=== PATIENT | male | born 1965 | race Caucasian/White ===

== ENCOUNTER 2016-06-19 10:09 | Inpatient (IN) | payer MEDICAID ==
[~2016-06-19] VITALS: Ht 188 cm; Wt 109.4 kg
[~2016-06-19 10:09] MED LIST: ALBU8.5H5 INH; AMLO5TAB66 PO; BUSP15TA3 PO; CARB200T6 PO; CARV25TA28 PO; CLON0.2T73 PO; CLOP75TA19 PO; CYCL-375 PO; DIPH50CA34 PO; FAMO40TA7 PO; FLUT1DIS INH; HYDR-4078 PO; INSU100I3 SQ; INSU300I SQ; LORA0.5T2 PO; MOME17SP7 EA NOSTRIL; NITR0.6T SL; PROM25TA7 PO; RABE20TA19 PO; RANI150C11 PO; SIMV80TA54 PO; SODI1TAB3 PO; TRAM50TA4 PO; VALS320T7 PO; ZIPR80CA PO
--- OUTSIDE RECORDS SUMMARY | 2016-06-19 10:17 | XMS REPORT ---
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
--- OUTSIDE RECORDS SUMMARY | 2016-06-19 10:17 | XMS REPORT ---
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
--- OUTSIDE RECORDS SUMMARY | 2016-06-19 10:17 | XMS REPORT | Referral Summary ---
Author Author [facility] Organization [facility] Address Unknown Phone Unavailable Care Team Providers Care Finished Goods Planner Name Role Phone Courtney Barry Primary Care Physician [phone] Encounter VC Date(s): 02/11/15 - 02/11/15 [facility] [address] [place] [id number] Discharge Diagnosis: Closed nondisp fracture of proximal phalanx of lesser toe of left foot Discharge Disposition: 01-Home or Self Care Attending Physician: Marni Lepe PA-C Admitting Physician: Marni Lepe PA-C Vital Signs Most recent to 1 oldest [Reference Range]: Peripheral Pulse 72 bpm Rate [60-100 bpm] (02/11/15 8:24 AM) Blood Pressure 140/80 mmHg [90-140/60-90 mmHg] (02/11/15 8:24 AM) Problem List Condition Effective Dates Status Health Status Informant Allergy to Active environmental factors(Confirmed) Anxiety(Confirmed) Active Arthritis(Confirmed) Active Asthma(Confirmed) Active Chronic kidney Active disease (CKD), stage II (mild)(Confirmed) Chronic low back Active pain(Confirmed) CAD (coronary artery Active disease)(Confirmed) Depression(Confirmed Active ) Diabetes(Confirmed) Active High risk Active medications (not anticoagulants) long-term use(Confirmed) Fibromyalgia(Confirm Active ed) Gastroesophageal Active reflux disease(Confirmed) Headache(Confirmed) Active Hyperlipidemia(Confi Active rmed) Hypertension(Confirm Active ed) Hyponatremia(Confirm Active ed) Irritable bowel Active disease(Confirmed) Migraine Active headache(Confirmed) Noncompliance(Confir Active med) Chronic Active insomnia(Confirmed) SIADH (syndrome of Active inappropriate ADH production)(Confirme d) DM (diabetes Active mellitus), type 1, uncontrolled(Confirm ed) Allergies, Adverse Reactions, Alerts Substance Reaction Severity Status DULoxetine uNspecfied Active erythromycin uNspecfied Active fluconazole uNspecfied Active ketorolac uNspecfied Active Latex Urticaria (hives) Medium Active metoclopramide itchy Medium Active nalbuphine uNspecfied Active penicillin Adverse Reaction Mild Active sulfamethoxazole upset stomach/adverse reaction Mild Active sulfanilamide topical Active Medications Abilify 2 mg oral tablet 1 tabs, Oral, Daily, from [place], 0 Refill(s) Start Date: 01/01/14 Status: Ordered AcipHex 20 mg oral delayed release tablet 1 tabs, Oral, Daily, # 90 tabs, 0 Refill(s), Pharmacy: [facility] [id number], 1 tabs Oral Daily Start Date: 08/12/13 Status: Ordered Aciphex 20 mg tablet,delayed release See Instructions, TAKE 1 TABLET BY MOUTH EVERY DAY., # 90 tabs, 1 Refill(s), eRx : [facility] [id number], TAKE 1 TABLET BY MOUTH EVERY DAY. Start Date: 07/27/14 Status: Ordered Aciphex 20 mg tablet,delayed release See Instructions, TAKE 1 TABLET BY MOUTH EVERY DAY., # 90 tabs, eRx: [facility] [id number], TAKE 1 TABLET BY MOUTH EVERY DAY. Start Date: 01/08/15 Status: Ordered amLODIPine 5 mg oral tablet See Instructions, 1 TABS ORAL BID, # 180 tabs, eRx: [facility] [id number], 1 TABS ORAL BID Start Date: 02/08/15 Status: Ordered carBAMazepine 200 mg oral tablet See Instructions, TAKE 1& 1/2 TABLETS BY MOUTH EVERY MORNING, 1 TABLET AT NOON, AND 1 TABLET AT BEDTIME, # 105 tabs, eRx: [facility] [id number], TAKE 1& 1/ 2 TABLETS BY MOUTH EVERY MORNING, 1 TABLET AT NOON, AND 1 TABLET AT BEDTIME Start Date: 02/01/15 Status: Ordered cloNIDine 0.2 mg oral tablet See Instructions, TAKE 1 TABLET BY MOUTH TWICE A DAY., # 180 tabs, 1 Refill(s), eRx: [facility] [id number], TAKE 1 TABLET BY MOUTH TWICE A DAY. Start Date: 10/28/14 Status: Ordered Coreg 25 mg oral tablet See Instructions, 1 TABS ORAL TID, # 270 tabs, 1 Refill(s), Pharmacy: [facility] [id number], 1 TABS ORAL TID Start Date: 01/04/15 Status: Ordered cyclobenzaprine 10 mg oral tablet See Instructions, TAKE 1 TABLET BY MOUTH EVERY 8 HOURS NEEDED., # 90 tabs, 1 Refill(s), eRx: [facility] [id number], TAKE 1 TABLET BY MOUTH EVERY 8 HOURS NEEDED. Start Date: 01/13/15 Status: Ordered Diovan 320 mg oral tablet See Instructions, 1 TABS ORAL DAILY; MUST HAVE APPT PRIOR TO ADDITIONAL REFILLS , # 30 tabs, 2 Refill(s), eRx: [facility] [id number], 1 TABS ORAL DAILY; MUST HAVE APPT PRIOR TO ADDITIONAL REFILLS Start Date: 12/21/14 Status: Ordered diphenhydrAMINE 50 mg oral capsule See Instructions, 3 CAPSULE BY MOUTH AT BEDTIME FOR SLEEP., # 90 caps, eRx: [facility] [id number], 3 CAPSULE BY MOUTH AT BEDTIME FOR SLEEP. Start Date: 04/20/14 Status: Ordered doxepin 50 mg oral capsule 1 caps, Oral, Bedtime (once a day), [facility], # 14 caps, 0 Refill(s) Start Date: 08/22/13 Status: Ordered Drisdol 50,000 intl units (1.25 mg) oral capsule 1 caps, Oral, qWeek, # 13 caps, 0 Refill(s), Pharmacy: [facility] [address], 1 caps Oral qWeek Start Date: 04/23/14 Status: Ordered famotidine 40 mg oral tablet 1 tabs, Oral, Bedtime (once a day), 0 Refill(s) Start Date: 08/20/13 Status: Ordered Geodon 20 mg oral capsule caps, Oral, BID, 0 Refill(s) Start Date: 08/20/13 Status: Ordered Glucometer (DME) DME Item Freellite tests qid for dx 250.00 and 250.02, See Instructions, # 1 Each, 0 Refill(s), Supply Start Date: 08/20/13 Status: Ordered Lantus Solostar Pen 100 units/mL subcutaneous solution See Instructions, 65 UNITS SUBCUTANEOUS BEDTIME (ONCE A DAY),INSTR:30 DAY SUPPLY , # 30 unknown unit, 2 Refill(s), eRx: [facility] [id number], 65 UNITS SUBCUTANEOUS BEDTIME (ONCE A DAY),INSTR:30 DAY SUPPLY Start Date: 11/17/14 Status: Ordered LORazepam 2 mg oral tablet 1 tabs, Oral, TID, 0 Refill(s) Start Date: 08/20/13 Status: Ordered Mag-Ox 400 1 tabs, Oral, BID, 0 Refill(s) Start Date: 08/20/13 Status: Ordered MiraLax oral powder for reconstitution See Instructions, TAKE (17G) BY ORAL ROUTE EVERY DAY MIXED WITH 8 OZ. WATER, JUICE, SODA, COFFEE OR TEA NEEDED FOR CONSTIPATION, # 1 bottles, 2 Refill(s) , eRx: [facility] [id number], TAKE (17G) BY ORAL ROUTE EVERY DAY MIXED WITH 8 OZ. WATER, J... Start Date: 03/19/14 Status: Ordered mupirocin 2% topical cream philip, Topical, TID, 0 Refill(s) Start Date: 08/20/13 Status: Ordered Nasonex 50 mcg/inh nasal spray See Instructions, INHALE 2 PUFFS TWICE A DAY., # 17 unknown unit, 3 Refill(s), eRx: [facility] [id number], INHALE 2 PUFFS TWICE A DAY. Start Date: 10/05/14 Status: Ordered nitroglycerin 0.6 mg sublingual tablet 1 tabs, SubLingual, q5min, as needed for chest pain, # 100 tabs, 0 Refill(s) Start Date: 08/20/13 Status: Ordered [place] 10 mg-325 mg oral tablet 1 tabs, Oral, q6hr, - MUST LAST 30 DAYS -, # 60 tabs, 0 Refill(s) Start Date: 02/08/15 Status: Ordered NovoLOG FlexPen 100 units/mL subcutaneous solution See Instructions, 34 UNITS TID WITH MEALS, # 3 unknown unit, 1 Refill(s), eRx: [facility] [id number], 34 UNITS TID WITH MEALS Start Date: 01/13/15 Status: Ordered Plavix 75 mg oral tablet See Instructions, 1 TABS ORAL DAILY, # 30 tabs, 2 Refill(s), eRx: [facility] [id number], 1 TABS ORAL DAILY Start Date: 12/21/14 Status: Ordered ProAir HFA 90 mcg/inh inhalation aerosol See Instructions, INHALE 2 PUFFS BY INHALATION 4 TIMES A DAY., # 1 inhalers, 1 Refill(s), eRx: [facility] [id number], INHALE 2 PUFFS BY INHALATION 4 TIMES A DAY. Start Date: 01/13/15 Status: Ordered promethazine 25 mg oral tablet See Instructions, TAKE 1 TO 2 TABLETS BY MOUTH EVERY 8 HOURS NEEDED FOR NAUSEA, # 120 tabs, eRx: [facility] [id number], TAKE 1 TO 2 TABLETS BY MOUTH EVERY 8 HOURS NEEDED FOR NAUSEA Start Date: 02/08/15 Status: Ordered ranitidine 150 mg oral capsule See Instructions, TAKE 1 CAPSULE BY MOUTH EVERY DAY., # 90 caps, 1 Refill(s), eRx: [facility] [id number], TAKE 1 CAPSULE BY MOUTH EVERY DAY. Start Date: 10/28/14 Status: Ordered traMADol 50 mg oral tablet 1-2 tabs, Oral, q8hr, as needed for pain, SHAHRAM-MUST LAST 30 DAYS, # 180 tabs, 0 Refill(s) Start Date: 02/08/15 Status: Ordered Zocor 80 mg oral tablet See Instructions, TAKE 1 TABLET BY MOUTH EVERY DAY., # 90 tabs, eRx: [facility] [id number], TAKE 1 TABLET BY MOUTH EVERY DAY. Start Date: 01/04/15 Status: Ordered Results No data available for this section Immunizations Vaccine Date Refusal Reason influenza virus vaccine, inactivated 12/22/14 influenza virus vaccine, inactivated 01/01/14 influenza virus vaccine, live 12/25/12 influenza virus vaccine, live 12/11/11 zoster vaccine live 12/26/12 Procedures Procedure Date Related Diagnosis Body Site Cardiac catheterization #21 2009 Stent placement2 2010 Cholecystectomy3 2005 Cardiac catheterization #14 2002 Fusion - disc5 1980 1Carotid artery disease 2Carotid artery disease 3Cholelithiasis 4Coronary artery disease 5Back pain Social History Social History Type Response Smoking Status Former smoker; Type: Cigarettes Assessment and Plan Extracted from: Title: Ambulatory Patient Education Author: Marni Lepe PA-C Date : 02/11/15 Family Medicine Toe Fracture Your caregiver has diagnosed you as having a fractured toe. A toe fracture is a break in the bone of a toe. "Ina taping" is a way of splinting your broken toe , by taping the broken toe to the toe next to it. This "ian taping" will keep the injured toe from moving beyond normal range of motion. Ian taping also helps the toe heal in a more normal alignment. It may take 6 to 8 weeks for the toe injury to heal. HOME CARE INSTRUCTIONS Leave your toes taped together for as long as directed by your caregiver or until you see a doctor for a follow-up examination. You can change the tape after bathing. Always use a small piece of gauze or cotton between the toes when taping them together. This will help the skin stay dry and prevent infection. Apply ice to the injury for 15-20 minutes each hour while awake for the first 2 days. Put the ice in a plastic bag and place a towel between the bag of ice and your skin. After the first 2 days, apply heat to the injured area. Use heat for the next [address] heating pad on the foot or soak the foot in warm water as directed by your caregiver. Keep your foot elevated as much as possible to lessen swelling. Wear sturdy, supportive shoes. The shoes should not pinch the toes or fit tightly against the toes. Your caregiver may prescribe a rigid shoe if your foot is very swollen. Your may be given crutches if the pain is too great and it hurts too much to walk. Only take uugo-eey-gyqwata or prescription medicines for pain, discomfort, or fever as directed by your caregiver. If your caregiver has given you a follow-up appointment, it is very important to keep that appointment. Not keeping the appointment could result in a chronic or permanent injury, pain, and disability. If there is any problem keeping the appointment, you must call back to this facility for assistance. SEEK MEDICAL CARE IF: You have increased pain or swelling, not relieved with medications. The pain does not get better after 1 week. Your injured toe is cold when the others are warm. SEEK IMMEDIATE MEDICAL CARE IF: The toe becomes cold, numb, or white. The toe becomes hot (inflamed) and red. Document Released: 02/23/2001 Document Revised: 05/20/2012 Document Reviewed: [facility] Patient Information 2015 [employer]. This information is not intended to replace advice given to you by your health care provider. Make sure you discuss any questions you have with your health care provider. No follow up information was provided. Extracted from: Title: Office Visit Note Author: Marni Lepe PA-C Date: 02/11/15 Assessment/Plan Closed nondisp fracture of proximal phalanx of lesser toe of left foot I wanted to make sure there was not any rotation or worsening due to his issues with neuropathy. It does not look much different than previous, which I think is good at this point. D/w him that he will most likely be in the boot for 4-6 weeks total. I would like him to continue wearing the boot, and follow up in 3 weeks to see how he is doing. I did offer to set him up with an orthopedist if he would like a second opinion, but he declined for now. Let us know if there is any change. Ordered: Office Visit Level 3 Est 70978 Pain in toe of left foot See above Ordered: Office Visit Level 3 Est 87331
--- OUTSIDE RECORDS SUMMARY | 2016-06-19 10:17 | XMS REPORT ---
Author Author Josephine Kim Organization eClinicalWorks Address Unknown Phone Unavailable Care Team Providers Care Photogeologist Name Role Phone Josephine Kim CP Unavailable Allergies No Known Allergies Problems Problem Type Condition ICD-9 Code Onset Dates Condition Status Problem Dysthymic disorder 300.4 Active Problem Dependent personality disorder 301.6 Active Problem Major depressive disorder, recurrent episode, severe, specified as with psychotic behavior 296.34 Active Medications Medication Code System Code Instructions Start Date End Date Status Dosage Geodon [facility] [address]-77 80 MG Orally At bedtime 2 capsules with food DiphenhydrAMINE HCl [facility] [address]-62 50 MG Orally Once a day for sleep 3 capsules at hs Abilify [facility] [address]-11 5 MG Orally Once a day 1 tab po at hs Results No Known Results Summary Purpose eClinicalWorks Submission
--- OUTSIDE RECORDS SUMMARY | 2016-06-19 10:17 | XMS REPORT ---
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
--- OUTSIDE RECORDS SUMMARY | 2016-06-19 10:17 | XMS REPORT ---
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
--- OUTSIDE RECORDS SUMMARY | 2016-06-19 10:17 | XMS REPORT ---
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 Assessment Major depressive disorder, recurrent, severe with psychotic symptoms F33.3 Active Assessment Dysthymic disorder F34.1 Active Medications Medication Code System Code Instructions Start Date End Date Status Dosage BusPIRone HCl [facility] [address]-01 15 MG Orally Three times a day 1 tablet Simvastatin [facility] [address]-04 80 MG Orally Once a day 1 tablet in the evening Trazodone HCl [facility] [address]-22 50 MG Orally Once a day as needed for sleep Jan 26, 2015 1-2 tablets at bedtime Ranitidine HCl [facility] [address]-52 150 MG Orally Once a day 1 capsule Geodon [facility] [address]-44 80 MG Orally At bedtime 2 capsules with food Promethazine HCl [facility] [address]-98 25 MG Orally PRN for nausea 1- 2 tabs every 8 hrs Lorazepam [facility] [address]-39 0.5 MG Orally up to three times daily as needed for anxiety 1 tablet Clopidogrel Bisulfate [facility] [address]-91 75 MG Orally Once a day 1 tablet Carvedilol [facility] [address]-08 25 MG Orally three times a day 1 tablet with food Carbamazepine [facility] [address]-82 200 MG Orally as directed 1 1/2 tabs in AM and 1 tablet at noon and bedtime Tramadol HCl [facility] [address]-30 50 MG Orally every 8 hrs 1 -2tabs as needed Hydrocodone-Acetaminophen [facility] [address]-23 10-325 MG Orally every 8 hrs 1 tablet as needed Amlodipine Besylate [facility] [address]-19 5 MG Orally twice a day 1 tablet DiphenhydrAMINE HCl [facility] [address]-50 50 MG Orally Once a day for sleep 3 capsules at hs Cyclobenzaprine HCl [facility] [address]-79 10 MG Orally every 8 hrs PRN 1 tablet Clonidine HCl [facility] [address]-75 0.2 MG Orally twice a day 1 tablet Rabeprazole Sodium [facility] [address]-34 20 MG Orally Once a day 1 tablet Procedures Procedure Coding System Code Date OFFICE VISIT, EST-MOD. COMPLEXITY (25 MIN) CPT-4 66594 Jan 26, 2015 Vital Signs Date/Time: Jan 26, 2015 Height 70.5 in Weight 242.4 lbs Temperature 99.0 F Blood Pressure Diastolic 88 mm Hg Blood Pressure Systolic 136 mm Hg Cardiac Monitoring Heart Rate 82 /min BMI 34.29 Index Respiratory Rate 18 /min Results No Known Results Summary Purpose eClinicalWorks Submission
--- OUTSIDE RECORDS SUMMARY | 2016-06-19 10:17 | XMS REPORT ---
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
--- OUTSIDE RECORDS SUMMARY | 2016-06-19 10:18 | XMS REPORT ---
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 [address]-93 20 MG Orally Once a day 1 tablet DiphenhydrAMINE HCl [facility] [address]-86 50 MG Orally Once a day for sleep 3 capsules at hs Promethazine HCl [facility] [address]-56 25 MG Orally PRN for nausea 1- 2 tabs every 8 hrs Hydrocodone-Acetaminophen [facility] [address]-38 10-325 MG Orally every 8 hrs 1 tablet as needed Simvastatin [facility] [address]-69 80 MG Orally Once a day 1 tablet in the evening Lorazepam [facility] [address]-46 0.5 MG Orally up to three times daily as needed for anxiety (may take 2 tabs at H.S. PRN) 1 tablet Ranitidine HCl [facility] [address]-61 150 MG Orally Once a day 1 capsule Clonidine HCl [facility] [address]-26 0.2 MG Orally twice a day 1 tablet Geodon [facility] [address]-37 80 MG Orally At bedtime 2 capsules with food BusPIRone HCl [facility] [address]-22 15 MG Orally Three times a day 1 tablet Carbamazepine [facility] [address]-48 200 MG Orally as directed 1 1/2 tabs in AM and 1 tablet at noon and bedtime Carvedilol [facility] [address]-18 25 MG Orally three times a day 1 tablet with food Cyclobenzaprine HCl [facility] [address]-85 10 MG Orally every 8 hrs PRN 1 tablet Amlodipine Besylate [facility] [address]-68 5 MG Orally twice a day 1 tablet Clopidogrel Bisulfate [facility] [address]-03 75 MG Orally Once a day 1 tablet Trazodone HCl [facility] [address]-08 50 MG Orally Once a day as needed for sleep Jan 26, 2015 1-2 tablets at bedtime Tramadol HCl [facility] [address]-49 50 MG Orally every 8 hrs 1 -2tabs as needed Procedures Procedure Coding System Code Date OFFICE VISIT, EST-MOD. COMPLEXITY (25 MIN) CPT-4 37016 Mar 16, 2015 Vital Signs Date/Time: Mar 16, 2015 Height 70.5 in Weight 242.5 lbs Temperature 98.7 F Blood Pressure Diastolic 70 mm Hg Blood Pressure Systolic 110 mm Hg Cardiac Monitoring Heart Rate 80 /min BMI 34.30 Index Respiratory Rate 20 /min Results No Known Results Summary Purpose eClinicalWorks Submission
--- OUTSIDE RECORDS SUMMARY | 2016-06-19 10:18 | XMS REPORT | Referral Summary ---
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 Machine Name Role Phone LindakathyCourtney hare Primary Care Physician [phone] Encounter Date(s): 05/24/15 - 05/24/15 [facility] [address] [place] [id number]- Discharge Diagnosis: Diabetes Discharge Diagnosis: Chronic pain Discharge Disposition: 01-Home or Self Care Attending Physician: Marni Lepe PA-C Admitting Physician: Marni Lepe PA-C Vital Signs Most recent to 1 oldest [Reference Range]: Peripheral Pulse 68 bpm Rate [60-100 bpm] (05/24/15 8:17 AM) Respiratory Rate 18 br/min [14-20 br/min] (05/24/15 8:17 AM) Blood Pressure 99/62 mmHg [90-140/60-90 mmHg] (05/24/15 8:17 AM) Problem List Condition Effective Dates Status [...] reaction Mild Active sulfanilamide topical Active Medications AcipHex 20 mg oral delayed release tablet 1 tabs, Oral, Daily, # 90 tabs, 0 Refill(s), Pharmacy: [facility] [id number], 1 tabs Oral Daily Start Date: 08/12/13 Status: Ordered Advair Diskus 100 mcg-50 mcg inhalation powder 1 puffs, Inhalation, BID, # 60 Each, 3 Refill(s), Pharmacy: [facility] [id number] Start Date: 03/17/15 Status: Ordered amLODIPine 5 mg oral tablet See Instructions, 1 TABS ORAL BID, # 180 tabs, 1 Refill(s), eRx: [facility] [id number], 1 TABS ORAL BID Start Date: 05/04/15 Status: Ordered busPIRone 15 mg, Oral, TID, 0 Refill(s) Start Date: 05/19/15 Status: Ordered carBAMazepine 200 mg oral tablet See Instructions, TAKE 1& 1/2 TABLETS BY MOUTH EVERY MORNING, 1 TABLET AT NOON, AND 1 TABLET AT BEDTIME, # 105 tabs, eRx: [facility] [id number], TAKE 1& 1/ 2 TABLETS BY MOUTH EVERY MORNING, 1 TABLET AT NOON, AND 1 TABLET AT BEDTIME Start Date: 05/04/15 Status: Ordered cloNIDine 0.2 mg oral tablet See Instructions, TAKE 1 TABLET BY MOUTH TWICE A DAY., # 180 tabs, eRx: [facility] [id number], TAKE 1 TABLET BY MOUTH TWICE A DAY. Start Date: 04/02/15 Status: Ordered clopidogrel 75 mg oral tablet 75 mg 1 tabs, Oral, Daily, # 90 tabs, 1 Refill(s), Pharmacy: [facility] [id number], 1 tabs Oral Daily,x90 days Start Date: 03/01/15 Stop Date: 05/30/15 Status: Ordered Coreg 25 mg oral tablet See Instructions, 1 TABS ORAL TID, # 270 tabs, 1 Refill(s), Pharmacy: [facility] [id number], 1 TABS ORAL TID Start Date: 01/04/15 Status: Ordered cyclobenzaprine 10 mg oral tablet See Instructions, TAKE 1 TABLET BY MOUTH EVERY 8 HOURS NEEDED, # 90 tabs, eRx : [facility] [id number], TAKE 1 TABLET BY MOUTH EVERY 8 HOURS NEEDED Start Date: 05/04/15 Status: Ordered diphenhydrAMINE 50 mg oral capsule See Instructions, 3 CAPSULE BY MOUTH AT BEDTIME FOR SLEEP., # 90 caps, eRx: [facility] [id number], 3 CAPSULE BY MOUTH AT BEDTIME FOR SLEEP. Start Date: 04/20/14 Status: Ordered Drisdol 50,000 intl units (1.25 mg) oral capsule 1 caps, Oral, qWeek, # 13 caps, 0 Refill(s), Pharmacy: [facility] [id number], 1 caps Oral qWeek Start Date: 04/23/14 Status: Ordered famotidine 40 mg oral tablet 1 tabs, Oral, Bedtime (once a day), 0 Refill(s) Start Date: 08/20/13 Status: Ordered Glucometer (DME) DME Item [facility] tests qid for dx 250.00 and 250.02, See Instructions, # 1 Each, 0 Refill(s), Supply Start Date: 08/20/13 Status: Ordered LORazepam 0.5 mg oral tablet 0.5 mg 1 tabs, Oral, TID, as needed for anxiety, 0 Refill(s) Start Date: 05/19/15 Status: Ordered [facility] Prescription 0 Refill(s) Start Date: 03/02/15 Status: Ordered Nasonex 50 mcg/inh nasal spray See Instructions, INHALE 2 PUFFS TWICE A DAY., # 17 unknown unit, eRx: [facility] [id number], INHALE 2 PUFFS TWICE A DAY. Start Date: 05/13/15 Status: Ordered Nebulizer Nebulizer, See Instructions, Nebulizer needed for breathing treatments q 4-6 hours prn soa/copd., # 1 Each, 0 Refill(s) Start Date: 04/19/15 Status: Ordered nitroglycerin 0.6 mg sublingual tablet 1 tabs, SubLingual, q5min, as needed for chest pain, # 100 tabs, 0 Refill(s) Start Date: 08/20/13 Status: Ordered Haven 10 mg-325 mg oral tablet 1 tabs, Oral, q6hr, - MUST LAST 30 DAYS -, # 60 tabs, 0 Refill(s) Start Date: 05/10/15 Status: Ordered NovoLOG FlexPen 100 units/mL subcutaneous solution See Instructions, 60 UNITS TID WITH MEALS Pt adjusts based on accuchecks, # 3 unknown unit, eRx: [facility] [id number], 34 UNITS TID WITH MEALS Start Date: 05/06/15 Status: Ordered ProAir HFA 90 mcg/inh inhalation aerosol See Instructions, INHALE 2 PUFFS BY INHALATION 4 TIMES A DAY., # 1 inhalers, eRx : [facility] [id number], INHALE 2 PUFFS BY INHALATION 4 TIMES A DAY. Start Date: 05/13/15 Status: Ordered promethazine 25 mg oral tablet See Instructions, TAKE 1 TO 2 TABLETS BY MOUTH EVERY 8 HOURS NEEDED FOR NAUSEA, # 120 tabs, eRx: [facility] [id number], TAKE 1 TO 2 TABLETS BY MOUTH EVERY 8 HOURS NEEDED FOR NAUSEA Start Date: 05/13/15 Status: Ordered ranitidine 150 mg oral capsule See Instructions, TAKE 1 CAPSULE BY MOUTH TWICE DAILY, # 90 caps, eRx: [facility] [id number], TAKE 1 CAPSULE BY MOUTH EVERY DAY. Start Date: 05/04/15 Status: Ordered SKIN BARRIER WIPES,SWABS SKIN BARRIER WIPES,SWABS, See Instructions, Use three times daily and as needed for diabetic care. Dx: E11.65 Length of need : 99-lifetime [facility] Each, 2 Refill(s) Start Date: 03/02/15 Status: Ordered Toujeo SoloStar 300 units/mL subcutaneous solution 73 units, SubCutaneous, Bedtime (once a day), # 4 mL, 6 Refill(s), Pharmacy: [facility] [id number], Switching from Lantus to Toujeo, 73 units SubCutaneous Bedtime (once a day) Start Date: 05/24/15 Status: Ordered Toujeo SoloStar 300 units/mL subcutaneous solution 73 units, SubCutaneous, Bedtime (once a day), Gave 3 sample pens, # 4 mL, 0 Refill(s), samples given to patient (Rx) Start Date: 05/24/15 Status: Ordered traMADol 50 mg oral tablet 1-2 tabs, Oral, q8hr, as needed for pain, SHAHRAM- MUST LAST 30 DAYS, # 180 tabs, 0 Refill(s) Start Date: 05/06/15 Status: Ordered traZODone 50 mg oral tablet 100 mg 2 tabs, Oral, Bedtime (once a day), 0 Refill(s) Start Date: 05/19/15 Status: Ordered valsartan 320 mg oral tablet 320 mg 1 tabs, Oral, Daily, # 90 tabs, 1 Refill(s), [id number], 1 tabs Oral Daily,x90 days Start Date: 03/01/15 Stop Date: 05/30/15 Status: Ordered ziprasidone 80 mg oral capsule 160 mg 2 caps, Oral, Daily, 0 Refill(s) Start Date: 05/19/15 Status: Ordered Zocor 80 mg oral tablet See Instructions, TAKE 1 TABLET BY MOUTH EVERY DAY., # 90 tabs, eRx: [facility] [id number], TAKE 1 TABLET BY MOUTH EVERY DAY. Start Date: 03/24/15 Status: Ordered Results Chemistry Most recent to 1 oldest [Reference Range]: Sodium Lvl [135-144 128 mEq/L mEq/L] *LOW* (05/24/15 9:10 AM) Potassium Lvl 5.2 mEq/L [3.5-5.2 mEq/L] (05/24/15 9:10 AM) Chloride [99-111 96 mEq/L mEq/L] *LOW* (05/24/15 9:10 AM) CO2 [23-31 mEq/L] 25 mEq/L (05/24/15 9:10 AM) AGAP [3-20] 7 (05/24/15 9:10 AM) BUN [8-26 mg/dL] 12 mg/dL (05/24/15 9:10 AM) Glucose Lvl [70-99 389 mg/dL mg/dL] *HI* (05/24/15 9:10 AM) Creatinine Lvl 1.26 mg/dL [0.72-1.25 mg/dL] *HI* (05/24/15 9:10 AM) eGFR [>60 mL/min] >60 mL/min 1 (05/24/15 9:10 AM) Calcium Lvl 8.8 mg/dL [8.9-10.5 mg/dL] *LOW* (05/24/15 9:10 AM) 1Result Comment: Multiply eGFR results by 1.21 for race. Immunizations Vaccine Date Refusal Reason influenza virus vaccine, inactivated 12/22/14 influenza virus vaccine, inactivated 01/01/14 influenza virus vaccine, live 12/25/12 influenza virus vaccine, live 12/11/11 zoster vaccine live 12/26/12 Procedures Procedure Date Related Diagnosis Body Site Cardiac catheterization #21 2009 Stent placement2 2009 Cholecystectomy3 2004 Cardiac catheterization #14 2002 Fusion - disc5 1980 1Carotid artery disease 2Carotid artery disease 3Cholelithiasis 4Coronary artery disease 5Back pain Social History Social History Type Response Smoking Status Former smoker; Type: Cigarettes Assessment and Plan Extracted from: Title: Ambulatory Patient Education Author: Marni Lepe PA-C Date : 05/24/15 Cardiovascular Hyponatremia Hyponatremia is when the amount of salt (sodium) in your blood is too low. When sodium levels are low, your cells will absorb extra water and swell. The swelling happens throughout the body, but it mostly affects the brain. Severe brain swelling (cerebral edema), seizures, or coma can happen. CAUSES Heart, kidney, or liver problems. Thyroid problems. Adrenal gland problems. Severe vomiting and diarrhea. Certain medicines or illegal drugs. Dehydration. Drinking too much water. Low-sodium diet. SYMPTOMS Nausea and vomiting. Confusion. Lethargy. Agitation. Headache. Twitching or shaking (seizures). Unconsciousness. Appetite loss. Muscle weakness and cramping. DIAGNOSIS Hyponatremia is identified by a simple blood test. Your caregiver will perform a history and physical exam to try to find the cause and type of hyponatremia. Other tests may be needed to measure the amount of sodium in your blood and urine. TREATMENT Treatment will depend on the cause. Fluids may be given through the vein (IV). Medicines may be used to correct the sodium imbalance. If medicines are causing the problem, they will need to be adjusted. Water or fluid intake may be restricted to restore proper balance. The speed of correcting the sodium problem is very important. If the problem is corrected too fast, nerve damage (sometimes unchangeable) can happen. HOME CARE INSTRUCTIONS Only take medicines as directed by your caregiver. Many medicines can make hyponatremia worse. Discuss all your medicines with your caregiver. Carefully follow any recommended diet, including any fluid restrictions. You may be asked to repeat lab tests. Follow these directions. Avoid alcohol and recreational drugs. SEEK MEDICAL CARE IF: You develop worsening nausea, fatigue, headache, confusion, or weakness. Your original hyponatremia symptoms return. You have problems following the recommended diet. SEEK IMMEDIATE MEDICAL CARE IF: You have a seizure. You faint. You have ongoing diarrhea or vomiting. MAKE SURE YOU: Understand these instructions. Will watch your condition. Will get help right away if you are not doing well or get worse. This information is not intended to replace advice given to you by your health care provider. Make sure you discuss any questions you have with your health care provider. Document Released: 02/16/2003 Document Revised: 12/15/2014 Document Reviewed: [facility] Patient Information 2015 [facility]. [facility] Chronic Pain Chronic pain can be defined as pain that is off and on and lasts for 36 months or longer. Many things cause chronic pain, which can make it difficult to make a diagnosis. There are many treatment options available for chronic pain. However, finding a treatment that works well for you may require trying various approaches until the right one is found. Many people benefit from a combination of two or more types of treatment to control their pain. SYMPTOMS Chronic pain can occur anywhere in the body and can range from mild to very severe. Some types of chronic pain include: Headache. Low back pain. Cancer pain. Arthritis pain. Neurogenic pain. This is pain resulting from damage to nerves. People with chronic pain may also have other symptoms such as: Depression. Anger. Insomnia. Anxiety. DIAGNOSIS Your health care provider will help diagnose your condition over time. In many cases, the initial focus will be on excluding possible conditions that could be causing the pain. Depending on your symptoms, your health care provider may order tests to diagnose your condition. Some of these tests may include: Blood tests. CT scan. MRI. X-rays. Ultrasounds. Nerve conduction studies. You may need to see a specialist. TREATMENT Finding treatment that works well may take time. You may be referred to a pain specialist. He or she may prescribe medicine or therapies, such as: Mindful meditation or yoga. Shots (injections) of numbing or pain-relieving medicines into the spine or area of pain. Local electrical stimulation. Acupuncture. Massage therapy. Aroma, color, light, or sound therapy. Biofeedback. Working with a physical therapist to keep from getting stiff. Regular, gentle exercise. Cognitive or behavioral therapy. Group support. Sometimes, surgery may be recommended. HOME CARE INSTRUCTIONS Take all medicines as directed by your health care provider. Lessen stress in your life by relaxing and doing things such as listening to calming music. Exercise or be active as directed by your health care provider. Eat a healthy diet and include things such as vegetables, fruits, fish, and lean meats in your diet. Keep all follow-up appointments with your health care provider. Attend a support group with others suffering from chronic pain. SEEK MEDICAL CARE IF: Your pain gets worse. You develop a new pain that was not there before. You cannot tolerate medicines given to you by your health care provider. You have new symptoms since your last visit with your health care provider. SEEK IMMEDIATE MEDICAL CARE IF: You feel weak. You have decreased sensation or numbness. You lose control of bowel or bladder function. Your pain suddenly gets much worse. You develop shaking. You develop chills. You develop confusion. You develop chest pain. You develop shortness of breath. MAKE SURE YOU: Understand these instructions. Will watch your condition. Will get help right away if you are not doing well or get worse. This information is not intended to replace advice given to you by your health care provider. Make sure you discuss any questions you have with your health care provider. Document Released: 11/18/2002 Document Revised: 10/29/2013 Document Reviewed: [facility] Patient Information 2015 [facility]. Ophthalmology Type 2 Diabetes Mellitus Type 2 diabetes mellitus, often simply referred to as type 2 diabetes, is a long -lasting (chronic) disease. In type 2 diabetes, the pancreas does not make enough insulin (a hormone), the cells are less responsive to the insulin that is made (insulin resistance), or both. Normally, insulin moves sugars from food into the tissue cells. The tissue cells use the sugars for energy. The lack of insulin or the lack of normal response to insulin causes excess sugars to build up in the blood instead of going into the tissue cells. As a result, high blood sugar (hyperglycemia) develops. The effect of high sugar (glucose) levels can cause many complications. Type 2 diabetes was also previously called adult-onset diabetes, but it can occur at any age. RISK FACTORS A person is predisposed to developing type 2 diabetes if someone in the family has the disease and also has one or more of the following primary risk factors: Weight gain, or being overweight or obese. An inactive lifestyle. A history of consistently eating high-calorie foods. Maintaining a normal weight and regular physical activity can reduce the chance of developing type 2 diabetes. SYMPTOMS A person with type 2 diabetes may not show symptoms initially. The symptoms of type 2 diabetes appear slowly. The symptoms include: Increased thirst (polydipsia). Increased urination (polyuria). Increased urination during the night (nocturia). Sudden or unexplained weight changes. Frequent, recurring infections. Tiredness (fatigue). Weakness. Vision changes, such as blurred vision. Fruity smell to your breath. Abdominal pain. Nausea or vomiting. Cuts or bruises which are slow to heal. Tingling or numbness in the hands or feet. DIAGNOSIS Type 2 diabetes is frequently not diagnosed until complications of diabetes are present. Type 2 diabetes is diagnosed when symptoms or complications are present and when blood glucose levels are increased. Your blood glucose level may be checked by one or more of the following blood tests: A fasting blood glucose test. You will not be allowed to eat for at least 8 hours before a blood sample is taken. A random blood glucose test. Your blood glucose is checked at any time of the day regardless of when you ate. A hemoglobin A1c blood glucose test. A hemoglobin A1c test provides information about blood glucose control over the previous 3 months. An oral glucose tolerance test (OGTT). Your blood glucose is measured after you have not eaten (fasted) for 2 hours and then after you drink a glucose -containing beverage. TREATMENT You may need to take insulin or diabetes medicine daily to keep blood glucose levels in the desired range. If you use insulin, you may need to adjust the dosage depending on the carbohydrates that you eat with each meal or snack. Lifestyle changes are recommended as part of your treatment. These may include: Following an individualized diet plan developed by a manager of network or dietitian. Exercising daily. Your health care providers will set individualized treatment goals for you based on your age, your medicines, how long you have had diabetes, and any other medical conditions you have. Generally, the goal of treatment is to maintain the following blood glucose levels: Before meals (preprandial): 44582 mg/dL. After meals (postprandial): below 180 mg/dL. A1c: less than 6.57%. HOME CARE INSTRUCTIONS Have your hemoglobin A1c level checked twice a year. Perform daily blood glucose monitoring as directed by your health care provider. Monitor urine ketones when you are ill and as directed by your health care provider. Take your diabetes medicine or insulin as directed by your health care provider to maintain your blood glucose levels in the desired range. Never run out of diabetes medicine or insulin. It is needed every day. If you are using insulin, you may need to adjust the amount of insulin given based on your intake of carbohydrates. Carbohydrates can raise blood glucose levels but need to be included in your diet. Carbohydrates provide vitamins, minerals, and fiber which are an essential part of a healthy diet. Carbohydrates are found in fruits, vegetables, whole grains, dairy products, legumes, and foods containing added sugars. Eat healthy foods. You should make an appointment to see a registered dietitian to help you create an eating plan that is right for you. Lose weight if you are overweight. Carry a medical alert card or wear your medical alert jewelry. Carry a 15-gram carbohydrate snack with you at all times to treat low blood glucose (hypoglycemia). Some examples of 15-gram carbohydrate snacks include: Glucose tablets, 3 or 4. Glucose gel, 15-gram tube. Raisins, 2 tablespoons (24 grams). Jelly beans, 6. Animal crackers, 8. Regular pop, 4 ounces (120 mL). Gummy treats, 9. Recognize hypoglycemia. Hypoglycemia occurs with blood glucose levels of 70 mg/dL and below. The risk for hypoglycemia increases when fasting or skipping meals, during or after intense exercise, and during sleep. Hypoglycemia symptoms can include: Tremors or shakes. Decreased ability to concentrate. Sweating. Increased heart rate. Headache. Dry mouth. Hunger. Irritability. Anxiety. Restless sleep. Altered speech or coordination. Confusion. Treat hypoglycemia promptly. If you are alert and able to safely swallow , follow the 15:15 rule: Take 1520 grams of rapid-acting glucose or carbohydrate. Rapid-acting options include glucose gel, glucose tablets, or 4 ounces (120 mL) of fruit juice, regular soda, or low-fat milk. Check your blood glucose level 15 minutes after taking the glucose. Take 1520 grams more of glucose if the repeat blood glucose level is still 70 mg/dL or below. Eat a meal or snack within 1 hour once blood glucose levels return to normal. Be alert to feeling very thirsty and urinating more frequently than usual , which are early signs of hyperglycemia. An early awareness of hyperglycemia allows for prompt treatment. Treat hyperglycemia as directed by your health care provider. Engage in at least 150 minutes of moderate-intensity physical activity a week, spread over at least 3 days of the week or as directed by your health care provider. In addition, you should engage in resistance exercise at least 2 times a week or as directed by your health care provider. Try to spend no more than 90 minutes at one time inactive. Adjust your medicine and food intake as needed if you start a new exercise or sport. Follow your sick-day plan anytime you are unable to eat or drink as usual. Do not use any tobacco products including cigarettes, chewing tobacco, or electronic cigarettes. If you need help quitting, ask your health care provider. Limit alcohol intake to no more than 1 drink per day for non women and 2 drinks per day for men. You should drink alcohol only when you are also eating food. Talk with your health care provider whether alcohol is safe for you. Tell your health care provider if you drink alcohol several times a week. Keep all follow-up visits as directed by your health care provider. This is important. Schedule an eye exam soon after the diagnosis of type 2 diabetes and then annually. Perform daily skin and foot care. Examine your skin and feet daily for cuts, bruises, redness, nail problems, bleeding, blisters, or sores. A foot exam by a health care provider should be done annually. [place] your teeth and gums at least twice a day and floss at least once a day. Follow up with your dentist regularly. Share your diabetes management plan with your workplace or school. Keep your immunizations up to date. It is recommended that you receive a flu (influenza) vaccine every year. It is also recommended that you receive a pneumonia (pneumococcal) vaccine. If you are 65 years of age or older and have never received a pneumonia vaccine, this vaccine may be given as a series of two separate shots. Ask your health care provider which additional vaccines may be recommended. Learn to manage stress. Obtain ongoing diabetes education and support as needed. Participate in or seek rehabilitation as needed to maintain or improve independence and quality of life. Request a physical or occupational therapy referral if you are having foot or hand numbness, or difficulties with grooming , dressing, eating, or physical activity. SEEK MEDICAL CARE IF: You are unable to eat food or drink fluids for more than 6 hours. You have nausea and vomiting for more than 6 hours. Your blood glucose level is over 240 mg/dL. There is a change in mental status. You develop an additional serious illness. You have diarrhea for more than 6 hours. You have been sick or have had a fever for a couple of days and are not getting better. You have pain during any physical activity. SEEK IMMEDIATE MEDICAL CARE IF: You have difficulty breathing. You have moderate to large ketone levels. MAKE SURE YOU: Understand these instructions. Will watch your condition. Will get help right away if you are not doing well or get worse. This information is not intended to replace advice given to you by your health care provider. Make sure you discuss any questions you have with your health care provider. Document Released: 02/26/2006 Document Revised: 12/15/2014 Document Reviewed: [employer] Patient Information 2015 [place]. No follow up information was provided. Extracted from: Title: Office Visit Note- Hospital Author: Marni Lepe PA-C Date : 05/24/15 f/u Assessment/Plan Chronic pain D/w Dr. Barry. He would not like to increase the pt's Haven at this time. This was conveyed to the pt. If he would like to discuss this further, I recommended that he schedule an appt with Dr. Barry to discuss. Ordered: [facility] 7 Day Disch [id number] Diabetes I thinkif his diabetes is under better control, his sodium levels would improve as well. I d/w pt 2 different options: 1) Could splint Lantus to an injection in the AM and an injection in the PM or 2)Couldswitch to Toujeo. He would like to try the new medication. Will switch himdirectly from Lantus to Toujeo at same number of units, and adjust as necessary. He was given samples,Rx card, and pamphleton Toujeo. Continue to check BG levels, and let us know if fasting is not decreasing or if there is abig drop in fasting to adjust insulin. He was told to stop the Lantus, but continue on Novolog at current doses. Pt voiced understanding. Ordered: [facility] 7 Day Disch [id number] Hyponatremia Will recheck BMP today(was supposed to recheck on 05/18, but didn 't come in). Continue with fluid restriction and salt tabs. Ordered: [facility] 7 Day Disch [id number] Orders: insulin glargine, 73 units, SubCutaneous, Bedtime (once a day), # 4 mL , 6 Refill(s), Pharmacy: [facility] [id number], Switching from Lantus to [place], 73 units SubCutaneous Bedtime (once a day) insulin glargine, 73 units, SubCutaneous, Bedtime (once a day), Gave 3 sample pens, # 4 mL, 0 Refill(s), samples given to patient (Rx)
--- OUTSIDE RECORDS SUMMARY | 2016-06-19 10:18 | XMS REPORT | Continuity of Care Document ---
Author Author Dolores Mccracken LPN Ambulatory Address [address] [place] [address] Phone Unavailable Care Team Providers Care Electronic Technologist Name Role Phone Lindakathyananya Maksim DIOR Unavailable Payers Payer name Insurance type Covered constitution party ID Authorization(s) Unknown Problems Condition Effective Dates (start - stop) Clinical Status Sinusitis, Acute - *Acute Cough - *Acute Tobacco Abuse - *Chronic Diabetes Mellitus, Adult Onset, Uncontrolled - *Chronic Chronic kidney disease, unspecified - *Chronic CAD, Unspecified - *Chronic Depression - *Chronic CHRONIC PAIN NEC - *Controlled MGRN WO [facility] W [facility] MGRN - Diabetes Mellitus, Adult Onset, Uncontrolled - *Chronic Hypertension, Benign - *Chronic Other and unspecified hyperlipidemia - *Chronic Headache - *Chronic CAD, Unspecified - *Chronic GERD - *Chronic Chronic kidney disease, Stage III (moderate) - Moderate Other chronic otitis externa - *Chronic Diabetes Mellitus, Adult Onset, Uncontrolled - *Chronic CAD, Unspecified - *Chronic Hypertension, Benign - *Chronic GERD - *Chronic Cellulitis and abscess of face - *Chronic Other and unspecified hyperlipidemia - *Chronic Chronic kidney disease, Stage III (moderate) - Moderate Headache - *Chronic Headache - *Chronic Diabetes Mellitus, Adult Onset, Uncontrolled - *Chronic CAD, Unspecified - *Chronic Hypertension, Benign - *Chronic Lumbago - *Chronic Chronic kidney disease, Stage III (moderate) - Moderate GERD - *Chronic Other abnormal blood chemistry - *Chronic Influenza Vaccine - Headache - *Acute Respiratory Insufficiency - *Chronic Diabetes Mellitus, Adult Onset, Uncontrolled - *Chronic CAD, Unspecified - *Chronic Hypertension, Benign - *Chronic Other and unspecified hyperlipidemia - *Chronic GERD - *Chronic Asthma - *Chronic NEED FOR PROPHYLACTIC VACCINATION AND INOCULATION, OTHER VIRAL DISEASES - Family History Family Member Diagnosis Age At Onset Status Mother (Unknown) Cancer -breast Yes Brother (Unknown) CAD Yes Brother (Unknown) CVA (Stroke) Yes Brother (Unknown) Diabetes Yes Father (Unknown) CAD Yes Social History Social History Element Description Quantity Unknown Allergies, Adverse Reactions, Alerts Substance Reaction Severity Status ERYTHROMYCIN BASE Unknown LATEX Unknown PENICILLINS Unknown SULFANILAMIDE Unknown DULOXETINE HCL Unknown FLUCONAZOLE Unknown KETOROLAC TROMETHAMINE Unknown METOCLOPRAMIDE HCL Unknown NALBUPHINE HCL Unknown NSAIDS (NON-STEROIDAL ANTI-INFLAMMATORY DRUG) Unknown Medications Medication Instructions Dosage Effective Dates (start - stop) Status Cipro 500 mg tablet take 1 tablet (500MG) by oral route every 12 hours 500 MG - Active tramadol 50 mg tablet Take 1-2 tablet by mouth every 8 hours as needed. - No Longer Active BD Insulin Syringe Ult-Fine II 1/2 mL 31 x 5/16" INJECTING QID- DX- 250.02 - Active lancets B-D ULTRA-FINE 22 LANCETS. USE DIRECTED - Active bisacodyl 5 mg tablet Take 4 tabs at 10:00 am the day prior to procedure. - Active GEODON (unknown strength) take 1 capsule by oral route 2 times every day with food - Active LORAZEPAM (unknown strength) take 1 tablet by oral route 3 times every day as needed - Active NITROGLYCERIN (unknown strength) place 1 tablet by sublingual route at the 1st sign of attack; may repeat every 5 min until relief; if pain persists after 3 tablets in 15 min, prompt medical attention is recommended - Active FreeStyle Lite Strips Test before meals and at bed time. DX:250.02 2012 - Active pen needle, diabetic, remover & disposal unit 29 x 1/2" Inject four times a day DX:250.00 - Active Lancets,Ultra Thin 26 gauge Test four times a day DX:250. - Active famotidine 40 mg tablet take 1 tablet (40MG) by oral route every day at bedtime 40 MG - Active Lantus Solostar 100 unit/mL (3 mL) subcutaneous insulin pen 65 units q hs - Active mupirocin 2 % topical ointment apply by topical route 3 times every day a small amount to the affected area 0 - Active Aciphex 20 mg tablet,delayed release Take 1 tablet by mouth every day. Feb - Active Diovan 320 mg tablet Take 1 tablet by mouth every day. - Active ranitidine 150 mg capsule Take 1 capsule by mouth every day. - Active Plavix 75 mg tablet Take 1 tablet by mouth every day. - Active Coreg 25 mg tablet Take 1 tablet by mouth 3 times a day. - Active clonidine 0.2 mg tablet Take 1 tablet by mouth twice a day. - Active Zocor 80 mg tablet Take 1 tablet by mouth every day. - Active amlodipine 5 mg tablet Take 1 tablet by mouth twice a day. - Active Novolog Flexpen 100 unit/mL subcutaneous 34 units tid with meals 2012 - Active Miralax 17 gram/dose oral powder take (17G) by oral route every day mixed with 8 oz. water, juice, soda, coffee or tea as needed for constipation - Active magnesium oxide 400 mg tablet Take 1 tablet by mouth twice a day. 2013 - Active promethazine 25 mg tablet 1-2 tabs po q 8 hours prn nausea - Active carbamazepine 200 mg tablet 1 1/2 tabs po q am, 1 tab at noon, and 1 at hs. - Active Nasonex 50 mcg/actuation [place] Inhale 2 puffs twice a day. - Active ProAir HFA 90 mcg/actuation aerosol inhaler Inhale 2 puffs by inhalation 4 times a day. - Active cyclobenzaprine 10 mg tablet Take 1 tablet by mouth every 8 hours as needed. - Active tramadol 50 mg tablet Take 1-2 tablet by mouth every 8 hours as needed. - Active [place] 10 mg-325 mg tablet Take 1 tablet by mouth every 6 hours as needed. - Active Immunizations Vaccine Date Status Comments Flu (split) (3 yrs or older) completed Zoster completed flu (split) (3 yrs or older) completed - Completed reason: public agency Results Test Name Date and Time Measure Units Reference Range Abnormal Flag Comments Unknown Vital Signs Date / Time: Height Weight Pulse Rate Blood Pressure Temperature /09:38:00 72.00 in 235.00 lbs 120/70 mm[Hg] 97.4 F Procedures Procedure Date Unknown Encounters Encounter Location Date Patient Visit [facility] Patient Visit Conversion Patient Visit [facility] Patient Visit [facility] Patient Visit [facility] Patient Visit [facility] Patient Visit [facility] Patient Visit [facility] Patient Visit [facility] Patient Visit [facility] Patient Visit [facility] Patient Visit [facility] Patient Visit [facility] Patient Visit [facility] Patient Visit [facility] Patient Visit [facility] Patient Visit [facility] Patient Visit [facility] Advance Directives Directive Effective Date Unknown
--- OUTSIDE RECORDS SUMMARY | 2016-06-19 10:19 | XMS REPORT ---
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
--- OUTSIDE RECORDS SUMMARY | 2016-06-19 10:19 | XMS REPORT | Referral Summary ---
Author Author [facility] Medicine Organization [facility] Address Unknown Phone Unavailable Care Team Providers Care Learning Disabled Teacher Name Role Phone Courtney Barry Primary Care Physician [phone] Encounter VC Date(s): 04/19/15 - 04/19/15 [facility] [address] [place] [id number]- Discharge Disposition: 01-Home or Self Care Attending Physician: Maksim Barry MD Admitting Physician: Maksim Barry MD Vital Signs Most recent to 1 oldest [Reference Range]: Blood Pressure 140/80 mmHg [90-140/60-90 mmHg] (04/19/15 11:25 AM) Problem List Condition Effective Dates Status [...] oral tablet 1 tabs, Oral, Daily, from [facility], 0 Refill(s) Start Date: 01/01/14 Status: Ordered AcipHex 20 mg oral delayed release tablet 1 tabs, Oral, Daily, # 90 tabs, 0 Refill(s), Pharmacy: [facility] [id number], 1 tabs Oral Daily Start Date: 08/12/13 Status: Ordered Aciphex 20 mg tablet,delayed release See Instructions, TAKE 1 TABLET BY MOUTH EVERY DAY., # 90 tabs, eRx: [facility] [id number], TAKE 1 TABLET BY MOUTH EVERY DAY. Start Date: 04/19/15 Status: Ordered Aciphex 20 mg tablet,delayed release See Instructions, TAKE 1 TABLET BY MOUTH EVERY DAY., # 90 tabs, eRx: [facility] [id number], TAKE 1 TABLET BY MOUTH EVERY DAY. Start Date: 03/24/15 Status: Ordered Aciphex 20 mg tablet,delayed release See Instructions, TAKE 1 TABLET BY MOUTH EVERY DAY., # 90 tabs, 1 Refill(s), eRx : [facility] [id number], TAKE 1 TABLET BY MOUTH EVERY DAY. Start Date: 07/27/14 Status: Ordered Aciphex 20 mg tablet,delayed release See Instructions, TAKE 1 TABLET BY MOUTH EVERY DAY., # 90 tabs, eRx: [facility] [id number], TAKE 1 TABLET BY MOUTH EVERY DAY. Start Date: 01/08/15 Status: Ordered Advair Diskus 100 mcg-50 mcg inhalation powder 1 puffs, Inhalation, BID, # 60 Each, 3 Refill(s), Pharmacy: [facility] [id number] Start Date: 03/17/15 Status: Ordered albuterol 2.5 mg/3 mL (0.083%) inhalation solution 2.5 mg 3 mL, Inhalation, q6hr, # 1 boxes, 0 Refill(s), Pharmacy: [facility] [id number], 3 mL Inhalation q6hr Start Date: 04/19/15 Status: Ordered amLODIPine 5 mg oral tablet See Instructions, 1 TABS ORAL BID, # 180 tabs, 1 Refill(s), eRx: [facility] [id number], 1 TABS ORAL BID Start Date: 03/01/15 Status: Ordered carBAMazepine 200 mg oral tablet See Instructions, TAKE 1& 1/2 TABLETS BY MOUTH EVERY MORNING, 1 TABLET AT NOON, AND 1 TABLET AT BEDTIME, # 105 tabs, [id number], TAKE 1& 1/ 2 TABLETS BY MOUTH EVERY MORNING, 1 TABLET AT NOON, AND 1 TABLET AT BEDTIME Start Date: 03/01/15 Status: Ordered cloNIDine 0.2 mg oral tablet See Instructions, TAKE 1 TABLET BY MOUTH TWICE A DAY., # 180 tabs, 1 Refill(s), eRx: [facility] [id number], TAKE 1 TABLET BY MOUTH TWICE A DAY. Start Date: 10/28/14 Status: Ordered cloNIDine 0.2 mg oral tablet See Instructions, TAKE 1 TABLET BY MOUTH TWICE A DAY., # 180 tabs, [facility]: [facility] [id number], TAKE 1 TABLET BY MOUTH TWICE A DAY. Start Date: 04/02/15 Status: Ordered clopidogrel 75 mg oral tablet 75 mg 1 tabs, Oral, Daily, # 90 tabs, 1 Refill(s), [facility]: [id number], 1 tabs Oral Daily,x90 days Start Date: 03/01/15 Stop Date: 05/30/15 Status: Ordered Coreg 25 mg oral tablet See Instructions, 1 TABS ORAL TID, # 270 tabs, 1 Refill(s), [facility]: [id number], 1 TABS ORAL TID Start Date: 01/04/15 Status: Ordered cyclobenzaprine 10 mg oral tablet See Instructions, TAKE 1 TABLET BY MOUTH EVERY 8 HOURS NEEDED, # 90 tabs, [facility] : [id number], TAKE 1 TABLET BY MOUTH EVERY 8 HOURS NEEDED Start Date: 03/31/15 Status: Ordered cyclobenzaprine 10 mg oral tablet See Instructions, TAKE 1 TABLET BY MOUTH EVERY 8 HOURS NEEDED, # 90 tabs, 0 Refill(s), [facility]: [id number], TAKE 1 TABLET BY MOUTH EVERY 8 HOURS NEEDED Start Date: 03/01/15 Status: Ordered diphenhydrAMINE 50 mg oral capsule See Instructions, 3 CAPSULE BY MOUTH AT BEDTIME FOR SLEEP., # 90 caps, eRx: [facility] [id number], 3 CAPSULE BY MOUTH AT BEDTIME FOR SLEEP. Start Date: 04/20/14 Status: Ordered doxepin 50 mg oral capsule 1 caps, Oral, Bedtime (once a day), DERRICK, # 14 caps, 0 Refill(s) Start Date: 08/22/13 Status: Ordered Drisdol 50,000 intl units (1.25 mg) oral capsule 1 caps, Oral, qWeek, # 13 caps, 0 Refill(s), Pharmacy: [facility] [id number], 1 caps Oral qWeek Start Date: 04/23/14 [...] DAY SUPPLY , # 30 unknown unit, eRx: [facility] [id number], 65 UNITS SUBCUTANEOUS BEDTIME (ONCE A DAY),INSTR:30 DAY SUPPLY Start Date: 04/19/15 Status: Ordered LORazepam 2 mg oral tablet [...] # 1 bottles, 2 Refill(s) , eRx: [facility] [id number], TAKE (17G) BY ORAL ROUTE EVERY DAY MIXED WITH 8 OZ. WATER, J... Start Date: 03/19/14 Status: Ordered Misc Prescription 0 Refill(s) Start Date: 03/02/15 Status: Ordered mupirocin 2% topical cream philip, Topical, TID, 0 Refill(s) Start Date: 08/20/13 Status: Ordered Nasonex 50 mcg/inh nasal spray See Instructions, INHALE 2 PUFFS TWICE A DAY., # 17 unknown unit, 2 Refill(s), eRx: [facility] [id number], INHALE 2 PUFFS TWICE A DAY. Start Date: 02/23/15 Status: Ordered Nebulizer Nebulizer, See Instructions, Nebulizer needed for breathing treatments q 4-6 hours prn soa/copd., # 1 Each, 0 Refill(s) Start Date: 04/19/15 Status: Ordered nitroglycerin 0.6 mg sublingual tablet 1 tabs, SubLingual, q5min, as needed for chest pain, # 100 tabs, 0 Refill(s) Start Date: 08/20/13 Status: Ordered Bland 10 mg-325 mg oral tablet 1 tabs, Oral, q6hr, - MUST LAST 30 DAYS -, # 60 tabs, 0 Refill(s) Start Date: 04/09/15 Status: Ordered NovoLOG FlexPen 100 units/mL subcutaneous solution See Instructions, 34 UNITS TID WITH MEALS, # 3 unknown unit, eRx: [facility] [id number], 34 UNITS TID WITH MEALS Start Date: 04/19/15 Status: Ordered ProAir HFA 90 mcg/inh inhalation aerosol See Instructions, INHALE 2 PUFFS BY INHALATION 4 TIMES A DAY., # 1 inhalers, eRx : [facility] [id number], INHALE 2 PUFFS BY INHALATION 4 TIMES A DAY. Start Date: 04/19/15 Status: Ordered promethazine 25 mg oral tablet See Instructions, TAKE 1 TO 2 TABLETS BY MOUTH EVERY 8 HOURS NEEDED FOR NAUSEA, # 120 tabs, eRx: [facility] 59576, TAKE 1 TO 2 TABLETS BY MOUTH EVERY 8 HOURS NEEDED FOR NAUSEA Start Date: 04/19/15 Status: Ordered ranitidine 150 mg oral capsule See Instructions, TAKE 1 CAPSULE BY MOUTH EVERY DAY., # 90 caps, 1 Refill(s), eRx: [facility] [id number], TAKE 1 CAPSULE BY MOUTH EVERY DAY. Start Date: 10/28/14 Status: Ordered ranitidine 150 mg oral capsule See Instructions, TAKE 1 CAPSULE BY MOUTH EVERY DAY., # 90 caps, eRx: [facility] [id number], TAKE 1 CAPSULE BY MOUTH EVERY DAY. Start Date: 04/02/15 Status: Ordered SKIN BARRIER WIPES,SWABS SKIN BARRIER WIPES,SWABS, See Instructions, Use three times daily and as needed for diabetic care. Dx: E11.65 Length of need : 99-lifetime Fax: [facility] , # 150 Each, 2 Refill(s) Start Date: 03/02/15 Status: Ordered traMADol 50 mg oral tablet 1-2 tabs, Oral, q8hr, as needed for pain, [facility]- MUST LAST 30 DAYS, # 180 tabs, 0 Refill(s) Start Date: 04/09/15 Status: Ordered valsartan 320 mg oral tablet 320 mg 1 tabs, Oral, Daily, # 90 tabs, 1 Refill(s), Pharmacy: [facility] [id number], 1 tabs Oral Daily,x90 days Start Date: 03/01/15 Stop Date: 05/30/15 Status: Ordered Zocor 80 mg oral tablet See Instructions, TAKE 1 TABLET BY MOUTH EVERY DAY., # 90 tabs, eRx: [facility] [id number], TAKE 1 TABLET BY MOUTH EVERY DAY. Start Date: 03/24/15 Status: Ordered Results No data available for this section Immunizations Vaccine Date Refusal Reason influenza virus vaccine, inactivated 12/22/14 influenza virus vaccine, inactivated 01/01/14 influenza virus vaccine, live 12/25/12 influenza virus vaccine, live 12/11/11 zoster vaccine live 12/26/12 Procedures Procedure Date Related Diagnosis Body Site Cardiac catheterization #21 2009 Stent placement2 2009 Cholecystectomy3 2005 Cardiac catheterization #14 2002 Fusion - disc5 1980 1Carotid artery disease 2Carotid artery disease 3Cholelithiasis 4Coronary artery disease 5Back pain Social History Social History Type Response Smoking Status Former smoker; Type: Cigarettes Assessment and Plan Extracted from: Title: Ambulatory Patient Education Author: Maksim Barry MD Date: 04/19/15 Family Medicine Asthma Asthma is a recurring condition in which the airways tighten and narrow. Asthma can make it difficult to breathe. It can cause coughing, wheezing, and shortness of breath. Asthma episodes, also called asthma attacks, range from minor to life-threatening. Asthma cannot be cured, but medicines and lifestyle changes can help control it. CAUSES Asthma is believed to be caused by inherited (genetic) and environmental factors , but its exact cause is unknown. Asthma may be triggered by allergens, lung infections, or irritants in the air. Asthma triggers are different for each person. Common triggers include: Animal dander. Dust mites. Cockroaches. Pollen from trees or grass. Mold. Smoke. Air pollutants such as dust, household integration specialist, hair sprays, aerosol sprays, paint fumes, strong chemicals, or strong odors. Cold air, weather changes, and winds (which increase molds and pollens in the air). Strong emotional expressions such as crying or laughing hard. Stress. Certain medicines (such as aspirin) or types of drugs (such as beta- blockers). Sulfites in foods and drinks. Foods and drinks that may contain sulfites include dried fruit, potato chips, and sparkling grape juice. Infections or inflammatory conditions such as the flu, a cold, or an inflammation of the nasal membranes (rhinitis). Gastroesophageal reflux disease (GERD). Exercise or strenuous activity. SYMPTOMS Symptoms may occur immediately after asthma is triggered or many hours later. Symptoms include: Wheezing. Excessive nighttime or network security officer coughing. Frequent or severe coughing with a common cold. Chest tightness. Shortness of breath. DIAGNOSIS The diagnosis of asthma is made by a review of your medical history and a physical exam. Tests may also be performed. These may include: Lung function studies. These tests show how much air you breathe in and out. Allergy tests. Imaging tests such as X-rays. TREATMENT Asthma cannot be cured, but it can usually be controlled. Treatment involves identifying and avoiding your asthma triggers. It also involves medicines. There are 2 classes of medicine used for asthma treatment: Controller medicines. These prevent asthma symptoms from occurring. They are usually taken every day. Reliever or rescue medicines. These quickly relieve asthma symptoms. They are used as needed and provide short-term relief. Your health care provider will help you create an asthma action plan. An asthma action plan is a written plan for managing and treating your asthma attacks. It includes a list of your asthma triggers and how they may be avoided. It also includes information on when medicines should be taken and when their dosage should be changed. An action plan may also involve the use of a device called a peak flow meter. A peak flow meter measures how well the lungs are working. It helps you monitor your condition. HOME CARE INSTRUCTIONS Take medicines only as directed by your health care provider. Speak with your health care provider if you have questions about how or when to take the medicines. Use a peak flow meter as directed by your health care provider. Record and keep track of readings. Understand and use the action plan to help minimize or stop an asthma attack without needing to seek medical care. Control your home environment in the following ways to help prevent asthma attacks: Do not smoke. Avoid being exposed to secondhand smoke. Change your heating and air conditioning filter regularly. Limit your use of fireplaces and wood stoves. Get rid of pests (such as roaches and mice) and their droppings. Throw away plants if you see mold on them. Clean your floors and dust regularly. Use unscented cleaning products. Try to have someone else vacuum for you regularly. Stay out of rooms while they are being vacuumed and for a short while afterward. If you vacuum, use a dust mask from a hardware store, a double-layered or microfilter vacuum bus cleaner bag, or a vacuum bus cleaner with a HEPA filter. Replace carpet with wood, tile, or vinyl silvana. Carpet can trap dander and dust. Use allergy-proof pillows, mattress covers, and box spring covers. Wash bed sheets and blankets every week in hot water and dry them in a dryer. Use blankets that are made of polyester or cotton. Clean bathrooms and delilah with bleach. If possible, have someone repaint the collins in these rooms with mold-resistant paint. Keep out of the rooms that are being cleaned and painted. Wash hands frequently. SEEK MEDICAL CARE IF: You have wheezing, shortness of breath, or a cough even if taking medicine to prevent attacks. The colored mucus you cough up (sputum) is thicker than usual. Your sputum changes from clear or white to yellow, green, hi, or bloody. You have any problems that may be related to the medicines you are taking ( such as a rash, itching, swelling, or trouble breathing). You are using a reliever medicine more than 23 times per week. Your peak flow is still at 5079% of your personal best after following your action plan for 1 hour. You have a fever. SEEK IMMEDIATE MEDICAL CARE IF: You seem to be getting worse and are unresponsive to treatment during an asthma attack. You are short of breath even at rest. You get short of breath when doing very little physical activity. You have difficulty eating, drinking, or talking due to asthma symptoms. You develop chest pain. You develop a fast heartbeat. You have a bluish color to your lips or fingernails. You are light-headed, dizzy, or faint. Your peak flow is less than 50% of your personal best. MAKE SURE YOU: Understand these instructions. Will watch your condition. Will get help right away if you are not doing well or get worse. Document Released: 02/26/2006 Document Revised: 07/13/2014 Document Reviewed: [employer] Patient Information 2015 [employer]. This information is not intended to replace advice given to you by your health care provider. Make sure you discuss any questions you have with your health care provider. No follow up information was provided. Extracted from: Title: Office Visit Note Author: Maksim Barry MD Date: 04/19/15 Assessment/Plan Asthma Nebulizer script and albuterol solution q6 prn given.May use nebulizer or mdi but not simultaneously. CAD (coronary artery disease) This issue was reviewed, appears stable, and current therapy continued except as mentioned. Appropriate lab was reviewed from the most recent appropriate entry and lab was ordered if needed in the cpoe /nursing orders, and follow up recommended generally in 90 days and no later then six months. Chronic kidney disease (CKD), stage II (mild) This issue was reviewed, appears stable, and current therapy continued except as mentioned. Appropriate lab was reviewed from the most recent appropriate entry and lab was ordered if needed in the cpoe/nursing orders, and follow up recommended generally in 90 days and no later then six months. No nsaids. DM (diabetes mellitus), type 1, uncontrolled The patient was notified for the need for regular quarterly f/u of their diabetes. Further any pertinent medication, supplies, etc were refilled. Additionally, they are to have annual eye exams, foot exams, and regular care. Monitor closely and titrate insulin accordingly. Orders: albuterol, See Instructions, INHALE 2 PUFFS BY INHALATION 4 TIMES A DAY., # 1 inhalers, eRx: [facility] , INHALE 2 PUFFS BY INHALATION 4 TIMES A DAY. insulin aspart, See Instructions, 34 UNITS TID WITH MEALS, # 3 unknown unit, eRx: [facility] , 34 UNITS TID WITH MEALS insulin glargine, See Instructions, 65 UNITS SUBCUTANEOUS BEDTIME (ONCE A DAY) ,INSTR:30 DAY SUPPLY, # 30 unknown unit, eRx: [facility] , 65 UNITS SUBCUTANEOUS BEDTIME (ONCE A DAY),INSTR:30 DAY SUPPLY Misc Medication, Nebulizer, See Instructions, Nebulizer needed for breathing treatments q 4-6 hours prn soa/copd., # 1 Each, 0 Refill(s) Misc Medication, See Instructions, TAKE 1 TABLET BY MOUTH EVERY DAY., # 90 tabs, eRx: [facility] , TAKE 1 TABLET BY MOUTH EVERY DAY. promethazine, See Instructions, TAKE 1 TO 2 TABLETS BY MOUTH EVERY 8 HOURS NEEDED FOR NAUSEA, # 120 tabs, eRx: [facility] , TAKE 1 TO 2 TABLETS BY MOUTH EVERY 8 HOURS NEEDED FOR NAUSEA
--- OUTSIDE RECORDS SUMMARY | 2016-06-19 10:19 | XMS REPORT | Referral Summary ---
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 Name Role Phone Courtney Barry Primary Care Physician [phone] Encounter VC Date(s): 09/16/14 - 09/16/14 [facility] [address] [place] [address]- Discharge Disposition: 01-Home or Self Care Attending Physician: Maksim Barry MD Admitting Physician: Maksim Barry MD Vital Signs Most recent to 1 oldest [Reference Range]: Blood Pressure 130/90 mmHg [90-140/60-90 mmHg] (09/16/14 10:05 AM) Problem List Condition Effective Dates Status [...] oral tablet 1 tabs, Oral, Daily, from [place], 0 Refill(s) Start Date: 01/01/14 Status: Ordered AcipHex 20 mg oral delayed release tablet 1 tabs, Oral, Daily, # 90 tabs, 0 Refill(s), Pharmacy: [id number], 1 tabs Oral Daily Start Date: 08/12/13 Status: Ordered Aciphex 20 mg tablet,delayed release See Instructions, TAKE 1 TABLET BY MOUTH EVERY DAY., # 90 tabs, eRx: [id number], TAKE 1 TABLET BY MOUTH EVERY DAY. Start Date: 03/24/15 Status: Ordered Aciphex 20 mg tablet,delayed release See Instructions, TAKE 1 TABLET BY MOUTH EVERY DAY., # 90 tabs, 1 Refill(s), eRx : [id number], TAKE 1 TABLET BY MOUTH EVERY DAY. Start Date: 07/27/14 Status: Ordered Aciphex 20 mg tablet,delayed release See Instructions, TAKE 1 TABLET BY MOUTH EVERY DAY., # 90 tabs, eRx: [id number], TAKE 1 TABLET BY MOUTH EVERY DAY. Start Date: 01/08/15 Status: Ordered Advair Diskus 100 mcg-50 mcg inhalation powder 1 puffs, Inhalation, BID, # 60 Each, 3 Refill(s), Pharmacy: [facility] Start Date: 03/17/15 Status: Ordered Advair Diskus 100 mcg-50 mcg inhalation powder 1 puffs, Inhalation, BID, # 28 Each, 0 Refill(s), samples given to patient (Rx) Start Date: 03/17/15 Status: Ordered amLODIPine 5 mg oral tablet See Instructions, 1 TABS ORAL BID, # 180 tabs, 1 Refill(s), eRx: [id number], 1 TABS ORAL BID Start Date: 03/01/15 Status: Ordered carBAMazepine 200 mg oral tablet See Instructions, TAKE 1& 1/2 TABLETS BY MOUTH EVERY MORNING, 1 TABLET AT NOON, AND 1 TABLET AT BEDTIME, # 105 tabs, eRx: [id number], TAKE 1& 1/ 2 TABLETS BY MOUTH EVERY MORNING, 1 TABLET AT NOON, AND 1 TABLET AT BEDTIME Start Date: 03/01/15 Status: Ordered cloNIDine 0.2 mg oral tablet See Instructions, TAKE 1 TABLET BY MOUTH TWICE A DAY., # 180 tabs, 1 Refill(s), eRx: [id number], TAKE 1 TABLET BY MOUTH TWICE A DAY. Start Date: 10/28/14 Status: Ordered clopidogrel 75 mg oral tablet 75 mg 1 tabs, Oral, Daily, # 90 tabs, 1 Refill(s), Pharmacy: [id number], 1 tabs Oral Daily,x90 days Start Date: 03/01/15 Stop Date: 05/30/15 Status: Ordered clotrimazole 10 mg oral lozenge 10 mg 1 lozenges, Oral, 5x/Day, X 14 days, # 70 lozenges, 0 Refill(s), Pharmacy : [id number], 1 lozenges Oral 5x/Day,x14 days Start Date: 03/26/15 Stop Date: 04/09/15 Status: Ordered Coreg 25 mg oral tablet See Instructions, 1 TABS ORAL TID, # 270 tabs, 1 Refill(s), Pharmacy: [id number], 1 TABS ORAL TID Start Date: 01/04/15 Status: Ordered cyclobenzaprine 10 mg oral tablet See Instructions, TAKE 1 TABLET BY MOUTH EVERY 8 HOURS NEEDED, # 90 tabs, 0 Refill(s), Pharmacy: [id number], TAKE 1 TABLET BY MOUTH EVERY 8 HOURS NEEDED Start Date: 03/01/15 Status: Ordered diphenhydrAMINE 50 mg oral capsule See Instructions, 3 CAPSULE BY MOUTH AT BEDTIME FOR SLEEP., # 90 caps, eRx: [id number], 3 CAPSULE BY MOUTH AT BEDTIME FOR SLEEP. Start Date: 04/20/14 Status: Ordered doxepin 50 mg oral capsule 1 caps, Oral, Bedtime (once a day), KATHRINEJULIETA, # 14 caps, 0 Refill(s) Start Date: 08/22/13 Status: Ordered Drisdol 50,000 intl units (1.25 mg) oral capsule 1 caps, Oral, qWeek, # 13 caps, 0 Refill(s), Pharmacy: [id number], 1 caps Oral qWeek Start Date: 04/23/14 [...] # 30 unknown unit, 2 Refill(s), eRx: [id number], 65 UNITS SUBCUTANEOUS BEDTIME (ONCE A DAY),INSTR:30 [...] # 1 bottles, 2 Refill(s) , eRx: [id number], TAKE (17G) BY ORAL ROUTE EVERY DAY MIXED WITH 8 OZ. WATER, J... Start Date: 03/19/14 Status: Ordered Misc Prescription 0 Refill(s) Start Date: 03/02/15 Status: Ordered mupirocin 2% topical cream philip, Topical, TID, 0 Refill(s) Start Date: 08/20/13 Status: Ordered Nasonex 50 mcg/inh nasal spray See Instructions, INHALE 2 PUFFS TWICE A DAY., # 17 unknown unit, 2 Refill(s), eRx: [id number], INHALE 2 PUFFS TWICE A DAY. Start Date: 02/23/15 Status: Ordered nitroglycerin 0.6 mg sublingual tablet 1 tabs, SubLingual, q5min, as needed for chest pain, # 100 tabs, 0 Refill(s) Start Date: 08/20/13 Status: Ordered [place] 10 mg-325 mg oral tablet 1 tabs, Oral, q6hr, - MUST LAST 30 DAYS -, # 60 tabs, 0 Refill(s) Start Date: 03/08/15 Status: Ordered NovoLOG FlexPen 100 units/mL subcutaneous solution See Instructions, 34 UNITS TID WITH MEALS, # 3 unknown unit, eRx: [facility] [id number], 34 UNITS TID WITH MEALS Start Date: 03/24/15 Status: Ordered ProAir HFA 90 mcg/inh inhalation aerosol See Instructions, INHALE 2 PUFFS BY INHALATION 4 TIMES A DAY., # 1 inhalers, eRx : [id number], INHALE 2 PUFFS BY INHALATION 4 TIMES A DAY. Start Date: 03/24/15 Status: Ordered promethazine 25 mg oral tablet See Instructions, TAKE 1 TO 2 TABLETS BY MOUTH EVERY 8 HOURS NEEDED FOR NAUSEA, # 120 tabs, eRx: [id number], TAKE 1 TO 2 TABLETS BY MOUTH EVERY 8 HOURS NEEDED FOR NAUSEA Start Date: 03/25/15 Status: Ordered ranitidine 150 mg oral capsule See Instructions, TAKE 1 CAPSULE BY MOUTH EVERY DAY., # 90 caps, 1 Refill(s), eRx: [id number], TAKE 1 CAPSULE BY MOUTH EVERY DAY. Start Date: 10/28/14 Status: Ordered SKIN BARRIER WIPES,SWABS SKIN BARRIER WIPES,SWABS, See Instructions, Use three times daily and as needed for diabetic care. Dx: E11.65 Length of need : 99-lifetime [phone], # 150 Each, 2 Refill(s) Start Date: 03/02/15 Status: Ordered traMADol 50 mg oral tablet 1-2 tabs, Oral, q8hr, as needed for pain, [facility]- MUST LAST 30 DAYS, # 180 tabs, 0 Refill(s) Start Date: 03/08/15 Status: Ordered valsartan 320 mg oral tablet 320 mg 1 tabs, Oral, Daily, # 90 tabs, 1 Refill(s), Pharmacy: [facility] [id number], 1 tabs Oral Daily,x90 days Start Date: 03/01/15 Stop Date: 05/30/15 Status: Ordered Zocor 80 mg oral tablet See Instructions, TAKE 1 TABLET BY MOUTH EVERY DAY., # 90 tabs, eRx: [id number], TAKE 1 TABLET BY MOUTH EVERY DAY. Start Date: 03/24/15 Status: Ordered Results Chemistry Most recent to 1 oldest [Reference Range]: Sodium Lvl [135-144 121 mEq/L mEq/L] *LOW* (09/16/14 10:33 AM) Potassium Lvl 5.4 mEq/L [3.5-5.2 mEq/L] *HI* (09/16/14 10:33 AM) Chloride [99-111 89 mEq/L mEq/L] *LOW* (09/16/14 10:33 AM) CO2 [23-31 mEq/L] 26 mEq/L (09/16/14 10:33 AM) AGAP [3-20] 6 (09/16/14 10:33 AM) BUN [8-26 mg/dL] 9 mg/dL (09/16/14 10:33 AM) Glucose Lvl [70-99 361 mg/dL mg/dL] *HI* (09/16/14 10:33 AM) Creatinine Lvl 1.09 mg/dL [0.72-1.25 mg/dL] (09/16/14 10:33 AM) eGFR [>60 mL/min] >60 mL/min 1 (09/16/14 10:33 AM) Calcium Lvl 9.1 mg/dL [8.9-10.5 mg/dL] (09/16/14 10:33 AM) Osmolality [275-300 273 mOsm/kg mOsm/kg] *LOW* (09/16/14 10:33 AM) 1Result Comment: Multiply eGFR results by 1.21 for race. Immunizations Vaccine Date Refusal Reason influenza virus vaccine, inactivated 12/22/14 influenza virus vaccine, inactivated 01/01/14 influenza virus vaccine, live 12/25/12 influenza virus vaccine, live 12/11/11 zoster vaccine live 12/26/12 Procedures Procedure Date Related Diagnosis Body Site Cardiac catheterization #21 2009 Stent placement2 2009 Cholecystectomy3 2004 Cardiac catheterization #14 2002 Fusion - disc5 1981 1Carotid artery disease 2Carotid artery disease 3Cholelithiasis 4Coronary artery disease 5Back pain Social History Social History Type Response Smoking Status Former smoker; Type: Cigarettes Assessment and Plan Extracted from: Title: Ambulatory Patient Education Author: Maksim Barry MD Date: 09/16/14 Family Medicine Arterial Hypertension Arterial hypertension (high blood pressure ) is a condition of elevated pressure in your blood vessels. Hypertension over a long period of time is a risk factor for strokes, heart attacks, and heart failure. It is also the leading cause of kidney (renal ) failure. CAUSES In Adults -- Over 90% of all hypertension has no known cause. This is called essential or primary hypertension. In the other 10% of people with hypertension, the increase in blood pressure is caused by another disorder. This is called secondary hypertension . Important causes of secondary hypertension are: Heavy alcohol use. Obstructive sleep apnea. Hyperaldosterosim (Conn's syndrome). Steroid use. Chronic kidney failure. Hyperparathyroidism. Medications. Renal artery stenosis. Pheochromocytoma. Mendota's disease. Coarctation of the aorta. Scleroderma renal crisis. Licorice (in excessive amounts). Drugs (cocaine, methamphetamine). Your caregiver can explain any items above that apply to you. In Children -- Secondary hypertension is more common and should always be considered. -- Few women of childbearing age have high blood pressure. However, up to 10% of them develop hypertension of . Generally, this will not harm the woman. It may be a sign of 3 complications of : preeclampsia, HELLP syndrome, and eclampsia. Follow up and control with medication is necessary. SYMPTOMS This condition normally does not produce any noticeable symptoms. It is usually found during a routine exam. Malignant hypertension is a late problem of high blood pressure. It may have the following symptoms: Headaches. Blurred vision. End-organ damage (this means your kidneys, heart, lungs, and other organs are being damaged). Stressful situations can increase the blood pressure. If a person with normal blood pressure has their blood pressure go up while being seen by their caregiver, this is often termed "white coat hypertension." Its importance is not known. It may be related with eventually developing hypertension or complications of hypertension. Hypertension is often confused with mental tension, stress, and anxiety. DIAGNOSIS The diagnosis is made by 3 separate blood pressure measurements. They are taken at least 1 week apart from each other. If there is organ damage from hypertension, the diagnosis may be made without repeat measurements. Hypertension is usually identified by having blood pressure readings: Above 140/90 mmHg measured in both arms, at 3 separate times, over a couple weeks. Over 130/80 mmHg should be considered a risk factor and may require treatment in patients with diabetes. Blood pressure readings over 120/80 mmHg are called "pre-hypertension" even in non-diabetic patients. To get a true blood pressure measurement, use the following guidelines. Be aware of the factors that can alter blood pressure readings. Take measurements at least 1 hour after caffeine. Take measurements 30 minutes after smoking and without any stress. This is another reason to quit smoking it raises your blood pressure. Use a proper cuff size. Ask your caregiver if you are not sure about your cuff size. Most home blood pressure cuffs are automatic. They will measure systolic and diastolic pressures. The systolic pressure is the pressure reading at the start of sounds. Diastolic pressure is the pressure at which the sounds disappear. If you are elderly, measure pressures in multiple postures. Try sitting, lying or standing. Sit at rest for a minimum of 5 minutes before taking measurements. You should not be on any medications like decongestants. These are found in many cold medications. Record your blood pressure readings and review them with your caregiver. If you have hypertension: Your caregiver may do tests to be sure you do not have secondary hypertension (see "causes" above). Your caregiver may also look for signs of metabolic syndrome. This is also called Syndrome X or Insulin Resistance Syndrome. You may have this syndrome if you have type 2 diabetes, abdominal obesity, and abnormal blood lipids in addition to hypertension. Your caregiver will take your medical and family history and perform a physical exam. Diagnostic tests may include blood tests (for glucose, cholesterol, potassium, and kidney function), a urinalysis, or an EKG. Other tests may also be necessary depending on your condition. PREVENTION There are important lifestyle issues that you can adopt to reduce your chance of developing hypertension: Maintain a normal weight. Limit the amount of salt (sodium ) in your diet. Exercise often. Limit alcohol intake. Get enough potassium in your diet. Discuss specific advice with your caregiver. Follow a DASH diet (dietary approaches to stop hypertension). This diet is rich in fruits, vegetables, and low-fat dairy products, and avoids certain fats. PROGNOSIS Essential hypertension cannot be cured. Lifestyle changes and medical treatment can lower blood pressure and reduce complications. The prognosis of secondary hypertension depends on the underlying cause. Many people whose hypertension is controlled with medicine or lifestyle changes can live a normal, healthy life. RISKS AND COMPLICATIONS While high blood pressure alone is not an illness, it often requires treatment due to its short- and long-term effects on many organs. Hypertension increases your risk for: CVAs or strokes (cerebrovascular accident ). Heart failure due to chronically high blood pressure (hypertensive cardiomyopathy ). Heart attack (myocardial infarction ). Damage to the retina (hypertensive retinopathy ). Kidney failure (hypertensive nephropathy ). Your caregiver can explain list items above that apply to you. Treatment of hypertension can significantly reduce the risk of complications. TREATMENT For overweight patients, weight loss and regular exercise are recommended. Physical fitness lowers blood pressure. Mild hypertension is usually treated with diet and exercise. A diet rich in fruits and vegetables, fat-free dairy products, and foods low in fat and salt (sodium ) can help lower blood pressure. Decreasing salt intake decreases blood pressure in a 1/3 of people. Stop smoking if you are a smoker. The steps above are highly effective in reducing blood pressure. While these actions are easy to suggest, they are difficult to achieve. Most patients with moderate or severe hypertension end up requiring medications to bring their blood pressure down to a normal level. There are several classes of medications for treatment. Blood pressure pills (antihypertensives ) will lower blood pressure by their different actions. Lowering the blood pressure by 10 mmHg may decrease the risk of complications by as much as 25%. The goal of treatment is effective blood pressure control. This will reduce your risk for complications. Your caregiver will help you determine the best treatment for you according to your lifestyle. What is excellent treatment for one person, may not be for you. HOME CARE INSTRUCTIONS Do not smoke. Follow the lifestyle changes outlined in the "Prevention" section. If you are on medications, follow the directions carefully. Blood pressure medications must be taken as prescribed. Skipping doses reduces their benefit. It also puts you at risk for problems. Follow up with your caregiver, as directed. If you are asked to monitor your blood pressure at home, follow the guidelines in the "Diagnosis" section above. SEEK MEDICAL CARE IF: You think you are having medication side effects. You have recurrent headaches or lightheadedness. You have swelling in your ankles. You have trouble with your vision. SEEK IMMEDIATE MEDICAL CARE IF: You have sudden onset of chest pain or pressure, difficulty breathing, or other symptoms of a heart attack. You have a severe headache. You have symptoms of a stroke (such as sudden weakness, difficulty speaking , difficulty walking). MAKE SURE YOU: Understand these instructions. Will watch your condition. Will get help right away if you are not doing well or get worse. Document Released: 02/26/2006 Document Revised: 05/20/2012 Document Reviewed: [facility] [place] Patient Information 2014 [employer]. No follow up information was provided. Extracted from: Title: Office Visit Note Author: Maksim Barry MD Date: 09/16/14 Assessment/Plan CAD (coronary artery disease) This issue is stable and appropriate refills, lab, and f/u have been discussed. Needs to see Cardiology. Chronic kidney disease (CKD), stage II (mild) This issue is stable and appropriate refills, lab, and f/u have been discussed. Chronic low back pain This issue is stable and appropriate refills, lab, and f /u have been discussed. DM (diabetes mellitus), type 1, uncontrolled The patient was notified for the need for regular quarterly f/u of their diabetes. Further any pertinent medication, supplies, etc were refilled. Additionally, they are to have annual eye exams, foot exams, and regular care. Needs to check regularly and adjust insulin. Hyperlipidemia This issue is stable and appropriate refills, lab, and f/u have been discussed. Hypertension This issue is stable and appropriate refills, lab, and f/u have been discussed. The patient reports their blood pressure has been stable at home and is not having any significant or related problems. There has been no chest pain, chest pressure, soa/charles. Hyponatremia Limited records reviewed. [facility] for recheck. Consider fluid restriction as previously discussed. Consider medication changes such as limiting tegretol, declined by patient. To Nephrology if sodium not improved and patient willing. Ordered: Basic Metabolic Panel Osmolality Osmolality Urine Noncompliance See above.
--- OUTSIDE RECORDS SUMMARY | 2016-06-19 10:19 | XMS REPORT | Referral Summary ---
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 Phone Courtney Barry Primary Care Physician [phone] Encounter VC Date(s): 10/21/14 - 10/21/14 [facility] Newton [address] [place] [address]- Discharge Disposition: 01-Home or Self Care Attending Physician: Maksim Barry MD Admitting Physician: Maksim Barry MD Vital Signs Most recent to 1 oldest [Reference Range]: Blood Pressure 170/90 mmHg [90-140/60-90 mmHg] *HI* (10/21/14 8:53 AM) Problem List Condition Effective Dates Status [...] oral tablet 1 tabs, Oral, Daily, from [place], 0 Refill(s) Start Date: 01/01/14 Status: Ordered AcipHex 20 mg oral delayed release tablet 1 tabs, Oral, Daily, # 90 tabs, 0 Refill(s), Pharmacy: [facility] [id number], 1 tabs Oral Daily Start Date: 08/12/13 Status: Ordered Aciphex 20 mg tablet,delayed release See Instructions, TAKE 1 TABLET BY MOUTH EVERY DAY., # 90 tabs, eRx: [facility] [id number], TAKE 1 TABLET BY MOUTH EVERY DAY. Start Date: 04/19/15 Status: Ordered Advair Diskus 100 mcg-50 mcg inhalation powder 1 puffs, Inhalation, BID, # 60 Each, 3 Refill(s), Pharmacy: [facility] [id number] Start Date: 03/17/15 Status: Ordered albuterol 2.5 mg/3 mL (0.083%) inhalation solution 2.5 mg 3 mL, Inhalation, q6hr, # 1 boxes, 0 Refill(s), Pharmacy: [facility] 17853, 3 mL Inhalation q6hr Start Date: 04/19/15 Status: Ordered amLODIPine 5 mg oral tablet See Instructions, 1 TABS ORAL BID, # 180 tabs, 1 Refill(s), eRx: [facility] [id number], 1 TABS ORAL BID Start Date: 03/01/15 Status: Ordered carBAMazepine 200 mg oral tablet See Instructions, TAKE 1& 1/2 TABLETS BY MOUTH EVERY MORNING, 1 TABLET AT NOON, AND 1 TABLET AT BEDTIME, # 105 tabs, eRx: [facility] [id number], TAKE 1& 1/ 2 TABLETS BY MOUTH EVERY MORNING, 1 TABLET AT NOON, AND 1 TABLET AT BEDTIME Start Date: 03/01/15 Status: Ordered cloNIDine 0.2 mg oral tablet See Instructions, TAKE 1 TABLET BY MOUTH TWICE A DAY., # 180 tabs, eRx: [facility] 56117, TAKE 1 TABLET BY MOUTH TWICE A DAY. Start Date: 04/02/15 Status: Ordered clopidogrel 75 mg oral tablet 75 mg 1 tabs, Oral, Daily, # 90 tabs, 1 Refill(s), Pharmacy: [facility] 32568, 1 tabs Oral Daily,x90 days Start Date: 03/01/15 Stop Date: 05/30/15 Status: Ordered Coreg 25 mg oral tablet See Instructions, 1 TABS ORAL TID, # 270 tabs, 1 Refill(s), Pharmacy: [facility] 21219, 1 TABS ORAL TID Start Date: 01/04/15 Status: Ordered cyclobenzaprine 10 mg oral tablet See Instructions, TAKE 1 TABLET BY MOUTH EVERY 8 HOURS NEEDED, # 90 tabs, eRx : [facility] 23995, TAKE 1 TABLET BY MOUTH EVERY 8 HOURS NEEDED Start Date: 03/31/15 Status: Ordered diphenhydrAMINE 50 mg oral capsule See Instructions, 3 CAPSULE BY MOUTH AT BEDTIME FOR SLEEP., # 90 caps, eRx: [facility] 42347, 3 CAPSULE BY MOUTH AT BEDTIME FOR SLEEP. Start Date: 04/20/14 Status: Ordered doxepin 50 mg oral capsule 1 caps, Oral, Bedtime (once a day), [facility], # 14 caps, 0 Refill(s) Start Date: 08/22/13 Status: Ordered doxycycline 100 mg, Oral, BID, X 10 days, 0 Refill(s) Start Date: 04/27/15 Stop Date: 05/03/15 Status: Ordered Drisdol 50,000 intl units (1.25 mg) oral capsule 1 caps, Oral, qWeek, # 13 caps, 0 Refill(s), Pharmacy: [facility] 64346, 1 caps Oral qWeek Start Date: 04/23/14 [...] SUPPLY , # 30 unknown unit, eRx: [facility] [id number], 65 UNITS SUBCUTANEOUS BEDTIME (ONCE A DAY),INSTR:30 [...] # 1 bottles, 2 Refill(s) , eRx: [facility] 25538, TAKE (17G) BY ORAL ROUTE EVERY DAY MIXED WITH 8 OZ. WATER, J... Start Date: 03/19/14 Status: Ordered Misc Prescription 0 Refill(s) Start Date: 03/02/15 Status: Ordered mupirocin 2% topical cream philip, Topical, TID, 0 Refill(s) Start Date: 08/20/13 Status: Ordered Nasonex 50 mcg/inh nasal spray See Instructions, INHALE 2 PUFFS TWICE A DAY., # 17 unknown unit, 2 Refill(s), eRx: [facility] 00121, INHALE 2 PUFFS TWICE A DAY. Start Date: 02/23/15 Status: Ordered Nebulizer Nebulizer, See Instructions, Nebulizer needed for breathing treatments q 4-6 hours prn soa/copd., # 1 Each, 0 Refill(s) Start Date: 04/19/15 Status: Ordered nitroglycerin 0.6 mg sublingual tablet 1 tabs, SubLingual, q5min, as needed for chest pain, # 100 tabs, 0 Refill(s) Start Date: 08/20/13 Status: Ordered [place] 10 mg-325 mg oral tablet 1 tabs, Oral, q6hr, - MUST LAST 30 DAYS -, # 60 tabs, 0 Refill(s) Start Date: 04/09/15 Status: Ordered NovoLOG FlexPen 100 units/mL subcutaneous solution See Instructions, 34 UNITS TID WITH MEALS, # 3 unknown unit, eRx: [facility] 85106, 34 UNITS TID WITH MEALS Start Date: 04/19/15 Status: Ordered ProAir HFA 90 mcg/inh inhalation aerosol See Instructions, INHALE 2 PUFFS BY INHALATION 4 TIMES A DAY., # 1 inhalers, eRx : [facility] 94210, INHALE 2 PUFFS BY INHALATION 4 TIMES A DAY. Start Date: 04/19/15 Status: Ordered promethazine 25 mg oral tablet See Instructions, TAKE 1 TO 2 TABLETS BY MOUTH EVERY 8 HOURS NEEDED FOR NAUSEA, # 120 tabs, eRx: [facility] 13796, TAKE 1 TO 2 TABLETS BY MOUTH EVERY 8 HOURS NEEDED FOR NAUSEA Start Date: 04/19/15 Status: Ordered ranitidine 150 mg oral capsule See Instructions, TAKE 1 CAPSULE BY MOUTH EVERY DAY., # 90 caps, eRx: [facility] 18487, TAKE 1 CAPSULE BY MOUTH EVERY DAY. Start Date: 04/02/15 Status: Ordered SKIN BARRIER WIPES,SWABS SKIN BARRIER WIPES,SWABS, See Instructions, Use three times daily and as needed for diabetic care. Dx: E11.65 Length of need : 99-lifetime [facility] Each, 2 Refill(s) Start Date: 03/02/15 Status: Ordered traMADol 50 mg oral tablet 1-2 tabs, Oral, q8hr, as needed for pain, [facility]- MUST LAST 30 DAYS, # 180 tabs, 0 Refill(s) Start Date: 04/09/15 Status: Ordered valsartan 320 mg oral tablet 320 mg 1 tabs, Oral, Daily, # 90 tabs, 1 Refill(s), Pharmacy: [facility] 98488, 1 tabs Oral Daily,x90 days Start Date: 03/01/15 Stop Date: 05/30/15 Status: Ordered Zocor 80 mg oral tablet See Instructions, TAKE 1 TABLET BY MOUTH EVERY DAY., # 90 tabs, eRx: [facility] 00820, TAKE 1 TABLET BY MOUTH EVERY DAY. [...] Patient Education Author: Maksim Barry MD Date: 02/23 Family Medicine Diabetes and Foot Care Diabetes may cause you to have problems because of poor blood supply ( circulation) to your feet and legs. This may cause the skin on your feet to become thinner, break easier, and heal more slowly. Your skin may become dry, and the skin may peel and crack. You may also have nerve damage in your legs and feet causing decreased feeling in them. You may not notice minor injuries to your feet that could lead to infections or more serious problems. Taking care of your feet is one of the most important things you can do for yourself. HOME CARE INSTRUCTIONS Wear shoes at all times, even in the house. Do not go barefoot. Bare feet are easily injured. Check your feet daily for blisters, cuts, and redness. If you cannot see the bottom of your feet, use a mirror or ask someone for help. Wash your feet with warm water (do not use hot water) and mild soap. Then pat your feet and the areas between your toes until they are completely dry. Do not soak your feet as this can dry your skin. Apply a moisturizing lotion or petroleum jelly (that does not contain alcohol and is unscented) to the skin on your feet and to dry, brittle toenails. Do not apply lotion between your toes. Trim your toenails straight across. Do not dig under them or around the cuticle. File the edges of your nails with an emery board or nail file. Do not cut corns or calluses or try to remove them with medicine. Wear clean socks or stockings every day. Make sure they are not too tight. Do not wear knee-high stockings since they may decrease blood flow to your legs. Wear shoes that fit properly and have enough cushioning. To break in new shoes, wear them for just a few hours a day. This prevents you from injuring your feet. Always look in your shoes before you put them on to be sure there are no objects inside. Do not cross your legs. This may decrease the blood flow to your feet. If you find a minor scrape, cut, or break in the skin on your feet, keep it and the skin around it clean and dry. These areas may be cleansed with mild soap and water. Do not cleanse the area with peroxide, alcohol, or iodine. When you remove an adhesive bandage, be sure not to damage the skin around it. If you have a wound, look at it several times a day to make sure it is healing. Do not use heating pads or hot water bottles. They may burn your skin. If you have lost feeling in your feet or legs, you may not know it is happening until it is too late. Make sure your health care provider performs a complete foot exam at least annually or more often if you have foot problems. Report any cuts, sores, or bruises to your health care provider immediately. SEEK MEDICAL CARE IF: You have an injury that is not healing. You have cuts or breaks in the skin. You have an ingrown nail. You notice redness on your legs or feet. You feel burning or tingling in your legs or feet. You have pain or cramps in your legs and feet. Your legs or feet are numb. Your feet always feel cold. SEEK IMMEDIATE MEDICAL CARE IF: There is increasing redness, swelling, or pain in or around a wound. There is a red line that goes up your leg. Pus is coming from a wound. You develop a fever or as directed by your health care provider. You notice a bad smell coming from an ulcer or wound. Document Released: 02/23/2001 Document Revised: 10/29/2013 Document Reviewed: Exit[employer] Patient Information 2015 [employer]. This information is not intended to replace advice given to you by your health care provider. Make sure you discuss any questions you have with your health care provider. No follow up information was provided. Extracted from: Title: Office Visit Note Author: Maksim Barry MD Date: 10/21/14 Assessment/Plan DM (diabetes mellitus), type 1, uncontrolled The patient was notified for the need for regular quarterly f/u of their diabetes. Further any pertinent medication, supplies, etc were refilled. Additionally, they are to have annual eye exams, foot exams, and regular care. Hypertension This issue is stable and appropriate refills, lab, and f/u have been discussed. Declines med changes today. Just took am meds. Hyponatremia Lab pending. Consult with Nephrology pending already on2014 per report. Noncompliance See above. Needs to follow fluid restriction and keep consult. SIADH (syndrome of inappropriate ADH production) Lab pending today.
--- OUTSIDE RECORDS SUMMARY | 2016-06-19 10:19 | XMS REPORT | Referral Summary ---
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 Role Phone Courtney Barry Primary Care Physician [phone] Encounter VC Date(s): 04/21/14 - 04/21/14 [facility], Alli, Rheumatology [address] [place] [address] [address] [place] [id number]- Discharge Diagnosis: Shoulder tendinitis Discharge Diagnosis: Fibromyalgia Discharge Diagnosis: Anemia Discharge Diagnosis: Elevated alkaline phosphatase level Discharge Disposition: Home or Self Care Attending Physician: Kaitlin Lugo MD Admitting Physician: Kaitlin Lugo MD Referring Physician: Maksim Barry MD Vital Signs Most recent to 1 oldest [Reference Range]: Temperature Oral 36.8 degC [35.8-37.3 degC] (04/21/14 8:27 AM) Peripheral Pulse 75 bpm Rate [60-100 bpm] (04/21/14 8:27 AM) Respiratory Rate 16 br/min [14-20 br/min] (04/21/14 8:27 AM) Blood Pressure 134/81 mmHg [90-140/60-90 mmHg] (04/21/14 8:27 AM) Problem List Condition Effective Dates Status [...] Active Hyperlipidemia(Confi Active rmed) Hypertension(Confirm Active ed) Irritable bowel Active disease(Confirmed) Migraine Active headache(Confirmed) Chronic Active insomnia(Confirmed) DM (diabetes Active mellitus), type 1, uncontrolled(Confirm [...] oral tablet 1 tabs, Oral, Daily, from [place], 0 Refill(s) Special Instructions: from [place] Start Date: 01/01/14 Status: Ordered AcipHex 20 mg oral delayed release tablet 1 tabs, Oral, Daily, # 90 tabs, 0 Refill(s), Pharmacy: [facility] [id number], 1 tabs Oral Daily Start Date: 08/12/13 Status: Ordered Aciphex 20 mg tablet,delayed release See Instructions, TAKE 1 TABLET BY MOUTH EVERY DAY., # 90 tabs, eRx: [facility] [id number], TAKE 1 TABLET BY MOUTH EVERY DAY. Special Instructions: TAKE 1 TABLET BY MOUTH EVERY DAY. Start Date: 11/04/13 Status: Ordered amLODIPine 5 mg oral tablet See Instructions, 1 TABS ORAL BID, # 180 tabs, 2 Refill(s), eRx: [facility] [id number], 1 TABS ORAL BID Special Instructions: 1 TABS ORAL BID Start Date: 02/23/14 Status: Ordered carBAMazepine 200 mg oral tablet See Instructions, 1 1/2 TABS PO Q AM, 1 TAB AT NOON, AND 1 AT HS., # 105 tabs, eRx: [facility] [id number], 1 1/2 TABS PO Q AM, 1 TAB AT NOON, AND 1 AT HS. Special Instructions: 1 1/2 TABS PO Q AM, 1 TAB AT NOON, AND 1 AT HS. Start Date: 04/20/14 Status: Ordered cloNIDine 0.2 mg oral tablet See Instructions, TAKE 1 TABLET BY MOUTH TWICE A DAY., # 180 tabs, eRx: [facility] [id number], TAKE 1 TABLET BY MOUTH TWICE A DAY. Special Instructions: TAKE 1 TABLET BY MOUTH TWICE A DAY. Start Date: 01/26/14 Status: Ordered Coreg 25 mg oral tablet See Instructions, 1 TABS ORAL TID, # 270 tabs, eRx: [facility] [id number], 1 TABS ORAL TID Special Instructions: 1 TABS ORAL TID Start Date: 01/26/14 Status: Ordered cyclobenzaprine 10 mg oral tablet See Instructions, TAKE 1 TABLET BY MOUTH EVERY 8 HOURS NEEDED., # 90 tabs, eRx: [facility] [id number], TAKE 1 TABLET BY MOUTH EVERY 8 HOURS NEEDED. Special Instructions: TAKE 1 TABLET BY MOUTH EVERY 8 HOURS NEEDED. Start Date: 04/09/14 Status: Ordered Diovan 320 mg oral tablet See Instructions, 1 TABS ORAL DAILY, # 90 tabs, eRx: [facility] [id number] , 1 TABS ORAL DAILY Special Instructions: 1 TABS ORAL DAILY Start Date: 04/01/14 Status: Ordered diphenhydrAMINE 50 mg oral capsule See Instructions, 3 CAPSULE BY MOUTH AT BEDTIME FOR SLEEP., # 90 caps, eRx: [facility] [id number], 3 CAPSULE BY MOUTH AT BEDTIME FOR SLEEP. Special Instructions: 3 CAPSULE BY MOUTH AT BEDTIME FOR SLEEP. Start Date: 04/20/14 Status: Ordered doxepin 50 mg oral capsule 1 caps, Oral, Bedtime (once a day), [facility], # 14 caps, 0 Refill(s) Special Instructions: [facility] Start Date: 08/22/13 Status: Ordered famotidine 40 mg oral tablet 1 tabs, Oral, Bedtime (once a day), 0 Refill(s) Start Date: 08/20/13 Status: Ordered Geodon 20 mg oral capsule caps, Oral, BID, 0 Refill(s) Start Date: 08/20/13 Status: Ordered Glucometer (DME) DME Item [employer]ellite tests qid for dx 250.00 and 250.02, See Instructions, # 1 Each, 0 Refill(s), Supply Special Instructions: [facility] tests qid for dx 250.00 and 250.02 Start Date: 08/20/13 Status: Ordered Lantus Solostar Pen 100 units/mL subcutaneous solution See Instructions, 65 UNITS SUBCUTANEOUS BEDTIME (ONCE A DAY),INSTR:30 DAY SUPPLY , # 30 unknown unit, 2 Refill(s), eRx: [facility] [id number], 65 UNITS SUBCUTANEOUS BEDTIME (ONCE A DAY),INSTR:30 DAY SUPPLY Special Instructions: 65 UNITS SUBCUTANEOUS BEDTIME (ONCE A DAY),INSTR:30 DAY SUPPLY Start Date: 04/20/14 Status: Ordered LORazepam 2 mg oral tablet [...] # 1 bottles, 2 Refill(s) , eRx: [facility] [id number], TAKE (17G) BY ORAL ROUTE EVERY DAY MIXED WITH 8 OZ. WATER, J... Special Instructions: TAKE (17G) BY ORAL ROUTE EVERY DAY MIXED WITH 8 OZ. WATER , JUICE, SODA, COFFEE OR TEA NEEDED FOR CONSTIPATION Start Date: 03/19/14 Status: Ordered mupirocin 2% topical cream philip, Topical, TID, 0 Refill(s) Start Date: 08/20/13 Status: Ordered Nasonex 50 mcg/inh nasal spray See Instructions, INHALE 2 PUFFS TWICE A DAY., # 17 unknown unit, 2 Refill(s), eRx: [facility] [id number], INHALE 2 PUFFS TWICE A DAY. Special Instructions: INHALE 2 PUFFS TWICE A DAY. Start Date: 04/20/14 Status: Ordered nitroglycerin 0.6 mg sublingual tablet 1 tabs, SubLingual, q5min, as needed for chest pain, # 100 tabs, 0 Refill(s) Start Date: 08/20/13 Status: Ordered [place] 10 mg-325 mg oral tablet 1 tabs, Oral, q6hr, - MUST LAST 30 DAYS -, # 60 tabs, 0 Refill(s) Special Instructions: - MUST LAST 30 DAYS - Start Date: 04/13/14 Status: Ordered NovoLOG FlexPen 100 units/mL subcutaneous solution See Instructions, 34 UNITS TID WITH MEALS, # 3 unknown unit, eRx: [facility] [id number], 34 UNITS TID WITH MEALS Special Instructions: 34 UNITS TID WITH MEALS Start Date: 03/23/14 Status: Ordered Plavix 75 mg oral tablet See Instructions, 1 TABS ORAL DAILY, # 30 tabs, 2 Refill(s), eRx: [facility] [id number], 1 TABS ORAL DAILY Special Instructions: 1 TABS ORAL DAILY Start Date: 04/20/14 Status: Ordered ProAir HFA 90 mcg/inh inhalation aerosol See Instructions, INHALE 2 PUFFS BY INHALATION 4 TIMES A DAY., # 1 inhalers, 2 Refill(s), eRx: [facility] [id number], INHALE 2 PUFFS BY INHALATION 4 TIMES A DAY. Special Instructions: INHALE 2 PUFFS BY INHALATION 4 TIMES A DAY. Start Date: 04/20/14 Status: Ordered promethazine 25 mg oral tablet See Instructions, 1-2 TABS PO Q 8 HOURS PRN NAUSEA, # 120 tabs, eRx: [facility] 93124, 1-2 TABS PO Q 8 HOURS PRN NAUSEA Special Instructions: 1-2 TABS PO Q 8 HOURS PRN NAUSEA Start Date: 04/09/14 Status: Ordered ranitidine 150 mg oral capsule See Instructions, TAKE 1 CAPSULE BY MOUTH EVERY DAY., # 90 caps, eRx: [facility] [id number], TAKE 1 CAPSULE BY MOUTH EVERY DAY. Special Instructions: TAKE 1 CAPSULE BY MOUTH EVERY DAY. Start Date: 02/23/14 Status: Ordered traMADol 50 mg oral tablet 1-2 tabs, Oral, q8hr, as needed for pain, [facility]UST LAST 30 DAYS, # 180 tabs, 0 Refill(s) Special Instructions: [facility]MUST LAST 30 DAYS Start Date: 04/14/14 Status: Ordered Zocor 80 mg oral tablet See Instructions, TAKE 1 TABLET BY MOUTH EVERY DAY., # 90 tabs, eRx: [facility] [id number], TAKE 1 TABLET BY MOUTH EVERY DAY. Special Instructions: TAKE 1 TABLET BY MOUTH EVERY DAY. Start Date: 02/23/14 Status: Ordered Results Chemistry Most recent to 1 oldest [Reference Range]: GGT [12-64 unit/L] 342 unit/L *HI* (04/21/14 9:12 AM) Immunizations Vaccine Date Refusal Reason influenza virus vaccine, inactivated 01/01/14 influenza virus vaccine, live 12/25/12 influenza virus vaccine, live 12/11/11 zoster vaccine live 12/26/12 Procedures Procedure Date Related Diagnosis Body Site Arthrocentesis, aspiration and/or injection, 04/21/14 major joint or bursa (eg, shoulder, hip, knee, subacromial bursa); without ultrasound guidance Cardiac catheterization #21 2009 Stent placement2 2009 Cholecystectomy3 2004 Cardiac catheterization #14 2002 Fusion - disc5 1980 1Carotid artery disease 2Carotid artery disease 3Cholelithiasis 4Coronary artery disease 5Back pain Social History Social History Type Response Smoking Status Former smoker; Type: Cigarettes Assessment and Plan No data available for this section
--- OUTSIDE RECORDS SUMMARY | 2016-06-19 10:19 | XMS REPORT ---
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
--- OUTSIDE RECORDS SUMMARY | 2016-06-19 10:19 | XMS REPORT ---
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
--- OUTSIDE RECORDS SUMMARY | 2016-06-19 10:19 | XMS REPORT | Continuity of Care Document ---
Author Author [facility] Organization [facility] Address Unknown Phone Unavailable Care Team Providers Care Ui Developer Name Role Phone MICA SANTOS MD Primary Care Physician [phone] Insurance Providers Guarantor Ty Loomis Address [address] [place] [address] Email DENIED/NO TO PT [place] Payer [facility] Policy Number [id number] Subscriber's Name Ty Loomis Nona Relationship 18 Self Effective Date 15 Expiration Date 15 Chief Complaint and Reason for Visit Chief Complaint Dizzy Reason for Visit Patient left without being seen Problems Active Problems Medical Problem Onset Date Status Altered level of consciousness Unknown Acute Asthma Unknown Chronic Asthma attack Unknown Acute Bipolar disorder Unknown Chronic Bronchitis Unknown Acute CAD (coronary artery disease) Unknown Chronic Confusion Unknown Acute Constipation Unknown Chronic DM2 (diabetes mellitus, type 2) Unknown Chronic Dehydration Unknown Acute Encephalopathy Unknown Resolved Fibromyalgia Unknown Chronic GERD (gastroesophageal reflux disease) Unknown Chronic History of pancreatitis Unknown Chronic Hyperlipidemia Unknown Chronic Hypersomnolence Unknown Acute Hypertension Unknown Chronic Hypoglycemia Unknown Acute Hyponatremia Unknown Acute Hyponatremia Unknown Acute Left against medical advice Unknown Acute Morbid obesity Unknown Chronic Obesity (BMI 30.0-34.9) Unknown Chronic Patient left without being seen Unknown Acute Schizophrenia Unknown Chronic Transient confusion Unknown Acute Past Problems Medical Problem Onset Date Fatigue Unknown Hyperglycemia due to type 2 diabetes mellitus Unknown Malaise Unknown Medications Current Home Medications Medication Dose Units Route Directions Days Qty Instructions Start Date Albuterol Sulfate (Proair Hfa) 8.5 Gm Aerosol 2 Puff Inhalation Four Times Daily 12/31/09 Amlodipine Besylate (Norvasc) 5 Mg Tablet 5 Mg Oral Twice A Day 12/31/09 Buspirone Hcl 15 Mg Tablet 15 Mg Oral Three Times A Day 05/15/15 Carbamazepine 200 Mg Tablet 300 Mg Oral Every Morning 12/12/11 Carbamazepine 200 Mg Tablet 200 Mg Oral Bedtime 12/12/11 Carbamazepine 200 Mg Tablet 200 Mg Oral Give With Lunch 04/23/15 Carvedilol (Coreg) 25 Mg Tablet 25 Mg Oral Three Times A Day 31/12 Clonidine Hcl 0.2 Mg Tablet 0.2 Mg Oral Twice A Day 12/31/09 Clopidogrel Bisulfate (Plavix) 75 Mg Tablet 75 Mg Oral Daily 31/12 Cyclobenzaprine Hcl 10 Mg Tablet 10 Mg Oral Three Times A Day as needed for Prn Orders 08/30/14 Diphenhydramine Hcl (Benadryl) 50 Mg Capsule 150 Mg Oral Bedtime 09/06/12 Famotidine 40 Mg Tablet 40 Mg Oral Bedtime 09/30/14 Fluticasone/Salmeterol (Advair 100-50 Diskus) 1 Disk W/Dev Inhaler 1 Puff Inhalation Twice A Day 05/15/15 Hydrocodone/Acetaminophen ([place] 10-325 Tablet) 1 Each Tablet 1 Tab Oral Every 6 Hours as needed for Pain 08/30/14 Insulin Aspart (Novolog Flexpen) 1 Unit Pen 60 Unit Sub-Q Three Times Daily With Meals 09/30/14 Insulin Glargine,Hum.rec.anlog ([place] Solostar) 300 Unit/1 Ml Insuln.pen 73 Unit Sub-Q Bedtime 06/23/15 Lorazepam 0.5 Mg Tablet 0.5 Mg Oral Three Times A Day as needed for Anxiety 05/15/15 Mometasone Furoate (Nasonex) 17 Gm Colver 2 Colver Each Nostril Twice A Day 12/31/09 Nitroglycerin (Nitrostat) 0.6 Mg Tab.subl 0.6 Mg Sublingual Every 5 Minutes as needed for Chest Tightness 09/30/14 Promethazine Hcl 25 Mg Tablet 25-50 Mg Oral Every 8 Hours as needed for Nausea 09/30/14 Rabeprazole Sodium (Aciphex) 20 Mg Tablet.dr 20 Mg Oral Daily 10/20 Ranitidine Hcl 150 Mg Capsule 150 Mg Oral Twice A Day 12/31/09 Simvastatin (Zocor) 80 Mg Tablet 80 Mg Oral Bedtime 12/31/09 Sodium Chloride 1 G Tablet 1 G Oral Twice A Day 06/23/15 Tramadol Hcl 50 Mg Tablet 50-100 Mg Oral Three Times A Day as needed for Prn Orders 08/30/14 Valsartan (Diovan) 320 Mg Tablet 320 Mg Oral Daily 12/31/09 Ziprasidone Hcl (Geodon) 80 Mg Capsule 160 Mg Oral Bedtime Past Home Medications Medication Directions Ordered Status Atomoxetine Hcl (Strattera) 10 Mg Capsule, 1 Cap Oral Daily 12/31/09 Discontinued Carbamazepine (Tegretol) 200 Mg Tablet, 1.5 Tab Oral Daily Am 12/31/09 Discontinued Carbamazepine 200 Mg Tablet, Oral Daily 08/30/14 Discontinued Cyclobenzaprine Hcl (Flexeril) 10 Mg Tablet, 10 Mg Oral Three Times A Day 31/12 Discontinued Cyclobenzaprine Hcl (Flexeril) 10 Mg Tablet, 1 Tab Oral Three Times A Day 08/19 Discontinued Diphenhydramine Hcl (Benadryl) 50 Mg Capsule, 2 Cap Oral Bedtime 12/31/09 Discontinued Duloxetine Hcl (Cymbalta) 60 Mg Capsule.dr, 2 Tab Oral Daily 08/15/09 Discontinued Ezetimibe (Zetia) 10 Mg Tablet, 1 Tab Oral Daily 12/10/09 Discontinued Hum Insulin Nph/Reg Insulin Hm (Humulin 70/30 Vial) 10 Ml Vial, 22 Unit Sub-Q Morning 12/10/09 Discontinued Hydrocodone Bit/Acetaminophen ([place] 10/325 Tablet) 1 Tab Tablet, 1 Tab Oral As Needed 09/06/12 Discontinued Hydrocodone Bit/Acetaminophen (Lortab 10) 1 Udtab Tablet, 1 Udtab Oral Every 4 -6 Hours 12/12/11 Discontinued Hydrocodone Bit/Acetaminophen ([place] 10-325 Tablet) 1 Tab Tablet, As Needed 12/31/09 Discontinued Ibuprofen (Motrin) 800 Mg Tablet, 1 Tab Oral Three Times A Day 12/10/09 Discontinued Insulin Aspart (Novolog Flexpen) 1 Unit Pen, 48 Sub-Q 15 Min Before Meals Discontinued Insulin Glargine (Lantus) 100 U/Ml Vial, 65 Unit Sub-Q Bedtime 12/31/09 Discontinued Insulin Lispro (Humalog) 100 U/Ml Vial, 36 Unit Sub-Q With Meals 12/31/09 Discontinued Insulin Regular, Human (Humulin R) 100 U/Ml Vial, 32 Units Sub-Q Supper 12/10 Discontinued Lansoprazole (Prevacid) 30 Mg Capsule.dr, 1 Tab Oral Daily 12/31/09 Discontinued Lisinopril 20 Mg Tablet, 1 Tab Oral Twice A Day 12/10/09 Discontinued Lorazepam (Ativan) 1 Mg Tablet, 1 Tab Oral Bedtime 12/31/09 Discontinued Lorazepam (Ativan) 1 Mg Tablet, 1 Tab Oral Bedtime 12/10/09 Discontinued Metformin Hcl 500 Mg Tablet, 2 Tab Oral Twice A Day 12/10/09 Discontinued Nph, Human Insulin Isophane (Humulin N) 100 U/Ml Vial, 35 Units Sub-Q Bedtime 12/10/09 Discontinued [place]-3 Acid Ethyl Esters (Lovaza) 1 G Capsule, 1 G Oral Three Times A Day Discontinued Polyethylene Glycol 3350 (Miralax) 255 Gm Powder, 255 Gm Oral Daily 12/31/09 Discontinued Potassium Chloride (K-Dur) 20 Meq Tab.prt.sr, 1 Tab Oral Twice A Day Discontinued Promethazine Hcl 25 Mg Tablet, 1 Tab Oral Twice A Day 12/31/09 Discontinued Promethazine Hcl 25 Mg Tablet, Three Times A Day as needed for Prn Orders Discontinued Quetiapine Fumarate (Seroquel Xr) 200 Mg Tab.sr.24h, 1 Tab Oral Daily Discontinued Tramadol Hcl 50 Mg Tablet, 1 - 2 Tab Oral As Needed 12/31/09 Discontinued Ziprasidone Hcl (Geodon) 80 Mg Capsule, 2 Tab Oral Bedtime 12/31/09 Discontinued Social History Social History Problem Response Recorded Date/Time Onset Date Status Chewing Tobacco Status No 09/05/2012 8:52pm Not Applicable Not Applicable Hx Substance Use No 08/27/2015 6:13am Not Applicable Not Applicable Hx Alcohol Use No 08/27/2015 6:13am Not Applicable Not Applicable Has the pt used tobacco in the last 12 months No 05/15/2015 2:06pm Not Applicable Not Applicable Tobacco Usage none 05/15/2015 4:45pm Not Applicable Not Applicable Hospital Discharge Instructions No hospital discharge instructions. Plan of Care Discharge Date 08/30/15 1:03pm Disposition 07 LEFT W/O BEING SEEN Condition at Discharge Left Without Being Seen Prescriptions See Medication Section Referrals MICA SANTOS MD Address: [address] [place] [address] [place] [phone] ELE GUO MD Address: [address] [place] [address] [place] [phone] Functional Status No functional status results. Allergies, Adverse Reactions, Alerts Allergen Type Severity Reaction Status Last Updated nalbuphine HCl Allergy Unknown Active 08/27/15 metoclopramide HCl Allergy Unknown 'GOES CRAZY' Active 08/27/15 ketorolac tromethamine Allergy Unknown Active 08/27/15 duloxetine HCl Allergy Unknown Active 08/27/15 NSAIDS (Non-Steroidal Anti-Inflamma Allergy Unknown Active 08/27/15 Penicillin Allergy Unknown HIVES Active 08/27/15 Sulfa (Sulfonamide Antibiotics) Allergy Unknown HIVES Active 08/27/15 Prochlorperazine Adverse Reaction Mild "FRUITY" Active 08/27/15 Erythromycin base Allergy Unknown HIVES Active 08/27/15 Fluconazole Allergy Unknown Active 08/27/15 Butorphanol Allergy Intermediate HIVES Active 08/27/15 Latex Allergy Unknown Active 08/27/15 Immunizations Query Response on File Recorded Date/Time Hx Influenza Vaccination Y Dec 2014 05/15/15 2:06pm Hx Pneumococcal Vaccination Y Uncertain of date 05/15/15 2:06pm Hx Tetanus, Diptheria, Pertussis No 09/30/14 12:28pm Hx Influenza Vaccination Y Dec 2014 05/15/15 2:06pm Hx Tetanus Diptheria No 09/30/14 12:28pm Hx Tetanus, Diptheria, Pertussis No 09/30/14 12:28pm Hx Tetanus Toxoid Vaccination No 09/02/14 2:02pm Influenza Vaccine Hx DEC 2014 08/27/15 6:13am Tetanus Diptheria Vaccine History UTD PER PATIENT 08/27/15 6:13am Vital Signs Acute Vital Signs Vital Response Date/Time Temperature (Fahrenheit) 97.9 deg F (96.8 - 99.1) 08/27/2015 9:00am Temperature (Calculated Celsius) 36.75958 degrees C (36.0 - 37.3) 08/27/2015 9:00am Pulse Rate (adult) 67 bpm (60 - 100) 08/27/2015 9:00am Respiratory Rate 16 breaths/min (10 - 20) 08/27/2015 9:00am O2 Sat by Pulse Oximetry 97 % (90 - 100) 08/27/2015 9:00am Blood Pressure 126/65 mm Hg 08/27/2015 9:00am Height (Feet) 6 feet 08/27/2015 5:47am Height (Inches) 2.00 inches 08/27/2015 5:47am Weight (Kilograms) 106.300 kg 08/27/2015 5:47am Body Mass Index (BMI) 30.0 08/27/2015 5:47am Results Laboratory Results Test Name Result Units Flags Reference Collection Date/Time Result Date/ Time Comments White Blood Count 7.5 T/MM3 4.5-11.0 08/27/2015 6:3108/27/2015 6: 45am Red Blood Count 4.37 M/MM3 L 4.50-5.90 08/27/2015 6:3108/27/2015 6: 45am Hemoglobin 12.7 GM/DL L 13.5-17.5 08/27/2015 6:3108/27/2015 6:45am Hematocrit 36.4 % L 41-53 08/27/2015 6:3108/27/2015 6:45am Mean Corpuscular Volume 83.3 UM3 80-100 08/27/2015 6:3108/27/2015 6: 45am Mean Corpuscular Hemoglobin 29.1 UUG 26-34 08/27/2015 6:312015 6:45am Mean Corpuscular Hemoglobin Concent 34.9 GM/DL 31-37 08/27/2015 6:08/27/2015 6:45am RDW Standard Deviation 36.0 FL L 36.9-50.2 08/27/2015 6:3108/27/2015 6:45am Platelet Count 224 T/MM3 130-400 08/27/2015 6:3108/27/2015 6:45am Mean Platelet Volume 9.6 UM3 9.4-12.4 08/27/2015 6:3108/27/2015 6: 45am Neutrophils (%) (Auto) 49.6 % 33-66 08/27/2015 6:3108/27/2015 6: 45am Lymphocytes (%) (Auto) 38.1 % 23-45 08/27/2015 6:08/27/2015 6: 45am Monocytes (%) (Auto) 4.7 % 0-9.0 08/27/2015 6:08/27/2015 6:45am Eosinophils (%) (Auto) 6.4 % H 0-4 08/27/2015 6:08/27/2015 6:45am Basophils (%) (Auto) 0.8 % 0-2 08/27/2015 6:08/27/2015 6:45am Immature Granulocyte % (Auto) 0.4 % 0.0-0.5 08/27/2015 6:2015 6:45am Absolute Neutrophils (auto) 3.7 T/MM3 1.8-7.7 08/27/2015 6:2015 6:45am Absolute Lymphocytes (auto) 2.8 T/MM3 1-4.8 08/27/2015 6:2015 6:45am Absolute Monocytes (auto) 0.4 T/MM3 0-0.8 08/27/2015 6:08/27/2015 6:45am Absolute Eosinophils (auto) 0.5 T/MM3 0-0.5 08/27/2015 6:2015 6:45am Absolute Basophils (auto) 0.1 T/MM3 0-0.2 08/27/2015 6:08/27/2015 6:45am Absolute Immature Granulocyte (auto 0.03 T/MM3 0.00-0.03 08/27/2015 6: 08/27/2015 6:45am Icterus Index < 2 0-7 08/27/2015 6:08/27/2015 6:57am Chemistry Specimen Hemolysis < 15 0-25 08/27/2015 6:08/27/2015 6 :57am 0-25: Specimen Exhibited No Hemolysis. Turbidity < 20 0-20 08/27/2015 6:08/27/2015 6:57am Sodium Level 135 MEQ/L 134-144 08/27/2015 6:08/27/2015 6:57am Potassium Level 4.2 MEQ/L 3.6-5 08/27/2015 6:08/27/2015 6:57am Chloride Level 100 MEQ/L 98-107 08/27/2015 6:3108/27/2015 6:57am Carbon Dioxide Level 24 MEQ/L 22-30 08/27/2015 6:3108/27/2015 6: 57am Anion Gap 11 MEQ/L 5-15 08/27/2015 6:3108/27/2015 6:57am Blood Urea Nitrogen 13.0 MG/DL 9-20 08/27/2015 6:3108/27/2015 6: 57am Creatinine 0.9 MG/DL 0.8-1.5 08/27/2015 6:3108/27/2015 6:57am BUN/Creatinine Ratio 14 RATIO 09-0408/27/2015 6:3108/27/2015 6:57am Glomerular Filtration Rate Calc 89 08/27/2015 6:3108/27/2015 6: 57am Glucose Level 346 MG/DL H 75-110 08/27/2015 6:3108/27/2015 6:57am Calculated Osmolality 274 MOSM/KG 261-280 08/27/2015 6:3108/27/2015 6:57am Calcium Level 8.9 MG/DL 8.4-10.2 08/27/2015 6:3108/27/2015 6:57am Total Bilirubin 0.20 MG/DL 0.20-1.30 08/27/2015 6:3108/27/2015 6: 57am Alkaline Phosphatase 213 U/L H 38-126 08/27/2015 6:3108/27/2015 6: 57am Total Protein 6.7 G/DL 6.3-8.2 08/27/2015 6:3108/27/2015 6:57am Albumin 3.9 G/DL 3.5-5.0 08/27/2015 6:3108/27/2015 6:57am Globulin 2.8 G/DL 2.4-3.6 08/27/2015 6:3108/27/2015 6:57am Albumin/Globulin Ratio 1.4 RATIO 1.1-2.2 08/27/2015 6:3108/27/2015 6 :57am Aspartate Amino Transf (AST/SGOT) 17 U/L 17-59 08/27/2015 6:2015 6:57am Alanine Aminotransferase (ALT/SGPT) 27 U/L 21-72 08/27/2015 6: 6:57am Troponin I < 0.012 ng/ml 0-0.12 08/27/2015 6:08/27/2015 7:08am Troponin values with a difference of 55% increase from orginal troponin value represent a true biological DELTA value. (%increase Calc=Orginal Troponin value, divided by subsequent Troponin value, multiplied by 100) Plasma Lactate 1.4 MMOL/L 0.6-2.2 08/27/2015 6:08/27/2015 6:55am Acetaminophen Level < 10 UG/ML L 10-30 08/27/2015 6:08/27/2015 7: 54am TOXIC <4 HR POST INGESTION: >150 MG/L; TOXIC <12 HR POST INGESTION: >50 MG/L Salicylates Level < 1.0 MG/DL L 2-20 08/27/2015 6:08/27/2015 7: 54am Alcohol, Quantitative <10 MG/DL <10 08/27/2015 6:08/27/2015 7: 54am Thyroid Stimulating Hormone (TSH) 3.94 MIU/L D 0.47-4.68 08/27/2015 6: 08/27/2015 7:42am Urine Collection Type [place]-MIDSTREAM 08/27/2015 6:2015 8:09am Urine Color YELLOW YELLOW 08/27/2015 6:08/27/2015 8:09am Urine Turbidity CLEAR CLEAR 08/27/2015 6:08/27/2015 8:09am Urine Specific [place] <=1.005 L 1.015-1.025 08/27/2015 6:2015 8:09am Urine pH 6.5 5.0-8.0 08/27/2015 6:08/27/2015 8:09am Urine Leukocyte Esterase NEGATIVE NEGATIVE 08/27/2015 6:2015 8:09am Urine Nitrite NEGATIVE NEGATIVE 08/27/2015 6:08/27/2015 8:14am --- [id number]/27/15812 --- UNIT previously reported as: POSITIVE A Urine Protein NEGATIVE NEGATIVE 08/27/2015 6:16am 08/27/2015 8:09am Urine Glucose (UA) 3+ A NEGATIVE 08/27/2015 6:16am 08/27/2015 8:09am Urine Ketones NEGATIVE NEGATIVE 08/27/2015 6:16am 08/27/2015 8:09am Urine Urobilinogen 0.2 EU/DL NORMAL 08/27/2015 6:16am 08/27/2015 8: 09am Urine Bilirubin NEGATIVE NEGATIVE 08/27/2015 6:16am 08/27/2015 8: 09am Urine Blood NEGATIVE NEGATIVE 08/27/2015 6:16am 08/27/2015 8:09am Urinalysis Comment MICROSCOPIC NOT IND. 08/27/2015 6:16am 2015 8:15am Carbamazepine (Tegretol) Level 6.0 ug/mL 4.0-12.0 08/27/2015 6:21am 1:41pm Carbamazepine performed at [facility], [address] [place] [address] Piercer Az Valdez DO Glucometer 396 mg/dL H 75-110 08/27/2015 5:54am 08/27/2015 5:57am Microbiology Results Procedure Source Organism/Result Collection Date/Time Result Date/Time Result Status Blood Culture Peripheral/Iv Start NO GROWTH AFTER 72 HOURS 08/27/2015 6: 31am 08/30/2015 6:42am Preliminary Procedures Procedure Status Date Provider(s) ROUTINE VENIPUNCTURE Completed 06/23/15 METABOLIC PANEL TOTAL CA Completed 06/23/15 URINALYSIS AUTO W/O SCOPE Completed 06/23/15 ASSAY OF TROPONIN QUANT Completed 06/23/15 COMPLETE CBC W/AUTO DIFF WBC Completed 06/23/15 ELECTROCARDIOGRAM TRACING Completed 06/23/15 EMERGENCY DEPT VISIT Completed 06/23/15 Encounters Encounter Location Arrival/Admit Date Discharge/Depart Date Attending Provider Departed Emergency Room [facility] 08/30/15 12:45pm 08/30/15 1: 03pm BUCK ANDRADE MD Departed Emergency Room [facility] 08/27/15 5:46am 08/27/15 9: 00am CHERI LEIVA MD Departed Emergency Room [facility] 06/23/15 6:27pm 06/23/15 7: 59pm MELINDA RENEE MD Departed Emergency Room [facility] 06/19/15 8:37am 06/19/15 8: 49am DUGLAS VANN MD Recent Diagnosis
--- OUTSIDE RECORDS SUMMARY | 2016-06-19 10:19 | XMS REPORT ---
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 PRN) 1 tablet Results No Known Results Summary Purpose [employer] Submission
--- OUTSIDE RECORDS SUMMARY | 2016-06-19 10:20 | XMS REPORT ---
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
--- OUTSIDE RECORDS SUMMARY | 2016-06-19 10:20 | XMS REPORT | Referral Summary ---
Author Author [facility] Medicine Organization [facility] Address Unknown Phone Unavailable Care Team Providers Care Social Services Designee Name Role Phone Courtney Barry Primary Care Physician [phone] Encounter VC Date(s): 11/09/15 - 11/09/15 [facility] [address] [place] [address]- Discharge Disposition: 01-Home or Self Care Attending Physician: Maksim Barry MD Admitting Physician: Maksim Barry MD Vital Signs Most recent to 1 oldest [Reference Range]: Blood Pressure 110/70 mmHg [90-140/60-90 mmHg] (11/09/15 8:08 AM) Problem List Condition Effective Dates Status [...] reaction Mild Active sulfanilamide topical Active Medications Advair Diskus 100 mcg-50 mcg inhalation powder See Instructions, INHALE 1 PUFF TWICE DAILY, # 60 g, eRx: [facility] , INHALE 1 PUFF TWICE DAILY Start Date: 11/08/15 Status: Ordered amLODIPine 5 mg oral tablet See Instructions, 1 TABS ORAL BID, # 180 tabs, 1 Refill(s), eRx: [facility] , 1 TABS ORAL BID Start Date: 05/04/15 Status: Ordered busPIRone 15 mg, Oral, TID, 0 Refill(s) Start Date: 05/19/15 Status: Ordered carBAMazepine 200 mg oral tablet See Instructions, TAKE 1& 1/2 TABLETS BY MOUTH EVERY MORNING, TAKE 1 TABLET AT NOON AND TAKE 1 TABLET EVERY NIGHT AT BEDTIME, # 105 tabs, eRx: [facility] , TAKE 1& 1/2 TABLETS BY MOUTH EVERY MORNING, TAKE 1 TABLET AT NOON AND TAKE 1 TAB... Start Date: 11/08/15 Status: Ordered carvedilol 25 mg oral tablet See Instructions, TAKE 1 TABLET BY MOUTH THREE TIMES DAILY, # 270 tabs, eRx: [facility] , TAKE 1 TABLET BY MOUTH THREE TIMES DAILY Start Date: 06/23/15 Status: Ordered carvedilol 25 mg oral tablet See Instructions, TAKE 1 TABLET BY MOUTH THREE TIMES DAILY, # 270 tabs, eRx: [facility] , TAKE 1 TABLET BY MOUTH THREE TIMES DAILY Start Date: 09/14/15 Status: Ordered cloNIDine 0.2 mg oral tablet See Instructions, TAKE 1 TABLET BY MOUTH TWICE DAILY, # 180 tabs, eRx: [facility] , TAKE 1 TABLET BY MOUTH TWICE DAILY Start Date: 11/08/15 Status: Ordered clopidogrel 75 mg oral tablet See Instructions, TAKE 1 TABLET BY MOUTH EVERY DAY, # 90 tabs, eRx: [facility] , TAKE 1 TABLET BY MOUTH EVERY DAY Start Date: 11/08/15 Status: Ordered cyclobenzaprine 10 mg oral tablet See Instructions, TAKE 1 TABLET BY MOUTH EVERY 8 HOURS NEEDED, # 90 tabs, eRx : [facility] , TAKE 1 TABLET BY MOUTH EVERY 8 HOURS NEEDED Start Date: 10/26/15 Status: Ordered diphenhydrAMINE 50 mg oral capsule See Instructions, 3 CAPSULE BY MOUTH AT BEDTIME FOR SLEEP., # 90 caps, eRx: [facility] [id number], 3 CAPSULE BY MOUTH AT BEDTIME FOR SLEEP. Start Date: 04/20/14 Status: Ordered Drisdol 50,000 intl units (1.25 mg) oral capsule 1 caps, Oral, qWeek, # 13 caps, 0 Refill(s), Pharmacy: [facility] [id number], 1 caps Oral qWeek Start Date: 04/23/14 [...] SUPPLY , # 30 unknown unit, eRx: [facility] [id number], 65 UNITS SUBCUTANEOUS BEDTIME (ONCE A DAY),INSTR:30 DAY SUPPLY Start Date: 06/01/15 Status: Ordered LORazepam 0.5 mg oral tablet 0.5 mg 1 tabs, Oral, TID, as needed for anxiety, 0 Refill(s) Start Date: 05/19/15 Status: Ordered Misc Prescription 0 Refill(s) Start Date: 03/02/15 Status: Ordered mometasone 50 mcg/inh nasal spray See Instructions, SHAKE WELL AND USE 2 SPRAYS IN EACH NOSTRIL TWICE DAILY, # 17 mL, eRx: [facility] [id number], SHAKE WELL AND USE 2 SPRAYS IN EACH NOSTRIL TWICE DAILY Start Date: 10/26/15 Status: Ordered Nebulizer Nebulizer, See Instructions, Nebulizer needed for breathing treatments q 4-6 hours prn soa/copd., # 1 Each, 0 Refill(s) Start Date: 04/19/15 Status: Ordered nitroglycerin 0.6 mg sublingual tablet 1 tabs, SubLingual, q5min, as needed for chest pain, # 100 tabs, 0 Refill(s) Start Date: 08/20/13 Status: Ordered [place]bury 10 mg-325 mg oral tablet 1 tabs, Oral, q6hr, - MUST LAST 30 DAYS - Pt must keep appointment for more refills., # 60 tabs, 0 Refill(s) Start Date: 11/05/15 Status: Ordered NovoLOG FlexPen 100 units/mL subcutaneous solution See Instructions, INJECT 34 UNITS SUBCUTANEOUS THREE TIMES DAILY WITH MEALS, # 45 mL, 1 Refill(s), eRx: [facility] [id number], INJECT 34 UNITS SUBCUTANEOUS THREE TIMES DAILY WITH MEALS Start Date: 08/03/15 Status: Ordered ProAir HFA 90 mcg/inh inhalation aerosol See Instructions, INHALE 2 PUFFS FOUR TIMES DAILY, # 8.5 g, 1 Refill(s), eRx: [facility] [id number], INHALE 2 PUFFS FOUR TIMES DAILY Start Date: 08/03/15 Status: Ordered promethazine 25 mg oral tablet See Instructions, TAKE 1 TO 2 TABLETS BY MOUTH EVERY 8 HOURS NEEDED FOR NAUSEA, # 120 tabs, eRx: [facility] [id number], TAKE 1 TO 2 TABLETS BY MOUTH EVERY 8 HOURS NEEDED FOR NAUSEA Start Date: 10/20/15 Status: Ordered RABEprazole 20 mg oral delayed release tablet See Instructions, TAKE ONE TABLET BY MOUTH EVERY DAY, # 90 tabs, eRx: [facility] [id number], TAKE ONE TABLET BY MOUTH EVERY DAY Start Date: 09/23/15 Status: Ordered ranitidine 150 mg oral tablet See Instructions, TAKE 1 TABLET BY MOUTH EVERY DAY, # 90 tabs, eRx: [facility] [id number], TAKE 1 TABLET BY MOUTH EVERY DAY Start Date: 08/19/15 Status: Ordered simvastatin 80 mg oral tablet See Instructions, TAKE 1 TABLET BY MOUTH EVERY DAY, # 90 tabs, eRx: [facility] [id number], TAKE 1 TABLET BY MOUTH EVERY DAY Start Date: 08/30/15 Status: Ordered SKIN BARRIER WIPES,SWABS SKIN BARRIER WIPES,SWABS, See Instructions, Use three times daily and as needed for diabetic care. Dx: E11.65 Length of need : 99-lifetime Fax: [facility] [phone], # 150 Each, 2 Refill(s) Start Date: 03/02/15 Status: Ordered Toujeo SoloStar 300 units/mL subcutaneous solution 73 units, SubCutaneous, Bedtime (once a day), # 4 mL, 6 Refill(s), Pharmacy: [facility] [id number], Switching from Lantus to Toujeo, 73 units [...] # 180 tabs, 0 Refill(s) Start Date: 11/05/15 Status: Ordered traZODone 50 mg oral tablet 3 t, Oral, Bedtime (once a day), 0 Refill(s) Start Date: 05/19/15 Status: Ordered valsartan 320 mg oral tablet See Instructions, TAKE 1 TABLET BY MOUTH DAILY, # 90 tabs, 0 Refill(s), Pharmacy : [facility] [id number], TAKE 1 TABLET BY MOUTH DAILY Start Date: 10/13/15 Status: Ordered ziprasidone 80 mg oral capsule 160 mg 2 caps, Oral, Daily, 0 Refill(s) Start Date: 05/19/15 Status: Ordered Results Hematology Most recent to 1 oldest [Reference Range]: WBC [4.8-10.8 7.2 10*3/uL 10*3/uL] (11/09/15 8:40 AM) RBC [4.60-6.20] 4.78 (11/09/15 8:40 AM) Hgb [14.0-18.0 14.1 gm/dL gm/dL] (11/09/15 8:40 AM) Hct [42.0-52.0 %] 39.3 % *LOW* (11/09/15 8:40 AM) MCV [82.0-99.0 fL] 82.2 fL (11/09/15 8:40 AM) MCH [27.0-32.0 pg] 29.5 pg (11/09/15 8:40 AM) MCHC [32.0-36.0 35.9 gm/dL gm/dL] (11/09/15 8:40 AM) RDW [11.5-14.5 %] 12.0 % (11/09/15 8:40 AM) Platelet [150-400 287 10*3/uL 10*3/uL] (11/09/15 8:40 AM) MPV [8.8-14.8 fL] 9.3 fL (11/09/15 8:40 AM) Immature 0.1 % Granulocytes (11/09/15 8:40 AM) [0.0-1.0 %] Neutrophils [51-75 51 % %] (11/09/15 8:40 AM) Lymphocytes [20-46 38 % %] (11/09/15 8:40 AM) Monocytes [4-11 %] 6 % (11/09/15 8:40 AM) Eosinophils [0-4 %] 5 % *HI* (11/09/15 8:40 AM) Basophils [0-2 %] 1 % (11/09/15 8:40 AM) Neutro Absolute 3.68 10*3 [1.90-7.00 10*3] (11/09/15 8:40 AM) Lymph Absolute 2.72 10*3 [0.80-3.30 10*3] (11/09/15 8:40 AM) [place] Absolute 0.43 10*3 [0.30-1.00 10*3] (11/09/15 8:40 AM) Eos Absolute 0.36 10*3 [0.00-0.50 10*3] (11/09/15 8:40 AM) Baso Absolute 0.05 10*3 [0.00-0.20 10*3] (11/09/15 8:40 AM) Chemistry Most recent to 1 oldest [Reference Range]: Sodium Lvl [135-144 125 mEq/L mEq/L] *LOW* (11/09/15 8:40 AM) Potassium Lvl 4.9 mEq/L [3.5-5.2 mEq/L] (11/09/15 8:40 AM) Chloride [99-111 91 mEq/L mEq/L] *LOW* (11/09/15 8:40 AM) CO2 [23-31 mEq/L] 28 mEq/L (11/09/15 8:40 AM) AGAP [3-20] 6 (11/09/15 8:40 AM) BUN [8-26 mg/dL] 8 mg/dL (11/09/15 8:40 AM) Glucose Lvl [70-99 246 mg/dL mg/dL] *HI* (11/09/15 8:40 AM) Creatinine Lvl 1.15 mg/dL [0.72-1.25 mg/dL] (11/09/15 8:40 AM) eGFR [>60 mL/min] >60 mL/min 1 (11/09/15 8:40 AM) Calcium Lvl 8.9 mg/dL [8.9-10.5 mg/dL] (11/09/15 8:40 AM) Albumin Lvl [3.5-5.0 4.1 gm/dL gm/dL] (11/09/15 8:40 AM) Total Protein 6.7 gm/dL 2 [6.1-7.7 gm/dL] (11/09/15 8:40 AM) Globulin [1.8-4.0 2.6 gm/dL gm/dL] (11/09/15 8:40 AM) ALT [0-55 U/L] 48 U/L (11/09/15 8:40 AM) AST [5-34 U/L] 29 U/L (11/09/15 8:40 AM) Alk Phos [40-150 205 U/L U/L] *HI* (11/09/15 8:40 AM) Bili Total [0.2-1.2 0.5 mg/dL mg/dL] (11/09/15 8:40 AM) Chol [0-199 mg/dL] 178 mg/dL (11/09/15 8:40 AM) Trig [0-149 mg/dL] 193 mg/dL *HI* (11/09/15 8:40 AM) HDL [40-84 mg/dL] 43 mg/dL (11/09/15 8:40 AM) LDL [0-130 mg/dL] 96 mg/dL (11/09/15 8:40 AM) VLDL Cholesterol 39 mg/dL [0-28 mg/dL] *HI* (11/09/15 8:40 AM) Cardiac Risk 4.1 [0.0-5.7] (11/09/15 8:40 AM) TSH with Reflex Free 1.73 T4 [0.35-4.94] (11/09/15 8:40 AM) Hgb A1c [4.1-5.6 %] 9.8 % *HI* (11/09/15 8:40 AM) eAvg Glucose 234.6 mg/dL (11/09/15 8:40 AM) 1Result Comment: Multiply eGFR results by 1.21 for race. 2Result Comment: Please note new reference range for adult Protein. Urinalysis Most recent to 1 oldest [Reference Range]: UA Color Yellow (11/09/15 8:58 AM) UA Appear Clear (11/09/15 8:58 AM) UA pH [5.0-8.0] 6.0 (11/09/15 8:58 AM) UA Leuk Est Negative [Negative] (11/09/15 8:58 AM) UA Nitrite Negative [Negative] (11/09/15 8:58 AM) UA Protein Negative [Negative] (11/09/15 8:58 AM) UA Glucose Trace [Negative] *ABN* (11/09/15 8:58 AM) UA Ketones Negative [Negative] (11/09/15 8:58 AM) UA Urobilinogen 1.0 mg/dL [<1.0 mg/dL] (11/09/15 8:58 AM) UA Bili [Negative] Negative (11/09/15 8:58 AM) UA Blood [Negative] Negative (11/09/15 8:58 AM) UA Spec Grav 1.010 [1.003-1.030] (11/09/15 8:58 AM) Type Voided (11/09/15 8:58 AM) Immunizations Vaccine Date Refusal Reason influenza virus vaccine, inactivated 11/09/15 influenza virus vaccine, inactivated 12/22/14 influenza virus [...] Patient Education Author: Maksim Barry MD Date: Family Medicine Arthritis, Nonspecific Arthritis is inflammation of a joint. This usually means pain, redness, warmth or swelling are present. One or more joints may be involved. There are a number of types of arthritis. Your caregiver may not be able to tell what type of arthritis you have right away. CAUSES The most common cause of arthritis is the wear and tear on the joint ( osteoarthritis). This causes damage to the cartilage, which can break down over time. The knees, hips, back and neck are most often affected by this type of arthritis. Other types of arthritis and common causes of joint pain include: Sprains and other injuries near the joint. Sometimes minor sprains and injuries cause pain and swelling that develop hours later. Rheumatoid arthritis. This affects hands, feet and knees. It usually affects both sides of your body at the same time. It is often associated with chronic ailments, fever, weight loss and general weakness. Crystal arthritis. Gout and pseudo gout can cause occasional acute severe pain, redness and swelling in the foot, ankle, or knee. Infectious arthritis. Bacteria can get into a joint through a break in overlying skin. This can cause infection of the joint. Bacteria and viruses can also spread through the blood and affect your joints. Drug, infectious and allergy reactions. Sometimes joints can become mildly painful and slightly swollen with these types of illnesses. SYMPTOMS Pain is the main symptom. Your joint or joints can also be red, swollen and warm or hot to the touch. You may have a fever with certain types of arthritis, or even feel overall ill. The joint with arthritis will hurt with movement. Stiffness is present with some types of arthritis. DIAGNOSIS Your caregiver will suspect arthritis based on your description of your symptoms and on your exam. Testing may be needed to find the type of arthritis: Blood and sometimes urine tests. X-ray tests and sometimes CT or MRI scans. Removal of fluid from the joint (arthrocentesis) is done to check for bacteria, crystals or other causes. Your caregiver (or a specialist) will numb the area over the joint with a local anesthetic, and use a needle to remove joint fluid for examination. This procedure is only minimally uncomfortable. Even with these tests, your caregiver may not be able to tell what kind of arthritis you have. Consultation with a specialist (dowel machine operator) may be helpful. TREATMENT Your caregiver will discuss with you treatment specific to your type of arthritis. If the specific type cannot be determined, then the following general recommendations may apply. Treatment of severe joint pain includes: Rest. Elevation. Anti-inflammatory medication (for example, ibuprofen) may be prescribed. Avoiding activities that cause increased pain. Only take npag-lnl-fyglntu or prescription medicines for pain and discomfort as recommended by your caregiver. Cold packs over an inflamed joint may be used for 10 to 15 minutes every hour. Hot packs sometimes feel better, but do not use overnight. Do not use hot packs if you are diabetic without your caregiver's permission. A cortisone shot into arthritic joints may help reduce pain and swelling. Any acute arthritis that gets worse over the next 1 to 2 days needs to be looked at to be sure there is no joint infection. Long-term arthritis treatment involves modifying activities and lifestyle to reduce joint stress jarring. This can include weight loss. Also, exercise is needed to nourish the joint cartilage and remove waste. This helps keep the muscles around the joint strong. HOME CARE INSTRUCTIONS Do not take aspirin to relieve pain if gout is suspected. This elevates uric acid levels. Only take kjpy-xuy-kxjwdye or prescription medicines for pain, discomfort or fever as directed by your caregiver. Rest the joint as much as possible. If your joint is swollen, keep it elevated. Use crutches if the painful joint is in your leg. Drinking plenty of fluids may help for certain types of arthritis. Follow your caregiver's dietary instructions. Try low-impact exercise such as: Swimming. Water aerobics. Biking. Walking. Morning stiffness is often relieved by a warm shower. Put your joints through regular homyj-ip-hpnuxg. SEEK MEDICAL CARE IF: You do not feel better in 24 hours or are getting worse. You have side effects to medications, or are not getting better with treatment. SEEK IMMEDIATE MEDICAL CARE IF: You have a fever. You develop severe joint pain, swelling or redness. Many joints are involved and become painful and swollen. There is severe back pain and/or leg weakness. You have loss of bowel or bladder control. This information is not intended to replace advice given to you by your health care provider. Make sure you discuss any questions you have with your health care provider. Document Released: 04/05/2005 Document Revised: 03/19/2015 Document Reviewed: [facility] Patient Information 2016 [employer] [facility]. No follow up information was provided. Extracted from: Title: Office Visit Note Author: Maksim Barry MD Date: 11/09/15 Assessment/Plan Arthritis This issue was reviewed, appears stable, and current therapy continued except as mentioned. Appropriate lab was reviewed from the most recent appropriate entry and lab was ordered if needed in the cpoe/nursing orders, and follow up recommended generally in 90 days and no later then six months. Has a narcotic contract. CAD (coronary artery disease) This issue was reviewed, appears stable, and current therapy continued except as mentioned. Appropriate lab was reviewed from the most recent appropriate entry and lab was ordered if needed in the cpoe /nursing orders, and follow up recommended generally in 90 days and no later then six months. Needs to see Cardiology when willing. Chronic insomnia This issue was reviewed, appears stable, and [...] days and no later then six months. Avoid nsaids. Has seen nephrology in the past. Chronic low back pain This issue was reviewed, appears stable, and current therapy continued except as mentioned. Appropriate lab was reviewed from the most recent appropriate entry and lab was ordered if needed in the cpoe/nursing orders, and follow up recommended generally in 90 days and no later then six months. Depression This issue was reviewed, appears stable, and current therapy continued except as mentioned. Appropriate lab was reviewed from the most recent appropriate entry and lab was ordered if needed in the cpoe/nursing orders, and follow up recommended generally in 90 days and no later then six months. Mood stable.Sees PV. Diabetes The patient was notified for the need for regular quarterly f/u of their diabetes. Further any pertinent medication, supplies, etc were refilled. Additionally, they are to have annual eye exams, foot exams, and regular care. Needs lab. The patient was given the vaccines requested per protocol and according to those needed for school/family/college/etc. Flu vaccine per request. Fibromyalgia This issue was reviewed, appears stable, and current therapy continued except as mentioned. Appropriate lab was reviewed from the most recent appropriate entry and lab was ordered if needed in the cpoe/nursing orders, and follow up recommended generally in 90 days and no later then six months. Gastroesophageal reflux disease This issue was reviewed, appears stable, and current therapy continued except as mentioned. Appropriate lab was reviewed from the most recent appropriate entry and lab was ordered if needed in the cpoe /nursing orders, and follow up recommended generally in 90 days and no later then six months. Headache This issue was reviewed, appears stable, and current therapy continued except as mentioned. Appropriate lab was reviewed from the most recent appropriate entry and lab was ordered if needed in the cpoe/nursing orders, and follow up recommended generally in 90 days and no later then six months. Hyponatremia This issue was reviewed, appears stable, and current therapy continued except as mentioned. Appropriate lab was reviewed from the most recent appropriate entry and lab was ordered if needed in the cpoe/nursing orders, and follow up recommended generally in 90 days and no later then six months. Lab pending. Has seen nephrology and is felt to be due to his meds and psychiatric issues. Orders: carBAMazepine, See Instructions, TAKE 1& 1/2 TABLETS BY MOUTH EVERY MORNING, TAKE 1 TABLET AT NOON AND TAKE 1 TABLET EVERY NIGHT AT BEDTIME, # 105 tabs, eRx: [facility] , TAKE 1& 1/2 TABLETS BY MOUTH EVERY MORNING, TAKE 1 TABLET AT NOON AND TAKE 1 TAB... cloNIDine, See Instructions, TAKE 1 TABLET BY MOUTH TWICE DAILY, # 180 tabs, eRx: [facility] [id number], TAKE 1 TABLET BY MOUTH TWICE DAILY clopidogrel, See Instructions, TAKE 1 TABLET BY MOUTH EVERY DAY, # 90 tabs, eRx: [facility] , TAKE 1 TABLET BY MOUTH EVERY DAY fluticasone-salmeterol, See Instructions, INHALE 1 PUFF TWICE DAILY, # 60 g, eRx: [facility] [id number], INHALE 1 PUFF TWICE DAILY Addendum He was willing to make an appt with Cardiology. by Maksim Barry MD on November 09, 2015 08:20:38 CDT
--- OUTSIDE RECORDS SUMMARY | 2016-06-19 10:20 | XMS REPORT | Referral Summary ---
Author Organization Unknown Address Unknown Phone Unavailable Care Team Providers Care Garage Hand Name Role Phone Courtney Barry Primary Care Physician [phone] Encounter VC Date(s): 04/03/14 - 04/03/14 [facility], [address] [place] [address]- Discharge Diagnosis: Chronic kidney disease (CKD), stage II (mild) Discharge Diagnosis: Abnormal blood glucose Discharge Diagnosis: CAD (coronary artery disease) Discharge Diagnosis: Asthma Discharge Diagnosis: Acute shoulder pain Discharge Diagnosis: Diabetes Discharge Diagnosis: Gastroesophageal reflux disease Discharge Disposition: Home or Self Care Attending Physician: Maksim Barry MD Admitting Physician: Maksim Barry MD Vital Signs Most recent to 1 oldest [Reference Range]: Blood Pressure 140/90 mmHg [90-140/60-90 mmHg] (04/03/14 8:27 AM) Problem List Condition Effective Dates [...] oral tablet 1 tabs, Oral, Daily, from [facility], 0 Refill(s) Special Instructions: from [facility] Start Date: 01/01/14 Status: Ordered AcipHex 20 mg oral delayed release tablet 1 tabs, Oral, Daily, # 90 tabs, 0 Refill(s), Pharmacy: [facility] [id number], 1 tabs Oral Daily Start Date: 08/12/13 Status: Ordered Aciphex 20 mg tablet,delayed release See Instructions, TAKE 1 TABLET BY MOUTH EVERY DAY., # 90 tabs, eRx: [facility] [id number], TAKE 1 TABLET BY MOUTH EVERY DAY. Special Instructions: TAKE 1 TABLET BY MOUTH EVERY DAY. Start Date: 11/04/13 Status: Ordered amLODIPine 5 mg oral tablet See Instructions, 1 TABS ORAL BID, # 180 tabs, 2 Refill(s), eRx: [facility] [id number], 1 TABS ORAL BID Special Instructions: 1 TABS ORAL BID Start Date: 02/23/14 Status: Ordered carBAMazepine 200 mg oral tablet See Instructions, 1 1/2 TABS PO Q AM, 1 TAB AT NOON, AND 1 AT HS., # 105 tabs, eRx: [facility] [id number], 1 1/2 TABS PO Q AM, 1 TAB AT NOON, AND 1 AT HS. Special Instructions: 1 1/2 TABS PO Q AM, 1 TAB AT NOON, AND 1 AT HS. Start Date: 03/20/14 Status: Ordered cloNIDine 0.2 mg oral tablet See Instructions, TAKE 1 TABLET BY MOUTH TWICE A DAY., # 180 tabs, eRx: [facility] [id number], TAKE 1 TABLET BY MOUTH TWICE A DAY. Special Instructions: TAKE 1 TABLET BY MOUTH TWICE A DAY. Start Date: 01/26/14 Status: Ordered Coreg 25 mg oral tablet See Instructions, 1 TABS ORAL TID, # 270 tabs, eRx: [facility] [id number], 1 TABS ORAL TID Special Instructions: 1 TABS ORAL TID Start Date: 01/26/14 Status: Ordered cyclobenzaprine 10 mg oral tablet See Instructions, TAKE 1 TABLET BY MOUTH EVERY 8 HOURS NEEDED., # 90 tabs, 0 Refill(s), Pharmacy: [id number], TAKE 1 TABLET BY MOUTH EVERY 8 HOURS NEEDED. Special Instructions: TAKE 1 TABLET BY MOUTH EVERY 8 HOURS NEEDED. Start Date: 03/13/14 Stop Date: 04/20/14 Status: Ordered Diovan 320 mg oral tablet See Instructions, 1 TABS ORAL DAILY, # 90 tabs, eRx: [facility] [id number] , 1 TABS ORAL DAILY Special Instructions: 1 TABS ORAL DAILY Start Date: 04/01/14 Status: Ordered diphenhydrAMINE 50 mg oral capsule See Instructions, 3 CAPSULE BY MOUTH AT BEDTIME FOR SLEEP., # 90 caps, eRx: [facility] [id number], 3 CAPSULE BY MOUTH AT BEDTIME FOR SLEEP. Special Instructions: 3 CAPSULE BY MOUTH AT BEDTIME FOR SLEEP. Start Date: 03/20/14 Status: Ordered doxepin 50 mg oral capsule 1 caps, Oral, Bedtime (once a day), [facility], # 14 caps, 0 Refill(s) [facility] Start Date: 08/22/13 Status: Ordered famotidine 40 [...] SUPPLY , # 30 unknown unit, eRx: [facility] [id number], 65 UNITS SUBCUTANEOUS BEDTIME (ONCE A DAY),INSTR:30 DAY SUPPLY Special Instructions: 65 UNITS SUBCUTANEOUS BEDTIME (ONCE A DAY),INSTR:30 DAY SUPPLY Start Date: 02/23/14 Status: Ordered LORazepam 2 mg oral tablet [...] # 1 bottles, 2 Refill(s) , eRx: [facility] [id number], TAKE (17G) BY ORAL ROUTE EVERY DAY [...] A DAY., # 17 unknown unit, eRx: [facility] [id number], INHALE 2 PUFFS TWICE A DAY. Special Instructions: INHALE 2 PUFFS TWICE A DAY. Start Date: 03/20/14 Status: Ordered nitroglycerin 0.6 mg sublingual tablet 1 tabs, SubLingual, q5min, as needed for chest pain, # 100 tabs, 0 Refill(s) Start Date: 08/20/13 Status: Ordered [place] 10 mg-325 mg oral tablet 1 tabs, Oral, q6hr, - MUST LAST 30 DAYS -, # 60 tabs, 0 Refill(s) Special Instructions: - MUST LAST 30 DAYS - Start Date: 03/16/14 Status: Ordered NovoLOG FlexPen 100 units/mL subcutaneous solution See Instructions, 34 UNITS TID WITH MEALS, # 3 unknown unit, eRx: [facility] [id number], 34 UNITS TID WITH MEALS Special Instructions: 34 UNITS TID WITH MEALS Start Date: 03/23/14 Status: Ordered Plavix 75 mg oral tablet See Instructions, 1 TABS ORAL DAILY, # 30 tabs, eRx: [facility] 86011 , 1 TABS ORAL DAILY Special Instructions: 1 TABS ORAL DAILY Start Date: 03/20/14 Status: Ordered ProAir HFA 90 mcg/inh inhalation aerosol See Instructions, INHALE 2 PUFFS BY INHALATION 4 TIMES A DAY., # 1 inhalers, eRx : [facility] 78592, INHALE 2 PUFFS BY INHALATION 4 TIMES A DAY. Special Instructions: INHALE 2 PUFFS BY INHALATION 4 TIMES A DAY. Start Date: 03/20/14 Status: Ordered promethazine 25 mg oral tablet See Instructions, 1-2 TABS PO Q 8 HOURS PRN NAUSEA, # 120 tabs, 0 Refill(s), Pharmacy: [facility] [id number], 1-2 TABS PO Q 8 HOURS PRN NAUSEA Special Instructions: 1-2 TABS PO Q 8 HOURS PRN NAUSEA Start Date: 03/13/14 Stop Date: 04/20/14 Status: Ordered ranitidine 150 mg oral capsule See Instructions, TAKE 1 CAPSULE BY MOUTH EVERY DAY., # 90 caps, eRx: [facility] [id number], TAKE 1 CAPSULE BY MOUTH EVERY DAY. Special Instructions: TAKE 1 CAPSULE BY MOUTH EVERY DAY. Start Date: 02/23/14 Status: Ordered traMADol 50 mg oral tablet 1-2 tabs, Oral, q8hr, as needed for pain, SHAHRAM-MUST LAST 30 DAYS, # 180 tabs, 0 Refill(s) Special Instructions: [facility] LA[facility] 30 DAYS Start Date: 03/13/14 Status: Ordered Zocor 80 mg oral tablet See Instructions, TAKE 1 TABLET BY MOUTH EVERY DAY., # 90 tabs, eRx: [facility] [id number], TAKE 1 TABLET BY MOUTH EVERY DAY. Special Instructions: TAKE 1 TABLET BY MOUTH EVERY DAY. Start Date: 02/23/14 Status: Ordered Results Chemistry Most recent to 1 oldest [Reference Range]: Sodium Lvl [135-144 125 mEq/L mEq/L] *LOW* (04/03/14 8:43 AM) Potassium Lvl 5.1 mEq/L [3.5-5.2 mEq/L] (04/03/14 8:43 AM) Chloride [99-111 93 mEq/L mEq/L] *LOW* (04/03/14 8:43 AM) CO2 [23-31 mEq/L] 23 mEq/L (04/03/14 8:43 AM) AGAP [3-20] 9 (04/03/14 8:43 AM) BUN [8-26 mg/dL] 10 mg/dL (04/03/14 8:43 AM) Glucose Lvl [70-99 258 mg/dL mg/dL] *HI* (04/03/14 8:43 AM) Creatinine Lvl 1.05 mg/dL [0.72-1.25 mg/dL] (04/03/14 8:43 AM) eGFR [>60 mL/min] >60 mL/min 1 (04/03/14 8:43 AM) Calcium Lvl 9.3 mg/dL [8.9-10.5 mg/dL] (04/03/14 8:43 AM) Albumin Lvl [3.5-5.0 4.3 gm/dL gm/dL] (04/03/14 8:43 AM) Total Protein 7.5 gm/dL [6.4-8.3 gm/dL] (04/03/14 8:43 AM) Globulin [1.8-4.0 3.2 gm/dL gm/dL] (04/03/14 8:43 AM) ALT [0-55 unit/L] 25 unit/L (04/03/14 8:43 AM) AST [5-34 unit/L] 18 unit/L (04/03/14 8:43 AM) Alk Phos [40-150 182 unit/L unit/L] *HI* (04/03/14 8:43 AM) Bili Total [0.2-1.2 0.4 mg/dL mg/dL] (04/03/14 8:43 AM) Hgb A1c [4.1-5.6 %] 9.0 % *HI* (04/03/14 8:43 AM) eAvg Glucose 211.6 mg/dL (04/03/14 8:43 AM) 1Result Comment: Multiply eGFR results by [...] Author: Maksim Barry MD Date: Family Medicine Arthralgia Your caregiver has diagnosed you as suffering from an arthralgia. Arthralgia means there is pain in a joint. This can come from many reasons including: Bruising the joint which causes soreness (inflammation ) in the joint. Wear and tear on the joints which occur as we grow older (osteoarthritis ) . Overusing the joint. Various forms of arthritis. Infections of the joint. Regardless of the cause of pain in your joint, most of these different pains respond to anti-inflammatory drugs and rest. The exception to this is when a joint is infected, and these cases are treated with antibiotics, if it is a bacterial infection. HOME CARE INSTRUCTIONS Rest the injured area for as long as directed by your caregiver. Then slowly start using the joint as directed by your caregiver and as the pain allows. Crutches as directed may be useful if the ankles, knees or hips are involved. If the knee was splinted or casted, continue use and care as directed. If an stretchy or elastic wrapping bandage has been applied today, it should be removed and re-applied every 3 to 4 hours. It should not be applied tightly, but firmly enough to keep swelling down. Watch toes and feet for swelling, bluish discoloration, coldness, numbness or excessive pain. If any of these problems (symptoms ) occur, remove the hoang bandage and re-apply more loosely. If these symptoms persist, contact your caregiver or return to this location. For the first 24 hours, keep the injured extremity elevated on pillows while lying down. Apply ice for 15-20 minutes to the sore joint every couple hours while awake for the first half day. Then 3-4 times per day for the first 48 hours. Put the ice in a plastic bag and place a towel between the bag of ice and your skin. Wear any splinting, casting, elastic bandage applications, or slings as instructed. Only take [id number] or prescription medicines for pain, discomfort, or fever as directed by your caregiver. Do not use aspirin immediately after the injury unless instructed by your physician. Aspirin can cause increased bleeding and bruising of the tissues. If you were given crutches, continue to use them as instructed and do not resume weight bearing on the sore joint until instructed. Persistent pain and inability to use the sore joint as directed for more than 2 to 3 days are warning signs indicating that you should see a caregiver for a follow-up visit as soon as possible. Initially, a hairline fracture (break in bone) may not be evident on X-rays. Persistent pain and swelling indicate that further evaluation, non-weight bearing or use of the joint (use of crutches or slings as instructed), or further X-rays are indicated. X-rays may sometimes not show a small fracture until a week or 10 days later. Make a follow-up appointment with your own caregiver or one to whom we have referred you. A radiologist (specialist in reading X-rays) may read your X-rays. Make sure you know how you are to obtain your X-ray results. Do not assume everything is normal if you do not hear from us. SEEK MEDICAL CARE IF: Bruising, swelling, or pain increases. SEEK IMMEDIATE MEDICAL CARE IF: Your fingers or toes are numb or blue. The pain is not responding to medications and continues to stay the same or get worse. The pain in your joint becomes severe. You develop a fever over 102 F (38.9 C). It becomes impossible to move or use the joint. MAKE SURE YOU: Understand these instructions. Will watch your condition. Will get help right away if you are not doing well or get worse. Document Released: 02/26/2006 Document Revised: 05/20/2012 Document Reviewed: [facility] Patient Information 2014 [employer] [facility]. No follow up information was provided. Extracted from: Title: Office Visit Note Author: Maksim Barry MD Date: 04/03/14 Assessment/Plan Abnormal blood glucose This issue is stable and appropriate refills, lab, and f/u have been discussed. Ordered: Comprehensive Metabolic Panel Hemoglobin A1c Acute shoulder pain Xray is pending and referral to [facility] Rheumatology for consideration of a joint injection. Ordered: XR Shoulder Complete Left Asthma This issue is stable and appropriate refills, lab, and f/u have been discussed. CAD (coronary artery disease) This issue is stable and appropriate refills, lab, and f/u have been discussed. Consult offered with [facility] Cardiology but he prefers to make his own appt with Dr. Dumont. Chronic kidney disease (CKD), stage II (mild) This issue is stable and appropriate refills, lab, and f/u have been discussed. No nsaids. Diabetes This issue is stable and appropriate refills, lab, and f/u have been discussed. The patient was notified for the need for regular quarterly f/u of their diabetes. Further any pertinent medication, supplies, etc were refilled. Additionally, they are to have annual eye exams, foot exams, and regular care. Lab pending. Gastroesophageal reflux disease This issue is stable and appropriate refills, lab, and f/u have been discussed.
--- OUTSIDE RECORDS SUMMARY | 2016-06-19 10:20 | XMS REPORT ---
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
--- OUTSIDE RECORDS SUMMARY | 2016-06-19 10:20 | XMS REPORT | Referral Summary ---
Author Author [facility] Medicine Organization [facility] Address Unknown Phone Unavailable Care Team Providers Care Sales Relationship Manager Name Role Phone Courtney Barry Primary Care Physician [phone] Encounter VC Date(s): 10/05/14 - 10/05/14 [facility] [address] [place] [id number]- Discharge Disposition: 01-Home or Self Care Attending Physician: Maksim Barry MD Admitting Physician: Maksim Barry MD Vital Signs Most recent to 1 oldest [Reference Range]: Blood Pressure 145/100 mmHg [90-140/60-90 mmHg] *HI* (10/05/14 8:33 AM) Problem List Condition Effective Dates Status [...] oral tablet 1 tabs, Oral, Daily, from [facility], 0 Refill(s) Start Date: 01/01/14 Status: Ordered AcipHex 20 mg oral delayed release tablet 1 tabs, Oral, Daily, # 90 tabs, 0 Refill(s), Pharmacy: [facility] [id number], 1 tabs Oral Daily Start Date: 08/12/13 Status: Ordered Aciphex 20 mg tablet,delayed release See Instructions, TAKE 1 TABLET BY MOUTH EVERY DAY., # 90 tabs, eRx: [facility] [id number], TAKE 1 TABLET BY MOUTH EVERY DAY. Start Date: 03/24/15 Status: Ordered Aciphex 20 mg tablet,delayed release See Instructions, TAKE 1 TABLET BY MOUTH EVERY DAY., # 90 tabs, 1 Refill(s), eRx : [facility] [id number], TAKE 1 TABLET BY MOUTH EVERY DAY. Start Date: 07/27/14 Status: Ordered Aciphex 20 mg tablet,delayed release See Instructions, TAKE 1 TABLET BY MOUTH EVERY DAY., # 90 tabs, eRx: [facility] [id number], TAKE 1 TABLET BY MOUTH EVERY DAY. Start Date: 01/08/15 Status: Ordered Advair Diskus 100 mcg-50 mcg inhalation powder 1 puffs, Inhalation, BID, # 60 Each, 3 Refill(s), Pharmacy: [facility] Start Date: 03/17/15 Status: Ordered Advair Diskus 100 mcg-50 mcg inhalation powder 1 puffs, Inhalation, BID, # 28 Each, 0 Refill(s), samples given to patient (Rx) Start Date: 03/17/15 Status: Ordered amLODIPine 5 mg oral tablet See Instructions, 1 TABS ORAL BID, # 180 tabs, 1 Refill(s), eRx: [facility] [id number], 1 TABS ORAL BID Start Date: 03/01/15 Status: Ordered carBAMazepine 200 mg oral tablet See Instructions, TAKE 1& 1/2 TABLETS BY MOUTH EVERY MORNING, 1 TABLET AT NOON, AND 1 TABLET AT BEDTIME, # 105 tabs, eRx: [facility] [id number], TAKE 1& 1/ 2 TABLETS BY MOUTH EVERY MORNING, 1 TABLET AT NOON, AND 1 TABLET AT BEDTIME Start Date: 03/01/15 Status: Ordered cloNIDine 0.2 mg oral tablet See Instructions, TAKE 1 TABLET BY MOUTH TWICE A DAY., # 180 tabs, 1 Refill(s), eRx: [facility] [id number], TAKE 1 TABLET BY MOUTH TWICE A DAY. Start Date: 10/28/14 Status: Ordered cloNIDine 0.2 mg oral tablet See Instructions, TAKE 1 TABLET BY MOUTH TWICE A DAY., # 180 tabs, eRx: [facility] [id number], TAKE 1 TABLET BY MOUTH TWICE A DAY. Start Date: 04/02/15 Status: Ordered clopidogrel 75 mg oral tablet 75 mg 1 tabs, Oral, Daily, # 90 tabs, 1 Refill(s), Pharmacy: [facility] [id number], 1 tabs Oral Daily,x90 days Start Date: 03/01/15 Stop Date: 05/30/15 Status: Ordered Coreg 25 mg oral tablet See Instructions, 1 TABS ORAL TID, # 270 tabs, 1 Refill(s), Pharmacy: [facility] [id number], 1 TABS ORAL TID Start Date: 01/04/15 Status: Ordered cyclobenzaprine 10 mg oral tablet See Instructions, TAKE 1 TABLET BY MOUTH EVERY 8 HOURS NEEDED, # 90 tabs, eRx : [facility] [id number], TAKE 1 TABLET BY MOUTH EVERY 8 HOURS NEEDED Start Date: 03/31/15 Status: Ordered cyclobenzaprine 10 mg oral tablet See Instructions, TAKE 1 TABLET BY MOUTH EVERY 8 HOURS NEEDED, # 90 tabs, 0 Refill(s), Pharmacy: [facility] [id number], TAKE 1 TABLET BY MOUTH EVERY 8 HOURS NEEDED Start Date: 03/01/15 Status: Ordered diphenhydrAMINE 50 mg oral capsule See Instructions, 3 CAPSULE BY MOUTH AT BEDTIME FOR SLEEP., # 90 caps, eRx: [facility] [id number], 3 CAPSULE BY MOUTH AT BEDTIME FOR SLEEP. Start Date: 04/20/14 Status: Ordered doxepin 50 mg oral capsule 1 caps, Oral, Bedtime (once a day), [facility]HRAM, # 14 caps, 0 Refill(s) Start Date: 08/22/13 Status: Ordered Drisdol 50,000 intl units (1.25 mg) oral capsule 1 caps, Oral, qWeek, # 13 caps, 0 Refill(s), Pharmacy: [facility] [id number], 1 caps Oral qWeek Start Date: 04/23/14 [...] # 30 unknown unit, 2 Refill(s), eRx: [facility] [id number], 65 UNITS SUBCUTANEOUS BEDTIME (ONCE A DAY),INSTR:30 [...] # 1 bottles, 2 Refill(s) , eRx: [facility] [id number], TAKE (17G) BY ORAL ROUTE EVERY DAY MIXED WITH 8 OZ. WATER, J... Start Date: 03/19/14 Status: Ordered Misc Prescription 0 Refill(s) Start Date: 03/02/15 Status: Ordered mupirocin 2% topical cream philip, Topical, TID, 0 Refill(s) Start Date: 08/20/13 Status: Ordered Nasonex 50 mcg/inh nasal spray See Instructions, INHALE 2 PUFFS TWICE A DAY., # 17 unknown unit, 2 Refill(s), eRx: [facility] [id number], INHALE 2 PUFFS TWICE A DAY. Start Date: 02/23/15 Status: Ordered nitroglycerin 0.6 mg sublingual tablet 1 tabs, SubLingual, q5min, as needed for chest pain, # 100 tabs, 0 Refill(s) Start Date: 08/20/13 Status: Ordered [place] 10 mg-325 mg oral tablet 1 tabs, Oral, q6hr, - MUST LAST 30 DAYS -, # 60 tabs, 0 Refill(s) Start Date: 04/09/15 Status: Ordered NovoLOG FlexPen 100 units/mL subcutaneous solution See Instructions, 34 UNITS TID WITH MEALS, # 3 unknown unit, eRx: [facility] [id number], 34 UNITS TID WITH MEALS Start Date: 03/24/15 Status: Ordered ProAir HFA 90 mcg/inh inhalation aerosol See Instructions, INHALE 2 PUFFS BY INHALATION 4 TIMES A DAY., # 1 inhalers, eRx : [facility] [id number], INHALE 2 PUFFS BY INHALATION 4 TIMES A DAY. Start Date: 03/24/15 Status: Ordered promethazine 25 mg oral tablet See Instructions, TAKE 1 TO 2 TABLETS BY MOUTH EVERY 8 HOURS NEEDED FOR NAUSEA, # 120 tabs, eRx: [facility] [id number], TAKE 1 TO 2 TABLETS BY MOUTH EVERY 8 HOURS NEEDED FOR NAUSEA Start Date: 03/25/15 Status: Ordered ranitidine 150 mg oral capsule See Instructions, TAKE 1 CAPSULE BY MOUTH EVERY DAY., # 90 caps, 1 Refill(s), eRx: [facility] [id number], TAKE 1 CAPSULE BY MOUTH EVERY DAY. Start Date: 10/28/14 Status: Ordered ranitidine 150 mg oral capsule See Instructions, TAKE 1 CAPSULE BY MOUTH EVERY DAY., # 90 caps, eRx: [facility] 94169, TAKE 1 CAPSULE BY MOUTH EVERY DAY. Start Date: 04/02/15 Status: Ordered SKIN BARRIER WIPES,SWABS SKIN BARRIER WIPES,SWABS, See Instructions, Use three times daily and as needed for diabetic care. Dx: E11.65 Length of need : 99-lifetime [facility] , # [facility] Each, 2 Refill(s) Start Date: 03/02/15 Status: Ordered traMADol 50 mg oral tablet 1-2 tabs, Oral, q8hr, as needed for pain, SHAHRAM- MUST LAST 30 DAYS, # 180 tabs, 0 Refill(s) Start Date: 04/09/15 Status: Ordered valsartan 320 mg oral tablet 320 mg 1 tabs, Oral, Daily, # 90 tabs, 1 Refill(s), Pharmacy: [id number], 1 tabs Oral Daily,x90 days Start Date: 03/01/15 Stop Date: 05/30/15 Status: Ordered Zocor 80 mg oral tablet See Instructions, TAKE 1 TABLET BY MOUTH EVERY DAY., # 90 tabs, [facility], TAKE 1 TABLET BY MOUTH EVERY DAY. [...] Author: Maksim Barry MD Date: Family Medicine [facility] You have a bunion deformity of the feet. This is more common in women. It tends to be an inherited problem. Symptoms can include pain, swelling, and deformity around the great toe. Numbness and tingling may also be present. Your symptoms are often worsened by wearing shoes that cause pressure on the bunion. Changing the type of shoes you wear helps reduce symptoms. A wide shoe decreases pressure on the bunion. An arch support may be used if you have flat feet. Avoid shoes with heels higher than two inches. This puts more pressure on the bunion. X-rays may be helpful in evaluating the severity of the problem. Other foot problems often seen with bunions include corns, calluses, and hammer toes. If the deformity or pain is severe, surgical treatment may be necessary. Keep off your painful foot as much as possible until the pain is relieved. Call your caregiver if your symptoms are worse. SEEK IMMEDIATE MEDICAL CARE IF: You have increased redness, pain, swelling, or other symptoms of infection. Document Released: 02/26/2006 Document Revised: 05/20/2012 Document Reviewed: [facility] Patient Information 2015 [employer] [facility]. This information is not intended to replace advice given to you by your health care provider. Make sure you discuss any questions you have with your health care provider. No follow up information was provided. Extracted from: Title: Office Visit Note Author: Maksim Barry MD Date: 10/05/14 Assessment/Plan Bunion of right foot To Dr. Bright for evaluation. Refusedappt in [place]. CAD (coronary artery disease) This issue is stable and appropriate refills , lab, and f/u have been discussed. Chronic kidney disease (CKD), stage II (mild) This issue is stable and appropriate refills, lab, and f/u have been discussed. Seeing Nephrology. DM (diabetes mellitus), type 1, uncontrolled The patient was notified for the need for regular quarterly f/u of their diabetes. Further any pertinent medication, supplies, etc were refilled. Additionally, they are to have annual eye exams, foot exams, and regular care. High risk for complications and educated again in self involvement. Titrate insulin. High risk medications (not anticoagulants) long-term use This issue is stable and appropriate refills, lab, and f/u have been discussed. Hypertension This issue is stable and appropriate refills, lab, and f/u have been discussed. The patient reports their blood pressure has been stable at home and is not having any significant or related problems. There has been no chest pain, chest pressure, soa/charles. Hyponatremia Needs to strongly consider fluid restriction. Appt pending with nephrology with Dr. Ac Dia. Noncompliance See above. High risk for complications of disability and . Pressure sore of left ischium More padding.Less tv.
--- OUTSIDE RECORDS SUMMARY | 2016-06-19 10:20 | XMS REPORT ---
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
--- OUTSIDE RECORDS SUMMARY | 2016-06-19 10:20 | XMS REPORT | Referral Summary ---
Author Author [facility] Eduardo Newton [facility] Medicine Organization [facility] Eduardo Newton [facility] Address Unknown Phone Unavailable Care Team Providers Care Lunchroom Aide Name Role Phone Courtney Barry Primary Care Physician [phone] Encounter VC Date(s): 03/31/15 - 03/31/15 [facility] Eduardo Newton [address] [place] [address]- Discharge Disposition: 01-Home or Self Care Attending Physician: Maksim Barry MD Admitting Physician: Maksim Barry MD Vital Signs Most recent to 1 oldest [Reference Range]: Blood Pressure 120/70 mmHg [90-140/60-90 mmHg] (03/31/15 9:35 AM) Problem List Condition Effective Dates Status [...] oral tablet 1 tabs, Oral, Daily, from [place], 0 Refill(s) Start Date: 01/01/14 Status: Ordered AcipHex 20 mg oral delayed release tablet 1 tabs, Oral, Daily, # 90 tabs, 0 Refill(s), Pharmacy: [facility] [id number], 1 tabs Oral Daily Start Date: 08/12/13 Status: Ordered Aciphex 20 mg tablet,delayed release See Instructions, TAKE 1 TABLET BY MOUTH EVERY DAY., # 90 tabs, eRx: [facility] [id number], TAKE 1 TABLET BY MOUTH EVERY DAY. Start Date: 03/24/15 Status: Ordered Aciphex 20 mg tablet,delayed release See Instructions, TAKE 1 TABLET BY MOUTH EVERY DAY., # 90 tabs, 1 Refill(s), eRx : [facility] [id number], TAKE 1 TABLET BY MOUTH EVERY DAY. Start Date: 07/27/14 Status: Ordered Aciphex 20 mg tablet,delayed release See Instructions, TAKE 1 TABLET BY MOUTH EVERY DAY., # 90 tabs, eRx: [facility] [id number], TAKE 1 TABLET BY MOUTH EVERY DAY. Start Date: 01/08/15 Status: Ordered Advair Diskus 100 mcg-50 mcg inhalation powder 1 puffs, Inhalation, BID, # 60 Each, 3 Refill(s), Pharmacy: [facility] Start Date: 03/17/15 Status: Ordered Advair Diskus 100 mcg-50 mcg inhalation powder 1 puffs, Inhalation, BID, # 28 Each, 0 Refill(s), samples given to patient (Rx) Start Date: 03/17/15 Status: Ordered amLODIPine 5 mg oral tablet See Instructions, 1 TABS ORAL BID, # 180 tabs, 1 Refill(s), eRx: [facility] [id number], 1 TABS ORAL BID Start Date: 03/01/15 Status: Ordered carBAMazepine 200 mg oral tablet See Instructions, TAKE 1& 1/2 TABLETS BY MOUTH EVERY MORNING, 1 TABLET AT NOON, AND 1 TABLET AT BEDTIME, # 105 tabs, eRx: [facility] [id number], TAKE 1& 1/ 2 TABLETS BY MOUTH EVERY MORNING, 1 TABLET AT NOON, AND 1 TABLET AT BEDTIME Start Date: 03/01/15 Status: Ordered cloNIDine 0.2 mg oral tablet See Instructions, TAKE 1 TABLET BY MOUTH TWICE A DAY., # 180 tabs, 1 Refill(s), eRx: [facility] [id number], TAKE 1 TABLET BY MOUTH TWICE A DAY. Start Date: 10/28/14 Status: Ordered clopidogrel 75 mg oral tablet 75 mg 1 tabs, Oral, Daily, # 90 tabs, 1 Refill(s), Pharmacy: [facility] [id number], 1 tabs Oral Daily,x90 days Start Date: 03/01/15 Stop Date: 05/30/15 Status: Ordered clotrimazole 10 mg oral lozenge 10 mg 1 lozenges, Oral, 5x/Day, X 14 days, # 70 lozenges, 0 Refill(s), Pharmacy : [facility] [id number], 1 lozenges Oral 5x/Day,x14 days Start Date: 03/26/15 Stop Date: 04/09/15 Status: Ordered Coreg 25 mg oral tablet See Instructions, 1 TABS ORAL TID, # 270 tabs, 1 Refill(s), Pharmacy: [facility] [id number], 1 TABS ORAL TID Start Date: 01/04/15 Status: Ordered cyclobenzaprine 10 mg oral tablet See Instructions, TAKE 1 TABLET BY MOUTH EVERY 8 HOURS NEEDED, # 90 tabs, eRx : [facility] [id number], TAKE 1 TABLET BY MOUTH EVERY 8 HOURS NEEDED Start Date: 03/31/15 Status: Ordered cyclobenzaprine 10 mg oral tablet See Instructions, TAKE 1 TABLET BY MOUTH EVERY 8 HOURS NEEDED, # 90 tabs, 0 Refill(s), Pharmacy: [facility] [id number], TAKE 1 TABLET BY MOUTH EVERY 8 HOURS NEEDED Start Date: 03/01/15 Status: Ordered diphenhydrAMINE 50 mg oral capsule See Instructions, 3 CAPSULE BY MOUTH AT BEDTIME FOR SLEEP., # 90 caps, eRx: [facility] [id number], 3 CAPSULE BY MOUTH AT BEDTIME FOR SLEEP. Start Date: 04/20/14 Status: Ordered doxepin 50 mg oral capsule 1 caps, Oral, Bedtime (once a day), SHAHRAM, # 14 caps, 0 Refill(s) Start Date: 08/22/13 Status: Ordered Drisdol 50,000 intl units (1.25 mg) oral capsule 1 caps, Oral, qWeek, # 13 caps, 0 Refill(s), Pharmacy: [facility] [id number], 1 caps Oral qWeek Start Date: 04/23/14 [...] # 30 unknown unit, 2 Refill(s), [facility]Rx: [facility] [id number], 65 UNITS SUBCUTANEOUS BEDTIME (ONCE A DAY),INSTR:30 [...] # 1 bottles, 2 Refill(s) , eRx: [facility] [id number], TAKE (17G) BY ORAL ROUTE EVERY DAY MIXED WITH 8 OZ. WATER, J... Start Date: 03/19/14 Status: Ordered Misc Prescription 0 Refill(s) Start Date: 03/02/15 Status: Ordered mupirocin 2% topical cream philip, Topical, TID, 0 Refill(s) Start Date: 08/20/13 Status: Ordered Nasonex 50 mcg/inh nasal spray See Instructions, INHALE 2 PUFFS TWICE A DAY., # 17 unknown unit, 2 Refill(s), eRx: [facility] [id number], INHALE 2 PUFFS TWICE A DAY. Start Date: 02/23/15 Status: Ordered nitroglycerin 0.6 mg sublingual tablet 1 tabs, SubLingual, q5min, as needed for chest pain, # 100 tabs, 0 Refill(s) Start Date: 08/20/13 Status: Ordered [place] 10 mg-325 mg oral tablet 1 tabs, Oral, q6hr, - MUST LAST 30 DAYS -, # 60 tabs, 0 Refill(s) Start Date: 03/08/15 Status: Ordered NovoLOG FlexPen 100 units/mL subcutaneous solution See Instructions, 34 UNITS TID WITH MEALS, # 3 unknown unit, eRx: [facility] [id number], 34 UNITS TID WITH MEALS Start Date: 03/24/15 Status: Ordered ProAir HFA 90 mcg/inh inhalation aerosol See Instructions, INHALE 2 PUFFS BY INHALATION 4 TIMES A DAY., # 1 inhalers, eRx : [facility] [id number], INHALE 2 PUFFS BY INHALATION 4 TIMES A DAY. Start Date: 03/24/15 Status: Ordered promethazine 25 mg oral tablet See Instructions, TAKE 1 TO 2 TABLETS BY MOUTH EVERY 8 HOURS NEEDED FOR NAUSEA, # 120 tabs, eRx: [facility] [id number], TAKE 1 TO 2 TABLETS BY MOUTH EVERY 8 HOURS NEEDED FOR NAUSEA Start Date: 03/25/15 Status: Ordered ranitidine 150 mg oral capsule See Instructions, TAKE 1 CAPSULE BY MOUTH EVERY DAY., # 90 caps, 1 Refill(s), eRx: [facility] [id number], TAKE 1 CAPSULE BY MOUTH EVERY DAY. Start Date: 10/28/14 Status: Ordered SKIN BARRIER WIPES,SWABS SKIN BARRIER WIPES,SWABS, See Instructions, Use three times daily and as needed for diabetic care. Dx: E11.65 Length of need : 99-lifetime Fax: [facility]OH[facility] , # 150 Each, 2 Refill(s) Start Date: 03/02/15 Status: Ordered traMADol 50 mg oral tablet 1-2 tabs, Oral, q8hr, as needed for pain, [facility]- MUST LAST 30 DAYS, # 180 tabs, 0 Refill(s) Start Date: 03/08/15 Status: Ordered valsartan 320 mg oral tablet 320 mg 1 tabs, Oral, Daily, # 90 tabs, 1 Refill(s), [facility], 1 tabs Oral Daily,x90 days Start Date: 03/01/15 Stop Date: 05/30/15 Status: Ordered Zocor 80 mg oral tablet See Instructions, TAKE 1 TABLET BY MOUTH EVERY DAY., # 90 tabs, eRx: [facility] [id number], TAKE 1 TABLET BY MOUTH EVERY DAY. Start Date: 03/24/15 Status: Ordered Results Chemistry Most recent to 1 oldest [Reference Range]: Sodium Lvl [135-144 129 mEq/L mEq/L] *LOW* (03/31/15 9:50 AM) Potassium Lvl 4.5 mEq/L [3.5-5.2 mEq/L] (03/31/15 9:50 AM) Chloride [99-111 95 mEq/L mEq/L] *LOW* (03/31/15 9:50 AM) CO2 [23-31 mEq/L] 25 mEq/L (03/31/15 9:50 AM) AGAP [3-20] 9 (03/31/15 9:50 AM) BUN [8-26 mg/dL] 10 mg/dL (03/31/15 9:50 AM) Glucose Lvl [70-99 245 mg/dL mg/dL] *HI* (03/31/15 9:50 AM) Creatinine Lvl 1.19 mg/dL [0.72-1.25 mg/dL] (03/31/15 9:50 AM) eGFR [>60 mL/min] >60 mL/min 1 (03/31/15 9:50 AM) Calcium Lvl 9.2 mg/dL [8.9-10.5 mg/dL] (03/31/15 9:50 AM) 1Result Comment: Multiply eGFR results by [...] Author: Maksim Barry MD Date: Family Medicine Bipolar Disorder Bipolar disorder is a mental illness. The term bipolar disorder actually is used to describe a group of disorders that all share varying degrees of emotional highs and lows that can interfere with daily functioning, such as work , school, or relationships. Bipolar disorder also can lead to drug abuse, hospitalization, and suicide. The emotional highs of bipolar disorder are periods of elation or irritability and high energy. These highs can range from a mild form (hypomania) to a severe form (nandini). People experiencing episodes of hypomania may appear energetic, excitable, and highly productive. People experiencing nandini may behave impulsively or erratically. They often make poor decisions. They may have difficulty sleeping. The most severe episodes of nandini can involve having very distorted beliefs or perceptions about the world and seeing or hearing things that are not real (psychotic delusions and hallucinations). The emotional lows of bipolar disorder (depression) also can range from mild to severe. Severe episodes of bipolar depression can involve psychotic delusions and hallucinations. Sometimes people with bipolar disorder experience a state of mixed mood. Symptoms of hypomania or nandini and depression are both present during this mixed -mood episode. SIGNS AND SYMPTOMS There are signs and symptoms of the episodes of hypomania and nandini as well as the episodes of depression. The signs and symptoms of hypomania and nandini are similar but vary in severity. They include: Inflated self-esteem or feeling of increased self-confidence. Decreased need for sleep. Unusual talkativeness (rapid or pressured speech) or the feeling of a need to keep talking. Sensation of racing thoughts or constant talking, with quick shifts between topics that may or may not be related (flight of ideas). Decreased ability to focus or concentrate. Increased purposeful activity, such as work, studies, or social activity, or nonproductive activity, such as pacing, squirming and fidgeting, or finger and toe tapping. Impulsive behavior and use of poor judgment, resulting in high-risk activities, such as having unprotected sex or spending excessive amounts of money. Signs and symptoms of depression include the following: Feelings of sadness, hopelessness, or helplessness. Frequent or uncontrollable episodes of crying. Lack of feeling anything or caring about anything. Difficulty sleeping or sleeping too much. Inability to enjoy the things you used to enjoy. Desire to be alone all the time. Feelings of guilt or worthlessness. Lack of energy or motivation. Difficulty concentrating, remembering, or making decisions. Change in appetite or weight beyond normal fluctuations. Thoughts of or the desire to harm yourself. DIAGNOSIS Bipolar disorder is diagnosed through an assessment by your caregiver. Your caregiver will ask questions about your emotional episodes. There are two main types of bipolar disorder. People with type I bipolar disorder have manic episodes with or without depressive episodes. People with type II bipolar disorder have hypomanic episodes and major depressive episodes, which are more serious than mild depression. The type of bipolar disorder you have can make an important difference in how your illness is monitored and treated. Your caregiver may ask questions about your medical history and use of alcohol or drugs, including prescription medication. Certain medical conditions and substances also can cause emotional highs and lows that resemble bipolar disorder (secondary bipolar disorder). TREATMENT Bipolar disorder is a long-term illness. It is best controlled with continuous treatment rather than treatment only when symptoms occur. The following treatments can be prescribed for bipolar disorders: MedicationMedication can be prescribed by a doctor that is an expert in treating mental disorders (psychiatrists). Medications called mood stabilizers are usually prescribed to help control the illness. Other medications are sometimes added if symptoms of nandini, depression, or psychotic delusions and hallucinations occur despite the use of a mood stabilizer. Talk therapySome forms of talk therapy are helpful in providing support , education, and guidance. A combination of medication and talk therapy is best for managing the disorder over time. A procedure in which electricity is applied to your brain through your scalp (electroconvulsive therapy) is used in cases of severe nandini when medication and talk therapy do not work or work too slowly. Document Released: 06/04/2001 Document Revised: 06/23/2013 Document Reviewed: [facility] Patient Information 2015 [employer]. This information is not intended to replace advice given to you by your health care provider. Make sure you discuss any questions you have with your health care provider. No follow up information was provided. Extracted from: Title: Office Visit Note Author: Maksim Barry MD Date: 03/31/15 Assessment/Plan CAD (coronary artery disease) This issue was [...] days and no later then six months. Seeing PV. Diabetes The patient was notified for the need for regular quarterly f/u of their diabetes. Further any pertinent medication, supplies, etc were refilled. Additionally, they are to have annual eye exams, foot exams, and regular care. Needs to check qid and prn. Gastroesophageal reflux disease This issue was reviewed, appears stable, and current therapy continued except as mentioned. Appropriate lab was reviewed from the most recent appropriate entry and lab was ordered if needed in the cpoe /nursing orders, and follow up recommended generally in 90 days and no later then six months. Hypertension This issue was reviewed, appears stable, and current therapy continued except as mentioned. Appropriate lab was reviewed from the most recent appropriate entry and lab was ordered if needed in the cpoe/nursing orders, and follow up recommended generally in 90 days and no later then six months. The patient reports their blood pressure has been stable at home and is not having any significant or related problems. There has been no chest pain, chest pressure, soa/charles. Hyponatremia, Hyponatremia The patient's issue is nearly or completely resolved. There is no further issues or testing desired by them at this time. Lab reviewed and lab pending H/P reviewed from [facility]. Hasconsult pending with Dr. Trinity Burris in nephrology for a recheck on 04/30/15. Ordered: Basic Metabolic Panel SIADH (syndrome of inappropriate ADH production) See above. Needs to monitor fluid intake and restrict ideally to <2L.
--- OUTSIDE RECORDS SUMMARY | 2016-06-19 10:20 | XMS REPORT ---
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
--- OUTSIDE RECORDS SUMMARY | 2016-06-19 10:20 | XMS REPORT ---
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
--- OUTSIDE RECORDS SUMMARY | 2016-06-19 10:20 | XMS REPORT | Referral Summary ---
Author Organization Unknown Address Unknown Phone Unavailable Care Team Providers Care Feather Separator Name Role Phone Courtney Barry Primary Care Physician [phone] Encounter VC Date(s): 07/02/14 - 07/02/14 [facility], [address] [place] [id number] Discharge Diagnosis: Arthritis Discharge Diagnosis: Chronic insomnia Discharge Diagnosis: Elevated cholesterol Discharge Diagnosis: Depression Discharge Diagnosis: Anxiety Discharge Diagnosis: Chronic low back pain Discharge Diagnosis: CAD (coronary artery disease) Discharge Diagnosis: Diabetes Discharge Diagnosis: Headache Discharge Diagnosis: Gastroesophageal reflux disease Discharge Diagnosis: High risk medications (not anticoagulants) long-term use Discharge Diagnosis: Chronic kidney disease (CKD), stage II (mild) Discharge Disposition: Home or Self Care Attending Physician: Maksim Barry MD Admitting Physician: Maksim Barry MD Vital Signs Most recent to 1 oldest [Reference Range]: Blood Pressure 140/90 mmHg [90-140/60-90 mmHg] (07/02/14 8:09 AM) Problem List Condition Effective Dates Status [...] oral tablet 1 tabs, Oral, Daily, from [place], 0 Refill(s) Special Instructions: from [place] Start Date: 01/01/14 Status: Ordered AcipHex 20 mg oral delayed release tablet 1 tabs, Oral, Daily, # 90 tabs, 0 Refill(s), Pharmacy: [facility] [id number], 1 tabs Oral Daily Start Date: 08/12/13 Status: Ordered Aciphex 20 mg tablet,delayed release See Instructions, TAKE 1 TABLET BY MOUTH EVERY DAY., # 90 tabs, eRx: [facility] [id number], TAKE 1 TABLET BY MOUTH EVERY DAY. Special Instructions: TAKE 1 TABLET BY MOUTH EVERY DAY. Start Date: 11/04/13 Status: Ordered Aciphex 20 mg tablet,delayed release See Instructions, TAKE 1 TABLET BY MOUTH EVERY DAY., # 90 tabs, eRx: [facility] [id number], TAKE 1 TABLET BY MOUTH EVERY DAY. Special Instructions: TAKE 1 TABLET BY MOUTH EVERY DAY. Start Date: 05/08/14 Status: Ordered amLODIPine 5 mg oral tablet See Instructions, 1 TABS ORAL BID, # 180 tabs, 2 Refill(s), eRx: [facility] [id number], 1 TABS ORAL BID Special Instructions: 1 TABS ORAL BID Start Date: 02/23/14 Status: Ordered carBAMazepine 200 mg oral tablet See Instructions, 1 1/2 TABS PO Q AM, 1 TAB AT NOON, AND 1 AT HS., # 105 tabs, eRx: [facility] [id number], 1 1/2 TABS PO Q AM, 1 TAB AT NOON, AND 1 AT HS. Special Instructions: 1 1/2 TABS PO Q AM, 1 TAB AT NOON, AND 1 AT HS. Start Date: 06/23/14 Status: Ordered cloNIDine 0.2 mg oral tablet See Instructions, TAKE 1 TABLET BY MOUTH TWICE A DAY., # 180 tabs, 1 Refill(s), eRx: [facility] [id number], TAKE 1 TABLET BY MOUTH TWICE A DAY. Special Instructions: TAKE 1 TABLET BY MOUTH TWICE A DAY. Start Date: 05/29/14 Status: Ordered Coreg 25 mg oral tablet See Instructions, 1 TABS ORAL TID, # 270 tabs, 1 Refill(s), eRx: [facility] [id number], 1 TABS ORAL TID Special Instructions: 1 TABS ORAL TID Start Date: 05/29/14 Status: Ordered cyclobenzaprine 10 mg oral tablet See Instructions, TAKE 1 TABLET BY MOUTH EVERY 8 HOURS NEEDED., # 90 tabs, eRx: [facility] [id number], TAKE 1 TABLET BY MOUTH EVERY 8 HOURS NEEDED. Special Instructions: TAKE 1 TABLET BY MOUTH EVERY 8 HOURS NEEDED. Start Date: 06/23/14 Status: Ordered Diovan 320 mg oral tablet See Instructions, 1 TABS ORAL DAILY MUST HAVE APPT PRIOR TO ADDITIONAL REFILLS , # 30 tabs, 0 Refill(s), Pharmacy: [facility] [id number], 1 TABS ORAL DAILY; MUST HAVE APPT PRIOR TO ADDITIONAL REFILLS Special Instructions: 1 TABS ORAL DAILY MUST HAVE APPT PRIOR TO ADDITIONAL REFILLS Start Date: 06/23/14 Status: Ordered diphenhydrAMINE 50 mg oral capsule See Instructions, 3 CAPSULE BY MOUTH AT BEDTIME FOR SLEEP., # 90 caps, eRx: [facility] [id number], 3 CAPSULE BY MOUTH AT BEDTIME FOR SLEEP. Special Instructions: 3 CAPSULE BY MOUTH AT BEDTIME FOR SLEEP. Start Date: 04/20/14 Status: Ordered doxepin 50 mg oral capsule 1 caps, Oral, Bedtime (once a day), SHAHRAM, # 14 caps, 0 Refill(s) Special Instructions: [place] Start Date: 08/22/13 Status: Ordered Drisdol 50,000 intl units (1.25 mg) oral capsule 1 caps, Oral, qWeek, # 13 caps, 0 Refill(s), Pharmacy: [facility] [id number], 1 caps Oral qWeek Start Date: 04/23/14 [...] # 30 unknown unit, 2 Refill(s), eRx: [facility] [id number], 65 UNITS SUBCUTANEOUS BEDTIME (ONCE A DAY),INSTR:30 [...] # 1 bottles, 2 Refill(s) , eRx: [facility] [id number], TAKE (17G) BY ORAL ROUTE EVERY DAY [...] # 17 unknown unit, 2 Refill(s), eRx: [facility] [id number], INHALE 2 PUFFS TWICE A DAY. Special Instructions: INHALE 2 PUFFS TWICE A DAY. Start Date: 04/20/14 Status: Ordered nitroglycerin 0.6 mg sublingual tablet 1 tabs, SubLingual, q5min, as needed for chest pain, # 100 tabs, 0 Refill(s) Start Date: 08/20/13 Status: Ordered [place] 10 mg-325 mg oral tablet 1 tabs, Oral, q6hr, - MUST LAST 30 DAYS -, # 60 tabs, 0 Refill(s) Special Instructions: - MUST LAST 30 DAYS - Start Date: 06/15/14 Status: Ordered NovoLOG FlexPen 100 units/mL subcutaneous solution See Instructions, 34 UNITS TID WITH MEALS, # 3 unknown unit, 2 Refill(s), eRx: [facility] [id number], 34 UNITS TID WITH MEALS Special Instructions: 34 UNITS TID WITH MEALS Start Date: 05/29/14 Status: Ordered Plavix 75 mg oral tablet See Instructions, 1 TABS ORAL DAILY, # 30 tabs, 2 Refill(s), eRx: [facility] , 1 TABS ORAL DAILY Special Instructions: 1 TABS ORAL DAILY Start Date: 04/20/14 Status: Ordered ProAir HFA 90 mcg/inh inhalation aerosol See Instructions, INHALE 2 PUFFS BY INHALATION 4 TIMES A DAY., # 1 inhalers, eRx : [facility] , INHALE 2 PUFFS BY INHALATION 4 TIMES A DAY. Special Instructions: INHALE 2 PUFFS BY INHALATION 4 TIMES A DAY. Start Date: 06/23/14 Status: Ordered promethazine 25 mg oral tablet See Instructions, 1-2 TABS PO Q 8 HOURS PRN NAUSEA, # 120 tabs, 1 Refill(s), eRx : [facility] , 1-2 TABS PO Q 8 HOURS PRN NAUSEA Special Instructions: 1-2 TABS PO Q 8 HOURS PRN NAUSEA Start Date: 05/29/14 Status: Ordered ranitidine 150 mg oral capsule See Instructions, TAKE 1 CAPSULE BY MOUTH EVERY DAY., # 90 caps, 1 Refill(s), eRx: [facility] , TAKE 1 CAPSULE BY MOUTH EVERY DAY. Special Instructions: TAKE 1 CAPSULE BY MOUTH EVERY DAY. Start Date: 05/29/14 Status: Ordered traMADol 50 mg oral tablet 1-2 tabs, Oral, q8hr, as needed for pain, SHAHRAM-MUST LAST 30 DAYS, # 180 tabs, 0 Refill(s) Special Instructions: [facility] in [facility]-MUST LAST 30 DAYS Start Date: 06/15/14 Status: Ordered Zocor 80 mg oral tablet See Instructions, TAKE 1 TABLET BY MOUTH EVERY DAY., # 90 tabs, eRx: [facility] [id number], TAKE 1 TABLET BY MOUTH EVERY DAY. Special Instructions: TAKE 1 TABLET BY MOUTH EVERY DAY. Start Date: 05/07/14 Status: Ordered Results Hematology Most recent to 1 oldest [Reference Range]: WBC [4.8-10.8 K/uL] 10.5 K/uL (07/02/14 8:37 AM) RBC [4.60-6.20 M/uL] 4.60 M/uL (07/02/14 8:37 AM) Hgb [14.0-18.0 13.2 gm/dL gm/dL] *LOW* (07/02/14 8:37 AM) Hct [42.0-52.0 %] 37.2 % *LOW* (07/02/14 8:37 AM) MCV [82.0-99.0 fL] 80.9 fL *LOW* (07/02/14 8:37 AM) MCH [27.0-32.0 pg] 28.7 pg (07/02/14 8:37 AM) MCHC [32.0-36.0 35.5 gm/dL gm/dL] (07/02/14 8:37 AM) RDW [11.5-14.5 %] 12.0 % (07/02/14 8:37 AM) Platelet [150-400 284 K/uL K/uL] (07/02/14 8:37 AM) MPV [8.8-14.8 fL] 9.1 fL (07/02/14 8:37 AM) Neutrophils [51-75 46 % %] *LOW* (07/02/14 8:37 AM) Lymphocytes [20-46 45 % %] (07/02/14 8:37 AM) Monocytes [4-11 %] 6 % (07/02/14 8:37 AM) Eosinophils [0-4 %] 2 % (07/02/14 8:37 AM) Basophils [0-2 %] 1 % (07/02/14 8:37 AM) Neutro Absolute 4.83 THOUS [1.90-7.00 THOUS] (07/02/14 8:37 AM) Lymph Absolute 4.73 THOUS [0.80-3.30 THOUS] *HI* (07/02/14 8:37 AM) Barnes Absolute 0.63 THOUS [0.30-1.00 THOUS] (07/02/14 8:37 AM) Eos Absolute 0.21 THOUS [0.00-0.50 THOUS] (07/02/14 8:37 AM) Baso Absolute 0.11 THOUS [0.00-0.20 THOUS] (07/02/14 8:37 AM) Differential Manual *ABN* (07/02/14 8:37 AM) Chemistry Most recent to 1 oldest [Reference Range]: Sodium Lvl [135-144 125 mEq/L mEq/L] *LOW* (07/02/14 8:37 AM) Potassium Lvl 4.4 mEq/L [3.5-5.2 mEq/L] (07/02/14 8:37 AM) Chloride [99-111 93 mEq/L mEq/L] *LOW* (07/02/14 8:37 AM) CO2 [23-31 mEq/L] 24 mEq/L (07/02/14 8:37 AM) AGAP [3-20] 8 (07/02/14 8:37 AM) BUN [8-26 mg/dL] 8 mg/dL (07/02/14 8:37 AM) Glucose Lvl [70-99 191 mg/dL mg/dL] *HI* (07/02/14 8:37 AM) Creatinine Lvl 1.08 mg/dL [0.72-1.25 mg/dL] (07/02/14 8:37 AM) eGFR [>60 mL/min] >60 mL/min 1 (07/02/14 8:37 AM) Calcium Lvl 9.2 mg/dL [8.9-10.5 mg/dL] (07/02/14 8:37 AM) Albumin Lvl [3.5-5.0 4.3 gm/dL gm/dL] (07/02/14 8:37 AM) Total Protein 7.2 gm/dL [6.4-8.3 gm/dL] (07/02/14 8:37 AM) Globulin [1.8-4.0 2.9 gm/dL gm/dL] (07/02/14 8:37 AM) ALT [0-55 unit/L] 43 unit/L (07/02/14 8:37 AM) AST [5-34 unit/L] 64 unit/L *HI* (07/02/14 8:37 AM) Alk Phos [40-150 212 unit/L unit/L] *HI* (07/02/14 8:37 AM) Bili Total [0.2-1.2 0.5 mg/dL mg/dL] (07/02/14 8:37 AM) Chol [0-199 mg/dL] 202 mg/dL *HI* (07/02/14 8:37 AM) Trig [0-149 mg/dL] 313 mg/dL *HI* (07/02/14 8:37 AM) HDL [40-84 mg/dL] 38 mg/dL *LOW* (07/02/14 8:37 AM) LDL [0-130 mg/dL] 101 mg/dL (07/02/14 8:37 AM) VLDL Cholesterol 63 mg/dL [0-28 mg/dL] *HI* (07/02/14 8:37 AM) Cardiac Risk 5.3 [0.0-5.7] (07/02/14 8:37 AM) TSH with Reflex Free 2.08 T4 [0.35-4.94] (07/02/14 8:37 AM) Hgb A1c [4.1-5.6 %] 10.9 % *HI* (07/02/14 8:37 AM) eAvg Glucose 266.1 mg/dL (07/02/14 8:37 AM) 1Result Comment: Multiply eGFR results by [...] Author: Maksim Barry MD Date: Family Medicine Back Exercises Back exercises help treat and prevent back injuries. The goal of back exercises is to increase the strength of your abdominal and back muscles and the flexibility of your back. These exercises should be started when you no longer have back pain. Back exercises include: Pelvic Tilt. Lie on your back with your knees bent. Tilt your pelvis until the lower part of your back is against the floor. Hold this position 5 to 10 sec and repeat 5 to 10 times. Knee to Chest. Pull first 1 knee up against your chest and hold for 20 to 30 seconds, repeat this with the other knee, and then both knees. This may be done with the other leg straight or bent, whichever feels better. Sit-Ups or Curl-Ups. Bend your knees 90 degrees. Start with tilting your pelvis, and do a partial, slow sit-up, lifting your trunk only 30 to 45 degrees off the floor. Take at least 2 to 3 seconds for each sit-up. Do not do sit-ups with your knees out straight. If partial sit-ups are difficult, simply do the above but with only tightening your abdominal muscles and holding it as directed. Hip-Lift. Lie on your back with your knees flexed 90 degrees. Push down with your feet and shoulders as you raise your hips a couple inches off the floor; hold for 10 seconds, repeat 5 to 10 times. Back arches. Lie on your stomach, propping yourself up on bent elbows. Slowly press on your hands, causing an arch in your low back. Repeat 3 to 5 times. Any initial stiffness and discomfort should lessen with repetition over time. Shoulder-Lifts. Lie face down with arms beside your body. Keep hips and torso pressed to floor as you slowly lift your head and shoulders off the floor. Do not overdo your exercises, especially in the beginning. Exercises may cause you some mild back discomfort which lasts for a few minutes; however, if the pain is more severe, or lasts for more than 15 minutes, do not continue exercises until you see your caregiver. Improvement with exercise therapy for back problems is slow. See your caregivers for assistance with developing a proper back exercise program. Document Released: 04/05/2005 Document Revised: 05/20/2012 Document Reviewed: [employer] Patient Information 2014 [employer]. No follow up information was provided. Extracted from: Title: Office Visit Note Author: Maksim Barry MD Date: 07/02/14 Assessment/Plan Anxiety This issue is stable and appropriate refills, lab, and f/u have been discussed. Seeing PV. Arthritis This issue is stable and appropriate refills, lab, and f/u have been discussed. CAD (coronary artery disease) This issue is stable and appropriate refills, lab, and f/u have been discussed. Denies symptoms and normally seen by [facility] Cardiology. Chronic insomnia This issue is stable and appropriate refills, lab, and f/u have been discussed. Chronic kidney disease (CKD), stage II (mild) This issue is stable and appropriate refills, lab, and f/u have been discussed. Normal lab at this time but is to avoid nsaids. Chronic low back pain This issue is stable and appropriate refills, lab, and f /u have been discussed. Depression This issue is stable and appropriate refills, lab, and f/u have been discussed. Seeing PV. Diabetes This issue is stable and appropriate refills, lab, and f/u have been discussed. The patient was notified for the need for regular quarterly f/u of their diabetes. Further any pertinent medication, supplies, etc were refilled. Additionally, they are to have annual eye exams, foot exams, and regular care. Gastroesophageal reflux disease This issue is stable and appropriate refills, lab, and f/u have been discussed. Headache Demerol 100mg IM w/phen 50mg IM for headache and nausea at his request. He has tolerated this many times in the past. High risk medications (not anticoagulants) long-term use This issue is stable and appropriate refills, lab, and f/u have been discussed. Complex medication regimen that is difficult to prune in any way without his dissatisfaction.
--- OUTSIDE RECORDS SUMMARY | 2016-06-19 10:20 | XMS REPORT ---
Author Author Josephine Kim [facility] eClinicalWorks Address Unknown Phone Unavailable Care Team Providers Care Reproducer Name Role Phone Josephine Kim CP Unavailable [...] Instructions Start Date End Date Status Dosage Promethazine HCl [facility] [address]-71 25 MG Orally PRN for nausea 1- 2 tabs every 8 hrs Cyclobenzaprine HCl [facility] [address]-38 10 MG Orally every 8 hrs PRN 1 tablet Amlodipine Besylate [facility] [address]-58 5 MG Orally twice a day 1 tablet Ranitidine HCl [facility] [address]-32 150 MG Orally Once a day 1 capsule BusPIRone HCl [facility] [address]-20 15 MG Orally Three times a day 1 tablet Carbamazepine [facility] [address]-03 200 MG Orally as directed 1 1/2 tabs in AM and 1 tablet at noon and bedtime Hydrocodone-Acetaminophen [facility] [address]-93 10-325 MG Orally every 8 hrs 1 tablet as needed Carvedilol [facility] [address]-05 25 MG Orally three times a day 1 tablet with food Rabeprazole Sodium [facility] [address]-08 20 MG Orally Once a day 1 tablet Clonidine HCl [facility] [address]-04 0.2 MG Orally twice a day 1 tablet Tramadol HCl [facility] [address]-97 50 MG Orally every 8 hrs 1 -2tabs as needed Mirtazapine [facility] [address]-06 15 MG Orally Once a day Dec 15, 2014 1 tablet before bedtime in the evening Simvastatin [facility] [address]-15 80 MG Orally Once a day 1 tablet in the evening Clopidogrel Bisulfate [facility] [address]-27 75 MG Orally Once a day 1 tablet DiphenhydrAMINE HCl [facility] [address]-42 50 MG Orally Once a day for sleep 3 capsules at hs Geodon [facility] [address]-46 80 MG Orally At bedtime 2 capsules with food Lorazepam [facility] [address]-52 0.5 MG Orally up to three times daily as needed for anxiety 1 tablet Procedures Procedure Coding System Code Date OFFICE VISIT, EST-MOD. COMPLEXITY (25 MIN) CPT-4 74915 Dec 15, 2014 Vital Signs Date/Time: Dec 15, 2014 Height 70.5 in Weight 241 lbs Temperature 98.7 F Blood Pressure Diastolic 98 mm Hg Blood Pressure Systolic 136 mm Hg Cardiac Monitoring Heart Rate 88 /min BMI 34.09 Index Respiratory Rate 18 /min Results No Known Results Summary Purpose eClinicalWorks Submission
--- OUTSIDE RECORDS SUMMARY | 2016-06-19 10:20 | XMS REPORT | Continuity of Care Document ---
Author Author [facility] Organization [facility] Address Unknown Phone Unavailable Allergies Active Description Code Type Severity Reaction Onset Reported/Identified Relationship to Patient Clinical Status Yes DULoxetine NKMA N/A uNspecfied 07/09/2013 Yes erythromycin NKMA N/A uNspecfied 07/09/2013 Yes fluconazole NKMA N/A uNspecfied 07/09/2013 Yes ketorolac NKMA N/A uNspecfied 07/09/2013 Yes Latex NKMA Medium Urticaria (hives) 07/09/2013 Yes metoclopramide NKMA Medium itchy 07/09/2013 Yes nalbuphine NKMA N/A uNspecfied 07/09/2013 Yes penicillin NKMA Mild Adverse Reaction 07/09/2013 Yes sulfamethoxazole NKMA Mild upset stomach/adverse reaction 07/09/2013 Yes sulfanilamide topical NKMA N/A N/A 07/09/2013 Medications Problems Procedures Results Test Result Range Comprehensive Metabolic Panel (CMP) - 05/23/16 12:13 Albumin 4.3 g/dL 3.5-5.0 Alkaline Phosphatase 160 U/L 40-150 ALT (SGPT) 25 U/L 0-55 Anion Gap 11 NA 3-20 AST (SGOT) 20 U/L 5-34 Bilirubin Total 0.4 mg/dL 0.2-1.2 BUN 9 mg/dL 8-26 Calcium 9.6 mg/dL 8.4-10.2 Chloride 92 mEq/L 99-111 CO2 28 mEq/L 23-31 Creatinine 1.14 mg/dL 0.72-1.25 Globulin 3.3 g/dL 1.8-4.0 Glucose 332 mg/dL 70-99 Potassium 4.7 mEq/L 3.5-5.2 Protein 7.6 g/dL 6.1-7.7 Sodium 131 mEq/L 135-144 Lipid Panel - 05/23/16 12:13 Cardiac Risk 4.4 0.0-5.7 Cholesterol 223 mg/dL 0-199 HDL Cholesterol 51 mg/dL 40-84 LDL Cholesterol 124 mg/dL 0-130 Triglycerides 240 mg/dL 0-149 VLDL Cholesterol 48 mg/dL 0-28 eGFR - 05/23/16 12:13 eGFR >60 mL/min >60 CBC With Platelet and Differential - 05/23/16 12:13 Absolute Basophils 0.07 10*3/uL 0.00- 0.20 Absolute Eosinophils 0.50 10*3/uL 0.00- 0.50 Absolute Lymphocytes 2.90 10*3/uL 0.80- 3.30 Absolute Monocytes 0.71 10*3/uL 0.30- 1.00 Absolute Neutrophils 5.55 10*3/uL 1.90- 7.00 Basophils 1 % 0-2 Eosinophils 5 % 0-4 HCT 43.7 % 42.0-52.0 HGB 14.9 g/dL 14.0-18.0 Immature Granulocytes 0.6 % 0.0-1.0 Lymphocytes 30 % 20-46 MCH 29.1 pg 27.0-32.0 MCHC 34.1 g/dL 32.0-36.0 MCV 85.4 fL 82.0-99.0 Monocytes 7 % 4-11 MPV 9.3 fL 8.8-14.8 Neutrophils 57 % 51-75 Platelet Count 262 K/uL 150-400 RBC 5.12 10*6/uL 4.60-6.20 RDW 12.1 % 11.5-14.5 WBC 9.8 K/uL 4.8-10.8 TSH with Reflex Free T4 - 05/23/16 12:13 TSH with Reflex Free T4 1.78 uIU/mL 0.35- 4.94 PSA - 05/23/16 12:13 PSA 0.4 ng/mL 0.0-3.5 Hemoglobin A1C - 05/23/16 12:13 Hemoglobin A1C 10.9 % 4.1-5.6 Estimated Average Glucose - 05/23/16 12:13 Estimated Average Glucose 266.1 mg/dL Urinalysis with reflex microscopic - 05/23/16 12:30 Appearance Clear NA Bilirubin Negative NA Negative Blood Negative NA Negative Color Yellow NA Glucose, Urine Pos 3+ Negative Ketones Negative Negative Leukocyte Esterase Negative NA Negative Nitrites Negative NA Negative pH 7.0 NA 5.0-8.0 Protein Negative Negative Specific [place] 1.010 NA 1.003-1.030 UA Collection type Voided NA Urobilinogen 0.2 mg/dL <1.0 Encounters ACCT No. Visit Date/Time Discharge Status Pt. Type Provider Facility Loc./Unit Complaint [id number] 04/14/2013 09:38:00 04/14/2013 23 :59:59 CLS Outpatient
--- OUTSIDE RECORDS SUMMARY | 2016-06-19 10:21 | XMS REPORT | Referral Summary ---
Author Author [facility] Organization [facility] Address Unknown Phone Unavailable Care Team Providers Care Resume Specialist Name Role Phone Courtney Barry Primary Care Physician [phone] Encounter VC Date(s): 01/27/15 - 01/27/15 [facility] [address] [place] [id number] Discharge Diagnosis: Pain in toe of left foot Discharge Disposition: 01-Home or Self Care Attending Physician: Marni Lepe PA-C Admitting Physician: Marni Lepe PA-C Vital Signs Most recent to 1 oldest [Reference Range]: Peripheral Pulse 68 bpm Rate [60-100 bpm] (01/27/15 1:28 PM) Blood Pressure 132/82 mmHg [90-140/60-90 mmHg] (01/27/15 1:28 PM) Problem List Condition Effective Dates Status Health [...] oral tablet 1 tabs, Oral, Daily, from [place], 0 Refill(s) Start Date: 01/01/14 Status: Ordered AcipHex 20 mg oral delayed release tablet 1 tabs, Oral, Daily, # 90 tabs, 0 Refill(s), Pharmacy: [id number], 1 tabs Oral Daily Start Date: 08/12/13 Status: Ordered Aciphex 20 mg tablet,delayed release See Instructions, TAKE 1 TABLET BY MOUTH EVERY DAY., # 90 tabs, 1 Refill(s), eRx : [facility] [id number], TAKE 1 TABLET BY MOUTH EVERY DAY. Start Date: 07/27/14 Status: Ordered Aciphex 20 mg tablet,delayed release See Instructions, TAKE 1 TABLET BY MOUTH EVERY DAY., # 90 tabs, eRx: [facility] [id number], TAKE 1 TABLET BY MOUTH EVERY DAY. Start Date: 01/08/15 Status: Ordered amLODIPine 5 mg oral tablet See Instructions, 1 TABS ORAL BID, # 180 tabs, 1 Refill(s), eRx: [facility] 34546, 1 TABS ORAL BID Start Date: 10/28/14 Status: Ordered carBAMazepine 200 mg oral tablet See Instructions, TAKE 1& 1/2 TABLETS BY MOUTH EVERY MORNING, TAKE 1 TABLET BY MOUTH AT NOON& TAKE 1 TABLET BY MOUTH AT BEDTIME, # 105 tabs, 1 Refill(s), eRx: [facility] [id number], TAKE 1& 1/2 TABLETS BY MOUTH EVERY MORNING, TAKE 1 TABLET BY TYREE... Start Date: 01/04/15 Status: Ordered cloNIDine 0.2 mg oral tablet See Instructions, TAKE 1 TABLET BY MOUTH TWICE A DAY., # 180 tabs, 1 Refill(s), eRx: [facility] 20914, TAKE 1 TABLET BY MOUTH TWICE A DAY. Start Date: 10/28/14 Status: Ordered Coreg 25 mg oral tablet See Instructions, 1 TABS ORAL TID, # 270 tabs, 1 Refill(s), Pharmacy: [facility] [id number], 1 TABS ORAL TID Start Date: 01/04/15 Status: Ordered cyclobenzaprine 10 mg oral tablet See Instructions, TAKE 1 TABLET BY MOUTH EVERY 8 HOURS NEEDED., # 90 tabs, 1 Refill(s), eRx: [facility] 11631, TAKE 1 TABLET BY MOUTH EVERY 8 HOURS NEEDED. Start Date: 01/13/15 Status: Ordered Diovan 320 mg oral tablet See Instructions, 1 TABS ORAL DAILY; MUST HAVE APPT PRIOR TO ADDITIONAL REFILLS , # 30 tabs, 2 Refill(s), eRx: [facility] 15823, 1 TABS ORAL DAILY; MUST HAVE APPT PRIOR TO ADDITIONAL REFILLS Start Date: 12/21/14 Status: Ordered diphenhydrAMINE 50 mg oral capsule See Instructions, 3 CAPSULE BY MOUTH AT BEDTIME FOR SLEEP., # 90 caps, eRx: [facility] 76117, 3 CAPSULE BY MOUTH AT BEDTIME FOR SLEEP. Start Date: 04/20/14 Status: Ordered doxepin 50 mg oral capsule 1 caps, Oral, Bedtime (once a day), [facility], # 14 caps, 0 Refill(s) Start Date: 08/22/13 Status: Ordered Drisdol 50,000 intl units (1.25 mg) oral capsule 1 caps, Oral, qWeek, # 13 caps, 0 Refill(s), Pharmacy: [facility] [id number], 1 caps Oral qWeek Start Date: 04/23/14 [...] # 30 unknown unit, 2 Refill(s), eRx: [facility] [id number], 65 UNITS SUBCUTANEOUS BEDTIME (ONCE A DAY),INSTR:30 [...] # 1 bottles, 2 Refill(s) , eRx: [facility] 37794, TAKE (17G) BY ORAL ROUTE EVERY DAY MIXED WITH 8 OZ. WATER, J... Start Date: 03/19/14 Status: Ordered mupirocin 2% topical cream philip, Topical, TID, 0 Refill(s) Start Date: 08/20/13 Status: Ordered Nasonex 50 mcg/inh nasal spray See Instructions, INHALE 2 PUFFS TWICE A DAY., # 17 unknown unit, 3 Refill(s), eRx: [facility] 02533, INHALE 2 PUFFS TWICE A DAY. Start Date: 10/05/14 Status: Ordered nitroglycerin 0.6 mg sublingual tablet 1 tabs, SubLingual, q5min, as needed for chest pain, # 100 tabs, 0 Refill(s) Start Date: 08/20/13 Status: Ordered Raymond 10 mg-325 mg oral tablet 1 tabs, Oral, q6hr, - MUST LAST 30 DAYS -, # 60 tabs, 0 Refill(s) Start Date: 01/06/15 Status: Ordered NovoLOG FlexPen 100 units/mL subcutaneous solution See Instructions, 34 UNITS TID WITH MEALS, # 3 unknown unit, 1 Refill(s), eRx: [facility] 21575, 34 UNITS TID WITH MEALS Start Date: 01/13/15 Status: Ordered Plavix 75 mg oral tablet See Instructions, 1 TABS ORAL DAILY, # 30 tabs, 2 Refill(s), eRx: [facility] 48451, 1 TABS ORAL DAILY Start Date: 12/21/14 Status: Ordered ProAir HFA 90 mcg/inh inhalation aerosol See Instructions, INHALE 2 PUFFS BY INHALATION 4 TIMES A DAY., # 1 inhalers, 1 Refill(s), eRx: [facility] 77451, INHALE 2 PUFFS BY INHALATION 4 TIMES A DAY. Start Date: 01/13/15 Status: Ordered promethazine 25 mg oral tablet See Instructions, TAKE 1 TO 2 TABLETS BY MOUTH EVERY 8 HOURS NEEDED FOR NAUSEA, # 120 tabs, eRx: [facility] 36029, TAKE 1 TO 2 TABLETS BY MOUTH EVERY 8 HOURS NEEDED FOR NAUSEA Start Date: 01/18/15 Status: Ordered ranitidine 150 mg oral capsule See Instructions, TAKE 1 CAPSULE BY MOUTH EVERY DAY., # 90 caps, 1 Refill(s), eRx: [facility] 91723, TAKE 1 CAPSULE BY MOUTH EVERY DAY. Start Date: 10/28/14 Status: Ordered traMADol 50 mg oral tablet 1-2 tabs, Oral, q8hr, as needed for pain, KATHRINEMIKKI-MUST LAST 30 DAYS, # 180 tabs, 0 Refill(s) Start Date: 01/08/15 Status: Ordered Zocor 80 mg oral tablet See Instructions, TAKE 1 TABLET BY MOUTH EVERY DAY., # 90 tabs, eRx: [facility] 88749, TAKE 1 TABLET BY MOUTH EVERY DAY. [...] Education Author: Marni Lepe PA-C Date : 01/27/15 Family Medicine Ian Taping of Toes We have taped your toes together to keep them from moving. This is called " ian taping" since we used a part of your own body to keep the injured part still. We placed soft padding between your toes to keep them from rubbing against each other. Ian taping will help with healing and to reduce pain. Keep your toes ian taped together for as long as directed by your caregiver. HOME CARE INSTRUCTIONS Raise your injured area above the level of your heart while sitting or lying down. Prop it up with pillows. An ice pack used every twenty minutes, while awake, for the first one to two days may be helpful. Put ice in a plastic bag and put a towel between the bag and your skin. Watch for signs that the taping is too tight. These signs may be: Numbness of your taped toes. Coolness of your taped toes. Color change in the area beyond the tape. Increased pain. If you have any of these signs, loosen or rewrap the tape. If you need to loosen or rewrap the ian tape, make sure you use the padding again. SEEK IMMEDIATE MEDICAL CARE IF: You have worse pain, swelling, inflammation (soreness), drainage or bleeding after you rewrap the tape. Any new problems occur. MAKE SURE YOU: Understand these instructions. Will watch your condition. Will get help right away if you are not doing well or get worse. Document Released: 11/30/2004 Document Revised: 05/20/2012 Document Reviewed: [facility] Patient Information 2015 [facility]. This information is not intended to replace advice given to you by your health care provider. Make sure you discuss any questions you have with your health care provider. No follow up information was provided. Extracted from: Title: Office Visit Note Author: Marni Lepe PA-C Date: 01/27/15 Assessment/Plan Pain in toe of left foot, Pain in toe of left foot This looks like more than a contusion. Will check an x-ray for fractures. Depending on where fx is, may need referral to ortho. Will let pt know of result when available. He has pain medication at home. He is unable to take NSAIDs. Advised to keep elevated, can ian tape toes together, and ice. Try to keep pressure off of foot. Ordered: Office Visit Level 3 Est 71693 XR Foot Complete Left
--- OUTSIDE RECORDS SUMMARY | 2016-06-19 10:21 | XMS REPORT ---
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 PRN) 1 tablet Results No Known Results Summary Purpose [employer] Submission
--- OUTSIDE RECORDS SUMMARY | 2016-06-19 10:21 | XMS REPORT ---
Author Author Josephine Kim Organization [employer] Address Unknown Phone Unavailable Care Team Providers Care Atlassian Administrator Name Role Phone Josephine Kim Unavailable Allergies No Known Allergies Problems Problem Type Condition ICD-9 Code Onset Dates Condition Status Problem Dysthymic disorder 300.4 Active Problem Dependent personality disorder 301.6 Active Problem Major depressive disorder, recurrent episode, severe, specified as with psychotic behavior 296.34 Active Medications Medication Code System Code Instructions Start Date End Date Status Dosage Lorazepam [facility] [address]-51 1 MG Orally Once a day - must last 30 days 1 tablet Results No Known Results Summary Purpose [employer] Submission
--- OUTSIDE RECORDS SUMMARY | 2016-06-19 10:21 | XMS REPORT ---
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 [address]-21 80 MG Orally At bedtime 2 capsules with food Results No Known Results Summary Purpose [employer] Submission
--- OUTSIDE RECORDS SUMMARY | 2016-06-19 10:21 | XMS REPORT | Continuity of Care Document ---
Author Author [facility] Organization [facility] Address Unknown Phone Unavailable Care Team Providers Care Social Services Analyst Name Role Phone MICA SANTOS MD Primary Care Physician [phone] Insurance Providers Guarantor Ty Loomis Address [address] [place] [address] Email DENIED/NO TO PT [facility] Payer [facility] [employer] [facility] Policy Number [id number] Subscriber's Name Khang Loomiskenneth Castellano Relationship 18 Self Effective Date 15 Expiration Date 15 Advance Directives Directive Response Recorded Date/Time Advanced Directives Type None 08/27/15 5:47am Chief Complaint and Reason for Visit Chief Complaint Diabetic Problem Reason for Visit Malaise Fatigue [id number] Problems Active Problems Medical Problem Onset Date [...] Puff Inhalation Twice A Day 05/15/15 Hydrocodone/Acetaminophen ([place] 10-325 Tablet) 1 Each Tablet 1 Tab [...] Anxiety 05/15/15 Mometasone Furoate (Nasonex) 17 Gm [place] 2 [place] Each Nostril Twice A Day 12/31/09 Nitroglycerin [...] 12/31/09 Discontinued Duloxetine Hcl (Cymbalta) 60 Mg Capsule., 2 Tab Oral Daily 08/15/09 Discontinued Ezetimibe (Zetia) 10 Mg Tablet, 1 Tab Oral Daily 12/10/09 Discontinued Hum Insulin Nph/Reg Insulin Hm (Humulin 70/30 Vial) 10 Ml Vial, 22 Unit Sub-Q Morning 12/10/09 Discontinued Hydrocodone Bit/Acetaminophen ([place] 10/325 Tablet) 1 Tab Tablet, 1 Tab Oral As Needed 09/06/12 Discontinued Hydrocodone Bit/Acetaminophen (Lortab 10) 1 Udtab Tablet, 1 Udtab Oral Every 4 -6 Hours 12/12/11 Discontinued Hydrocodone Bit/Acetaminophen ([place] 10-325 Tablet) 1 Tab Tablet, As Needed [...] Vial, 35 Units Sub-Q Bedtime 12/10/09 Discontinued [place]-3 Acid Ethyl Esters (Lovaza) 1 G Capsule, [...] none 05/15/2015 4:45pm Not Applicable Not Applicable Query Response Start Date Stop Date Smoking Status Former smoker Hospital Discharge Instructions No hospital discharge instructions. Plan of Care Discharge Date 08/27/15 9:00am Disposition 01 DISCHARGED HOME, SELF-CARE Condition at Discharge Improved Instructions/Education Provided Type 2 Diabetes DI for Fatigue DI for Hyperglycemia -- Adult Prescriptions See Medication Section Referrals MICA SANTOS MD Order Date: 3 Days Address: [address] [place] [address] [place] [phone] Note: FOLLOW UP IN NEXT 3-4 DAYS FOR RE-EVALUATION ELE GUO MD Address: [address] [place] [address] [place] [phone] Note: Additional Instructions/Education 1) CONTINUE HOME MEDICATIONS DIRECTED 2) CONTINUE FLUID RESTRICTION DIRECTED 3) FOLLOW UP WITH DR. SANTOS IN NEXT 3-4 DAYS (SUNDAY) FOR RE-EVALUATION Care Plan and Goals Physician Care Plan Problem: 1) FATIGUE AND MALAISE Goal: Follow up with primary care provider Instructions: Take medications and follow care plan as discussed/written Functional Status No functional status results. Allergies, [...] 09/30/14 12:28pm Hx Tetanus, Diptheria, Pertussis No 07/22/15 12:28pm Hx Tetanus Toxoid Vaccination No 09/02/14 2:02pm Influenza Vaccine Hx DEC 2014 08/27/15 6:13am Tetanus Diptheria Vaccine History UTD PER PATIENT 08/27/15 6:13am Vital Signs Acute Vital Signs Vital Response Date/Time Temperature (Fahrenheit) 97.9 deg F (96.8 - 99.1) 08/27/2015 9:00am Temperature (Calculated Celsius) 36.68817 degrees C (36.0 - 37.3) 08/27/2015 9:00am [...] White Blood Count 7.5 T/MM3 4.5-11.0 08/27/2015 6:31am 08/27/2015 6: 45am Red Blood Count 4.37 M/MM3 L 4.50-5.90 08/27/2015 6:31am 08/27/2015 6: 45am Hemoglobin 12.7 GM/DL L 13.5-17.5 08/27/2015 6:31am 08/27/2015 6:45am Hematocrit 36.4 % L 41-53 08/27/2015 6:31am 08/27/2015 6:45am Mean Corpuscular Volume 83.3 UM3 80-100 08/27/2015 6:31am 08/27/2015 6: 45am Mean Corpuscular Hemoglobin 29.1 UUG 26-34 08/27/2015 6:31am 2015 6:45am Mean Corpuscular Hemoglobin Concent 34.9 GM/DL 31-37 08/27/2015 6:08/27/2015 6:45am RDW Standard Deviation 36.0 FL L 36.9-50.2 08/27/2015 6:08/27/2015 6:45am Platelet Count 224 T/MM3 130-400 08/27/2015 6:08/27/2015 6:45am Mean Platelet Volume 9.6 UM3 9.4-12.4 08/27/2015 6:08/27/2015 6: 45am Neutrophils (%) (Auto) 49.6 % 33-66 08/27/2015 6:08/27/2015 6: 45am Lymphocytes (%) (Auto) 38.1 % [...] Granulocyte (auto 0.03 T/MM3 0.00-0.03 08/27/2015 6: 3108/27/2015 6:45am Icterus Index < 2 0-7 08/27/2015 6:3108/27/2015 6:57am Chemistry Specimen Hemolysis < 15 0-25 08/27/2015 6:3108/27/2015 6 :57am 0-25: Specimen Exhibited No Hemolysis. Turbidity < 20 0-20 08/27/2015 6:31am 08/27/2015 6:57am Sodium Level 135 MEQ/L 134-144 08/27/2015 6:3108/27/2015 6:57am Potassium Level 4.2 MEQ/L 3.6-5 08/27/2015 6:3108/27/2015 6:57am Chloride Level 100 MEQ/L 98-107 08/27/2015 6:3108/27/2015 6:57am Carbon Dioxide Level 24 MEQ/L 22-30 08/27/2015 6:3108/27/2015 6: 57am Anion Gap 11 MEQ/L 5-15 08/27/2015 6:3108/27/2015 6:57am Blood Urea Nitrogen 13.0 MG/DL 9-08/27/2015 6:3108/27/2015 6: 57am Creatinine 0.9 MG/DL 0.8-1.5 08/27/2015 6:3108/27/2015 6:57am BUN/Creatinine Ratio 14 RATIO 6-08/27/2015 6:3108/27/2015 6:57am Glomerular Filtration Rate Calc 89 08/27/2015 6:3108/27/2015 6: 57am Glucose Level 346 MG/DL H 75-110 08/27/2015 6:3108/27/2015 6:57am Calculated Osmolality 274 MOSM/KG 261-280 08/27/2015 6:3108/27/2015 6:57am Calcium Level 8.9 MG/DL 8.4-10.2 08/27/2015 6:3108/27/2015 6:57am Total Bilirubin 0.20 MG/DL 0.20-1.30 08/27/2015 6:3108/27/2015 6: 57am Alkaline Phosphatase 213 U/L H 38-126 08/27/2015 6:3108/27/2015 6: 57am Total Protein 6.7 G/DL 6.3-8.2 08/27/2015 6:08/27/2015 6:57am Albumin 3.9 G/DL 3.5-5.0 08/27/2015 6:08/27/2015 6:57am Globulin 2.8 G/DL 2.4-3.6 08/27/2015 6:08/27/2015 6:57am Albumin/Globulin Ratio 1.4 RATIO 1.1-2.2 08/27/2015 6:08/27/2015 6 :57am Aspartate Amino Transf (AST/SGOT) 17 [...] CLEAR CLEAR 08/27/2015 6:08/27/2015 8:09am Urine Specific Atkins <=1.005 L 1.015-1.025 08/27/2015 6:2015 8:09am Urine pH 6.5 5.0-8.0 08/27/2015 6:08/27/2015 8:09am Urine Leukocyte Esterase NEGATIVE NEGATIVE 08/27/2015 6:2015 8:09am Urine Nitrite NEGATIVE NEGATIVE 08/27/2015 6:08/27/2015 8:14am --- 08/27/15 0813 --- UNIT previously reported as: POSITIVE A Urine Protein NEGATIVE NEGATIVE 08/27/2015 6:08/27/2015 8:09am Urine Glucose (UA) 3+ A NEGATIVE 08/27/2015 6:1608/27/2015 8:09am Urine Ketones NEGATIVE NEGATIVE 08/27/2015 6:1608/27/2015 8:09am Urine Urobilinogen 0.2 EU/DL NORMAL 08/27/2015 6:1608/27/2015 8: 09am Urine Bilirubin NEGATIVE NEGATIVE 08/27/2015 6:08/27/2015 8: 09am Urine Blood NEGATIVE NEGATIVE 08/27/2015 6:1608/27/2015 8:09am Urinalysis Comment MICROSCOPIC NOT IND. 08/27/2015 6:162015 8:15am Glucometer 396 mg/dL H 75-110 08/27/2015 5:54am 08/27/2015 5:57am Microbiology Results Procedure Source Organism/Result Collection Date/Time Result Date/Time Result Status Blood Culture Peripheral/Iv Start CULTURE INITIATED - RESULTS PENDING 08/26 6:31am 08/27/2015 6:43am Preliminary Name: TY LOOMIS Unit #: [id number] : [id number] Sex: M Admit Date: Loc / Svc: ED Discharge Date: DIAGNOSTIC IMAGING REPORT Report #: [id number] [facility] SH[place] Carson Indication: ITS.REASON: INCREASED CONFUSION Procedure: CHEST 1 VIEW: Encounter: Initial Comparison: 04/23/2015 Technique: A single portable AP chest radiograph was obtained. Findings: Lungs and airways: Mildly low lung volumes. No focal airspace consolidation. Normal pulmonary vasculature. Pleura: No pleural effusion or pneumothorax. Heart and mediastinum: Cardiomegaly. Aortic atherosclerosis. Osseous structures and soft tissues: No acute osseous abnormality is seen. Impression: No acute cardiopulmonary process. . Procedures Procedure Status Date Provider(s) ROUTINE VENIPUNCTURE Completed 06/23/15 METABOLIC PANEL TOTAL CA Completed 06/23/15 URINALYSIS AUTO W/O SCOPE Completed 06/23/15 ASSAY OF TROPONIN QUANT Completed 06/23/15 COMPLETE CBC W/AUTO DIFF WBC Completed 06/23/15 ELECTROCARDIOGRAM TRACING Completed 06/23/15 EMERGENCY DEPT VISIT Completed 06/23/15 Encounters Encounter Location Arrival/Admit Date Discharge/Depart Date Attending Provider Departed Emergency Room [facility] 08/27/15 5:46am 08/27/15 9: 00am CHERI LEIVA MD Departed Emergency Room [facility] 06/23/15 6:27pm 06/23/15 7: 59pm MELINDA RENEE MD Departed Emergency Room [facility] 06/19/15 8:37am 06/19/15 8: 49am DUGLAS VANN MD Recent Diagnosis
--- OUTSIDE RECORDS SUMMARY | 2016-06-19 10:21 | XMS REPORT ---
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
--- OUTSIDE RECORDS SUMMARY | 2016-06-19 10:21 | XMS REPORT ---
Author Author Josephine Kim Organization [employer] Address Unknown Phone Unavailable Care Team Providers Care Grove Worker Name Role Phone Josephine Kim CP Unavailable Allergies No Known Allergies Problems Problem Type Condition ICD-9 Code Onset Dates Condition Status Problem Dysthymic disorder 300.4 Active Problem Dependent personality disorder 301.6 Active Problem Major depressive disorder, recurrent episode, severe, specified as with psychotic behavior 296.34 Active Medications No Known Medications Results No Known Results Summary Purpose [employer] Submission
--- OUTSIDE RECORDS SUMMARY | 2016-06-19 10:21 | XMS REPORT ---
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
--- OUTSIDE RECORDS SUMMARY | 2016-06-19 10:21 | XMS REPORT | Referral Summary ---
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 Phone Courtney Barry Primary Care Physician [phone] Encounter VC Date(s): 12/22/14 - 12/22/14 [facility] [address] [place] [address] [place] [id number]- Discharge Disposition: 01-Home or Self Care Attending Physician: Maksim Barry MD Admitting Physician: Maksim Barry MD Vital Signs No data available for this section Problem List Condition Effective Dates Status Health [...] oral tablet 1 tabs, Oral, Daily, from [place], 0 Refill(s) Start Date: 01/01/14 Status: Ordered AcipHex 20 mg oral delayed release tablet 1 tabs, Oral, Daily, # 90 tabs, 0 Refill(s), Pharmacy: [facility] [id number], 1 tabs Oral Daily Start Date: 08/12/13 Status: Ordered Aciphex 20 mg tablet,delayed release See Instructions, TAKE 1 TABLET BY MOUTH EVERY DAY., # 90 tabs, 1 Refill(s), eRx : [facility] 22527, TAKE 1 TABLET BY MOUTH EVERY DAY. Start Date: 07/27/14 Status: Ordered amLODIPine 5 mg oral tablet See Instructions, 1 TABS ORAL BID, # 180 tabs, 1 Refill(s), eRx: [facility] [id number], 1 TABS ORAL BID Start Date: 10/28/14 Status: Ordered carBAMazepine 200 mg oral tablet See Instructions, TAKE 1& 1/2 TABLETS BY MOUTH EVERY MORNING, TAKE 1 TABLET BY MOUTH AT NOON& TAKE 1 TABLET BY MOUTH AT BEDTIME, # 105 tabs, eRx: [facility] [id number], TAKE 1& 1/2 TABLETS BY MOUTH EVERY MORNING, TAKE 1 TABLET BY MOUTH AT NOON& T... Start Date: 12/21/14 Status: Ordered cloNIDine 0.2 mg oral tablet See Instructions, TAKE 1 TABLET BY MOUTH TWICE A DAY., # 180 tabs, 1 Refill(s), eRx: [facility] [id number], TAKE 1 TABLET BY MOUTH TWICE A DAY. Start Date: 10/28/14 Status: Ordered Coreg 25 mg oral tablet See Instructions, 1 TABS ORAL TID, # 270 tabs, 1 Refill(s), eRx: [facility] [id number], 1 TABS ORAL TID Start Date: 10/28/14 Status: Ordered cyclobenzaprine 10 mg oral tablet See Instructions, TAKE 1 TABLET BY MOUTH EVERY 8 HOURS NEEDED., # 90 tabs, eRx: [facility] 62321, TAKE 1 TABLET BY MOUTH EVERY 8 HOURS NEEDED. Start Date: 12/21/14 Status: Ordered Diovan 320 mg oral tablet See Instructions, 1 TABS ORAL DAILY; MUST HAVE APPT PRIOR TO ADDITIONAL REFILLS , # 30 tabs, 2 Refill(s), eRx: [facility] [id number], 1 TABS ORAL DAILY; MUST HAVE APPT PRIOR TO ADDITIONAL REFILLS Start Date: 12/21/14 Status: Ordered diphenhydrAMINE 50 mg oral capsule See Instructions, 3 CAPSULE BY MOUTH AT BEDTIME FOR SLEEP., # 90 caps, eRx: [facility] 17030, 3 CAPSULE BY MOUTH AT BEDTIME FOR SLEEP. Start Date: 04/20/14 Status: Ordered doxepin 50 mg oral capsule 1 caps, Oral, Bedtime (once a day), [facility], # 14 caps, 0 Refill(s) Start Date: 08/22/13 Status: Ordered Drisdol 50,000 intl units (1.25 mg) oral capsule 1 caps, Oral, qWeek, # 13 caps, 0 Refill(s), [facility], 1 caps Oral qWeek Start Date: 04/23/14 [...] # 30 unknown unit, 2 Refill(s), eRx: [facility] 18658, 65 UNITS SUBCUTANEOUS BEDTIME (ONCE A DAY),INSTR:30 [...] # 1 bottles, 2 Refill(s) , eRx: [facility] 14141, TAKE (17G) BY ORAL ROUTE EVERY DAY MIXED WITH 8 OZ. WATER, J... Start Date: 03/19/14 Status: Ordered mupirocin 2% topical cream philip, Topical, TID, 0 Refill(s) Start Date: 08/20/13 Status: Ordered Nasonex 50 mcg/inh nasal spray See Instructions, INHALE 2 PUFFS TWICE A DAY., # 17 unknown unit, 3 Refill(s), eRx: [facility] [id number], INHALE 2 PUFFS TWICE A DAY. Start Date: 10/05/14 Status: Ordered nitroglycerin 0.6 mg sublingual tablet 1 tabs, SubLingual, q5min, as needed for chest pain, # 100 tabs, 0 Refill(s) Start Date: 08/20/13 Status: Ordered [place] 10 mg-325 mg oral tablet 1 tabs, Oral, q6hr, - MUST LAST 30 DAYS -, # 60 tabs, 0 Refill(s) Start Date: 12/08/14 Status: Ordered NovoLOG FlexPen 100 units/mL subcutaneous solution See Instructions, 34 UNITS TID WITH MEALS, # 10 mL, 0 Refill(s), Pharmacy: [facility] [id number], 34 UNITS TID WITH MEALS Start Date: 09/28/14 Status: Ordered Plavix 75 mg oral tablet See Instructions, 1 TABS ORAL DAILY, # 30 tabs, 2 Refill(s), eRx: [facility] [id number], 1 TABS ORAL DAILY Start Date: 12/21/14 Status: Ordered ProAir HFA 90 mcg/inh inhalation aerosol See Instructions, INHALE 2 PUFFS BY INHALATION 4 TIMES A DAY., # 1 inhalers, 1 Refill(s), eRx: [facility] 28029, INHALE 2 PUFFS BY INHALATION 4 TIMES A DAY. Start Date: 12/07/14 Status: Ordered promethazine 25 mg oral tablet See Instructions, TAKE 1 TO 2 TABLETS BY MOUTH EVERY 8 HOURS NEEDED FOR NAUSEA, # 120 tabs, 2 Refill(s), eRx: [facility] 61570, TAKE 1 TO 2 TABLETS BY MOUTH EVERY 8 HOURS NEEDED FOR NAUSEA Start Date: 11/17/14 Status: Ordered ranitidine 150 mg oral capsule See Instructions, TAKE 1 CAPSULE BY MOUTH EVERY DAY., # 90 caps, 1 Refill(s), eRx: [facility] 87[facility], TAKE 1 CAPSULE BY MOUTH EVERY DAY. Start Date: 10/28/14 Status: Ordered traMADol 50 mg oral tablet 1-2 tabs, Oral, q8hr, as needed for pain, SHAHRAM-MUST LAST 30 DAYS, # 180 tabs, 0 Refill(s) Start Date: 12/07/14 Status: Ordered Zocor 80 mg oral tablet See Instructions, TAKE 1 TABLET BY MOUTH EVERY DAY., # 90 tabs, 1 Refill(s), eRx : [facility] 76542, TAKE 1 TABLET BY MOUTH EVERY DAY. Start Date: 07/27/14 Status: Ordered Results No data available for [...]
--- OUTSIDE RECORDS SUMMARY | 2016-06-19 10:21 | XMS REPORT | Referral Summary ---
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 Role Phone LindakathyCourtney hare Primary Care Physician [phone] Encounter Date(s): 03/17/15 - 03/17/15 [facility] [address] [place] [id number] Discharge Diagnosis: Asthma Discharge Diagnosis: Closed nondisplaced fracture of proximal phalanx of lesser toe of left foot Discharge Disposition: 01-Home or Self Care Attending Physician: Marni Lepe PA-C Admitting Physician: Marni Lepe PA-C Vital Signs Most recent to 1 oldest [Reference Range]: Temperature Tympanic 36.4 degC [36.6-38.1 degC] *LOW* (03/17/15 8:28 AM) Peripheral Pulse 80 bpm Rate [60-100 bpm] (03/17/15 8:28 AM) Respiratory Rate 18 br/min [14-20 br/min] (03/17/15 8:28 AM) Blood Pressure 90/62 mmHg [90-140/60-90 mmHg] (03/17/15 8:28 AM) Problem List Condition Effective Dates Status [...] oral tablet 1 tabs, Oral, Daily, from [place], 0 Refill(s) Start Date: 01/01/14 Status: Ordered AcipHex 20 mg oral delayed release tablet 1 tabs, Oral, Daily, # 90 tabs, 0 Refill(s), Pharmacy: [facility] 42828, 1 tabs Oral Daily Start Date: 08/12/13 Status: Ordered Aciphex 20 mg tablet,delayed release See Instructions, TAKE 1 TABLET BY MOUTH EVERY DAY., # 90 tabs, 1 Refill(s), eRx : [facility] 50649, TAKE 1 TABLET BY MOUTH EVERY DAY. Start Date: 07/27/14 Status: Ordered Aciphex 20 mg tablet,delayed release See Instructions, TAKE 1 TABLET BY MOUTH EVERY DAY., # 90 tabs, eRx: [facility] 11851, TAKE 1 TABLET BY MOUTH EVERY DAY. Start Date: 01/08/15 Status: Ordered Advair Diskus 100 mcg-50 mcg inhalation powder 1 puffs, Inhalation, BID, # 60 Each, 3 Refill(s), Pharmacy: [facility] 22600 Start Date: 03/17/15 Status: Ordered Advair Diskus 100 mcg-50 mcg inhalation powder 1 puffs, Inhalation, BID, # 28 Each, 0 Refill(s), samples given to patient (Rx) Start Date: 03/17/15 Status: Ordered amLODIPine 5 mg oral tablet See Instructions, 1 TABS ORAL BID, # 180 tabs, 1 Refill(s), eRx: [facility] [id number], 1 TABS ORAL BID Start Date: 03/01/15 Status: Ordered carBAMazepine 200 mg oral tablet See Instructions, TAKE 1& 1/2 TABLETS BY MOUTH EVERY MORNING, 1 TABLET AT NOON, AND 1 TABLET AT BEDTIME, # 105 tabs, eRx: [facility] 97505, TAKE 1& 1/ 2 TABLETS BY MOUTH EVERY MORNING, 1 TABLET AT NOON, AND 1 TABLET AT BEDTIME Start Date: 03/01/15 Status: Ordered cloNIDine 0.2 mg oral tablet See Instructions, TAKE 1 TABLET BY MOUTH TWICE A DAY., # 180 tabs, 1 Refill(s), eRx: [facility] 74371, TAKE 1 TABLET BY MOUTH TWICE A DAY. Start Date: 10/28/14 Status: Ordered clopidogrel 75 mg oral tablet 75 mg 1 tabs, Oral, Daily, # 90 tabs, 1 Refill(s), Pharmacy: [facility] [id number], 1 tabs Oral Daily,x90 days Start Date: 03/01/15 Stop Date: 05/30/15 Status: Ordered Coreg 25 mg oral tablet See Instructions, 1 TABS ORAL TID, # 270 tabs, 1 Refill(s), Pharmacy: [facility] 64444, 1 TABS ORAL TID Start Date: 01/04/15 Status: Ordered cyclobenzaprine 10 mg oral tablet See Instructions, TAKE 1 TABLET BY MOUTH EVERY 8 HOURS NEEDED, # 90 tabs, 0 Refill(s), Pharmacy: [facility] 98530, TAKE 1 TABLET BY MOUTH EVERY 8 HOURS NEEDED Start Date: 03/01/15 Status: Ordered diphenhydrAMINE 50 mg oral capsule See Instructions, 3 CAPSULE BY MOUTH AT BEDTIME FOR SLEEP., # 90 caps, eRx: [facility] 53916, 3 CAPSULE BY MOUTH AT BEDTIME FOR SLEEP. Start Date: 04/20/14 Status: Ordered doxepin 50 mg oral capsule 1 caps, Oral, Bedtime (once a day), [place], # 14 caps, 0 Refill(s) Start Date: 08/22/13 Status: Ordered Drisdol 50,000 intl units (1.25 mg) oral capsule 1 caps, Oral, qWeek, # 13 caps, 0 Refill(s), Pharmacy: [facility] 70778, 1 caps Oral qWeek Start Date: 04/23/14 [...] # 30 unknown unit, 2 Refill(s), eRx: [facility] 04520, 65 UNITS SUBCUTANEOUS BEDTIME (ONCE A DAY),INSTR:30 [...] # 1 bottles, 2 Refill(s) , eRx: [facility] 96332, TAKE (17G) BY ORAL ROUTE EVERY DAY MIXED WITH 8 OZ. WATER, J... Start Date: 03/19/14 Status: Ordered Misc Prescription 0 Refill(s) Start Date: 03/02/15 Status: Ordered mupirocin 2% topical cream philip, Topical, TID, 0 Refill(s) Start Date: 08/20/13 Status: Ordered Nasonex 50 mcg/inh nasal spray See Instructions, INHALE 2 PUFFS TWICE A DAY., # 17 unknown unit, 2 Refill(s), eRx: [facility] 41694, INHALE 2 PUFFS TWICE A DAY. Start Date: 02/23/15 Status: Ordered nitroglycerin 0.6 mg sublingual tablet 1 tabs, SubLingual, q5min, as needed for chest pain, # 100 tabs, 0 Refill(s) Start Date: 08/20/13 Status: Ordered [place] 10 mg-325 mg oral tablet 1 tabs, Oral, q6hr, - MUST LAST 30 DAYS -, # 60 tabs, 0 Refill(s) Start Date: 03/08/15 Status: Ordered NovoLOG FlexPen 100 units/mL subcutaneous solution See Instructions, 34 UNITS TID WITH MEALS, # 3 unknown unit, 1 Refill(s), eRx: [facility] 76437, 34 UNITS TID WITH MEALS Start Date: 01/13/15 Status: Ordered ProAir HFA 90 mcg/inh inhalation aerosol See Instructions, INHALE 2 PUFFS BY INHALATION 4 TIMES A DAY., # 1 inhalers, eRx : [facility] 72848, INHALE 2 PUFFS BY INHALATION 4 TIMES A DAY. Start Date: 03/01/15 Status: Ordered promethazine 25 mg oral tablet See Instructions, TAKE 1 TO 2 TABLETS BY MOUTH EVERY 8 HOURS NEEDED FOR NAUSEA, # 120 tabs, eRx: [facility] 53971, TAKE 1 TO 2 TABLETS BY MOUTH EVERY 8 HOURS NEEDED FOR NAUSEA Start Date: 03/01/15 Status: Ordered ranitidine 150 mg oral capsule See Instructions, TAKE 1 CAPSULE BY MOUTH EVERY DAY., # 90 caps, 1 Refill(s), eRx: [facility] 49506, TAKE 1 CAPSULE BY MOUTH EVERY DAY. Start Date: 10/28/14 Status: Ordered SKIN BARRIER WIPES,SWABS SKIN BARRIER WIPES,SWABS, See Instructions, Use three times daily and as needed for diabetic care. Dx: E11.65 Length of need : 99-lifetime [facility] # [facility] Each, 2 Refill(s) Start Date: 03/02/15 Status: Ordered traMADol 50 mg oral tablet 1-2 tabs, Oral, q8hr, as needed for pain, KATHRINEFOZIAMIKKI- MUST LAST 30 DAYS, # 180 tabs, 0 Refill(s) Start Date: 03/08/15 Status: Ordered valsartan 320 mg oral tablet 320 mg 1 tabs, Oral, Daily, # 90 tabs, 1 Refill(s), Pharmacy: [facility] 65125, 1 tabs Oral Daily,x90 days Start Date: 03/01/15 Stop Date: 05/30/15 Status: Ordered Zocor 80 mg oral tablet See Instructions, TAKE 1 TABLET BY MOUTH EVERY DAY., # 90 tabs, eRx: [facility] 69837, TAKE 1 TABLET BY MOUTH EVERY DAY. [...] Education Author: Marni Lepe PA-C Date : 03/17/15 Family [facility] Asthma Attack Prevention Although there is no way to prevent asthma from starting, you can take steps to control the disease and reduce its symptoms. Learn about your asthma and how to control it. Take an active role to control your asthma by working with your health care provider to create and follow an asthma action plan. An asthma action plan guides you in: Taking your medicines properly. Avoiding things that set off your asthma or make your asthma worse (asthma triggers). Tracking your level of asthma control. Responding to worsening asthma. Seeking emergency care when needed. To track your asthma, keep records of your symptoms, check your peak flow number using a handheld device that shows how well air moves out of your lungs ( peak flow meter), and get regular asthma checkups. WHAT ARE SOME WAYS TO PREVENT AN ASTHMA ATTACK? Take medicines as directed by your health care provider. Keep track of your asthma symptoms and level of control. With your health care provider, write a detailed plan for taking medicines and managing an asthma attack. Then be sure to follow your action plan. Asthma is an ongoing condition that needs regular monitoring and treatment. Identify and avoid asthma triggers. Many outdoor allergens and irritants ( such as pollen, mold, cold air, and air pollution) can trigger asthma attacks. Find out what your asthma triggers are and take steps to avoid them. Monitor your breathing. Learn to recognize warning signs of an attack, such as coughing, wheezing, or shortness of breath. Your lung function may decrease before you notice any signs or symptoms, so regularly measure and record your peak airflow with a home peak flow meter. Identify and treat attacks early. If you act quickly, you are less likely to have a severe attack. You will also need less medicine to control your symptoms. When your peak flow measurements decrease and alert you to an upcoming attack, take your medicine as instructed and immediately stop any activity that may have triggered the attack. If your symptoms do not improve, get medical help. Pay attention to increasing quick-relief inhaler use. If you find yourself relying on your quick-relief inhaler, your asthma is not under control. See your health care provider about adjusting your treatment. WHAT CAN MAKE MY SYMPTOMS WORSE? A number of common things can set off or make your asthma symptoms worse and cause temporary increased inflammation of your airways. Keep track of your asthma symptoms for several weeks, detailing all the environmental and emotional factors that are linked with your asthma. When you have an asthma attack, go back to your asthma diary to see which factor, or combination of factors, might have contributed to it. Once you know what these factors are, you can take steps to control many of them. If you have allergies and asthma, it is important to take asthma prevention steps at home. Minimizing contact with the substance to which you are allergic will help prevent an asthma attack. Some triggers and ways to avoid these triggers are: Animal Dander: Some people are allergic to the flakes of skin or dried saliva from animals with fur or feathers. There is no such thing as a hypoallergenic dog or cat breed. All dogs or cats can cause allergies, even if they don't shed. Keep these pets out of your home. If you are not able to keep a pet outdoors, keep the pet out of your bedroom and other sleeping areas at all times, and keep the door closed. Remove carpets and furniture covered with cloth from your home. If that is not possible, keep the pet away from fabric-covered furniture and carpets. Dust Mites: Many people with asthma are allergic to dust mites. Dust mites are tiny bugs that are found in every home in mattresses, pillows, carpets, fabric-covered furniture, bedcovers, clothes, stuffed toys, and other fabric-covered items. Cover your mattress in a special dust-proof cover. Cover your pillow in a special dust-proof cover, or wash the pillow each week in hot water. Water must be hotter than 130 F (54.4 C) to kill dust mites. Cold or warm water used with detergent and bleach can also be effective. Wash the sheets and blankets on your bed each week in hot water. Try not to sleep or lie on cloth-covered cushions. Call ahead when traveling and ask for a smoke-free hotel room. Bring your own bedding and pillows in case the hotel only supplies feather pillows and down comforters, which may contain dust mites and cause asthma symptoms. Remove carpets from your bedroom and those laid on concrete, if you can. Keep stuffed toys out of the bed, or wash the toys weekly in hot water or cooler water with detergent and bleach. Cockroaches: Many people with asthma are allergic to the droppings and remains of cockroaches. Keep food and garbage in closed containers. Never leave food out. Use poison baits, traps, powders, gels, or paste (for example, boric acid) . If a spray is used to kill cockroaches, stay out of the room until the odor goes away. Indoor Mold: Fix leaky faucets, pipes, or other sources of water that have mold around them. Clean floors and moldy surfaces with a fungicide or diluted bleach. Avoid using humidifiers, vaporizers, or swamp coolers. These can spread molds through the air. Pollen and Outdoor Mold: When pollen or mold spore counts are high, try to keep your windows closed. Stay indoors with windows closed from late morning to afternoon. Pollen and some mold spore counts are highest at that time. Ask your health care provider whether you need to take anti-inflammatory medicine or increase your dose of the medicine before your allergy season starts. Other Irritants to Avoid: Tobacco smoke is an irritant. If you smoke, ask your health care provider how you can quit. Ask family members to quit smoking, too. Do not allow smoking in your home or car. If possible, do not use a wood-burning stove, kerosene heater, or fireplace. Minimize exposure to all sources of smoke, including incense, candles, fires, and fireworks. Try to stay away from strong odors and sprays, such as perfume, talcum powder, hair spray, and paints. Decrease humidity in your home and use an indoor air cleaning device. Reduce indoor humidity to below 60%. Dehumidifiers or central air conditioners can do this. Decrease house dust exposure by changing furnace and air cooler filters frequently. Try to have someone else vacuum for you once or twice a week. Stay out of rooms while they are being vacuumed and for a short while afterward. If you vacuum, use a dust mask from a hardware store, a double-layered or microfilter vacuum dry cleaner hand bag, or a vacuum dry cleaner hand with a HEPA filter. Sulfites in foods and beverages can be irritants. Do not drink beer or wine or eat dried fruit, processed potatoes, or shrimp if they cause asthma symptoms. Cold air can trigger an asthma attack. Cover your nose and mouth with a scarf on cold or windy days. Several health conditions can make asthma more difficult to manage, including a runny nose, sinus infections, reflux disease, psychological stress, and sleep apnea. Work with your health care provider to manage these conditions. Avoid close contact with people who have a respiratory infection such as a cold or the flu, since your asthma symptoms may get worse if you catch the infection. Wash your hands thoroughly after touching items that may have been handled by people with a respiratory infection. Get a flu shot every year to protect against the flu virus, which often makes asthma worse for days or weeks. Also get a pneumonia shot if you have not previously had one. Unlike the flu shot, the pneumonia shot does not need to be given yearly. Medicines: Talk to your health care provider about whether it is safe for you to take aspirin or non-steroidal anti-inflammatory medicines (NSAIDs). In a small number of people with asthma, aspirin and NSAIDs can cause asthma attacks. These medicines must be avoided by people who have known aspirin-sensitive asthma. It is important that people with aspirin-sensitive asthma read labels of all behx-lue-yiwlehb medicines used to treat pain, colds, coughs, and fever. Beta-blockers and MARGY inhibitors are other medicines you should discuss with your health care provider. HOW CAN I FIND OUT WHAT I AM ALLERGIC TO? Ask your asthma health care provider about allergy skin testing or blood testing (the RAST test) to identify the allergens to which you are sensitive. If you are found to have allergies, the most important thing to do is to try to avoid exposure to any allergens that you are sensitive to as much as possible. Other treatments for allergies, such as medicines and allergy shots ( immunotherapy) are available. CAN I EXERCISE? Follow your health care provider's advice regarding asthma treatment before exercising. It is important to maintain a regular exercise program, but vigorous exercise or exercise in cold, humid, or dry environments can cause asthma attacks, especially for those people who have exercise-induced asthma. Document Released: 02/14/2010 Document Revised: 03/03/2014 Document Reviewed: [facility] Patient Information 2015 [employer]. This information is not intended to replace advice given to you by your health care provider. Make sure you discuss any questions you have with your health care provider. Toe Fracture Your caregiver has diagnosed you as having a fractured toe. A toe fracture is a break in the bone of a toe. "Ian taping" is a way of splinting your [...] hurts too much to walk. Only take dvdr-yop-xmzuowx or prescription medicines for pain, discomfort, or [...] Released: 02/23/2001 Document Revised: 05/20/2012 Document Reviewed: [facility] Patient Information 2015 License [employer]. This information is not intended to replace advice given to you by your health care provider. Make sure you discuss any questions you have with your health care provider. No follow up information was provided. Extracted from: Title: Office Visit Note- ER f/u Author: Marni Lepe PA-C Date: Assessment/Plan Asthma Will start the pt on Advair 100/50 BID for now. He is to let us know if not helping, and can go up to the 250/50. He was given a sample today and showed how to use this. Script sent to pharmacy. RTC if any issues. Ordered: Office Visit Level 3 Est 99219 Closed nondisplaced fracture of proximal phalanx of lesser toe of left foot D/ w pt that he will still need to wear the boot until it stops hurting. Would like to get another x-ray in about a month toevaluate healing. Ordered: Office Visit Level 3 Est [id number] Orders: fluticasone-salmeterol, 1 puffs, Inhalation, BID, # 60 Each, 3 Refill( s), Pharmacy: [facility] 92533 fluticasone-salmeterol, 1 puffs, Inhalation, BID, # 28 Each, 0 Refill(s), samples given to patient (Rx)
--- OUTSIDE RECORDS SUMMARY | 2016-06-19 10:21 | XMS REPORT ---
Author Author Vincent Damon eClinicalWorks Address Unknown Phone Unavailable Care Team Providers Care School Examiner Name Role Phone Vincent Damon CP Unavailable Allergies, Adverse Reactions, Alerts Substance [...] Instructions Start Date End Date Status Dosage Simvastatin [facility] [address]-85 80 MG Orally Once a day 1 tablet in the evening Promethazine HCl [facility] [address]-57 25 MG Orally PRN for nausea 1- 2 tabs every 8 hrs Rabeprazole Sodium [facility] [address]-07 20 MG Orally Once a day 1 tablet Lorazepam [facility] [address]-37 0.5 MG Orally up to four times daily as needed for anxiety 1 tablet Carbamazepine [facility] [address]-24 200 MG Orally as directed 1 1/2 tabs in AM and 1 tablet at noon and bedtime Cyclobenzaprine HCl [facility] [address]-47 10 MG Orally every 8 hrs PRN 1 tablet DiphenhydrAMINE HCl [facility] [address]-10 50 MG Orally Once a day for sleep 3 capsules at hs Carvedilol [facility] [address]-00 25 MG Orally three times a day 1 tablet with food Ranitidine HCl [facility] [address]-99 150 MG Orally Once a day 1 capsule Amlodipine Besylate [facility] [address]-14 5 MG Orally twice a day 1 tablet Hydrocodone-Acetaminophen [facility] [address]-07 10-325 MG Orally every 8 hrs 1 tablet as needed Tramadol HCl [facility] [address]-99 50 MG Orally every 8 hrs 1 -2tabs as needed BusPIRone HCl [facility] [address]-07 15 MG Orally Three times a day 1 tablet Clopidogrel Bisulfate [facility] [address]-94 75 MG Orally Once a day 1 tablet Clonidine HCl [facility] [address]-33 0.2 MG Orally twice a day 1 tablet Geodon [facility] [address]-65 80 MG Orally At bedtime 2 capsules with food Trazodone HCl [facility] [address]-99 150 MG Orally Once a day as needed for sleep Jan 26, 2015 2 tablet at bedtime Procedures Procedure Coding System Code Date OFFICE VISIT, EST-MOD. COMPLEXITY (25 MIN) CPT-4 41663 Dec 24, 2015 Vital Signs Date/Time: Dec 24, 2015 Temperature 98.0 F Height 70.5 in Weight 234 lbs Blood Pressure Diastolic 72 mm Hg Blood Pressure Systolic 114 mm Hg Cardiac Monitoring Heart Rate 82 /min BMI 33.10 Index Respiratory Rate 20 /min Results No Known Results Summary Purpose eClinicalWorks Submission
--- OUTSIDE RECORDS SUMMARY | 2016-06-19 10:22 | XMS REPORT ---
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 Assessment Major depressive disorder, recurrent episode, severe, specified as with psychotic behavior 296.34 Active Assessment Dysthymic disorder 300.4 Active Medications Medication Code System Code Instructions Start Date End Date Status Dosage BusPIRone HCl [facility] [address]-53 15 MG Orally Three times a day 1 tablet Geodon [facility] [address]-76 80 MG Orally At bedtime 2 capsules with food Simvastatin [facility] [address]-25 80 MG Orally Once a day 1 tablet in the evening Tramadol HCl [facility] [address]-76 50 MG Orally every 8 hrs 1 -2tabs as needed Clonidine HCl [facility] [address]-48 0.2 MG Orally twice a day 1 tablet Clopidogrel Bisulfate [facility] [address]-95 75 MG Orally Once a day 1 tablet Carbamazepine [facility] [address]-04 200 MG Orally as directed 1 1/2 tabs in AM and 1 tablet at noon and bedtime Ranitidine HCl [facility] [address]-25 150 MG Orally Once a day 1 capsule Hydrocodone-Acetaminophen [facility] [address]-86 10-325 MG Orally every 8 hrs 1 tablet as needed Lorazepam [facility] [address]-86 1 MG Orally Once a day 1 tablet Rabeprazole Sodium [facility] [address]-45 20 MG Orally Once a day 1 tablet Carvedilol [facility] [address]-18 25 MG Orally three times a day 1 tablet with food Promethazine HCl [facility] [address]-20 25 MG Orally PRN for nausea 1- 2 tabs every 8 hrs Amlodipine Besylate [facility] [address]-75 5 MG Orally twice a day 1 tablet DiphenhydrAMINE HCl [facility] [address]-47 50 MG Orally Once a day for sleep 3 capsules at hs Abilify [facility] [address]-79 5 MG Orally Once a day 1 tab po at hs Cyclobenzaprine HCl [facility] [address]-85 10 MG Orally every 8 hrs PRN 1 tablet Procedures Procedure Coding System Code Date OFFICE VISIT, EST-MOD. COMPLEXITY (25 MIN) CPT-4 16899 June 16, 2014 Vital Signs Date/Time: June 16, 2014 Height 70.5 in Weight 238.75 lbs Temperature 98.3 F Blood Pressure Diastolic 104 mm Hg Blood Pressure Systolic 160 mm Hg Cardiac Monitoring Heart Rate 92 /min BMI 33.77 Index Respiratory Rate 16 /min Results No Known Results Summary Purpose eClinicalWorks Submission
--- OUTSIDE RECORDS SUMMARY | 2016-06-19 10:22 | XMS REPORT | Referral Summary ---
Author Author [facility] Organization [facility] Address Unknown Phone Unavailable Care Team Providers Care Veterinary Laboratory Technician Name Role Phone Courtney Barry Primary Care Physician [phone] Encounter VC Date(s): 12/22/14 - 12/22/14 [facility] [address] [place] [address] SHAHIDA Roberts [address]- Discharge Disposition: 01-Home or Self Care Attending [...] Daily, # 90 tabs, 0 Refill(s), Pharmacy: [facility] [id number], 1 tabs Oral Daily Start Date: 08/12/13 Status: Ordered Advair Diskus 100 mcg-50 mcg inhalation powder 1 puffs, Inhalation, BID, # 60 Each, 3 Refill(s), Pharmacy: [facility] [id number] Start Date: 03/17/15 Status: Ordered amLODIPine 5 mg oral tablet See Instructions, 1 TABS ORAL BID, # 180 tabs, 1 Refill(s), eRx: [facility] [id number], 1 TABS ORAL BID Start Date: 05/04/15 Status: Ordered busPIRone 15 mg, Oral, TID, 0 Refill(s) Start Date: 05/19/15 Status: Ordered carBAMazepine 200 mg oral tablet See Instructions, TAKE 1& 1/2 TABLETS BY MOUTH EVERY MORNING, 1 TABLET AT NOON, AND 1 TABLET AT BEDTIME, # 105 tabs, eRx: [facility] [id number], TAKE 1& 1/ 2 TABLETS BY MOUTH EVERY MORNING, 1 TABLET AT NOON, AND 1 TABLET AT BEDTIME Start Date: 06/23/15 Status: Ordered carvedilol 25 mg oral tablet See Instructions, TAKE 1 TABLET BY MOUTH THREE TIMES DAILY, # 270 tabs, eRx: [facility] 42545, TAKE 1 TABLET BY MOUTH THREE TIMES DAILY Start Date: 06/23/15 Status: Ordered cloNIDine 0.2 mg oral tablet See Instructions, TAKE 1 TABLET BY MOUTH TWICE DAILY, # 180 tabs, eRx: [facility] 87511, TAKE 1 TABLET BY MOUTH TWICE DAILY Start Date: 06/23/15 Status: Ordered clopidogrel 75 mg oral tablet 75 mg 1 tabs, Oral, Daily, # 90 tabs, 1 Refill(s), Pharmacy: [facility] 44132, 1 tabs Oral Daily,x90 days Start Date: 03/01/15 Stop Date: 05/30/15 Status: Ordered cyclobenzaprine 10 mg oral tablet See Instructions, TAKE 1 TABLET BY MOUTH EVERY 8 HOURS NEEDED, # 90 tabs, eRx : [facility] 21708, TAKE 1 TABLET BY MOUTH EVERY 8 HOURS NEEDED Start Date: 07/01/15 Status: Ordered diphenhydrAMINE 50 mg oral capsule See Instructions, 3 CAPSULE BY MOUTH AT BEDTIME FOR SLEEP., # 90 caps, eRx: [facility] [id number], 3 CAPSULE BY MOUTH AT BEDTIME FOR SLEEP. Start Date: 04/20/14 Status: Ordered Drisdol 50,000 intl units (1.25 mg) oral capsule 1 caps, Oral, qWeek, # 13 caps, 0 Refill(s), Pharmacy: [facility] 96813, 1 caps Oral qWeek Start Date: 04/23/14 [...] SUPPLY , # 30 unknown unit, eRx: [facility] [id number], 65 UNITS SUBCUTANEOUS BEDTIME (ONCE A DAY),INSTR:30 DAY SUPPLY Start Date: 06/01/15 Status: Ordered LORazepam 0.5 mg oral tablet 0.5 mg 1 tabs, Oral, TID, as needed for anxiety, 0 Refill(s) Start Date: 05/19/15 Status: Ordered Misc Prescription 0 Refill(s) Start Date: 03/02/15 Status: Ordered Nasonex 50 mcg/inh nasal spray See Instructions, INHALE 2 PUFFS TWICE A DAY., # 17 unknown unit, eRx: [facility] 53069, INHALE 2 PUFFS TWICE A DAY. Start Date: 06/10/15 Status: Ordered Nasonex 50 mcg/inh nasal spray See Instructions, INHALE 2 PUFFS TWICE A DAY., # 17 unknown unit, eRx: [facility] 82228, INHALE 2 PUFFS TWICE A DAY. Start Date: 05/13/15 Status: Ordered Nebulizer Nebulizer, See Instructions, Nebulizer needed for breathing treatments q 4-6 hours prn soa/copd., # 1 Each, 0 Refill(s) Start Date: 04/19/15 Status: Ordered nitroglycerin 0.6 mg sublingual tablet 1 tabs, SubLingual, q5min, as needed for chest pain, # 100 tabs, 0 Refill(s) Start Date: 08/20/13 Status: Ordered [place] 10 mg-325 mg oral tablet 1 tabs, Oral, q6hr, - MUST LAST 30 DAYS -, # 60 tabs, 0 Refill(s) Start Date: 06/09/15 Status: Ordered NovoLOG FlexPen 100 units/mL subcutaneous solution See Instructions, INJECT 34 UNITS SUBCUTANEOUS THREE TIMES DAILY WITH MEALS, # 45 mL, eRx: [facility] 02809, INJECT 34 UNITS SUBCUTANEOUS THREE TIMES DAILY WITH MEALS Start Date: 06/23/15 Status: Ordered ProAir HFA 90 mcg/inh inhalation aerosol See Instructions, INHALE 2 PUFFS BY INHALATION 4 TIMES A DAY., # 1 inhalers, eRx : [facility] [id number], INHALE 2 PUFFS BY INHALATION 4 TIMES A DAY. Start Date: 05/13/15 Status: Ordered ProAir HFA 90 mcg/inh inhalation aerosol See Instructions, INHALE 2 PUFFS BY INHALATION 4 TIMES A DAY., # 1 inhalers, eRx : [facility] [id number], INHALE 2 PUFFS BY INHALATION 4 TIMES A DAY. Start Date: 06/07/15 Status: Ordered promethazine 25 mg oral tablet See Instructions, TAKE 1 TO 2 TABLETS BY MOUTH EVERY 8 HOURS NEEDED FOR NAUSEA, # 120 tabs, eRx: [facility] [id number], TAKE 1 TO 2 TABLETS BY MOUTH EVERY 8 HOURS NEEDED FOR NAUSEA Start Date: 07/02/15 Status: Ordered ranitidine 150 mg oral tablet See Instructions, TAKE 1 TABLET BY MOUTH EVERY DAY, # 90 tabs, eRx: [facility] 45771, TAKE 1 TABLET BY MOUTH EVERY DAY Start Date: 06/23/15 Status: Ordered SKIN BARRIER WIPES,SWABS SKIN BARRIER WIPES,SWABS, See Instructions, Use three times daily and as needed for diabetic care. Dx: E11.65 Length of need : 99-lifetime [phone], # 150 Each, 2 Refill(s) Start Date: 03/02/15 Status: Ordered Toujeo SoloStar 300 units/mL subcutaneous solution 73 units, SubCutaneous, Bedtime (once a day), # 4 mL, 6 Refill(s), Pharmacy: [id number], Switching from Lantus to Toujeo, 73 units SubCutaneous Bedtime (once a day) Start Date: 05/24/15 Status: Ordered Toujeo SoloStar 300 units/mL subcutaneous solution 73 units, SubCutaneous, Bedtime (once a day), Gave 3 sample pens, # 4 mL, 0 Refill(s), samples given to patient (Rx) Start Date: 05/24/15 Status: Ordered traMADol 50 mg oral tablet 1-2 tabs, Oral, q8hr, as needed for pain, KATHRINEJULIETA- MUST LAST 30 DAYS, # 180 tabs, 0 Refill(s) Start Date: 06/09/15 Status: Ordered traZODone 50 mg oral tablet 100 mg 2 tabs, Oral, Bedtime (once a day), 0 Refill(s) Start Date: 05/19/15 Status: Ordered valsartan 320 mg oral tablet 320 mg 1 tabs, Oral, Daily, # 90 tabs, 1 Refill(s), Pharmacy: [facility] 29025, 1 tabs Oral Daily,x90 days Start Date: 03/01/15 Stop Date: 05/30/15 Status: Ordered ziprasidone 80 mg oral capsule 160 mg 2 caps, Oral, Daily, 0 Refill(s) Start Date: 05/19/15 Status: Ordered Zocor 80 mg oral tablet See Instructions, TAKE 1 TABLET BY MOUTH EVERY DAY., # 90 tabs, eRx: [facility] 40687, TAKE 1 TABLET BY MOUTH EVERY DAY. Start Date: 03/24/15 Status: Ordered Zocor 80 mg oral tablet See Instructions, TAKE 1 TABLET BY MOUTH EVERY DAY., # 90 tabs, eRx: [facility] 05132, TAKE 1 TABLET BY MOUTH EVERY DAY. Start Date: 06/07/15 Status: Ordered Results No data available for this section Immunizations Vaccine Date Refusal Reason influenza virus vaccine, inactivated 12/22/14 influenza virus vaccine, inactivated 01/01/14 influenza virus vaccine, live 12/25/12 influenza virus vaccine, live 12/11/11 zoster vaccine live 12/26/12 Procedures Procedure Date Related Diagnosis Body Site Cardiac catheterization #21 2010 Stent placement2 2010 Cholecystectomy3 2004 Cardiac catheterization #14 2002 Fusion - disc5 1981 1Carotid artery disease 2Carotid artery disease 3Cholelithiasis 4Coronary artery disease 5Back pain Social History Social History Type Response Smoking Status Former smoker; Type: Cigarettes Assessment and Plan No data available for this section
--- OUTSIDE RECORDS SUMMARY | 2016-06-19 10:22 | XMS REPORT ---
Author Author Josephine Kim Organization eClinicalWorks Address Unknown Phone Unavailable Care Team Providers Care Tan Room Supervisor Name Role Phone Josephine Kim Unavailable Allergies No Known Allergies Problems Problem Type Condition Code Onset Dates Condition Status Problem Dysthymic disorder F34.1 Active Problem Dependent personality disorder F60.7 Active Problem Major depressive disorder, recurrent, severe with psychotic symptoms F33.3 Active Medications Medication Code System Code Instructions Start Date End Date Status Dosage DiphenhydrAMINE HCl [facility] [address]-61 50 MG Orally Once a day for sleep 3 capsules at hs Results No Known Results Summary Purpose eClinicalWorks Submission
--- OUTSIDE RECORDS SUMMARY | 2016-06-19 10:22 | XMS REPORT ---
Author Author Josephine Kim Organization eClinicalWorks Address Unknown Phone Unavailable Care Team Providers Care Farm Appraiser Name Role Phone Josephine Kim Unavailable Allergies No Known Allergies Problems Problem Type Condition Code Onset Dates Condition Status Problem Dysthymic disorder F34.1 Active Problem Dependent personality disorder F60.7 Active Problem Major depressive disorder, recurrent, severe with psychotic symptoms F33.3 Active Medications Medication Code System Code Instructions Start Date End Date Status Dosage DiphenhydrAMINE HCl [facility] [address]-33 50 MG Orally Once a day for sleep 3 capsules at hs Results No Known Results Summary Purpose eClinicalWorks Submission
--- NOTE | 2016-06-19 10:29 | ERPDOC ---
Departure Impression Impression Referrals: MICA SANTOS MD (PCP) ELE GUO MD (Family) HPI - General Medical General Chief Complaint: Chest Pain Stated Complaint: SHARP ABD PAIN IN MIDDLE,CP Time Seen by Provider: 10:29 HPI - General Medical Allergies: Coded Allergies: butorphanol (Verified Allergy, Intermediate, HIVES, 08/27/15) NSAIDS (Non-Steroidal Anti-Inflamma (Verified Allergy, Unknown, 08/27/15) Penicillins (Verified Allergy, Unknown, HIVES, 08/27/15) Sulfa (Sulfonamide Antibiotics) (Verified Allergy, Unknown, HIVES, 08/27/15 ) duloxetine HCl (Verified Allergy, Unknown, 08/27/15) erythromycin base (Verified Allergy, Unknown, HIVES, 08/27/15) fluconazole (Verified Allergy, Unknown, 08/27/15) ketorolac tromethamine (Verified Allergy, Unknown, 08/27/15) latex (Verified Allergy, Unknown, 08/27/15) metoclopramide HCl (Verified Allergy, Unknown, 'GOES CRAZY', 08/27/15) nalbuphine HCl (Verified Allergy, Unknown, 08/27/15) prochlorperazine (Verified Adverse Reaction, Mild, "FRUITY", 08/27/15) Past History Patient Surgical History Cholecystectomy L5-S1 disc fusion Coronary artery stents 2 Past Medical History Metabolic: diabetes, hypercholesterolemia, hypertension, other ENMT: allergies Cardiac: CAD Respiratory: asthma GI: GERD, gallbladder disease, pancreatitis Neurological: chronic disability, fibromyalgia, other Psychological: bipolar, depression, schizophrenia Surgical History General: back, gallbladder Cardiac: cardiac cath, cardiac stent Family History Family PMH: FOUND: CAD, CVA, PR, cancer Vaccines Hx Influenza Vaccination: Yes (Dec 2014) Hx Pneumococcal Vaccination: Yes (Uncertain of date) Hx Tetanus Diptheria: No Hx Tetanus, Diptheria, Pertuss: No Social History Sexuality: female partner Physical Exam General Vitals and Pain Weight: Kilograms: Height (feet): 6 Height (inches): 2.00 Triage Pain Scale: Progress Results/Orders Orders Procedure Category Date Status Time EKG EKG 06/19/16 Taken 10:15 DUGLAS VANN MD Jun 19, 2016 10:29
[2016-06-19] MEDS ORDERED: ALBU8.5H INH (10:42)
[2016-06-19] MEDS ORDERED: MORPHINE SULFATE 4 MG SYRINGE IV ONE ×2 (10:45→13:30)
[2016-06-19] MEDS ORDERED: ONDANSETRON 4mg/2ml INJECTION IV ONE (10:45)
[2016-06-19] MEDS ORDERED: NORMAL SALINE 1,000 ML IV ONE (10:45)
[2016-06-19] MEDS ORDERED: INSU3INS3 SQ (10:47)
[2016-06-19] MEDS ORDERED: TRAZ-170 PO (10:49)
[2016-06-19 10:56] LABS: HCT - HEMATOCRIT 45.1 % (41-53); MEAN CORPUSCULAR HGB 29.7 UUG (26-34); MEAN CORPUSCULAR HGB CONC(MCHC 35.5 GM/DL (31-37); MEAN CORPUSCULAR VOLUME 83.7 UM3 (80-100); RED BLOOD COUNT 5.39 M/MM3 (4.50-5.90); WBC - WHITE BLOOD COUNT 23.5 T/MM3 (4.5-11.0)
[2016-06-19 11:08] LABS: ALBUMIN 3.9 G/DL (3.5-5.0); ALBUMIN/GLOBULIN RATIO 1.2 RATIO (1.1-2.2); ALKALINE PHOSPHATASE 199 U/L (38-126); ALT (SGPT) 110 U/L (21-72); ANION GAP 15 MEQ/L (5-15); AST (SGOT) 130 U/L (17-59); BUN/CREATININE RATIO 17 RATIO (6-26); CALCIUM 8.7 MG/DL (8.4-10.2); CHLORIDE 89 MEQ/L (98-107); CO2 - CARBON DIOXIDE 24 MEQ/L (22-30); GLOMERULAR FILTRATION RATE 78; GLUCOSE 349 MG/DL (75-110); LIPASE 40 U/L (23-300); POTASSIUM 4.5 MEQ/L (3.6-5); SODIUM 128 MEQ/L (134-144); TOTAL PROTEIN 7.2 G/DL (6.3-8.2)
[2016-06-19 11:13] LABS: BAND NEUTROPHILS # 2.4 T/MM3; LYMPHOCYTES # (MANUAL) 1.9 T/MM3 (1-4.8); MONOCYTES # (MANUAL) 0.2 T/MM3 (0-0.8); NEUTROPHILS #(MANUAL)-ABSOLUTE 17.9 T/MM3 (1.8-7.7); REACTIVE LYMPHOCYTES # 1.2 T/MM3 (0-0); TOTAL CELLS COUNTED 100 %
--- OUTSIDE RECORDS SUMMARY | 2016-06-19 11:23 | XMS REPORT | Continuity of Care Document ---
Author Author [facility] Organization [facility] Address Unknown Phone Unavailable Allergies Active Description [...] 7.0 NA 5.0-8.0 Protein Negative Negative Specific [place] 1.010 NA 1.003-1.030 UA Collection type Voided NA Urobilinogen 0.2 mg/dL <1.0 Encounters ACCT No. Visit Date/Time Discharge Status Pt. Type Provider Facility Loc./Unit Complaint [id number] 04/14/2013 09:38:00 04/14/2013 23 :59:59 CLS Outpatient
[2016-06-19] MEDS ORDERED: IOHEXOL 300 MG/ML 100ml INJECTION ONE (11:29)
[2016-06-19] MEDS ORDERED: NORMAL SALINE 100 ML ONE (11:29)
[2016-06-19] MEDS ORDERED: SALINE FLUSH 10ml SYRINGE ONE (11:29)
--- NOTE | 2016-06-19 12:12 | DI ---
Indication: ITS.REASON: abdominal pain, distention, white count 23 PROCEDURE: CT ABD/PELVIS W/CONTRAST ONLY: Encounter: Initial Comparison: CT abdomen and pelvis dated October 29, 2012 and January 17, 2011 Technique: Axial CT images were performed through the abdomen and pelvis after the administration of intravenous contrast. Coronal and sagittal two-dimensional reformats. Automated Exposure Control and Iterative Reconstruction dose reducing techniques were utilized. Contrast: Omnipaque 300 99 mL Findings: The lung bases are grossly clear. The liver shows no focal enhancing lesion or mass. No bile duct dilatation. The gallbladder is surgically absent. The spleen, pancreas and adrenal glands are within normal limits. Stable superior pole left renal cyst. Kidneys are otherwise normal. No abdominal or pelvic lymphadenopathy. Bladder, prostate and rectum are normal. No free fluid. There is massive distention of the majority of the colon with stool. This involves the right, transverse and descending colon to the proximal sigmoid region. There is fairly abrupt transition from dilated stool-filled colon to decompressed rectosigmoid colon seen on axial image #87. I do not see any obvious mass or adenopathy in this region. No adjacent inflammation to suggest a diverticulitis. There is some subtle mild wall thickening of the splenic flexure and descending colon best seen on the coronal plane images. The appendix is normal. Bone windows show degenerative changes in the lower lumbar spine. Impression: 1. Markedly dilated stool-filled colon with transition point in the proximal sigmoid region concerning for a colonic stricture that could be benign or malignant. Recommend direct visualization with colonoscopy or flexible sigmoidoscopy. 2. Subtle mild wall thickening in the left colon could represent a stercoral colitis. .
[2016-06-19] MEDS ORDERED: ERTAPENEM 1 G in NORMAL SALINE 100 ML IV ONE (13:00)
--- OUTSIDE RECORDS SUMMARY | 2016-06-19 13:33 | XMS REPORT | Continuity of Care Document ---
Author Author [facility] Organization [facility] Address Unknown Phone Unavailable Allergies Active [...] 7.0 NA 5.0-8.0 Protein Negative Negative Specific [place] 1.010 NA 1.003-1.030 UA Collection type Voided NA Urobilinogen 0.2 mg/dL <1.0 Encounters ACCT No. Visit Date/Time Discharge Status Pt. Type Provider Facility Loc./Unit Complaint [id number] 04/14/2013 09:38:00 04/14/2013 23 :59:59 CLS Outpatient
--- NOTE | 2016-06-19 13:43 | NUR ---
ADMIT PT TAKEN TO SURGICAL UNIT, RM 134 BY CART WITH INVANZ CONTINUING TO INFUSE. PT TRANSFERS TO SURGICAL BED WITH STANDBY ASSIST, TOLERATES ACTIVITY WELL.
[2016-06-19 13:56] VITALS: BP 136/80; PULSE 83; RESP 18; TEMP 98.7; O2SAT 97
[2016-06-19 14:00] VITALS: PULSE 83; RESP 18
[2016-06-19] MEDS ORDERED: LR 1,000 ML IV SCH (14:00)
[2016-06-19 14:11] VITALS: Ht 188 cm; Wt 109.4 kg
--- NOTE | 2016-06-19 14:43 | CONSPD ---
Consultation Info Date DATE: 06/19/16 TIME: 14:29 Date of Consultation: Jun 19, 2016 Reason for Consultation: possible colonic obstruction HPI - Adult Date DATE: 06/19/16 TIME: 14:29 General History of Present Illness Per Dr. Flowers Past Medical History Past Medical History Patient's Medical History: (1) Hiatal hernia (2) Irritable bowel syndrome with constipation (3) Depression (4) Trigeminal nerve disorder (5) Chronic low back pain (6) DM2 (diabetes mellitus, type 2) Permanent Comment: Insulin dependent Last Edited By: Leah Tyler on Jun 19, 2016 14:32 (7) GERD (gastroesophageal reflux disease) (8) Schizophrenia (9) CAD (coronary artery disease) (10) Obesity (BMI 30.0-34.9) (11) History of pancreatitis (12) Fibromyalgia (13) Asthma Surgical History Patient's Surgical History: Laparoscopic Cholecystectomy L5-S1 disc fusion 1980 08- Coronary artery stents 2, left circumflex Heart cath no stents, at [facility] 1980 disk fusion for his back colonoscopy 12-15 years ago, he does not remembre the results Current Medications Home Meds Reported Medications Trazodone HCl (Trazodone HCl) 50 Mg Tablet, 50-100 MG PO HS Y for INSOMNIA 06/19/16 Insulin Glargine,Hum.rec.anlog (Lantus Solostar) 1 Unit Pen, 73 UNIT SQ HS 06/19/16 Albuterol Sulfate (Proair HFA 90 mcg/actuation) 8.5 Gm Hfa.aer.ad, 2 PUFF INH BID 06/19/16 Fluticasone/Salmeterol (Advair 100-50 Diskus) 1 Disk W/Dev Inhaler, 1 PUFF INH BID 05/15/15 Buspirone HCl (Buspirone HCl) 15 Mg Tablet, 15 MG PO TID 05/15/15 Lorazepam (Lorazepam) 0.5 Mg Tablet, 0.5 MG PO TID Y for ANXIETY 05/15/15 Carbamazepine (Carbamazepine) 200 Mg Tablet, 200 MG PO WL 04/23/15 Nitroglycerin (Nitrostat) 0.6 Mg Tab.subl, 0.6 MG SL Q5M Y for CHEST TIGHTNESS 09/30/14 Famotidine (Famotidine) 40 Mg Tablet, 40 MG PO HS 09/30/14 Promethazine HCl (Promethazine HCl) 25 Mg Tablet, 25-50 MG PO Q8H Y for NAUSEA 09/30/14 Insulin Aspart (Novolog Flexpen) 1 Unit Pen, 25-45 UNIT SQ TIDWM 09/30/14 Tramadol HCl (Tramadol HCl) 50 Mg Tablet, 50-100 MG PO TID Y for PRN ORDERS 08/30/14 Hydrocodone/Acetaminophen ([place] 10-325 Tablet) 1 Each Tablet, 1 TAB PO Q6H Y for PAIN 08/30/14 Cyclobenzaprine HCl (Cyclobenzaprine HCl) 10 Mg Tablet, 10 MG PO TID Y for PRN ORDERS 08/30/14 Diphenhydramine Hcl (Benadryl) 50 Mg Capsule, 150 MG PO HS 09/06/12 Ziprasidone Hcl (Geodon) 80 Mg Capsule, 160 MG PO HS 09/06/12 Carbamazepine (Carbamazepine) 200 Mg Tablet, 400 MG PO HS 12/12/11 Carbamazepine (Carbamazepine) 200 Mg Tablet, 400 MG PO QAM 12/12/11 Rabeprazole Sodium (Aciphex) 20 Mg Tablet.dr, 20 MG PO DAILY 01/17/11 Valsartan (Diovan) 320 Mg Tablet, 320 MG PO DAILY 12/31/09 Mometasone Furoate (Nasonex) 17 Gm [place], 2 SPRAY EA NOSTRIL BID 12/31/09 Clopidogrel Bisulfate (Plavix) 75 Mg Tablet, 75 MG PO DAILY 12/31/09 Simvastatin (Zocor) 80 Mg Tablet, 80 MG PO HS 12/31/09 Ranitidine Hcl (Ranitidine Hcl) 150 Mg Capsule, 150 MG PO BID 12/31/09 Amlodipine Besylate (Norvasc) 5 Mg Tablet, 5 MG PO BID 12/31/09 Carvedilol (Coreg) 25 Mg Tablet, 25 MG PO TID 12/31/09 Clonidine Hcl (Clonidine Hcl) 0.2 Mg Tablet, 0.2 MG PO BID 12/31/09 Allergies: Coded Allergies: butorphanol (Verified Allergy, Intermediate, HIVES, 08/27/15) NSAIDS (Non-Steroidal Anti-Inflamma (Verified Allergy, Unknown, 08/27/15) Penicillins (Verified Allergy, Unknown, HIVES, 08/27/15) Sulfa (Sulfonamide Antibiotics) (Verified Allergy, Unknown, HIVES, 08/27/15 ) duloxetine HCl (Verified Allergy, Unknown, 08/27/15) erythromycin base (Verified Allergy, Unknown, HIVES, 08/27/15) fluconazole (Verified Allergy, Unknown, 08/27/15) ketorolac tromethamine (Verified Allergy, Unknown, 08/27/15) latex (Verified Allergy, Unknown, 08/27/15) metoclopramide HCl (Verified Allergy, Unknown, 'GOES CRAZY', 08/27/15) nalbuphine HCl (Verified Allergy, Unknown, 08/27/15) prochlorperazine (Verified Adverse Reaction, Mild, "FRUITY", 08/27/15) Family History Family History: Brother =CVA in is 50's, DM, [place] Other Siblings - DM, HTN Mom age 56 of breast cancer Father - age 39 for [place] Social History Smoking Status: Former smoker (claims he quit 14 years ago) Sexuality: female partner Advance Directives: No DPOA for Healthcare Only GS Review of Systems Cardiovascular REPORTS chest pain (angina) Respiratory REPORTS difficulty breathing Gastrointestional REPORTS constipation Musculoskeletal REPORTS back pain, REPORTS joint pain (Fibromyalgia and Osteoarthritis) Psychiatric REPORTS emotional instability Endocrine REPORTS diabetes Hematologic REPORTS easy bruising 10-point Review of Systems otherwise negative except HPI GS Physical Exam Vital Signs Date Time Temp Pulse Resp B/P Pulse Ox O2 Delivery O2 Flow Rate FiO2 06/19/16 13:56 98.7 83 18 136/80 97 Room Air Height (Feet): 6 Height (Inches): 2.00 Weight (Kilograms): 111.300 BMI 31.5 Laboratory Laboratory Tests 06/19/16 10:44 Laboratory Tests 06/19/16 10:44 LEAH TYLER APRN Jun 19, 2016 14:34
[2016-06-19] MEDS: NORMAL SALINE 1,000 ML IV SCH ×2 (14:48→23:36)
--- NOTE | 2016-06-19 15:47 | HPPDOC ---
IRINA JUAREZ V REFLEXOLOGIST 06/19/16 1510: HPI - Adult Date DATE: 06/19/16 TIME: 14:58 General Chief Complaint: Abdominal pain History of Present Illness Patient is a 51-year-old male who presented to the emergency room today for evaluation of abdominal pain 2 days. He reports that on Saturday 06/17, he began having abdominal pain accompanied with nausea and vomiting. The pain continues to be severe nature, thus patient presented to the emergency room for further evaluation and treatment. The WBC count was found recently elevated at 23.5, hemoglobin 16, hematocrit 45.1, platelet count 321, neutrophils 76% with 10% bandemia. Sodium is low at 128, potassium 4.5, BUNs 17, creatinine 1.0. Glucose 349. Transaminases are elevated with an AST of 130, ALT 110, alkaline phosphatase 199. Venous lactate was found to be elevated at 2.3. Pro-calcitonin 0.38. Troponin was undetectable. CT scan of the abdomen and pelvis did reveal marked dilated stool filled colon with a transition point in the proximal sigmoid region. Patient is afebrile 98.4, pulse 90, respirations 16, blood pressure 124/75, room air saturations 96%. Given these acute findings, patient was given IV fluids and started on Invanz for antimicrobial coverage. The hospitalist services were contacted and accepted patient for inpatient admission for further evaluation and treatment. Dr. Flowers was contacted see patient in consultation. Past Medical History Past Medical History Coronary artery disease with cardiac stent placement, (2009) Hypertension Hyperlipidemia Type II diabetes Asthma Fibromyalgia Schizophrenia Bipolar disorder History of pancreatitis Heart catheter-2003 Surgical History Patient's Surgical History: Laparoscopic Cholecystectomy L5-S1 disc fusion [id number] Coronary artery stents 2, left circumflex Heart cath- 2009 1980 disk fusion for his back colonoscopy 12-15 years ago, he does not remembre the results Current Medications Home Meds Reported Medications Trazodone HCl (Trazodone HCl) 50 Mg Tablet, 50-100 MG PO HS Y for INSOMNIA 06/19/16 Insulin Glargine,Hum.rec.anlog (Lantus Solostar) 1 Unit Pen, 73 UNIT SQ HS 06/19/16 Albuterol Sulfate (Proair HFA 90 mcg/actuation) 8.5 Gm Hfa.aer.ad, 2 PUFF INH BID 06/19/16 Fluticasone/Salmeterol (Advair 100-50 Diskus) 1 Disk W/Dev Inhaler, 1 PUFF INH BID 05/15/15 Buspirone HCl (Buspirone HCl) 15 Mg Tablet, 15 MG PO TID 05/15/15 Lorazepam (Lorazepam) 0.5 Mg Tablet, 0.5 MG PO TID Y for ANXIETY 05/15/15 Carbamazepine (Carbamazepine) 200 Mg Tablet, 200 MG PO WL 04/23/15 Nitroglycerin (Nitrostat) 0.6 Mg Tab.subl, 0.6 MG SL Q5M Y for CHEST TIGHTNESS 09/30/14 Famotidine (Famotidine) 40 Mg Tablet, 40 MG PO HS 09/30/14 Promethazine HCl (Promethazine HCl) 25 Mg Tablet, 25-50 MG PO Q8H Y for NAUSEA 09/30/14 Insulin Aspart (Novolog Flexpen) 1 Unit Pen, 25-45 UNIT SQ TIDWM 09/30/14 Tramadol HCl (Tramadol HCl) 50 Mg Tablet, 50-100 MG PO TID Y for PRN ORDERS 08/30/14 Hydrocodone/Acetaminophen ([place] 10-325 Tablet) 1 Each Tablet, 1 TAB PO Q6H Y for PAIN 08/30/14 Cyclobenzaprine HCl (Cyclobenzaprine HCl) 10 Mg Tablet, 10 MG PO TID Y for PRN ORDERS 08/30/14 Diphenhydramine Hcl (Benadryl) 50 Mg Capsule, 150 MG PO HS 09/06/12 Ziprasidone Hcl (Geodon) 80 Mg Capsule, 160 MG PO HS 09/06/12 Carbamazepine (Carbamazepine) 200 Mg Tablet, 400 MG PO HS 12/12/11 Carbamazepine (Carbamazepine) 200 Mg Tablet, 400 MG PO QAM 12/12/11 Rabeprazole Sodium (Aciphex) 20 Mg Tablet.dr, 20 MG PO DAILY 01/17/11 Valsartan (Diovan) 320 Mg Tablet, 320 MG PO DAILY 12/31/09 Mometasone Furoate (Nasonex) 17 Gm [place], 2 SPRAY EA NOSTRIL BID 12/31/09 Clopidogrel Bisulfate (Plavix) 75 Mg Tablet, 75 MG PO DAILY 12/31/09 Simvastatin (Zocor) 80 Mg Tablet, 80 MG PO HS 12/31/09 Ranitidine Hcl (Ranitidine Hcl) 150 Mg Capsule, 150 MG PO BID 12/31/09 Amlodipine Besylate (Norvasc) 5 Mg Tablet, 5 MG PO BID 12/31/09 Carvedilol (Coreg) 25 Mg Tablet, 25 MG PO TID 12/31/09 Clonidine Hcl (Clonidine Hcl) 0.2 Mg Tablet, 0.2 MG PO BID 12/31/09 Allergies: Coded Allergies: butorphanol (Verified Allergy, Intermediate, HIVES, 08/27/15) NSAIDS (Non-Steroidal Anti-Inflamma (Verified Allergy, Unknown, 08/27/15) Penicillins (Verified Allergy, Unknown, HIVES, 08/27/15) Sulfa (Sulfonamide Antibiotics) (Verified Allergy, Unknown, HIVES, 08/27/15 ) duloxetine HCl (Verified Allergy, Unknown, 08/27/15) erythromycin base (Verified Allergy, Unknown, HIVES, 08/27/15) fluconazole (Verified Allergy, Unknown, 08/27/15) ketorolac tromethamine (Verified Allergy, Unknown, 08/27/15) latex (Verified Allergy, Unknown, 08/27/15) metoclopramide HCl (Verified Allergy, Unknown, 'GOES CRAZY', 08/27/15) nalbuphine HCl (Verified Allergy, Unknown, 08/27/15) prochlorperazine (Verified Adverse Reaction, Mild, "FRUITY", 08/27/15) Family History Family History: Brother =CVA in is 50's, DM, [place] Other Siblings - DM, HTN Mom age 56 of breast cancer Father - age 39 for MS Social History Smoking Status: Former smoker (claims he quit 14 years ago) Sexuality: female partner Housing: house Current Occupational Status: disabled Advance Directives: Yes Full Code, No DPOA for Healthcare Only Social History Comments PCP Dr Dr Barry Cardiology - Dr Dumont Managing Consultant Clinical Professor- Dr Dia Review of Systems GI Upper Abdomen: nausea, pain, vomiting Lower Abdomen: pain All Other Systems All Other Systems: Reviewed (remainder of 10-point ROS Neg.) Physical Exam General General Nourishment: well nourished, well developed Vital Signs Vital Signs Date Time Temp Pulse Resp B/P Pulse Ox O2 Delivery O2 Flow Rate FiO2 06/19/16 14:00 83 18 06/19/16 13:56 98.7 136/80 97 Room Air Height (Feet): 6 Height (Inches): 2.00 Eyes Brief: FOUND: EOMI, PERRL Neck Brief: FOUND: midline, NOT FOUND: adenopathy, carotid bruits, tracheal deviation Respiratory Brief: FOUND: clear all [place], equal bilaterally, NOT FOUND: wheezes Cardiovascular (brief) Cardiac Brief: FOUND: regular rate, regular rhythm, NOT FOUND: murmur, pedal edema Abdomen (brief) Abdominal Brief: FOUND: distended, tender (generalized), NOT FOUND: BS normo active x4 (hypoactive), soft Integumentary (brief) Integumentary Brief: FOUND: dry, pink, warm Neurologic (brief) Neurological Brief: FOUND: cranial 2-12 intact Neurologic RN Documented GCS Eye Opening: Verbal: Motor: Total: Psychiatric (brief) FOUND: alert, attentive, normal affect, oriented Laboratory Laboratory Tests Test 06/19/16 10:44 06/19/16 13:20 White Blood Count 23.5T/MM3 Red Blood Count 5.39M/MM3 Hemoglobin 16.0GM/DL Hematocrit 45.1% Mean Corpuscular Volume 83.7UM3 Mean Corpuscular Hemoglobin 29.7UUG Mean Corpuscular Hemoglobin Concent 35.5GM/DL RDW Standard Deviation 37.6FL Platelet Count 321T/MM3 Mean Platelet Volume 9.0UM3 Immature Granulocyte % (Auto) % Neutrophils (%) (Auto) % Lymphocytes (%) (Auto) % Monocytes (%) (Auto) % Eosinophils (%) (Auto) % Basophils (%) (Auto) % Absolute Immature Granulocyte (auto T/MM3 Absolute Neutrophils (auto) T/MM3 Absolute Lymphocytes (auto) T/MM3 Absolute Monocytes (auto) T/MM3 Absolute Eosinophils (auto) T/MM3 Absolute Basophils (auto) T/MM3 Neutrophils % (Manual) 76.0% Band Neutrophils % 10.0% Lymphocytes % (Manual) 8.0% Reactive Lymphocytes % 5.0% Monocytes % (Manual) 1.0% Absolute Neutrophils (Manual) 17.9T/MM3 Band Neutrophils # 2.4T/MM3 Lymphocytes # (Manual) 1.9T/MM3 Reactive Lymphocytes # 1.2T/MM3 Monocytes # (Manual) 0.2T/MM3 Red Cell Morphology Comment Normal Turbidity < 20 Sodium Level 128MEQ/L Potassium Level 4.5MEQ/L Chloride Level 89MEQ/L Carbon Dioxide Level 24MEQ/L Anion Gap 15MEQ/L Blood Urea Nitrogen 17.0MG/DL Creatinine 1.0MG/DL Glomerular Filtration Rate Calc 78 BUN/Creatinine Ratio 17RATIO Glucose Level 349MG/DL Calculated Osmolality 263MOSM/KG Calcium Level 8.7MG/DL Total Bilirubin 1.30MG/DL Icterus Index < 2 Aspartate Amino Transf (AST/SGOT) 130U/L Alanine Aminotransferase (ALT/SGPT) 110U/L Alkaline Phosphatase 199U/L Troponin I < 0.012ng/ml Total Protein 7.2G/DL Albumin 3.9G/DL Globulin 3.3G/DL Albumin/Globulin Ratio 1.2RATIO Lipase 40U/L Chemistry Specimen Hemolysis < 15 Plasma Lactate 2.3MMOL/L Procalcitonin 0.38NG/ML Sepsis Diagnostic Criteria Sepsis Confirmed/Suspected Infection: Yes SIRS Criteria: WBC >=12,000 or <=4,000, Bands >= 10% Severe Sepsis Lactate >=2.0 mg/dL Assessment & Plan Problems: (1) Abdominal pain Status: Acute (2) Nausea & vomiting Status: Acute (3) Elevated transaminase level Status: Acute Assessment & Plan: Present on admission, AST 130, ALT 110, alkaline phosphatase 199 (4) Hyponatremia Status: Acute Assessment & Plan: Present on admission, sodium 128 (5) CAD (coronary artery disease) Status: Chronic (6) Hypertension Status: Chronic (7) DM2 (diabetes mellitus, type 2) Status: Chronic (8) Irritable bowel syndrome with constipation Status: Chronic (9) Chronic low back pain Status: Chronic (10) Trigeminal nerve disorder Status: Chronic (11) Depression Status: Chronic (12) Schizophrenia Status: Chronic (13) GERD (gastroesophageal reflux disease) Status: Chronic (14) Bipolar disorder Status: Chronic (15) Asthma Status: Chronic (16) Obesity (BMI 30.0-34.9) Status: Chronic (17) History of pancreatitis Status: Resolved Plan/Intensity of Service Admit patient to inpatient status under the care of Dr. Noble for acute abdominal pain with nausea and vomiting. Surgical consultation by Dr. Flowers. Planning for barium enema tomorrow morning. Will keep patient nothing by mouth at this time. Given leukocytosis and bandemia. He does meet criteria for sepsis. Will recheck serial venous lactate and continue on Invanz. Blood cultures are pending In light of hyponatremia. Will obtain urine sodium and urine Grinder Needle Tip to calculate fractional excretion of sodium. Obtain a GI panel to rule out infectious etiology. Morphine available as needed for pain and Zofran as needed for nausea Monitor serial liver enzymes, may be secondary to acute infection/sepsis Will monitor Accu-Cheks carefully. Will continue patient on Lantus but will decrease the dose to 50 units at at bedtime. Hold on sliding-scale insulin. However, patient may require this. Monitor heart rate and blood pressure carefully given, all oral agents are on hold. Plavix to be on hold in case patient is in need of acute surgical intervention. Last cardiac stents were in 2009 Will discuss case further with attending, Dr. Noble At time of discharge medical care is to return to PCP Dr Barry Will recheck CBC and CMP tomorrow morning to follow blood counts, renal function and electrolytes Code Status Full Code Hospital Course Summary Disclaimer The hospital course summary below is not to be considered part of the above Progress Note. Hospital Course Summary Admit patient to inpatient status under the care of Dr. Noble for acute abdominal pain with nausea and vomiting. Surgical consultation by Dr. Flowers. Planning for barium enema tomorrow morning. Will keep patient nothing by mouth at this time. Given leukocytosis and bandemia. He does meet criteria for sepsis. Will recheck serial venous lactate and continue on Invanz. Blood cultures are pending In light of hyponatremia. Will obtain urine sodium and urine Grinder Needle Tip to calculate fractional excretion of sodium. Obtain a GI panel to rule out infectious etiology. Morphine available as needed for pain and Zofran as needed for nausea Monitor serial liver enzymes, may be secondary to acute infection/sepsis Will monitor Accu-Cheks carefully. Will continue patient on Lantus but will decrease the dose to 50 units at at bedtime. Hold on sliding-scale insulin. However, patient may require this. Monitor heart rate and blood pressure carefully given, all oral agents are on hold. Plavix to be on hold in case patient is in need of acute surgical intervention. Last cardiac stents were in 2009 Will discuss case further with attending, Dr. Noble At time of discharge medical care is to return to PCP Dr Barry Will recheck CBC and CMP tomorrow morning to follow blood counts, renal function and electrolytes NOBLE,SVEN L MD 06/19/16 5158: Past Medical History Current Medications Home Meds Reported Medications Trazodone HCl (Trazodone HCl) 50 Mg Tablet, 50-100 MG PO HS Y for INSOMNIA 06/19/16 Insulin Glargine,Hum.rec.anlog (Lantus Solostar) 1 Unit Pen, 73 UNIT SQ HS 06/19/16 Albuterol Sulfate (Proair HFA 90 mcg/actuation) 8.5 Gm Hfa.aer.ad, 2 PUFF INH BID 06/19/16 Fluticasone/Salmeterol (Advair 100-50 Diskus) 1 Disk W/Dev Inhaler, 1 PUFF INH BID 05/15/15 Buspirone HCl (Buspirone HCl) 15 Mg Tablet, 15 MG PO TID 05/15/15 Lorazepam (Lorazepam) 0.5 Mg Tablet, 0.5 MG PO TID Y for ANXIETY 05/15/15 Carbamazepine (Carbamazepine) 200 Mg Tablet, 200 MG PO WL 04/23/15 Nitroglycerin (Nitrostat) 0.6 Mg Tab.subl, 0.6 MG SL Q5M Y for CHEST TIGHTNESS 09/30/14 Famotidine (Famotidine) 40 Mg Tablet, 40 MG PO HS 09/30/14 Promethazine HCl (Promethazine HCl) 25 Mg Tablet, 25-50 MG PO Q8H Y for NAUSEA 09/30/14 Insulin Aspart (Novolog Flexpen) 1 Unit Pen, 25-45 UNIT SQ TIDWM 09/30/14 Tramadol HCl (Tramadol HCl) 50 Mg Tablet, 50-100 MG PO TID Y for PRN ORDERS 08/30/14 Hydrocodone/Acetaminophen ([place] 10-325 Tablet) 1 Each Tablet, 1 TAB PO Q6H Y for PAIN 08/30/14 Cyclobenzaprine HCl (Cyclobenzaprine HCl) 10 Mg Tablet, 10 MG PO TID Y for PRN ORDERS 08/30/14 Diphenhydramine Hcl (Benadryl) 50 Mg Capsule, 150 MG PO HS 09/06/12 Ziprasidone Hcl (Geodon) 80 Mg Capsule, 160 MG PO HS 09/06/12 Carbamazepine (Carbamazepine) 200 Mg Tablet, 400 MG PO HS 12/12/11 Carbamazepine (Carbamazepine) 200 Mg Tablet, 400 MG PO QAM 12/12/11 Rabeprazole Sodium (Aciphex) 20 Mg Tablet.dr, 20 MG PO DAILY 01/17/11 Valsartan (Diovan) 320 Mg Tablet, 320 MG PO DAILY 12/31/09 Mometasone Furoate (Nasonex) 17 Gm [place], 2 SPRAY EA NOSTRIL BID 12/31/09 Clopidogrel Bisulfate (Plavix) 75 Mg Tablet, 75 MG PO DAILY 12/31/09 Simvastatin (Zocor) 80 Mg Tablet, 80 MG PO HS 12/31/09 Ranitidine Hcl (Ranitidine Hcl) 150 Mg Capsule, 150 MG PO BID 12/31/09 Amlodipine Besylate (Norvasc) 5 Mg Tablet, 5 MG PO BID 12/31/09 Carvedilol (Coreg) 25 Mg Tablet, 25 MG PO TID 12/31/09 Clonidine Hcl (Clonidine Hcl) 0.2 Mg Tablet, 0.2 MG PO BID 12/31/09 Allergies: Coded Allergies: butorphanol (Verified Allergy, Intermediate, HIVES, 08/27/15) NSAIDS (Non-Steroidal Anti-Inflamma (Verified Allergy, Unknown, 08/27/15) Penicillins (Verified Allergy, Unknown, HIVES, 08/27/15) Sulfa (Sulfonamide Antibiotics) (Verified Allergy, Unknown, HIVES, 08/27/15 ) duloxetine HCl (Verified Allergy, Unknown, 08/27/15) erythromycin base (Verified Allergy, Unknown, HIVES, 08/27/15) fluconazole (Verified Allergy, Unknown, 08/27/15) ketorolac tromethamine (Verified Allergy, Unknown, 08/27/15) latex (Verified Allergy, Unknown, 08/27/15) metoclopramide HCl (Verified Allergy, Unknown, 'GOES CRAZY', 08/27/15) nalbuphine HCl (Verified Allergy, Unknown, 08/27/15) prochlorperazine (Verified Adverse Reaction, Mild, "FRUITY", 08/27/15) Assessment & Plan Assessment 06/19/2016-I reviewed this chart, the patient history, and the REFLEXOLOGIST's/PA's documented findings as above. We discussed and formulated the assessment and plan as above with the additions below.-Dr. Noble I've seen and examined the patient independently of my nurse practitioner. The patient states that he is still having abdominal pain and rates it as an 8. He's been having pain for the past 3 days. He has had little to drink since that time and when he tries to drink he vomits. He is mildly nauseated now. He states when he vomited there was nothing that looked like red blood or coffee grounds. He states when he was having bowel movements his stools were hard and round. He denied any red blood in his stools or black tarry stools. He has never had a bowel obstruction before. He is on chronic pain medicines for chronic back pain. He is on psychiatric medications for schizophrenia and bipolar disorder. He feels like his mood is doing okay at this time. He feels just mildly anxious. He denies having any hallucinations or any mood problems other than some mild anxiety. He denies any chest pains or lightheadedness. He denies any shortness of breath. He denies any dysuria. He states it was hard to urinate earlier today but he just was able to urinate. His urine is tea colored and that is not normal for him. I notified him that his liver enzymes were elevated today and he states that [facility] his [facility] disorder and schizophrenia. He states he has history of asthma but has never acquired hospitalization for asthma. He feels like he is breathing well currently. He has chronic numbness and tingling in his hands and feet from diabetes. He has not been able to take any of his oral medications for the past 2-1/2 days. On physical exam he is alert and oriented and in no acute distress. HEENT reveals sclerae to be anicteric and pupils are equal round and reactive. Oropharynx is moist. Neck is supple. Chest reveals some minimal crackles in the bases. Cardiovascular reveals a regular rate and rhythm without murmur. Abdomen is mildly distended. He has some hyperactive bowel sounds. He has mild tenderness but no rebound or guarding. Extremities are free of clubbing cyanosis or edema. Skin is warm and dry and without rashes. She had an elevated lactate on admission but it has since normalized. Impression/Plan Colonic obstruction around the sigmoid-Dr. Flowers has been consulted and recommends barium enema tomorrow. Will give morphine for pain and I increased the amount since his pain is not been well controlled. Regarding possible sepsis with elevated white count and lactate that is normalized, we'll continue Invanz that was initiated on admission. Will follow blood cultures. Coronary artery disease with stent placements in 2009-hold Plavix for now in case surgical intervention required Type 2 diabetes mellitus with hyperglycemia-monitor Accu-Cheks closely, give sliding scale insulin, give a slightly less than usual dose of long-acting insulin. Check hemoglobin A1c. Re: Schizophrenia and bipolar disorder-we'll try to get his oral medications but if nauseated we'll have to hold. Consider psychiatric consultation if the patient is having problems with mood. Chronic hyponatremia-given normal saline for hydration and recheck tomorrow. Patient states he takes salt tablets 1 twice daily at home. chronic pain-give IV pain medication Elevated transaminases-hold statin and continue to monitor Chronic constipation-the patient will need a good bowel regimen once bowel obstruction has resolved Trigeminal neuralgia-give oral carbamazepine if able to take. Regarding hypertension-will try to continue clonidine and Coreg orally. If not able to take orally secondary to nausea and vomiting, consider clonidine patch and IV beta wild scheduled. We'll give IV PPI protonix-at home the patient had listed aciphex, ranitidine and famotidine and we will hold all 3 of these SCDs for DVT prophylaxis Regarding history of asthma will give scheduled breathing treatment 3 times a day and encourage use of incentive spirometer. DVT Prophylaxis: SCD'S IRINA JUAREZ APRN Jun 19, 2016 15:10 SVEN NOBLE MD Jun 19, 2016 17:53
[2016-06-19] MEDS ORDERED: MORPHINE SULFATE 2 MG SYRINGE IV PRN (16:45)
[2016-06-19] MEDS ORDERED: DEXTROSE 50% SYRINGE 50ml (Eq. 1 AMP) IV PRN (17:30)
[2016-06-19] MEDS ORDERED: NITROGLYCERIN 0.4 MG SUBLINGUAL TABLET SL PRN (17:45)
[2016-06-19] MEDS ORDERED: LORAZEPAM 2 MG/ML INJECTION IV SCH (18:00)
[2016-06-19] MEDS: INSULIN ASPART 100 UNIT/ML SQ PRN ×2 (18:08→21:44)
[2016-06-19] MEDS: MORPHINE SULFATE 10 MG SYRINGE IV PRN ×2 (18:09→21:56)
[2016-06-19] MEDS: LORAZEPAM 2 MG/ML INJECTION IV SCH (18:10)
[2016-06-19] MEDS: PANTOPRAZOLE 40mg INJECTION IV SCH (18:11)
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
--- NOTE | 2016-06-19 18:48 | NUR ---
SHIFT SUMMARY PATIENT IS ALERT AND ORIENTED X3. PATIENT VITALS ARE STABLE AND PATIENT IS ON ROOM AIR. PATIENT DENIES CP, AND SOA. PATIENT HAS BEEN GIVEN 1X PRN IV PAIN MEDICATION. ZOFRAN WAS GIVEN IN ER. PATIENT IS UP WITH STAND BY ASSIST. PATIENT HAS BEEN ABLE TO VOID BUT HAS NOT HAD A BM THIS SHIFT. WILL CONTINUE TO MONITOR.
[2016-06-19] MEDS ORDERED: ALBUTEROL INH.SOLN. 2.5mg/3ml (0.083%) Neb. AEROSOL SCH (19:00)
[2016-06-19 19:03] VITALS: O2SAT 95
[2016-06-19] MEDS: ALBUTEROL INH.SOLN. 2.5mg/3ml (0.083%) Neb. AEROSOL SCH (19:10)
[2016-06-19] MEDS: FLUTICASONE/SALMETEROL 100/50 DISK INHALER ORAL INH SCH (19:10)
[2016-06-19 20:41] LABS: CREATININE, URINE RANDOM 77.2 MG/DL
[2016-06-19 21:08] VITALS: BP 132/82; PULSE 92; RESP 20; O2SAT 98
[2016-06-19] MEDS: INSULIN GLARGINE 100 UNIT/ML SQ SCH (21:48)
[2016-06-19] MEDS: CARVEDILOL 25 MG TABLET PO SCH (21:49)
[2016-06-19] MEDS: CARBAMAZEPINE 200 MG TABLET PO SCH (21:49)
[2016-06-19] MEDS: FLUTICASONE NASAL SPRAY 50 MCG EA NOSTRIL SCH (21:50)
[2016-06-19] MEDS: ZIPRASIDONE 40 MG CAPSULE PO SCH (21:50)
[2016-06-19] MEDS: CLONIDINE 0.2 MG TABLET PO SCH (21:57)
[2016-06-19] MEDS: ONDANSETRON 4mg/2ml INJECTION IV PRN (21:58)
[2016-06-19 23:41] VITALS: BP 136/77; PULSE 91; RESP 18; TEMP 98.4; O2SAT 97
[2016-06-20] VITALS (7 sets, daily range): BP systolic 106–136; BP diastolic 66–75; PULSE 76–80; RESP 15–16; TEMP 97.5–97.9; O2SAT 94–95
[2016-06-20] MEDS: LORAZEPAM 2 MG/ML INJECTION IV SCH ×4 (00:31→18:10)
--- NOTE | 2016-06-20 01:41 | NUR ---
Chart Check 24 hour chart check completed
[2016-06-20] MEDS: MORPHINE SULFATE 10 MG SYRINGE IV PRN ×8 (02:07→20:29)
[2016-06-20 05:32] LABS: HCT - HEMATOCRIT 43.3 % (41-53); HGB - HEMOGLOBIN 14.8 GM/DL (13.5-17.5); MEAN CORPUSCULAR HGB 29.5 UUG (26-34); MEAN CORPUSCULAR HGB CONC(MCHC 34.2 GM/DL (31-37); MEAN CORPUSCULAR VOLUME 86.3 UM3 (80-100); MEAN PLATELET VOLUME 9.3 UM3 (9.4-12.4); RED BLOOD COUNT 5.02 M/MM3 (4.50-5.90)
--- NOTE | 2016-06-20 05:42 | NUR ---
SHIFT SUMMARY PT ALERT AND ORIENTED X 3. PT HAS SLEPT OFF AND ON DURING THE NIGHT. PT GIVEN MS FOR PAIN, ZOFRAN FOR NAUSEA-SEE EMAR FOR TIMES. VSS, ON RA. PT UP WITH SBA TO BATHROOM. NS RUNNING @ 125ML/HR IN LEFT AC. NPO DIET. PT DID HAVE MODERATE SIZE BM LAST NIGHT. BED LOCKED AND LOW, BED ALARM ON. CALL LIGHT WITHIN REACH. WILL CONTINUE TO MONITOR.
[2016-06-20 05:53] LABS: ALBUMIN 3.3 G/DL (3.5-5.0); ALBUMIN/GLOBULIN RATIO 1.1 RATIO (1.1-2.2); ALKALINE PHOSPHATASE 166 U/L (38-126); ALT (SGPT) 87 U/L (21-72); ANION GAP 9 MEQ/L (5-15); AST (SGOT) 59 U/L (17-59); BUN/CREATININE RATIO 18 RATIO (6-26); CALCIUM 7.8 MG/DL (8.4-10.2); CHLORIDE 97 MEQ/L (98-107); CO2 - CARBON DIOXIDE 25 MEQ/L (22-30); CREATININE 0.9 MG/DL (0.8-1.5); GLOMERULAR FILTRATION RATE 88; GLUCOSE 208 MG/DL (75-110); POTASSIUM 4.7 MEQ/L (3.6-5); SODIUM 131 MEQ/L (134-144); TOTAL PROTEIN 6.2 G/DL (6.3-8.2)
[2016-06-20] MEDS: INSULIN ASPART 100 UNIT/ML SQ PRN ×4 (06:04→20:30)
[2016-06-20 06:13] LABS: BAND NEUTROPHILS # 1.8 T/MM3; LYMPHOCYTES # (MANUAL) 4.8 T/MM3 (1-4.8); MONOCYTES # (MANUAL) 2.9 T/MM3 (0-0.8); NEUTROPHILS #(MANUAL)-ABSOLUTE 12.5 T/MM3 (1.8-7.7); TOTAL CELLS COUNTED 100 %
[2016-06-20] MEDS: NORMAL SALINE 1,000 ML IV SCH ×3 (06:31→18:19)
[2016-06-20] MEDS: ALBUTEROL INH.SOLN. 2.5mg/3ml (0.083%) Neb. AEROSOL SCH ×3 (07:07→19:39)
[2016-06-20] MEDS: ONDANSETRON 4mg/2ml INJECTION IV PRN (07:42)
[2016-06-20] MEDS: FLUTICASONE/SALMETEROL 100/50 DISK INHALER ORAL INH SCH ×2 (09:00→19:39)
[2016-06-20] MEDS: ERTAPENEM 1 G in NORMAL SALINE 100 ML IV SCH ×2 (09:46→10:02)
[2016-06-20] MEDS: CARVEDILOL 25 MG TABLET PO SCH ×3 (09:46→22:15)
[2016-06-20] MEDS: FLUTICASONE NASAL SPRAY 50 MCG EA NOSTRIL SCH ×2 (09:46→22:13)
[2016-06-20] MEDS: CLONIDINE 0.2 MG TABLET PO SCH ×2 (09:47→22:14)
[2016-06-20] MEDS: CARBAMAZEPINE 200 MG TABLET PO SCH ×3 (09:47→22:14)
[2016-06-20] MEDS: PANTOPRAZOLE 40mg INJECTION IV SCH (09:47)
[2016-06-20] MEDS ORDERED: DIATRIZOATE MEGLUMINE/SOD. (66%/10%) 120ml SOLN ONE ×2 (13:43)
--- NOTE | 2016-06-20 13:51 | PNPDOC ---
IRINA JUAREZ V CREW DISPATCHER 06/20/16 1341: Subjective Date DATE: 06/20/16 TIME: 13:36 Subjective Ty is seen this afternoon while resting in bed napping. He does arouse and is pleasant. States that he continues to have some abdominal discomfort however it is not as severe as it was yesterday. Denies having shortness of breath or nausea. Remains NPO, blood sugars have been elevated. Fasting sugar is 208. BP 106/66. Objective Vital Signs Vital signs Vital Signs Date Time Temp Pulse Resp B/P Pulse Ox O2 Delivery O2 Flow Rate FiO2 06/20/16 12:34 16 06/20/16 07:35 97.9 76 106/66 94 Room Air Height (Feet): 6 Height (Inches): 2.00 Weight (Kilograms): 111.500 General General Appearance: Alert, Orientated x 3, Cooperative, No Acute Distress Eyes (Brief) Eyes: FOUND: EOMI ENMT (Brief) ENMT: FOUND: mucosa moist, normal dentition, NOT FOUND: pharnyx erythema Neck (Brief) Neck: FOUND: midline, NOT FOUND: adenopathy, carotid bruits, tracheal deviation Respiratory (Brief) Respiratory: FOUND: clear all [place], equal bilaterally, NOT FOUND: wheezes Cardiovascular (Brief) Cardiac: FOUND: regular rate, regular rhythm, NOT FOUND: murmur, pedal edema Capillary Refill: <2 sec Abdomen (Brief) Abdominal: FOUND: BS normo active x4, soft, NOT FOUND: distended, tender Lymphatic (Brief) Lymphatic: NOT FOUND: adenopathy Musculoskeletal (Brief) Musculoskeletal: NOT FOUND: tenderness Integumentary (Brief) Integumentary: FOUND: dry, pink, warm Neurologic (Brief) Neurological: FOUND: cranial 2-12 intact Psychiatric (Brief) Psychiatric: FOUND: alert, attentive, normal affect, oriented Laboratory Laboratory Laboratory Tests 06/19/16 10:44 06/20/16 04:24 Laboratory Tests 06/19/16 10:44 06/20/16 04:24 Microbiology Microbiology Microbiology Date/Time Source Procedure Growth Status 06/19/16 13:23 Peripheral/Iv Start Blood Culture - Preliminary NO GROWTH AFTER 24 HOURS Resulted 06/19/16 13:20 Peripheral/Iv Start Blood Culture - Preliminary NO GROWTH AFTER 24 HOURS Resulted Sepsis Diagnostic Criteria Sepsis Confirmed/Suspected Infection: Yes SIRS Criteria: WBC >=12,000 or <=4,000, Bands >= 10% Severe Sepsis Lactate >=2.0 mg/dL Assessment & Plan Problems: (1) Abdominal pain Status: Acute (2) Nausea & vomiting Status: Acute (3) Elevated transaminase level Status: Acute Assessment & Plan: Present on admission, AST 130, ALT 110, alkaline phosphatase 199 (4) Hyponatremia Status: Acute Assessment & Plan: Present on admission, sodium 128 (5) CAD (coronary artery disease) Status: Chronic (6) Hypertension Status: Chronic (7) DM2 (diabetes mellitus, type 2) Status: Chronic (8) Irritable bowel syndrome with constipation Status: Chronic (9) Chronic low back pain Status: Chronic (10) Trigeminal nerve disorder Status: Chronic (11) Depression Status: Chronic (12) Schizophrenia Status: Chronic (13) GERD (gastroesophageal reflux disease) Status: Chronic (14) Bipolar disorder Status: Chronic (15) Asthma Status: Chronic (16) Obesity (BMI 30.0-34.9) Status: Chronic (17) History of pancreatitis Status: Resolved Plan/Intensity of Service 06/20/16 Continue with nothing by mouth status. Appreciate Dr. Flowers surgical consultation and recommendations. Plavix remains stopped. Planning for barium enema this afternoon. Continues to have elevated white count at 22 with a percent bandemia. Continue on IV Invanz, preliminary blood cultures are negative at 24 hours. Sodium is low at 131. will continue to follow Continue to manage pain control with morphine. Blood pressure has been well controlled. Continue on clonidine, Coreg, Continue to monitor sugars as patient is hyperglycemic. Continue with Lantus 50 units at at bedtime and sliding scale NovoLog. May need to increase this once patient is able to take in orally. Continue on IV PPI for GI protection as oral meds are on hold. Code Status Full Code Hospital Course Summary Disclaimer The hospital course summary below is not to be considered part of the above Progress Note. Hospital Course Summary Admit patient to inpatient status under the care of Dr. Noble for acute abdominal pain with nausea and vomiting. Surgical consultation by Dr. Flowers. Planning for barium enema tomorrow morning. Will keep patient nothing by mouth at this time. Given leukocytosis and bandemia. He does meet criteria for sepsis. Will recheck serial venous lactate and continue on Invanz. Blood cultures are pending In light of hyponatremia. Will obtain urine sodium and urine Director Card to calculate fractional excretion of sodium. Obtain a GI panel to rule out infectious etiology. Morphine available as needed for pain and Zofran as needed for nausea Monitor serial liver enzymes, may be secondary to acute infection/sepsis Will monitor Accu-Cheks carefully. Will continue patient on Lantus but will decrease the dose to 50 units at at bedtime. Hold on sliding-scale insulin. However, patient may require this. Monitor heart rate and blood pressure carefully given, all oral agents are on hold. Plavix to be on hold in case patient is in need of acute surgical intervention. Last cardiac stents were in 2009 Will discuss case further with attending, Dr. Noble At time of discharge medical care is to return to PCP Dr Barry Will recheck CBC and CMP tomorrow morning to follow blood counts, renal function and electrolytes 06/20/16 Continue with nothing by mouth status. Appreciate Dr. Flowers surgical consultation and recommendations. Plavix remains stopped. Planning for barium enema this afternoon. Continues to have elevated white count at 22 with a percent bandemia. Continue on IV Invanz, preliminary blood cultures are negative at 24 hours. Sodium is low at 131. will continue to follow Continue to manage pain control with morphine. Blood pressure has been well controlled. Continue on clonidine, Coreg, Continue to monitor sugars as patient is hyperglycemic. Continue with Lantus 50 units at at bedtime and sliding scale NovoLog. May need to increase this once patient is able to take in orally. Continue on IV PPI for GI protection as oral meds are on hold. SVEN NOBLE MD 06/20/162040: Assessment & Plan Assessment 06/20/2016-I reviewed this chart, the patient history, and the CREW DISPATCHER's/PA's documented findings as above. We discussed and formulated the assessment and plan as above with the additions below.-Dr. Noble Patient states that his pain is better controlled today. He is not having any vomiting. He is able to keep down his pills. He is happy to be able to start clear liquids today. He is not having any difficulty breathing. His mood seems to be doing well. On exam he is alert and oriented 3 and in no acute distress. Chest is clear to auscultation. Cardiovascular reveals a regular rate and rhythm. Abdomen is soft with mild lower abdominal tenderness. Bowel sounds are active. There is no rebound or guarding. Extremities are free of edema. Agree with continued Invanz for antibiotic coverage. Repeat CBC tomorrow. Continue current antihypertensives. Continue current mood stabilizing drugs. Agree with planned colonoscopy on . Regarding diabetes, will see how blood sugars are trending and may need to increase basal and short acting insulin. IRINA JUAREZ APRN Jun 20, 2016 13:41 SVEN NOBLE MD Jun 20, 2016 20:41
[2016-06-20] MEDS ORDERED: DIATRIZOATE MEGLUMINE/SOD. (66%/10%) 120ml SOLN PO ONE (14:46)
--- NOTE | 2016-06-20 15:01 | DI ---
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 Large dilated and air-filled colonic loops are visualized. Surgical clips are noted in the right upper quadrant. Telemetry wires are visualized throughout the abdomen. XF SINGLE CONTRAST COLON: Technique: Using fluoroscopic guidance and meticulous graded compression, a single contrast Gastrografin enema was performed. Fluoroscopic imaging was obtained in the supine AP, left lateral, LPO, RPO, and right lateral positions. Additional conventional x-ray imaging of the abdomen was obtained after the administration of rectal contrast. Findings: There is a short segment, smoothly-margined narrowing in the proximal sigmoid colon that does not restrict the retrograde flow of contrast. The stricture has a benign appearance. The remainder of the exam is essentially negative. There is a large amount of residual air and stool in the colon. No diverticulosis. There is no filling defect to suggest a polyp. There is no obstruction. Impression: Short segment, smoothly-marginated benign appearing narrowing in the proximal sigmoid colon. This could be a post-inflammatory stricture. This could also represent a less distensible segment in an otherwise dilated colon with an overall appearance suggestive of pseudoobstruction. A colonoscopy could be performed for further evaluation. These findings were telephoned to Dr. Flowers at the conclusion of this exam. Fluoroscopy dose: 109.95 mGy (Cumulative air kerma) Laron Treviño RPA/SHAQUILLE performed this under my direct supervision. .
[2016-06-20] MEDS ORDERED: SENNA LIQUID 74 ML BOTTLE PO ONE (15:30)
--- NOTE | 2016-06-20 15:52 | PNPDOC ---
Progress Note Date 06/20/16 Barium/Gastrografin enema negative for obstruction, although there is some narrowing. Will proceed with bowel stimulation and clear liquids today. Re-evaluate tomorrow, and consider bowel prep tomorrow and colonoscopy . LAITH CUELLAR APRN Jun 20, 2016 15:52
--- NOTE | 2016-06-20 16:55 | NUR ---
CM THIS WORKER MET WITH PT IN ROOM AT THIS TIME. PT WAS LAYING IN BED AT THIS TIME. THIS WORKER INTRODUCED SELF TO PT AND ROLE OF CASE MANAGEMENT. PT REPORTED THAT HE LIVES AT HOME WITH AND ADULT CHILDREN. DENIED HAVING HOME HEALTH SERVICES OR NEED FOR THAT AT THIS TIME. THIS WORKER LEFT CONTACT INFORMATION FOR PT AND ENCOURAGED TO CONTACT THIS WORKER WITH ANY NEEDS. CASE MANAGEMENT WILL CONTINUE TO FOLLOW AND ASSIST IN DISCHARGE PLANNING.
--- NOTE | 2016-06-20 19:00 | NUR ---
Shift Summary Patient alert and oriented x3 this shift. VSS. On RA. C/o pain, PRN morphine given q2h. One dose zofran given for nausea this morning. IV infusing as ordered through right AC. Patient up with standby assist in room. Had multiple partially formed, partially liquid stools after barium enema this afternoon. Adequate amount of dark urine out. Patient tolerated advance to clear liquids with no nausea/vomiting. Elevated blood sugar, sliding scale insulin given as ordered. Patient pleasant and cooperative with cares.
--- NOTE | 2016-06-20 19:40 | PNF ---
DATE 06/20/2016 FINDINGS Mr. Loomis this evening states he is feeling significantly better. He has had couple of loose stools since his Gastrografin enema. EXAM Vitals: Afebrile, normotensive. Current vitals include temperature 97.5, pulse 77, respirations 14, blood pressure 121/69, SAO2 99% on room air. CHEST: Clear to auscultation bilaterally. HEART: Regular rate and rhythm. Normal S1 and S2 without gallops, murmurs or clicks. ABDOMEN: Upon visualization there appears to be less distention. Palpation reveals the abdomen to be soft with essentially no tenderness this evening. LABORATORY/RADIOGRAPHIC EVALUATION The patient still has a component of leukocytosis with a white count of 22,000. CMP was obtained today and found to be essentially within normal limits. His liver function tests are improved. His AST is 59, ALT 87 and alkaline phosphatase 166. The patient did undergo a Gastrografin enema today and there was a short segment of a smoothly marginated benign-appearing narrowing in the proximal sigmoid colon. This could be a postinflammatory stricture. It could also represent a less distensible segment of colon. Overall appearance was suggestive that of a pseudoobstruction. Colonoscopy "could be performed for further evaluation." ASSESSMENT 51-year-old gentleman who presented with increasing abdominal pain, radiographic evidence suggestive of possible partial colonic obstruction. Abnormal Gastrografin enema revealing questionable area of narrowing involving proximal sigmoid colon. Patient with leukocytosis and some inflammatory changes noted involving colon upon CT scan. PLAN I recommend that we continue with empiric antibiotics. The patient currently is on Invanz 1 g IV daily. Would recommend that we go ahead and give some additional cathartic this evening and proceed with a more formal bowel prep tomorrow. Will plan on proceeding with colonoscopy for further evaluation as a result of the above indications. The above plan was discussed with the patient. The patient understood and agreed at this time. KVNG
[2016-06-20] MEDS: ZIPRASIDONE 40 MG CAPSULE PO SCH (22:14)
[2016-06-20] MEDS: INSULIN GLARGINE 100 UNIT/ML SQ SCH (22:14)
[2016-06-21] VITALS (8 sets, daily range): BP systolic 110–142; BP diastolic 67–83; PULSE 70–85; RESP 16; TEMP 96.6–98.8; O2SAT 93–97
[2016-06-21] MEDS: LORAZEPAM 2 MG/ML INJECTION IV SCH ×4 (00:38→18:23)
--- NOTE | 2016-06-21 01:34 | NUR ---
Chart Check 24 hour chart check completed
[2016-06-21] MEDS: NORMAL SALINE 1,000 ML IV SCH ×2 (03:27→12:15)
[2016-06-21 05:20] LABS: BASOPHILS # (AUTO) 0.1 T/MM3 (0-0.2); BASOPHILS % (AUTO) 0.4 % (0-2); EOSINOPHILS # (AUTO) 0.5 T/MM3 (0-0.5); EOSINOPHILS % (AUTO) 3.4 % (0-4); HCT - HEMATOCRIT 37.4 % (41-53); HGB - HEMOGLOBIN 12.4 GM/DL (13.5-17.5); IMMATURE GRANULOCYTE # (AUTO) 0.03 T/MM3 (0.00-0.03); IMMATURE GRANULOCYTE % (AUTO) 0.2 % (0.0-0.5); LYMPHOCYTES # (AUTO) 3.6 T/MM3 (1-4.8); LYMPHOCYTES % (AUTO) 25.7 % (23-45); MEAN CORPUSCULAR HGB 29.4 UUG (26-34); MEAN CORPUSCULAR HGB CONC(MCHC 33.2 GM/DL (31-37); MEAN CORPUSCULAR VOLUME 88.6 UM3 (80-100); MEAN PLATELET VOLUME 9.2 UM3 (9.4-12.4); MONOCYTES # (AUTO) 0.9 T/MM3 (0-0.8); MONOCYTES % (AUTO) 6.7 % (0-9.0); NEUTROPHILS #(AUTO)-ABSOLUTE 8.9 T/MM3 (1.8-7.7); NEUTROPHILS % (AUTO) 63.6 % (33-66); RED BLOOD COUNT 4.22 M/MM3 (4.50-5.90); WBC - WHITE BLOOD COUNT 13.9 T/MM3 (4.5-11.0)
[2016-06-21 05:28] LABS: ANION GAP 7 MEQ/L (5-15); BUN/CREATININE RATIO 16 RATIO (6-26); CALCIUM 7.5 MG/DL (8.4-10.2); CHLORIDE 101 MEQ/L (98-107); CO2 - CARBON DIOXIDE 26 MEQ/L (22-30); CREATININE 0.8 MG/DL (0.8-1.5); GLOMERULAR FILTRATION RATE 101; GLUCOSE 205 MG/DL (75-110); POTASSIUM 3.9 MEQ/L (3.6-5); SODIUM 134 MEQ/L (134-144)
--- NOTE | 2016-06-21 05:33 | NUR ---
SHIFT SUMMARY PT ALERT AND ORIENTED X 3. PT HAS SLEPT SOUNDLY THROUGHOUT THE NIGHT. PT GIVEN MS FOR PAIN, SEE EMAR FOR TIMES. VSS, ON RA. PT UP WITH AD ABBIE TO BATHROOM, FREQUENT LOOSE STOOLS. NS RUNNING @ 125ML/HR IN LEFT AC. PT TOLERATING CLEAR LIQUID DIET, DENIES N/V/SOA. BED LOCKED AND LOW, BED ALARM ON. CALL LIGHT WITHIN REACH. WILL CONTINUE TO MONITOR.
[2016-06-21] MEDS: INSULIN ASPART 100 UNIT/ML SQ PRN ×3 (06:23→21:34)
[2016-06-21] MEDS: MORPHINE SULFATE 10 MG SYRINGE IV PRN ×4 (06:24→21:56)
[2016-06-21] MEDS: ALBUTEROL INH.SOLN. 2.5mg/3ml (0.083%) Neb. AEROSOL SCH ×3 (06:49→19:55)
--- NOTE | 2016-06-21 07:40 | PNSURG ---
Subjective DATE: 06/21/16 TIME: 07:36 Interval History He is in good spirits this am, states he has had 8 or so BM's since the Gastrografin enema and abd pain has decreased. Denies nausea. He is expecting a bowel prep today and colonoscopy tomorrow. Objective Vital Signs Date Time Temp Pulse Resp B/P Pulse Ox O2 Delivery O2 Flow Rate FiO2 06/21/16 06:52 72 06/21/16 06:40 16 96 06/21/16 00:34 97.7 122/73 Room Air Height (Feet): 6 Height (Inches): 2.00 Weight (Kilograms): 111.500 BMI 31.5 General Appearance: Alert, Orientated x 3 Respiratory: FOUND: clear bilaterally Cardiac: FOUND: regular rate, regular rhythm Abdominal Brief: FOUND: soft, tender (very minimal, states "not like yesterday. ") Laboratory Laboratory Tests 06/19/16 10:44 06/20/16 04:24 06/21/16 04:32 Laboratory Tests 06/19/16 10:44 06/20/16 04:24 06/21/16 04:32 GS Assessment & Plan Problems: (1) Stricture of bowel Status: Acute (2) Nausea & vomiting Status: Acute Qualifiers: Vomiting Intractability: unspecified (3) Abdominal pain Status: Acute Qualifiers: Abdominal location: generalized Qualified Codes: R10.84 - Generalized abdominal pain Assessment After several BM's yesterday, he is feeling better. Proceed with bowel prep today and colonoscopy tomorrow. Code Status Full Code Hospital Course Summary Disclaimer The visit summary below is not to be considered part of the above Progress Note. Hospital Course Summary Admit patient to inpatient status under the care of Dr. Noble for acute abdominal pain with nausea and vomiting. Surgical consultation by Dr. Flowers. Planning for barium enema tomorrow morning. Will keep patient nothing by mouth at this time. Given leukocytosis and bandemia. He does meet criteria for sepsis. Will recheck serial venous lactate and continue on Invanz. Blood cultures are pending In light of hyponatremia. Will obtain urine sodium and urine Biology Research Assistant to calculate fractional excretion of sodium. Obtain a GI panel to rule out infectious etiology. Morphine available as needed for pain and Zofran as needed for nausea Monitor serial liver enzymes, may be secondary to acute infection/sepsis Will monitor Accu-Cheks carefully. Will continue patient on Lantus but will decrease the dose to 50 units at at bedtime. Hold on sliding-scale insulin. However, patient may require this. Monitor heart rate and blood pressure carefully given, all oral agents are on hold. Plavix to be on hold in case patient is in need of acute surgical intervention. Last cardiac stents were in 2009 Will discuss case further with attending, Dr. Noble At time of discharge medical care is to return to PCP Dr Barry Will recheck CBC and CMP tomorrow morning to follow blood counts, renal function and electrolytes 06/20/16 Continue with nothing by mouth status. Appreciate Dr. Flowers surgical consultation and recommendations. Plavix remains stopped. Planning for barium enema this afternoon. Continues to have elevated white count at 22 with a percent bandemia. Continue on IV Invanz, preliminary blood cultures are negative at 24 hours. Sodium is low at 131. will continue to follow Continue to manage pain control with morphine. Blood pressure has been well controlled. Continue on clonidine, Coreg, Continue to monitor sugars as patient is hyperglycemic. Continue with Lantus 50 units at at bedtime and sliding scale NovoLog. May need to increase this once patient is able to take in orally. Continue on IV PPI for GI protection as oral meds are on hold. LAITH CUELLAR APRN Jun 21, 2016 07:39
[2016-06-21] MEDS: FLUTICASONE NASAL SPRAY 50 MCG EA NOSTRIL SCH ×2 (08:09→21:40)
[2016-06-21] MEDS: CARBAMAZEPINE 200 MG TABLET PO SCH ×3 (08:09→21:38)
[2016-06-21] MEDS: CLONIDINE 0.2 MG TABLET PO SCH ×2 (08:09→21:39)
[2016-06-21] MEDS: CARVEDILOL 25 MG TABLET PO SCH ×3 (08:09→21:39)
[2016-06-21] MEDS: PANTOPRAZOLE 40mg INJECTION IV SCH (08:15)
[2016-06-21] MEDS: FLUTICASONE/SALMETEROL 100/50 DISK INHALER ORAL INH SCH ×2 (09:25→20:17)
[2016-06-21] MEDS ORDERED: BISACODYL 5 MG E.C. TABLET PO ONE (10:00)
[2016-06-21] MEDS ORDERED: INSULIN ASPART 100 UNIT/ML SQ SCH ×2 (11:45→17:15)
[2016-06-21] MEDS: INSULIN ASPART 100 UNIT/ML SQ SCH ×2 (12:36→18:23)
[2016-06-21] MEDS ORDERED: POLYETHYL.GLYCOL 3350 BOTTLE 238 GM PO ONE (13:00)
--- NOTE | 2016-06-21 18:22 | PNF ---
DATE OF SERVICE 06/21/2016 FINDINGS Mr. Loomis this evening was without complaints. He was in the bathroom as a result of his bowel prep. He states that he has been having several large bowel movements throughout today. He denies increasing abdominal pain. EXAM Vitals: Afebrile, normotensive. Last recorded vitals include temperature 96.6, pulse 85, respirations 16, blood pressure 137/83. HEENT: Normocephalic. Pupils are equally round and react to light and accommodation. CHEST: Clear to auscultation bilaterally. HEART: Regular rate and rhythm. Normal S1 and S2 without gallops, murmurs or clicks. LABORATORY/RADIOGRAPHIC EVALUATION The patient's white count is on a downward trend. Today it was 13.9. Hemoglobin overall is stable at 12.4. BMP obtained and found be essentially within normal limits. ASSESSMENT 51-year-old gentleman who was admitted with marked colonic distention who upon Gastrografin enema was found to have area of small stricture noted within distal sigmoid colon. Patient has made marked improvement since admission. PLAN Colonoscopy tomorrow. The patient will complete his bowel prep today and tomorrow we will proceed with colonoscopy for further evaluation as a result of his abnormal CT scan and questionable stricture noted within distal sigmoid colon. JORGE LUISD
--- NOTE | 2016-06-21 20:07 | NUR ---
SHIFT SUMMARY PATIENT IS ALERT AND ORIENTED X3. PATIENT VITALS ARE STABLE AND PATIENT IS ON ROOM AIR. PATIENT DENIES CP, NAUSEA, AND SOA. PATIENT COMPLETED BOWEL PREP FOR COLONOSCOPY TOMORROW. PATIENT IS UP AD ABBIE AND USED RESTROOM ACCORDINGLY. NOT ALWAYS TELLING NURSING STAFF OF VOID OR BM. PATIENT REQUIRED PRN IV PAIN MEDICATION 2X. FAMILY HAS BEEN AT BEDSIDE. WILL CONTINUE TO MONITOR.
--- NOTE | 2016-06-21 21:24 | PNPDOC ---
Subjective Date DATE: 06/21/16 TIME: 21:17 Subjective The patient states he's feeling very well. He has no complaints. He is tolerating the bowel prep and has had multiple bowel movements. He states his abdominal pain is much less. He is tolerating oral liquids. He is taking his pills without difficulties. He is breathing well. His mood is stable. He is hoping to go home tomorrow after his colonoscopy. Objective Vital Signs Vital signs Vital Signs Date Time Temp Pulse Resp B/P Pulse Ox O2 Delivery O2 Flow Rate FiO2 06/21/16 20:18 18 06/21/16 20:06 76 06/21/16 17:05 96.6 137/83 97 Room Air GEN-alert, oriented, no acute distress HEENT-sclera anicteric, oropharynx is moist NECK-supple CV-regular rate and rhythm CHEST-clear to auscultation bilaterally ABD-soft, minimal tenderness, mild distention, positive tympany, with positive bowel sounds -no [place] EXT-no edema NEURO-no focal deficits SKIN-warm and dry Height (Feet): 6 Height (Inches): 2.00 Weight (Kilograms): 111.400 Laboratory Laboratory Laboratory Tests 06/20/16 04:24 06/21/16 04:32 Laboratory Tests 06/20/16 04:24 06/21/16 04:32 Microbiology Microbiology Microbiology Date/Time Source Procedure Growth Status 06/19/16 13:23 Peripheral/Iv Start Blood Culture - Preliminary NO GROWTH AFTER 48 HOURS Resulted 06/19/16 13:20 Peripheral/Iv Start Blood Culture - Preliminary NO GROWTH AFTER 48 HOURS Resulted Sepsis Diagnostic Criteria Sepsis Confirmed/Suspected Infection: Yes SIRS Criteria: WBC >=12,000 or <=4,000, Bands >= 10% Severe Sepsis Lactate >=2.0 mg/dL Assessment & Plan Problems: (1) Abdominal pain Status: Acute Qualifiers: Abdominal location: generalized Qualified Codes: R10.84 - Generalized abdominal pain (2) Nausea & vomiting Status: Acute Qualifiers: Vomiting Intractability: unspecified (3) Elevated transaminase level Status: Acute Assessment & Plan: Present on admission, AST 130, ALT 110, alkaline phosphatase 199 (4) Hyponatremia Status: Acute Assessment & Plan: Present on admission, sodium 128 (5) CAD (coronary artery disease) Status: Chronic (6) Hypertension Status: Chronic (7) DM2 (diabetes mellitus, type 2) Status: Chronic (8) Irritable bowel syndrome with constipation Status: Chronic (9) Chronic low back pain Status: Chronic (10) Trigeminal nerve disorder Status: Chronic (11) Depression Status: Chronic (12) Schizophrenia Status: Chronic (13) GERD (gastroesophageal reflux disease) Status: Chronic (14) Bipolar disorder Status: Chronic (15) Asthma Status: Chronic (16) Obesity (BMI 30.0-34.9) Status: Chronic (17) History of pancreatitis Status: Resolved Assessment 06/21/2016-Dr. Noble Colonic obstruction-improved after Gastrografin enema yesterday, colonoscopy planned for tomorrow with Dr. Flowers Abdominal pain-markedly improved Nausea and vomiting-resolved Elevated transaminases-recheck tomorrow Hyponatremia-resolved, may need to restart his oral salt tablets at discharge DC IV fluids-taking by mouth well Diabetes-fair control chronic low back pain Bipolar disorder with schizophrenia-doing well Asthma-asymptomatic Currently, patient is doing very well. Depending upon the results of colonoscopy , he could possibly go home tomorrow. He may need further adjustment of his medications. I did increase his insulin today. Monitor for hypoglycemia tonight. Restart Plavix when okay with Dr. Flowers. Restart Flexeril, BuSpar and simvastatin today. DVT Prophylaxis: SCD'S Code Status Full Code Hospital Course Summary Disclaimer The hospital course summary below is not to be considered part of the above Progress Note. Hospital Course Summary Admit patient to inpatient status under the care of Dr. Noble for acute abdominal pain with nausea and vomiting. Surgical consultation by Dr. Flowers. Planning for barium enema tomorrow morning. Will keep patient nothing by mouth at this time. Given leukocytosis and bandemia. He does meet criteria for sepsis. Will recheck serial venous lactate and continue on Invanz. Blood cultures are pending In light of hyponatremia. Will obtain urine sodium and urine Anime Designer to calculate fractional excretion of sodium. Obtain a GI panel to rule out infectious etiology. Morphine available as needed for pain and Zofran as needed for nausea Monitor serial liver enzymes, may be secondary to acute infection/sepsis Will monitor Accu-Cheks carefully. Will continue patient on Lantus but will decrease the dose to 50 units at at bedtime. Hold on sliding-scale insulin. However, patient may require this. Monitor heart rate and blood pressure carefully given, all oral agents are on hold. Plavix to be on hold in case patient is in need of acute surgical intervention. Last cardiac stents were in 2009 Will discuss case further with attending, Dr. Noble At time of discharge medical care is to return to PCP Dr Barry Will recheck CBC and CMP tomorrow morning to follow blood counts, renal function and electrolytes 06/20/16 Continue with nothing by mouth status. Appreciate Dr. Flowers surgical consultation and recommendations. Plavix remains stopped. Planning for barium enema this afternoon. Continues to have elevated white count at 22 with a percent bandemia. Continue on IV Invanz, preliminary blood cultures are negative at 24 hours. Sodium is low at 131. will continue to follow Continue to manage pain control with morphine. Blood pressure has been well controlled. Continue on clonidine, Coreg, Continue to monitor sugars as patient is hyperglycemic. Continue with Lantus 50 units at at bedtime and sliding scale NovoLog. May need to increase this once patient is able to take in orally. Continue on IV PPI for GI protection as oral meds are on hold. 06/20/2016-I reviewed this chart, the patient history, and the DATA SECURITY ANALYST's/PA's documented findings as above. We discussed and formulated the assessment and plan as above with the additions below.-Dr. Noble Patient states that his pain is better controlled today. He is not having any vomiting. He is able to keep down his pills. He is happy to be able to start clear liquids today. He is not having any difficulty breathing. His mood seems to be doing well. On exam he is alert and oriented 3 and in no acute distress. Chest is clear to auscultation. Cardiovascular reveals a regular rate and rhythm. Abdomen is soft with mild lower abdominal tenderness. Bowel sounds are active. There is no rebound or guarding. Extremities are free of edema. Agree with continued Invanz for antibiotic coverage. Repeat CBC tomorrow. Continue current antihypertensives. Continue current mood stabilizing drugs. Agree with planned colonoscopy on . Regarding diabetes, will see how blood sugars are trending and may need to increase basal and short acting insulin. SVEN NOBLE MD Jun 21, 2016 21:22
[2016-06-21] MEDS: INSULIN GLARGINE 100 UNIT/ML SQ SCH (21:35)
[2016-06-21] MEDS: ZIPRASIDONE 40 MG CAPSULE PO SCH (21:37)
[2016-06-21] MEDS: SIMVASTATIN 80 MG TABLET PO SCH (21:39)
[2016-06-21] MEDS: CYCLOBENZAPRINE 10 MG TABLET PO PRN (21:58)
[2016-06-22] VITALS (23 sets, daily range): BP systolic 116–167; BP diastolic 55–105; PULSE 67–87; RESP 12–24; TEMP 95.7–98.2; O2SAT 96–100
--- NOTE | 2016-06-22 00:40 | NUR ---
LOW BLOOD SUGAR PATIENT IS ALERT AND ORIENTED X3. BGM WAS 69 AT OO1O . DIANA AND TWO JELLOS WAS GIVEN TO PATIENT.BGM IS 132 AT 0040. CONTINUE TO MONITOR.
[2016-06-22] MEDS: INSULIN ASPART 100 UNIT/ML SQ PRN ×2 (03:11→06:12)
--- NOTE | 2016-06-22 03:19 | NUR ---
Chart Check 24 hour chart check completed
--- NOTE | 2016-06-22 05:01 | NUR ---
STATUS PATIENT ALERT AND ORIENTED X3. PATIENT HAS SLEEP SOUNDLY THROUGHOUT THE NIGHT. PATIENT C/O PAIN AT ABD AND BACK. PATIENT RATED 7/10. PRN MORPHINE WAS ADMINISTRATED. ON ROOM AIR . NPO .DENIES CHEST PAIN ,SOA.O N/V. PATIENT UP WITH AD ABBIE TO BATHROOM. CALL LIGHT WITHIN REACH .CONTINUE TO MONITOR.
[2016-06-22 05:22] LABS: HCT - HEMATOCRIT 35.9 % (41-53); HGB - HEMOGLOBIN 12.2 GM/DL (13.5-17.5); MEAN CORPUSCULAR HGB 29.5 UUG (26-34); MEAN CORPUSCULAR VOLUME 86.7 UM3 (80-100); RED BLOOD COUNT 4.14 M/MM3 (4.50-5.90)
[2016-06-22 05:31] LABS: ALBUMIN 2.9 G/DL (3.5-5.0); ALKALINE PHOSPHATASE 124 U/L (38-126); ALT (SGPT) 43 U/L (21-72); ANION GAP 11 MEQ/L (5-15); AST (SGOT) 22 U/L (17-59); BUN/CREATININE RATIO 4 RATIO (6-26); CALCIUM 7.6 MG/DL (8.4-10.2); CHLORIDE 99 MEQ/L (98-107); CO2 - CARBON DIOXIDE 23 MEQ/L (22-30); CREATININE 0.7 MG/DL (0.8-1.5); GLOMERULAR FILTRATION RATE 118; GLUCOSE 213 MG/DL (75-110); POTASSIUM 3.1 MEQ/L (3.6-5); SODIUM 133 MEQ/L (134-144); TOTAL PROTEIN 5.8 G/DL (6.3-8.2)
[2016-06-22 05:59] LABS: BAND NEUTROPHILS # 0.9 T/MM3; EOSINOPHILS # (MANUAL) 0.1 T/MM3 (0-0.5); LYMPHOCYTES # (MANUAL) 1.8 T/MM3 (1-4.8); MONOCYTES # (MANUAL) 0.3 T/MM3 (0-0.8); NEUTROPHILS #(MANUAL)-ABSOLUTE 6.9 T/MM3 (1.8-7.7); TOTAL CELLS COUNTED 100 %
[2016-06-22] MEDS: LORAZEPAM 2 MG/ML INJECTION IV SCH ×3 (06:11→14:29)
[2016-06-22] MEDS: MORPHINE SULFATE 10 MG SYRINGE IV PRN (06:12)
[2016-06-22] MEDS ORDERED: INSULIN ASPART 100 UNIT/ML SQ SCH (07:45)
[2016-06-22] MEDS: INSULIN ASPART 100 UNIT/ML SQ SCH ×3 (07:45→17:59)
[2016-06-22] MEDS: FLUTICASONE/SALMETEROL 100/50 DISK INHALER ORAL INH SCH ×2 (08:36→18:59)
[2016-06-22] MEDS: ALBUTEROL INH.SOLN. 2.5mg/3ml (0.083%) Neb. AEROSOL SCH ×3 (08:36→18:58)
--- NOTE | 2016-06-22 08:40 | NUR ---
OFF UNIT PATIENT IS OFF UNIT AT THIS TIME. PATIENT VITALS ARE STABLE AND PATIENT IS ON ROOM AIR. PATIENT LEFT VIA WHEELCHAIR AND OR STAFF.
[2016-06-22] MEDS: CARVEDILOL 25 MG TABLET PO SCH ×3 (09:00→22:14)
[2016-06-22] MEDS: CARBAMAZEPINE 200 MG TABLET PO SCH ×3 (09:00→22:12)
[2016-06-22] MEDS ORDERED: LR 1,000 ML IV PRN (09:11)
[2016-06-22] MEDS: FLEET PHOSPHO-SODA 133 ML ENEMA RECTALLY PRN ×2 (09:17→09:20)
--- NOTE | 2016-06-22 10:18 | ANESPREOP ---
Anesthesia Record Date and Time DATE: 06/22/16 TIME: 10:15 Proposed Surgical Procedure Allergies: Coded Allergies: butorphanol (Verified Allergy, Intermediate, HIVES, 08/27/15) NSAIDS (Non-Steroidal Anti-Inflamma (Verified Allergy, Unknown, 08/27/15) Penicillins (Verified Allergy, Unknown, HIVES, 08/27/15) Sulfa (Sulfonamide Antibiotics) (Verified Allergy, Unknown, HIVES, 08/27/15 ) duloxetine HCl (Verified Allergy, Unknown, 08/27/15) erythromycin base (Verified Allergy, Unknown, HIVES, 08/27/15) fluconazole (Verified Allergy, Unknown, 08/27/15) ketorolac tromethamine (Verified Allergy, Unknown, 08/27/15) latex (Verified Allergy, Unknown, 08/27/15) metoclopramide HCl (Verified Allergy, Unknown, 'GOES CRAZY', 08/27/15) nalbuphine HCl (Verified Allergy, Unknown, 08/27/15) prochlorperazine (Verified Adverse Reaction, Mild, "FRUITY", 08/27/15) Ht/Wt/BMI Height: 6 ' 2.00 " Weight: 111.400 kg BMI: 31.5 kg/m2 Vital Signs Date Time Temp Pulse Resp B/P Pulse Ox O2 Delivery O2 Flow Rate FiO2 06/22/16 09:00 98.1 79 16 132/83 96 Room Air Medications Inpatient Medications Current Medications Medications (Trade) Dose Ordered Sig/Tran Start Time Stop Time Status Last Admin Dose Admin Lactated Ringer's 1,000 ml @ 100 mls/hr Q10H 06/19/16 14:00 06/19/16 14:29 DC Sodium Chloride 1,000 ml @ 125 mls/hr Q8H 06/19/16 14:30 06/21/16 19:40 DC 06/21/16 12:15 125 MLS/HR Ertapenem/Sodium Chloride (Invanz/NS) 100 ml @ 200 mls/hr DAILY 06/20/16 09:00 06/20/16 10:02 200 MLS/HR Albuterol Sulfate (Proventil 2.5 Mg/3 ml) 2.5 mg BID 06/19/16 19:00 06/19/16 19:00 DC Salmeterol Xinafoate/ Fluticasone (Advair 100/50 Diskus) 1 puff BID 06/19/16 21:00 06/22/16 08:36 1 PUFF Insulin Glargine (Lantus) 50 unit HS 06/19/16 22:00 06/21/16 08:57 DC 06/20/16 22:14 50 UNIT Morphine Sulfate (Morphine) 2 mg Q2H PRN 06/19/16 16:45 06/19/16 17:26 DC Ondansetron HCl (Zofran) 4 mg Q6H PRN 06/19/16 16:45 06/20/16 07:42 4 MG Lorazepam (Ativan) 0.25 mg QID 06/19/16 18:00 06/19/16 18:00 DC Albuterol Sulfate (Proventil 2.5 Mg/3 ml) 2.5 mg TID 06/19/16 21:00 06/22/16 08:36 2.5 MG Morphine Sulfate (Morphine) 2-5 mg IV every 2 hours... Q2H PRN 06/19/16 18:45 06/22/16 06:12 5 MG Lorazepam (Ativan) 0.25 mg Q6H 06/19/16 18:00 06/22/16 06:11 0.25 MG Carbamazepine (Tegretol) 200 mg WL 06/20/16 12:00 06/21/16 12:15 200 MG Carbamazepine (Tegretol) 400 mg HS 06/19/16 22:00 06/21/16 21:38 400 MG Carbamazepine (Tegretol) 400 mg QAM 06/20/16 09:00 06/21/16 08:09 400 MG Carvedilol (Coreg) 25 mg TID 06/19/16 21:00 06/21/16 21:39 25 MG Clonidine HCl (Catapres) 0.2 mg BID 06/19/16 21:00 06/21/16 21:39 0.2 MG Fluticasone Propionate (Flonase) 2 spray BID 06/19/16 21:00 06/21/16 21:40 2 SPRAY Nitroglycerin (Nitrostat) 0.4 mg Q5MIN PRN 06/19/16 17:45 Ziprasidone (GEODON 40 mg) 160 mg HS 06/19/16 22:00 06/21/16 21:37 160 MG Dextrose (D50w) 25 ml PRN PRN 06/19/16 17:30 Insulin Aspart (Novolog) SS PRN 06/19/16 17:30 06/22/16 06:12 3 UNIT Pantoprazole Sodium (Protonix Iv) 40 mg DAILY 06/19/16 18:00 06/21/16 08:15 40 MG Insulin Glargine (Lantus) 73 unit HS 06/21/16 22:00 06/21/16 21:35 73 UNIT Insulin Aspart (Novolog) 10 unit 0745 06/22/16 07:45 06/22/16 07:45 DC Insulin Aspart (Novolog) 10 unit 1145 06/21/16 11:45 06/21/16 11:45 DC Insulin Aspart (Novolog) 10 unit 1715 06/21/16 17:15 06/21/16 17:15 DC Insulin Aspart (Novolog) 15 unit 1145 06/21/16 11:45 06/21/16 12:36 15 UNIT Insulin Aspart (Novolog) 15 unit 1715 06/21/16 17:15 06/21/16 18:23 15 UNIT Insulin Aspart (Novolog) 15 unit 0745 06/22/16 07:45 Buspirone HCl (Buspar) 15 mg TID 06/21/16 21:00 06/21/16 21:39 15 MG Cyclobenzaprine HCl (Flexeril) 10 mg TID PRN 06/21/16 19:45 06/21/16 21:58 10 MG Simvastatin 80 mg 80 mg HS 06/21/16 22:00 06/21/16 21:39 80 MG Lactated Ringer's (Lactated Ringers) 1,000 ml @ 0 mls/hr Q0M PRN 06/22/16 09:11 06/22/16 09:19 0 MLS/HR Sodium Biphosphate/ Sodium Phosphate (Fleet Enema) 1 enema PRN PRN 06/22/16 09:15 06/22/16 09:20 1 ENEMA Albuterol Sulfate (Proair HFA 90 mcg/actuation) 8.5 Gm Hfa.aer.ad, 2 PUFF INH BID, (Reported) Last Taken: on 06/19/16 0800 Amlodipine Besylate (Norvasc) 5 Mg Tablet, 5 MG PO BID, (Reported) Last Taken: on 06/18/16 08 Buspirone HCl (Buspirone HCl) 15 Mg Tablet, 15 MG PO TID, (Reported) Last Taken: on 06/18/16 08 Carbamazepine (Carbamazepine) 200 Mg Tablet, 400 MG PO QAM, (Reported) Last Taken: on 06/18/16 08 Carbamazepine (Carbamazepine) 200 Mg Tablet, 400 MG PO HS, (Reported) Last Taken: on 06/17/162199 Carbamazepine (Carbamazepine) 200 Mg Tablet, 200 MG PO WL, (Reported) Last Taken: on 06/17/16 1200 Carvedilol (Coreg) 25 Mg Tablet, 25 MG PO TID, ( Reported) Last Taken: on 06/18/16 08 Clonidine Hcl (Clonidine Hcl) 0.2 Mg Tablet, 0.2 MG PO BID, (Reported) Last Taken: on 06/18/16 08 Clopidogrel Bisulfate (Plavix) 75 Mg Tablet, 75 MG PO DAILY, (Reported) Last Taken: on 06/18/16 08 Cyclobenzaprine HCl (Cyclobenzaprine HCl) 10 Mg Tablet, 10 MG PO TID PRN for PRN ORDERS, (Reported) Last Taken: on 06/18/16 Diphenhydramine Hcl (Benadryl) 50 Mg Capsule, 150 MG PO HS, (Reported) Last Taken: on 06/17/162199 Famotidine (Famotidine) 40 Mg Tablet, 40 MG PO HS, (Reported) Last Taken: on 06/17/162199 Fluticasone/Salmeterol (Advair 100-50 Diskus) 1 Disk W/Dev Inhaler, 1 PUFF INH BID, (Reported) Last Taken: on 06/18/16 08 Hydrocodone/Acetaminophen ([place] 10-325 Tablet) 1 Each Tablet, 1 TAB PO Q6H PRN for PAIN, (Reported) Last Taken: on 06/19/16 0200 Insulin Aspart (Novolog Flexpen) 1 Unit Pen, 25 -45 UNIT SQ TIDWM, (Reported) Last Taken: on 06/18/16 1800 Insulin Glargine,Hum.rec.anlog (Lantus Solostar ) 1 Unit Pen, 73 UNIT SQ HS, (Reported) Last Taken: on 4/9/17 2200 Lorazepam (Lorazepam) 0.5 Mg Tablet, 0.5 MG PO TID PRN for ANXIETY, (Reported) Last Taken: on Unknown Date & Time Mometasone Furoate (Nasonex) 17 Gm [place] , 2 SPRAY EA NOSTRIL BID, (Reported) Last Taken: on 06/17/16 Nitroglycerin (Nitrostat) 0.6 Mg Tab.subl, 0.6 MG SL Q5M PRN for CHEST TIGHTNESS, (Reported) Last Taken: on Unknown Date & Time Promethazine HCl (Promethazine HCl) 25 Mg Tablet, 25-50 MG PO Q8H PRN for NAUSEA, (Reported) Last Taken: on 06/18/162199 Rabeprazole Sodium (Aciphex) 20 Mg Tablet.dr, 20 MG PO DAILY, (Reported) Last Taken: on 06/18/16799 Ranitidine Hcl (Ranitidine Hcl) 150 Mg Capsule, 150 MG PO BID, (Reported) Last Taken: on 06/18/16799 Simvastatin (Zocor) 80 Mg Tablet, 80 MG PO HS, ( Reported) Last Taken: on 06/17/162199 Tramadol HCl (Tramadol HCl) 50 Mg Tablet, 50- 100 MG PO TID PRN for PRN ORDERS, (Reported) Last Taken: on 06/18/16 Trazodone HCl (Trazodone HCl) 50 Mg Tablet, 50-100 MG PO HS PRN for INSOMNIA, (Reported) Last Taken: on 06/18/162199 Valsartan (Diovan) 320 Mg Tablet, 320 MG PO DAILY, (Reported) Last Taken: on 06/18/16799 Ziprasidone Hcl (Geodon) 80 Mg Capsule, 160 MG PO HS, (Reported) Last Taken: on 06/18/162199 Currently on Beta Jennifer: No Medical/Surgical History Anesthesia PMH: Reports: *Angina, *Diabetes, *Hypertension, Anesthesia Reactions (N/V), Arthritis (HANDS), Asthma, CHF, COPD, Headaches, Hiatal Hernia , Obesity, Reflux, Denies: *Dyspnea, *CT, Blood Transfusion Reac, CVA/Stroke/TIA , Cancer, Cardiac Arrythmia, Deep Vein Thrombosis, Glaucoma, Hepatitis, Pacemaker, Pneumonia, Seizures, Sleep Apnea, Thyroid Disease, Tuberculosis Smoking Status: Former smoker (claims he quit 14 years ago) Has pt. smoked today?: No Use Chewing Tobacco?: No Second Hand Exposure: No Substance Use Type: does not use Substance last used: unknown Alcohol Intake: none Past Surgical History Orthopedic Surgeries: Yes - back surgery Abdominal Surgeries: Yes - gallbladder removed Genitourinary Surgeries: No Cardiac Surgeries: No Endocrine Surgeries: No Reproductive Surgeries: No Neurological Surgeries: No Ear Surgeries: No Nose Surgeries: No Throat Surgeries: No Other Surgeries: No Anesthesia Adverse Reactions: FOUND none Family Hx of Anesthesia Advers: none Pertinent Findings Laboratory Tests 06/22/16 04:40 EKG Rhythm: Sinus Rhythm Physical Exam Respiratory: Lungs clear Cardiovascular: FOUND Regular rate, rhythm, FOUND No murmur Airway Assessment Mallampati Score: II TMD: 2 Fingerbreadths Neck Extension: Good Teeth: Other Overall Assessment: May Be Diff Mask Vent., May Be Diff Intubation ASA: 3 Plan Anesthesia Plan: TIVA Discussion Discussed risks/options/alternatives of anesthesia and questions answered. Patient consents. Nursing pain assessment noted. Attestation Statement Prior to the delivery of any anesthetic medication, I examined the patient, developed the plan, obtained the patient's consent and discussed the risk and benefits of the procedure with the patient/guardian. ANGE STAHL CRNA Jun 22, 2016 10:18
[2016-06-22] MEDS ORDERED: LIDOCAINE 1% (10mg/ml) 2ml SDV ONE (10:39)
[2016-06-22] MEDS ORDERED: PROPOFOL 500mg 50 ML IV ONE (10:39)
--- NOTE | 2016-06-22 11:28 | GSPOSTPN ---
Endoscopy Procedure Procedure Date: Jun 22, 2016 Surgeon: Kristie ASA: 3 Procedure: Colonoscopy with biopsies Diagnosis Postop Colonoscopy Diagnosis Postop Colonoscopy Diagnosis: Diverticulosis, Colitis Complications Complications Estimated Blood Loss See Anesthesia Record. Vital Signs See Anesthesia and PACU record. LAITH CUELLAR CLINICAL CYTOGENETICIST Jun 22, 2016 11:28
[2016-06-22] MEDS ORDERED: POTASSIUM CHLORIDE 20 MEQ TABLET PO ONE ×2 (13:15→18:00)
--- NOTE | 2016-06-22 13:28 | NUR ---
BACK TO UNIT PATIENT IS BACK TO UNIT AT THIS TIME. PATIENT IS ALERT AND ORIENTED X3. PATIENT VITALS ARE STABLE AND PATIENT IS ON ROOM AIR. PATIENT DENIES NAUSEA, CP, AND SOA. PATIENT AMBULATED FROM OR CART TO BED.
--- NOTE | 2016-06-22 13:36 | NUR ---
CM THIS WORKER MET WITH PT IN ROOM. NO OTHERS PRESENT AT THIS TIME. THIS WORKER INQUIRED REGARDING ANY NEEDS. PT REPORTED THAT HE WOULD LIKE TO GET A CAB RIDE HOME ON 06/23/16 WHEN HE IS DISMISSED. PT DENIED ANY OTHER NEEDS AND WAS EAGER TO RETURN HOME. PT REPORTED THAT HE HAS A SUPPORT SYSTEM OF HIS AND ADULT CHILDREN. CASE MANAGEMENT FOLLOWING AND WILL PLAN TO ASSIST IN ANY NEEDS IDENTIFIED.
[2016-06-22] MEDS: PANTOPRAZOLE 40mg INJECTION IV SCH (14:30)
[2016-06-22] MEDS: CLONIDINE 0.2 MG TABLET PO SCH ×2 (14:30→22:15)
[2016-06-22] MEDS: ERTAPENEM 1 G in NORMAL SALINE 100 ML IV SCH (14:30)
[2016-06-22] MEDS: FLUTICASONE NASAL SPRAY 50 MCG EA NOSTRIL SCH ×2 (14:31→22:12)
[2016-06-22] MEDS: NORMAL SALINE 1,000 ML IV SCH (14:40)
--- NOTE | 2016-06-22 15:19 | ANESPO ---
Post-Op Note Date 06/22/16 Time: 15:19 Status Pt Participated in Evaluation: Pt participated in person Vital Signs Date Time Temp Pulse Resp B/P Pulse Ox O2 Delivery O2 Flow Rate FiO2 06/22/16 14:43 83 06/22/16 14:42 16 98 06/22/16 13:33 162/91 Room Air 06/22/16 12:00 95.7 Respiratory Function: Airway patent Cardiovascular Function: Regular pulse Telemetry Pattern: SR Mental Status: Alert/oriented Pain Level Intensity: 0 Hydration: IV infusing Complications during Recovery None apparent Follow-Up Instructions Instructions Per Surgeon CJ [place] [employer] Jun 22, 2016 15:19
--- NOTE | 2016-06-22 18:00 | PNPDOC ---
IRINA JUAREZ V GONZALEZ 06/22/16 1800: Subjective Date DATE: 06/22/16 TIME: 17:56 Subjective Ty seen multiple times throughout the day. He tolerated the colonoscopy procedure well without any difficulty and states that he is feeling significantly better following this. He denies having any abdominal pain or nausea currently. He was cleared to advance diet as tolerated. He is comfortably breathing on room air without evidence of distress. Blood pressure 162/91. Objective Vital Signs Vital signs Vital Signs Date Time Temp Pulse Resp B/P Pulse Ox O2 Delivery O2 Flow Rate FiO2 06/22/16 14:43 83 06/22/16 14:42 16 98 06/22/16 13:33 162/91 Room Air 06/22/16 12:00 95.7 Height (Feet): 6 Height (Inches): 2.00 Weight (Kilograms): 109.400 General General Appearance: Alert, Orientated x 3, Cooperative, No Acute Distress Eyes (Brief) Eyes: FOUND: EOMI ENMT (Brief) ENMT: FOUND: mucosa moist, normal dentition, NOT FOUND: pharnyx erythema Neck (Brief) Neck: FOUND: midline, NOT FOUND: adenopathy, carotid bruits, tracheal deviation Respiratory (Brief) Respiratory: FOUND: clear all [place], equal bilaterally, NOT FOUND: wheezes Cardiovascular (Brief) Cardiac: FOUND: regular rate, regular rhythm, NOT FOUND: murmur, pedal edema Capillary Refill: <2 sec Abdomen (Brief) Abdominal: FOUND: BS normo active x4, soft, NOT FOUND: distended, tender Lymphatic (Brief) Lymphatic: NOT FOUND: adenopathy Musculoskeletal (Brief) Musculoskeletal: NOT FOUND: tenderness Integumentary (Brief) Integumentary: FOUND: dry, pink, warm Neurologic (Brief) Neurological: FOUND: cranial 2-12 intact Psychiatric (Brief) Psychiatric: FOUND: alert, attentive, normal affect, oriented Laboratory Laboratory Laboratory Tests 06/21/16 04:32 06/22/16 04:40 Laboratory Tests 06/21/16 04:32 06/22/16 04:40 Sepsis Diagnostic Criteria Sepsis Confirmed/Suspected Infection: Yes SIRS Criteria: WBC >=12,000 or <=4,000, Bands >= 10% Severe Sepsis Lactate >=2.0 mg/dL Assessment & Plan Problems: (1) Abdominal pain Status: Acute Qualifiers: Abdominal location: generalized Qualified Codes: R10.84 - Generalized abdominal pain (2) Nausea & vomiting Status: Acute Qualifiers: Vomiting Intractability: unspecified (3) Elevated transaminase level Status: Acute Assessment & Plan: Present on admission, AST 130, ALT 110, alkaline phosphatase 199 (4) Hyponatremia Status: Acute Assessment & Plan: Present on admission, sodium 128 (5) CAD (coronary artery disease) Status: Chronic (6) Hypertension Status: Chronic (7) DM2 (diabetes mellitus, type 2) Status: Chronic (8) Irritable bowel syndrome with constipation Status: Chronic (9) Chronic low back pain Status: Chronic (10) Trigeminal nerve disorder Status: Chronic (11) Depression Status: Chronic (12) Schizophrenia Status: Chronic (13) GERD (gastroesophageal reflux disease) Status: Chronic (14) Bipolar disorder Status: Chronic (15) Asthma Status: Chronic (16) Obesity (BMI 30.0-34.9) Status: Chronic (17) History of pancreatitis Status: Resolved (18) Hypokalemia Status: Acute Plan/Intensity of Service 06/22/[address] Flowers regarding patient plan. The surgical standpoint, he feels that patient is stable. Diet advanced as tolerated. Given hypokalemia. Patient was given a one-time dose of potassium 40 milliequivalents this morning, will repeat this this evening. Will recheck a BMP tomorrow morning to follow electrolyte abnormalities. Continue to monitor blood sugars. Continue on Lantus 73 units at at bedtime as well as NovoLog with meals. Patient continues on Invanz for antimicrobial coverage. Patient will need to be discharged on antibiotics orally at time of discharge. Reevaluate patient tomorrow. Hopeful that he can be discharged in the next 1-2 days. Case discussed with attending, Code Status Full Code Hospital Course Summary Disclaimer The hospital course summary below is not to be considered part of the above Progress Note. Hospital Course Summary Admit patient to inpatient status under the care of Dr. Noble for acute abdominal pain with nausea and vomiting. Surgical consultation by Dr. Flowers. Planning for barium enema tomorrow morning. Will keep patient nothing by mouth at this time. Given leukocytosis and bandemia. He does meet criteria for sepsis. Will recheck serial venous lactate and continue on Invanz. Blood cultures are pending In light of hyponatremia. Will obtain urine sodium and urine Client Business Manager to calculate fractional excretion of sodium. Obtain a GI panel to rule out infectious etiology. Morphine available as needed for pain and Zofran as needed for nausea Monitor serial liver enzymes, may be secondary to acute infection/sepsis Will monitor Accu-Cheks carefully. Will continue patient on Lantus but will decrease the dose to 50 units at at bedtime. Hold on sliding-scale insulin. However, patient may require this. Monitor heart rate and blood pressure carefully given, all oral agents are on hold. Plavix to be on hold in case patient is in need of acute surgical intervention. Last cardiac stents were in 2009 Will discuss case further with attending, Dr. Noble At time of discharge medical care is to return to PCP Dr Barry Will recheck CBC and CMP tomorrow morning to follow blood counts, renal function and electrolytes 06/20/16 Continue with nothing by mouth status. Appreciate Dr. Flowers surgical consultation and recommendations. Plavix remains stopped. Planning for barium enema this afternoon. Continues to have elevated white count at 22 with a percent bandemia. Continue on IV Invanz, preliminary blood cultures are negative at 24 hours. Sodium is low at 131. will continue to follow Continue to manage pain control with morphine. Blood pressure has been well controlled. Continue on clonidine, Coreg, Continue to monitor sugars as patient is hyperglycemic. Continue with Lantus 50 units at at bedtime and sliding scale NovoLog. May need to increase this once patient is able to take in orally. Continue on IV PPI for GI protection as oral meds are on hold. 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 We discussed and formulated the assessment and plan as above with the additions below.-Dr. Noble Patient states that his pain is better controlled today. He is not having any vomiting. He is able to keep down his pills. He is happy to be able to start clear liquids today. He is not having any difficulty breathing. His mood seems to be doing well. On exam he is alert and oriented 3 and in no acute distress. Chest is clear to auscultation. Cardiovascular reveals a regular rate and rhythm. Abdomen is soft with mild lower abdominal tenderness. Bowel sounds are active. There is no rebound or guarding. Extremities are free of edema. Agree with continued Invanz for antibiotic coverage. Repeat CBC tomorrow. Continue current antihypertensives. Continue current mood stabilizing drugs. Agree with planned colonoscopy on . Regarding diabetes, will see how blood sugars are trending and may need to increase basal and short acting insulin. 06/22/[address] Flowers regarding patient plan. The surgical standpoint, he feels that patient is stable. Diet advanced as tolerated. Given hypokalemia. Patient was given a one-time dose of potassium 40 milliequivalents this morning, will repeat this this evening. Will recheck a BMP tomorrow morning to follow electrolyte abnormalities. Continue to monitor blood sugars. Continue on Lantus 73 units at at bedtime as well as NovoLog with meals. Patient continues on Invanz for antimicrobial coverage. Patient will need to be discharged on antibiotics orally at time of discharge. Reevaluate patient tomorrow. Hopeful that he can be discharged in the next 1-2 days. Case discussed with attending, STONEY Argueta MD 06/22/16 2014: Assessment & Plan Plan/Intensity of Service 06/22/2016 I have seen and evaluated the patient and agree with above assessment and plan. Patient responded nicely to colonoscopy today, decompressed with significant amount of stool and air passed. This evening he was resting comfortably, continue to pass stool. He did have an appetite, and requested to shower. We will reevaluate tomorrow with plan to discharge if continuing to improve. IRINA Mckeon M.D., APRN Jun 22, 2016 18:00 STONEY RITTER MD Jun 22, 2016 20:14
--- NOTE | 2016-06-22 18:11 | NUR ---
SHIFT SUMMARY PATIENT IS ALERT AND ORIENTED X3. PATIENT VITALS ARE STABLE AND PATIENT IS ON ROOM AIR. PATIENT IS UP AD ABBIE. PATIENT HAS NOT REQUIRED PRN IV PAIN MEDICATION SINCE COLONOSCOPY. PATIENT IS PLEASANT AND COOPERATIVE. IV WAS DISCONTINUED DUE TO INFILTRATION. WILL CONTINUE TO MONITOR.
[2016-06-22] MEDS: LORAZEPAM 0.5 MG TABLET PO SCH (22:12)
[2016-06-22] MEDS: SIMVASTATIN 80 MG TABLET PO SCH (22:13)
[2016-06-22] MEDS: ZIPRASIDONE 40 MG CAPSULE PO SCH (22:14)
[2016-06-22] MEDS: INSULIN GLARGINE 100 UNIT/ML SQ SCH (22:15)
[2016-06-22] MEDS: CYCLOBENZAPRINE 10 MG TABLET PO PRN (22:32)
--- NOTE | 2016-06-22 23:04 | PNF ---
DATE 06/22/2016 FINDINGS Ty was walking the [facility] this afternoon following his colonoscopy. He is requesting to go home. He states he is feeling significantly better. EXAM Vitals: Afebrile, normotensive. Temperature 95.7, pulse 70, respirations 18, blood pressure 162/91, SAO2 98% on room air. CHEST: Clear to auscultation bilaterally. HEART: Regular rate and rhythm. Normal S1 and S2 without gallops, murmurs or clicks. ABDOMEN: Palpation of the abdomen reveals it to be soft and nontender. I do not appreciate any evidence for hepatosplenomegaly nor abnormal masses. LABORATORY/RADIOGRAPHIC EVALUATION The patient had a CMP today and his potassium was low at 3.1. BMP obtained today and found to be essentially within normal limits. His white count continues on a downward trend. Today his white count is 10.0. Hemoglobin is overall stable at 12.2. Upon colonoscopy the patient was found to have a component of colitis with marked erythema and some ulcerations noted involving the mucosa of the transverse colon and descending colon region. These areas were biopsied. It is my intuition that this could have been a result of stercoral colitis as a result of his marked stool throughout his entire colon noted previously upon CT scan. ASSESSMENT A 51-year-old gentleman with presentation of diffuse abdominal pain, nausea, vomiting, marked leukocytosis most likely secondary to stercoral colitis. Patient with finding of hypokalemia this morning upon laboratory evaluation. PLAN From a general surgical standpoint I recommend that we go ahead and advance his diet as tolerated. If the patient is able to be discharged I would recommend that we go ahead and discharge him to home on some additional oral antibiotics such as Cipro and Flagyl for another four to five days given the finding of his colitis upon endoscopy. We will await the biopsy results from today's colonoscopy and proceed accordingly with further recommendations. KVNG
--- NOTE | 2016-06-22 23:04 | OPNOTEF ---
DATE OF SERVICE 06/22/2016 SURGEON Alan Flowers MD PREOPERATIVE DIAGNOSES Abnormal CT scan, abnormal Gastrografin enema, history for generalized abdominal pain, history for nausea, vomiting. POSTOPERATIVE DIAGNOSES Abnormal CT scan, abnormal Gastrografin enema, history for generalized abdominal pain, history for nausea, vomiting. Sigmoid diverticulosis, colitis involving transverse and descending colon. PROCEDURE Colonoscopy with biopsies of area of colitis via cold biopsy technique. ANESTHESIA TIVA BRIEF HISTORY/INDICATIONS Mr. Loomis is a 51-year-old gentleman who was admitted to our hospital as a result of diffuse abdominal pain, history for nausea, vomiting, finding of marked leukocytosis upon laboratory evaluation, and abnormal CT scan revealing questionable colonic stricture resulting in partial colonic obstruction. For completeness please refer to notes. The patient did undergo a Gastrografin enema that did reveal a questionable area of narrowing involving the sigmoid colon region. Patient has made marked clinical improvement and has undergone bowel prep. It was recommended that he undergo colonoscopy for further evaluation as a result of the above indications. FINDINGS Upon colonoscopy the patient was found have a moderate number of diverticula within the sigmoid colon region. There was no evidence for angiodysplastic lesions, polyps or diana malignancies. The mucosa was found to be quite erythematous involving the transverse colon and descending colon region. Additionally, there were some ulcerations also noted involving this segment of colitis. The underlying etiology very well could have been stercoral colitis given his CT scan finding of marked stool noted within the colonic lumen. Several biopsies were obtained from this area of marked colitis. NARRATIVE OF PROCEDURE After informed consent was obtained the patient was brought to the endoscopy suite and placed on the table in left lateral decubitus position. Patient subsequently underwent total intravenous anesthesia by the nurse training associate at my request. Formal timeout was then completed. Next, a digital rectal exam was performed. Normal sphincter tone. No rectal masses were appreciated. An Olympus colonoscope was inserted into the anus and advanced through the lumen of the colon under direct visualization at all times until the cecum was ascertained. Triangulation of the tenia coli, ileocecal valve and appendiceal lumen were all visualized. The scope was slowly withdrawn, maintaining visualization at all times. The ascending colon and proximal transverse colon were without mucosal abnormalities. From about the mid transverse colon down to the mid descending colon the mucosa was found to be quite edematous and erythematous in nature. There were some areas of ulceration noted as well. Several biopsies were obtained from within this area of colitis via cold biopsy technique. The patient was also found to have a moderate number of diverticula within the sigmoid colon region. The colonoscope was continued to be withdrawn until it was brought back to the rectal vault. J-maneuver was performed. No worrisome perianal pathology was noted. Scope was allowed to straighten and was withdrawn through the anal verge. The entire colon was without evidence of angiodysplastic lesions, polyps or diana malignancies. Patient tolerated the procedure without difficulty and was sent back to the preop area/recovery room once deemed in stable condition. Will wait biopsy results from today's colonoscopy and proceed accordingly with further recommendations thereafter. JORGE LUISD
[2016-06-23] MEDS: MORPHINE SULFATE 10 MG SYRINGE IV PRN ×2 (03:09→05:35)
[2016-06-23 03:49] VITALS: BP 163/98; PULSE 65; RESP 18; TEMP 96.8; O2SAT 97
--- NOTE | 2016-06-23 03:52 | NUR ---
Chart Check 24 hour chart check completed
[2016-06-23 05:16] LABS: BASOPHILS # (AUTO) 0.1 T/MM3 (0-0.2); BASOPHILS % (AUTO) 0.6 % (0-2); EOSINOPHILS # (AUTO) 0.3 T/MM3 (0-0.5); EOSINOPHILS % (AUTO) 3.3 % (0-4); HCT - HEMATOCRIT 36.3 % (41-53); HGB - HEMOGLOBIN 12.4 GM/DL (13.5-17.5); IMMATURE GRANULOCYTE # (AUTO) 0.11 T/MM3 (0.00-0.03); IMMATURE GRANULOCYTE % (AUTO) 1.3 % (0.0-0.5); LYMPHOCYTES # (AUTO) 3.2 T/MM3 (1-4.8); LYMPHOCYTES % (AUTO) 37.6 % (23-45); MEAN CORPUSCULAR HGB 29.4 UUG (26-34); MEAN CORPUSCULAR HGB CONC(MCHC 34.2 GM/DL (31-37); MEAN PLATELET VOLUME 8.8 UM3 (9.4-12.4); MONOCYTES # (AUTO) 0.6 T/MM3 (0-0.8); MONOCYTES % (AUTO) 6.9 % (0-9.0); NEUTROPHILS #(AUTO)-ABSOLUTE 4.3 T/MM3 (1.8-7.7); NEUTROPHILS % (AUTO) 50.3 % (33-66); RED BLOOD COUNT 4.22 M/MM3 (4.50-5.90); WBC - WHITE BLOOD COUNT 8.5 T/MM3 (4.5-11.0)
--- NOTE | 2016-06-23 05:20 | NUR ---
STATUS PATIENT IS ALTER AND ORIENTED X3. PATIENT C/O GENERAL PAIN .PATIENT RATED 8/10. RESTARTED #20 G IV LOCK AT RT WRIST.PRN MORPHINE WAS ADMINISTRATED .PRN FLEXERIL WAS GIVEN. PATIENT C/O FELT LOW BLOOD SUGAR.BGM WAS 89 AT 0419. PATIENT STATED I NEED EAT FOOD OR DRINK . PATIENT ALSO SAID THAT" IF DON'T EAT.I WILL GOT SICK." TURKEY SANDWICH AND DIANA WAS GIVEN PER PATIENT REQUESTED.ON ROOM AIR. PATIENT DENIES CHEST PAIN ,SOA,OR N/V. VVS.PATIENT IS UP AD ABBIE IN ROOM. CONTINUE TO MONITOR.
[2016-06-23 05:27] LABS: ANION GAP 15 MEQ/L (5-15); BUN/CREATININE RATIO 4 RATIO (6-26); CALCIUM 8.3 MG/DL (8.4-10.2); CHLORIDE 102 MEQ/L (98-107); CO2 - CARBON DIOXIDE 22 MEQ/L (22-30); CREATININE 0.8 MG/DL (0.8-1.5); GLOMERULAR FILTRATION RATE 101; GLUCOSE 183 MG/DL (75-110); POTASSIUM 3.4 MEQ/L (3.6-5); SODIUM 139 MEQ/L (134-144)
[2016-06-23] MEDS: INSULIN ASPART 100 UNIT/ML SQ PRN (05:45)
[2016-06-23] MEDS: CYCLOBENZAPRINE 10 MG TABLET PO PRN (07:00)
[2016-06-23 07:31] VITALS: O2SAT 96
[2016-06-23] MEDS: ALBUTEROL INH.SOLN. 2.5mg/3ml (0.083%) Neb. AEROSOL SCH (07:31)
[2016-06-23] MEDS ORDERED: POTASSIUM CHLORIDE 20 MEQ TABLET PO ONE (08:00)
[2016-06-23] MEDS: LORAZEPAM 0.5 MG TABLET PO SCH (08:01)
[2016-06-23] MEDS: CARBAMAZEPINE 200 MG TABLET PO SCH (08:02)
[2016-06-23] MEDS: CARVEDILOL 25 MG TABLET PO SCH (08:03)
[2016-06-23] MEDS: FLUTICASONE NASAL SPRAY 50 MCG EA NOSTRIL SCH (08:04)
[2016-06-23] MEDS: PANTOPRAZOLE 40mg INJECTION IV SCH (08:05)
[2016-06-23] MEDS: NORMAL SALINE 1,000 ML IV SCH (08:05)
[2016-06-23] MEDS: INSULIN ASPART 100 UNIT/ML SQ SCH (08:06)
[2016-06-23 08:16] VITALS: BP 160/95; PULSE 73; RESP 18; TEMP 97; O2SAT 96
[2016-06-23] MEDS: CLONIDINE 0.2 MG TABLET PO SCH (08:53)
[2016-06-23] MEDS: ERTAPENEM 1 G in NORMAL SALINE 100 ML IV SCH (08:54)
[2016-06-23] MEDS ORDERED: SENN-152 PO (09:03)
[2016-06-23] MEDS ORDERED: CIPR-212 PO (09:03)
[2016-06-23] MEDS ORDERED: POLY17PO6 PO (09:03)
[2016-06-23] MEDS ORDERED: METR500T PO (09:03)
[2016-06-23] MEDS: FLUTICASONE/SALMETEROL 100/50 DISK INHALER ORAL INH SCH (09:28)
--- NOTE | 2016-06-23 10:34 | NUR ---
DISMISSAL PATIENT DISMISSED TO HOME FOR SELF CARE TO THE ER ENTRANCE. PATIENT TOOK A [employer]AXI CAB HOME. PATIENT AMBULATED TO THE ER ENTRANCE. IV CATHETER REMOVED BY THIS RN. IV CATHETER TIP INTACT. D/C INSTRUCTIONS REVIEWED PRIOR TO D/C. TOPICS DISCUSSED INCLUDED: NEW MEDICATIONS, S/S TO REPORT, FOLLOW UP APPOINTMENTS, AND NEW MEDICATIONS. PERSONAL BELONGINGS RETURNED PRIOR TO D/C.
--- NOTE | 2016-06-23 12:25 | DSPDOC ---
IRINA JUAREZ V STORAGE AND BACKUP ADMINISTRATOR 06/23/16 1218: General Date Date DATE: 06/23/16 TIME: 12:14 Attending Physician Marjorie Noble MD Admitting Physician Marjorie Noble MD Consulting Physician Alan Flowers MD,Facs,Cws Admitting Diagnosis large bowel obstruction with stricture Discharge Diagnosis Colitis Hypokalemia Abdominal pain-improved Nausea and vomiting-improve Procedures 06/22/16- Colonoscopy with biopsies of area of colitis via cold biopsy technique. Dr Flowers Laboratory Laboratory Tests Test 06/22/16 00:16 06/22/16 00:53 06/22/16 02:45 06/22/16 04:40 Glucometer 69mg/dL (75-110) 132mg/dL (75-110) 243mg/dL (75-110) White Blood Count 10.0T/MM3 (4.5-11.0) Red Blood Count 4.14M/MM3 (4.50-5.90) Hemoglobin 12.2GM/DL (13.5-17.5) Hematocrit 35.9% (41-53) Mean Corpuscular Volume 86.7UM3 (80-100) Mean Corpuscular Hemoglobin 29.5UUG (26-34) Mean Corpuscular Hemoglobin Concent 34.0GM/DL (31-37) RDW Standard Deviation 37.5FL (36.9-50.2) Platelet Count 218T/MM3 (130-400) Mean Platelet Volume 9.0UM3 (9.4-12.4) Neutrophils % (Manual) 69.0% (33-66) Band Neutrophils % 9.0% (0-6) Lymphocytes % (Manual) 18.0% (23-45) Monocytes % (Manual) 3.0% (0-9.0) Eosinophils % (Manual) 1.0% (0-4) Absolute Neutrophils (Manual) 6.9T/MM3 (1.8-7.7) Band Neutrophils # 0.9T/MM3 Lymphocytes # (Manual) 1.8T/MM3 (1-4.8) Monocytes # (Manual) 0.3T/MM3 (0-0.8) Eosinophils # (Manual) 0.1T/MM3 (0-0.5) Red Cell Morphology Comment Normal Turbidity < 20 (0-20) Sodium Level 133MEQ/L (134-144) Potassium Level 3.1MEQ/L (3.6-5) Chloride Level 99MEQ/L (98-107) Carbon Dioxide Level 23MEQ/L (22-30) Anion Gap 11MEQ/L (5-15) Blood Urea Nitrogen 3.0MG/DL (9-20) Creatinine 0.7MG/DL (0.8-1.5) Glomerular Filtration Rate Calc 118 BUN/Creatinine Ratio 4RATIO (6-26) Glucose Level 213MG/DL (75-110) Calculated Osmolality 259MOSM/KG (261-280) Calcium Level 7.6MG/DL (8.4-10.2) Total Bilirubin 0.50MG/DL (0.20-1.30) Icterus Index < 2 (0-7) Aspartate Amino Transf (AST/SGOT) 22U/L (17-59) Alanine Aminotransferase (ALT/SGPT) 43U/L (21-72) Alkaline Phosphatase 124U/L (38-126) Total Protein 5.8G/DL (6.3-8.2) Albumin 2.9G/DL (3.5-5.0) Globulin 2.9G/DL (2.4-3.6) Albumin/Globulin Ratio 1.0RATIO (1.1-2.2) Chemistry Specimen Hemolysis < 15 (0-25) Test 06/22/16 05:54 06/22/16 09:03 06/22/16 16:37 06/22/16 21:51 Glucometer 212mg/dL (75-110) 150mg/dL (75-110) 167mg/dL (75-110) 125mg/dL (75-110) Test 06/23/16 04:52 White Blood Count 8.5T/MM3 (4.5-11.0) Red Blood Count 4.22M/MM3 (4.50-5.90) Hemoglobin 12.4GM/DL (13.5-17.5) Hematocrit 36.3% (41-53) Mean Corpuscular Volume 86.0UM3 (80-100) Mean Corpuscular Hemoglobin 29.4UUG (26-34) Mean Corpuscular Hemoglobin Concent 34.2GM/DL (31-37) RDW Standard Deviation 36.7FL (36.9-50.2) Platelet Count 245T/MM3 (130-400) Mean Platelet Volume 8.8UM3 (9.4-12.4) Immature Granulocyte % (Auto) 1.3% (0.0-0.5) Neutrophils (%) (Auto) 50.3% (33-66) Lymphocytes (%) (Auto) 37.6% (23-45) Monocytes (%) (Auto) 6.9% (0-9.0) Eosinophils (%) (Auto) 3.3% (0-4) Basophils (%) (Auto) 0.6% (0-2) Absolute Immature Granulocyte (auto 0.11T/MM3 (0.00-0.03) Absolute Neutrophils (auto) 4.3T/MM3 (1.8-7.7) Absolute Lymphocytes (auto) 3.2T/MM3 (1-4.8) Absolute Monocytes (auto) 0.6T/MM3 (0-0.8) Absolute Eosinophils (auto) 0.3T/MM3 (0-0.5) Absolute Basophils (auto) 0.1T/MM3 (0-0.2) Turbidity < 20 (0-20) Sodium Level 139MEQ/L (134-144) Potassium Level 3.4MEQ/L (3.6-5) Chloride Level 102MEQ/L (98-107) Carbon Dioxide Level 22MEQ/L (22-30) Anion Gap 15MEQ/L (5-15) Blood Urea Nitrogen 3.0MG/DL (9-20) Creatinine 0.8MG/DL (0.8-1.5) Glomerular Filtration Rate Calc 101 BUN/Creatinine Ratio 4RATIO (6-26) Glucose Level 183MG/DL (75-110) Calculated Osmolality 270MOSM/KG (261-280) Calcium Level 8.3MG/DL (8.4-10.2) Icterus Index < 2 (0-7) Chemistry Specimen Hemolysis < 15 (0-25) Microbiology PATIENT: TY PATTERSON Act#:[id number] Loc: [facility] 134-P Specimen: [id number] Collected: 06/19/16 Received: 06/19/[address]: DUGLAS VANN MD Source: PERIPHERAL Procedure Result Verified MICROBIOLOGY BLOOD CULTURE. Preliminary 06/22/16 NO GROWTH AFTER 72 HOURS BLOOD CULTURE. Preliminary (changed) 06/21/16 NO GROWTH AFTER 48 HOURS BLOOD CULTURE. Preliminary (changed) 06/20/16 NO GROWTH AFTER 24 HOURS BLOOD CULTURE. Preliminary (changed) 06/19/16 CULTURE INITIATED - RESULTS PENDING Radiology 06/19/16- CT Abd/pelvis- marked dilated stool filled colon with transition point at the proximal sigmoid region. Is is of concern for colonic stricture. Subtle mild wall thickening in the left colon 06/20/16-Barium enema- Short segment, smoothly-marginated benign appearing narrowing in the proximal sigmoid colon. This could be a post-inflammatory stricture. This could also represent a less distensible segment in an otherwise dilated colon with an overall appearance suggestive of pseudoobstruction. A colonoscopy could be performed for further evaluation. History of Present Illness Patient is a 51-year-old male who presented to the emergency room today for evaluation of abdominal pain 2 days. He reports that on Saturday 06/17, he began having abdominal pain accompanied with nausea and vomiting. The pain continues to be severe nature, thus patient presented to the emergency room for further evaluation and treatment. The WBC count was found recently elevated at 23.5, hemoglobin 16, hematocrit 45.1, platelet count 321, neutrophils 76% with 10% bandemia. Sodium is low at 128, potassium 4.5, BUNs 17, creatinine 1.0. Glucose 349. Transaminases are elevated with an AST of 130, ALT 110, alkaline phosphatase 199. Venous lactate was found to be elevated at 2.3. Pro-calcitonin 0.38. Troponin was undetectable. CT scan of the abdomen and pelvis did reveal marked dilated stool filled colon with a transition point in the proximal sigmoid region. Patient is afebrile 98.4, pulse 90, respirations 16, blood pressure 124/75, room air saturations 96%. Given these acute findings, patient was given IV fluids and started on Invanz for antimicrobial coverage. The hospitalist services were contacted and accepted patient for inpatient admission for further evaluation and treatment. Dr. Flowers was contacted see patient in consultation. Hospital Course Admit patient to inpatient status under the care of Dr. Noble for acute abdominal pain with nausea and vomiting. Surgical consultation by Dr. Flowers. Planning for barium enema tomorrow morning. Will keep patient nothing by mouth at this time. Given leukocytosis and bandemia. He does meet criteria for sepsis. Will recheck serial venous lactate and continue on Invanz. Blood cultures are pending In light of hyponatremia. Will obtain urine sodium and urine Video [employer] to calculate fractional excretion of sodium. Obtain a GI panel to rule out infectious etiology. Morphine available as needed for pain and Zofran as needed for nausea Monitor serial liver enzymes, may be secondary to acute infection/sepsis Will monitor Accu-Cheks carefully. Will continue patient on Lantus but will decrease the dose to 50 units at at bedtime. Hold on sliding-scale insulin. However, patient may require this. Monitor heart rate and blood pressure carefully given, all oral agents are on hold. Plavix to be on hold in case patient is in need of acute surgical intervention. Last cardiac stents were in 2009 Will discuss case further with attending, Dr. Noble At time of discharge medical care is to return to PCP Dr Guo Will recheck CBC and CMP tomorrow morning to follow blood counts, renal function and electrolytes 06/20/16 Continue with nothing by mouth status. Appreciate Dr. Flowers surgical consultation and recommendations. Plavix remains stopped. Planning for barium enema this afternoon. Continues to have elevated white count at 22 with a percent bandemia. Continue on IV Invanz, preliminary blood cultures are negative at 24 hours. Sodium is low at 131. will continue to follow Continue to manage pain control with morphine. Blood pressure has been well controlled. Continue on clonidine, Coreg, Continue to monitor sugars as patient is hyperglycemic. Continue with Lantus 50 units at at bedtime and sliding scale NovoLog. May need to increase this once patient is able to take in orally. Continue on IV PPI for GI protection as oral meds are on hold. 06/20/2016-I reviewed this chart, the patient history, and the STORAGE AND BACKUP ADMINISTRATOR's/PA's documented findings as above. We discussed and formulated the assessment and plan as above with the additions below.-Dr. Noble Patient states that his pain is better controlled today. He is not having any vomiting. He is able to keep down his pills. He is happy to be able to start clear liquids today. He is not having any difficulty breathing. His mood seems to be doing well. On exam he is alert and oriented 3 and in no acute distress. Chest is clear to auscultation. Cardiovascular reveals a regular rate and rhythm. Abdomen is soft with mild lower abdominal tenderness. Bowel sounds are active. There is no rebound or guarding. Extremities are free of edema. Agree with continued Invanz for antibiotic coverage. Repeat CBC tomorrow. Continue current antihypertensives. Continue current mood stabilizing drugs. Agree with planned colonoscopy on . Regarding diabetes, will see how blood sugars are trending and may need to increase basal and short acting insulin. 06/22/[address] Flowers regarding patient plan. The surgical standpoint, he feels that patient is stable. Diet advanced as tolerated. Given hypokalemia. Patient was given a one-time dose of potassium 40 milliequivalents this morning, will repeat this this evening. Will recheck a BMP tomorrow morning to follow electrolyte abnormalities. Continue to monitor blood sugars. Continue on Lantus 73 units at at bedtime as well as NovoLog with meals. Patient continues on Invanz for antimicrobial coverage. Patient will need to be discharged on antibiotics orally at time of discharge. Reevaluate patient tomorrow. Hopeful that he can be discharged in the next 1-2 days. Case discussed with attending, 06/23/16-discharge Ty is seen and examined today. He is feeling well. Denies having abdominal pain or shortness of breath. No nausea. He continues to tolerate oral intake without difficulty. Plan is to discharge him home today. He will be discharged on Cipro and Flagyl for 5 day course as recommended by Dr. Flowers. Discussed the importance of medications for ongoing bowel motivation. Will recommend senna plus, and MiraLAX daily. He is instructed to follow with his primary care provider, Dr. Guo Problems: (1) Abdominal pain Status: Acute (2) Nausea & vomiting Status: Acute (3) Elevated transaminase level Status: Acute Assessment & Plan: Present on admission, AST 130, ALT 110, alkaline phosphatase 199 (4) Hyponatremia Status: Acute Assessment & Plan: Present on admission, sodium 128 (5) CAD (coronary artery disease) Status: Chronic (6) Hypertension Status: Chronic (7) DM2 (diabetes mellitus, type 2) Status: Chronic (8) Irritable bowel syndrome with constipation Status: Chronic (9) Chronic low back pain Status: Chronic (10) Trigeminal nerve disorder Status: Chronic (11) Depression Status: Chronic (12) Schizophrenia Status: Chronic (13) GERD (gastroesophageal reflux disease) Status: Chronic (14) Bipolar disorder Status: Chronic (15) Asthma Status: Chronic (16) Obesity (BMI 30.0-34.9) Status: Chronic (17) History of pancreatitis Status: Resolved (18) Hypokalemia Status: Acute Code Status Full Code Home Meds Active Scripts Sennosides/Docusate Sodium (Senna Plus Tablet) 1 Tab Tablet, 1 TAB PO BID, #30 TAB Take 1 tablet, by mouth, 2 times a day. Prov:CHAD JUAREZJASON Huynh APRN 06/23/16 Polyethylene Glycol 3350 (Miralax) 17 Gm Powd.pack, 17 G PO DAILY for 30 Days, BOTTLE Take 17 Grams (1 capful), by mouth, once a day. Prov:LARRY,IRINA Lino ROTH 06/23/16 Metronidazole (Flagyl) 500 Mg Tablet, 500 MG PO Q12HR for 5 Days, #10 TAB Take 1 tablet, by mouth, every 12 hours. Prov:IRINA JUAREZ APRN 06/23/16 Ciprofloxacin HCl (Cipro) 500 Mg Tablet, 500 MG PO Q12HR for 5 Days, #10 TAB Prov:IRINA JUAREZ APRN 06/23/16 Reported Medications Trazodone HCl (Trazodone HCl) 50 Mg Tablet, 50-100 MG PO HS Y for INSOMNIA 06/19/16 Insulin Glargine,Hum.rec.anlog (Lantus Solostar) 1 Unit Pen, 73 UNIT SQ HS 06/19/16 Albuterol Sulfate (Proair HFA 90 mcg/actuation) 8.5 Gm Hfa.aer.ad, 2 PUFF INH BID 06/19/16 Fluticasone/Salmeterol (Advair 100-50 Diskus) 1 Disk W/Dev Inhaler, 1 PUFF INH BID 05/15/15 Buspirone HCl (Buspirone HCl) 15 Mg Tablet, 15 MG PO TID 05/15/15 Lorazepam (Lorazepam) 0.5 Mg Tablet, 0.5 MG PO TID Y for ANXIETY 05/15/15 Carbamazepine (Carbamazepine) 200 Mg Tablet, 200 MG PO WL 04/23/15 Nitroglycerin (Nitrostat) 0.6 Mg Tab.subl, 0.6 MG SL Q5M Y for CHEST TIGHTNESS 09/30/14 Famotidine (Famotidine) 40 Mg Tablet, 40 MG PO HS 09/30/14 Insulin Aspart (Novolog Flexpen) 1 Unit Pen, 25-45 UNIT SQ TIDWM 09/30/14 Tramadol HCl (Tramadol HCl) 50 Mg Tablet, 50-100 MG PO TID Y for PRN ORDERS 08/30/14 Hydrocodone/Acetaminophen ([place] 10-325 Tablet) 1 Each Tablet, 1 TAB PO Q6H Y for PAIN 08/30/14 Cyclobenzaprine HCl (Cyclobenzaprine HCl) 10 Mg Tablet, 10 MG PO TID Y for PRN ORDERS 08/30/14 Ziprasidone Hcl (Geodon) 80 Mg Capsule, 160 MG PO HS 09/06/12 Carbamazepine (Carbamazepine) 200 Mg Tablet, 400 MG PO HS 12/12/11 Carbamazepine (Carbamazepine) 200 Mg Tablet, 400 MG PO QAM 12/12/11 Rabeprazole Sodium (Aciphex) 20 Mg Tablet.dr, 20 MG PO DAILY 01/17/11 Valsartan (Diovan) 320 Mg Tablet, 320 MG PO DAILY 12/31/09 Mometasone Furoate (Nasonex) 17 Gm [place], 2 SPRAY EA NOSTRIL BID 12/31/09 Clopidogrel Bisulfate (Plavix) 75 Mg Tablet, 75 MG PO DAILY 12/31/09 Simvastatin (Zocor) 80 Mg Tablet, 80 MG PO HS 12/31/09 Ranitidine Hcl (Ranitidine Hcl) 150 Mg Capsule, 150 MG PO BID 12/31/09 Amlodipine Besylate (Norvasc) 5 Mg Tablet, 5 MG PO BID 12/31/09 Carvedilol (Coreg) 25 Mg Tablet, 25 MG PO TID 12/31/09 Clonidine Hcl (Clonidine Hcl) 0.2 Mg Tablet, 0.2 MG PO BID 12/31/09 Discontinued Reported Medications Promethazine HCl (Promethazine HCl) 25 Mg Tablet, 25-50 MG PO Q8H Y for NAUSEA 09/30/14 Diphenhydramine Hcl (Benadryl) 50 Mg Capsule, 150 MG PO HS 09/06/12 Face to Face Encounter I met with patient on the day of dismissal and discussed follow up appointments , medications, and safety plan. Discharge Disposition stable Copies To 1: ELE GUO MD, CHARLES E MD 06/23/16 1415: Hospital Course Home Meds Active Scripts Sennosides/Docusate Sodium (Senna Plus Tablet) 1 Tab Tablet, 1 TAB PO BID, #30 TAB Take 1 tablet, by mouth, 2 times a day. Prov:IRINA JUAREZ V STORAGE AND BACKUP ADMINISTRATOR 06/23/16 Polyethylene Glycol 3350 (Miralax) 17 Gm Powd.pack, 17 G PO DAILY for 30 Days, BOTTLE Take 17 Grams (1 capful), by mouth, once a day. Prov:IRINA JUAREZ V GONZALEZ 06/23/16 Metronidazole (Flagyl) 500 Mg Tablet, 500 MG PO Q12HR for 5 Days, #10 TAB Take 1 tablet, by mouth, every 12 hours. Prov:IRINA JUAREZ V GONZALEZ 06/23/16 Ciprofloxacin HCl (Cipro) 500 Mg Tablet, 500 MG PO Q12HR for 5 Days, #10 TAB Prov:IRINA JUAREZ V GONZALEZ 06/23/16 Reported Medications Trazodone HCl (Trazodone HCl) 50 Mg Tablet, 50-100 MG PO HS Y for INSOMNIA 06/19/16 Insulin Glargine,Hum.rec.anlog (Lantus Solostar) 1 Unit Pen, 73 UNIT SQ HS 06/19/16 Albuterol Sulfate (Proair HFA 90 mcg/actuation) 8.5 Gm Hfa.aer.ad, 2 PUFF INH BID 06/19/16 Fluticasone/Salmeterol (Advair 100-50 Diskus) 1 Disk W/Dev Inhaler, 1 PUFF INH BID 05/15/15 Buspirone HCl (Buspirone HCl) 15 Mg Tablet, 15 MG PO TID 05/15/15 Lorazepam (Lorazepam) 0.5 Mg Tablet, 0.5 MG PO TID Y for ANXIETY 05/15/15 Carbamazepine (Carbamazepine) 200 Mg Tablet, 200 MG PO WL 04/23/15 Nitroglycerin (Nitrostat) 0.6 Mg Tab.subl, 0.6 MG SL Q5M Y for CHEST TIGHTNESS 09/30/14 Famotidine (Famotidine) 40 Mg Tablet, 40 MG PO HS 09/30/14 Insulin Aspart (Novolog Flexpen) 1 Unit Pen, 25-45 UNIT SQ TIDWM 09/30/14 Tramadol HCl (Tramadol HCl) 50 Mg Tablet, 50-100 MG PO TID Y for PRN ORDERS 08/30/14 Hydrocodone/Acetaminophen ([place] 10-325 Tablet) 1 Each Tablet, 1 TAB PO Q6H Y for PAIN 08/30/14 Cyclobenzaprine HCl (Cyclobenzaprine HCl) 10 Mg Tablet, 10 MG PO TID Y for PRN ORDERS 08/30/14 Ziprasidone Hcl (Geodon) 80 Mg Capsule, 160 MG PO HS 09/06/12 Carbamazepine (Carbamazepine) 200 Mg Tablet, 400 MG PO HS 12/12/11 Carbamazepine (Carbamazepine) 200 Mg Tablet, 400 MG PO QAM 12/12/11 Rabeprazole Sodium (Aciphex) 20 Mg Tablet.dr, 20 MG PO DAILY 01/17/11 Valsartan (Diovan) 320 Mg Tablet, 320 MG PO DAILY 12/31/09 Mometasone Furoate (Nasonex) 17 Gm [place], 2 SPRAY EA NOSTRIL BID 12/31/09 Clopidogrel Bisulfate (Plavix) 75 Mg Tablet, 75 MG PO DAILY 12/31/09 Simvastatin (Zocor) 80 Mg Tablet, 80 MG PO HS 12/31/09 Ranitidine Hcl (Ranitidine Hcl) 150 Mg Capsule, 150 MG PO BID 12/31/09 Amlodipine Besylate (Norvasc) 5 Mg Tablet, 5 MG PO BID 12/31/09 Carvedilol (Coreg) 25 Mg Tablet, 25 MG PO TID 12/31/09 Clonidine Hcl (Clonidine Hcl) 0.2 Mg Tablet, 0.2 MG PO BID 12/31/09 Discontinued Reported Medications Promethazine HCl (Promethazine HCl) 25 Mg Tablet, 25-50 MG PO Q8H Y for NAUSEA 09/30/14 Diphenhydramine Hcl (Benadryl) 50 Mg Capsule, 150 MG PO HS 09/06/12 Face to Face Encounter I did see and evaluate the patient today with GONZALEZ. Chart was reviewed and plan of discharge was reviewed as well. Physical exam lungs are clear to auscultation cardiac regular rate and rhythm with no murmur heard abdomen no longer tender, still somewhat distended, positive bowel sounds. Discharge plan: Appetite improved, hypokalemia also improved with treatment. Abdominal pain was improving and patient had no nausea or vomiting, did have multiple stools. Discharged with Cipro and Flagyl to cover colitis, which is been visible on colonoscopy. Patient will be treated for 5 days outpatient. Instructed to continue chronic aggressive bowel motivation with senna plus and MiraLAX scheduled daily. This was recommended by Dr. Flowers. Discharge was reviewed with GONZALEZ, we both agreed. Rodolfo Ritter M.D. Copies To 1: ELE GUO MD, JULIE V APRN Jun 23, 2016 12:18 RODOLFO RITTER MD, Apr 14, 2017 14:15
== END 2016-06-23 10:34 | disposition home or self-care (01) | DRG 389 ==
LOC: ED 10:09 → EDHOLD 12:31 → SRG 13:43
PROVIDERS: ADMIT Internal Medicine; ATTEND Internal Medicine
PROC: 0DBL8ZX Excision of Transverse Colon, Via Natural or Artificial Opening Endoscopic, Diagnostic (ICD-10-PCS; 2016-06-22)
PROC: 0DBM8ZX Excision of Descending Colon, Via Natural or Artificial Opening Endoscopic, Diagnostic (ICD-10-PCS; principal; 2016-06-22 10:30)
DX: K56.60 Unspecified intestinal obstruction (principal); K57.20 Diverticulitis of large intestine with perforation and abscess without bleeding; E87.1 Hypo-osmolality and hyponatremia; E11.9 Type 2 diabetes mellitus without complications; I25.10 Atherosclerotic heart disease of native coronary artery without angina pectoris; J45.909 Unspecified asthma, uncomplicated; I10 Essential (primary) hypertension; G89.29 Other chronic pain; M54.5 Low back pain; E66.9 Obesity, unspecified; K21.9 Gastro-esophageal reflux disease without esophagitis; F20.9 Schizophrenia, unspecified; G50.9 Disorder of trigeminal nerve, unspecified; F31.9 Bipolar disorder, unspecified; E87.6 Hypokalemia; K52.9 Noninfective gastroenteritis and colitis, unspecified; Z68.30 Body mass index [BMI] 30.0-30.9, adult; Z95.5 Presence of coronary angioplasty implant and graft; Z79.4 Long term (current) use of insulin; Z79.899 Other long term (current) drug therapy; Z87.891 Personal history of nicotine dependence
CPT/HCPCS: 36415; 80048; 80053; 82570; 82948; 83036; 83605; 83690; 84145; 84300; 84484; 85007; 85025; 85027; 85576; 87040; 87507; 93005; 94640; 96361; 96365; 96375

== ENCOUNTER 2016-07-07 09:25 | Emergency (ER) | payer MEDICAID ==
[~2016-07-07] VITALS: Ht 188 cm; Wt 108.9 kg
[~2016-07-07 09:25] MED LIST changes: +ALBU8.5H INH; -ALBU8.5H5 INH; +CIPR-212 PO; -DIPH50CA34 PO; -INSU300I SQ; +INSU3INS3 SQ; +METR500T PO; +POLY17PO6 PO; -PROM25TA7 PO; +SENN-152 PO; -SODI1TAB3 PO; +TRAZ-170 PO
--- OUTSIDE RECORDS SUMMARY | 2016-07-07 09:31 | XMS REPORT | Continuity of Care Document ---
Author Author DAILY [facility] Organization [facility] Address Unknown Phone Unavailable Care Team Providers Care Manufacturers Service Representative Name Role Phone MICA SANTOS MD Primary Care Physician [phone] Insurance Providers Guarantor Ty Loomis Address [address] [place] [address] Email [id number] Payer [facility] Policy Number [id number] Subscriber's Name LoomisTy Nona Relationship 18 Self Effective Date 16 Expiration Date 16 Advance Directives Directive Response Recorded Date/Time Advanced Directives Type None 06/19/16 10:10am Ordered Resuscitation Status Full Code 06/19/16 1:21pm Resuscitation Documents on File No 06/19/16 2:12pm DPOA for Healthcare Only No 06/19/16 3:47pm Living Will No 06/19/16 2:12pm Problems Active Problems Medical Problem Onset Date Status Abdominal pain Unknown Acute Altered level of consciousness Unknown Acute Asthma Unknown Chronic Asthma attack Unknown Acute Bipolar disorder Unknown Chronic Bronchitis Unknown Acute CAD (coronary artery disease) Unknown Chronic Chronic low back pain Unknown Chronic Confusion Unknown Acute Constipation Unknown Chronic DM2 (diabetes mellitus, type 2) Unknown Chronic Dehydration Unknown Acute Depression Unknown Chronic Elevated transaminase level Unknown Acute Encephalopathy Unknown Resolved Fibromyalgia Unknown Chronic GERD (gastroesophageal reflux disease) Unknown Chronic Hiatal hernia Unknown History of pancreatitis Unknown Resolved Hyperlipidemia Unknown Chronic Hypersomnolence Unknown Acute Hypertension Unknown Chronic Hypoglycemia Unknown Acute Hypokalemia Unknown Acute Hyponatremia Unknown Acute Hyponatremia Unknown Acute Irritable bowel syndrome with constipation Unknown Chronic Left against medical advice Unknown Acute Morbid obesity Unknown Chronic Nausea & vomiting Unknown Acute Obesity (BMI 30.0-34.9) Unknown Chronic Patient left without being seen Unknown Acute Schizophrenia Unknown Chronic Transient confusion Unknown Acute Trigeminal nerve disorder Unknown Chronic Past Problems Medical Problem Onset Date Fatigue Unknown Hyperglycemia due to type 2 diabetes mellitus Unknown Leukocytosis Unknown Malaise Unknown Stricture of bowel Unknown Medications Current Home Medications Medication Dose Units Route Directions Days Qty Instructions Start Date Albuterol Sulfate (Proair Hfa 90 Mcg/Actuation) 8.5 Gm Hfa.aer.ad 2 Puff Inhalation Twice A Day 06/19/16 Amlodipine Besylate (Norvasc) 5 Mg Tablet 5 Mg Oral Twice A Day 12/31/09 Buspirone Hcl 15 Mg Tablet 15 Mg Oral Three Times A Day 05/15/15 Carbamazepine 200 Mg Tablet 400 Mg Oral Every Morning 12/12/11 Carbamazepine 200 Mg Tablet 400 Mg Oral Bedtime 12/12/11 Carbamazepine 200 Mg Tablet 200 Mg Oral Give With Lunch 04/23/15 Carvedilol (Coreg) 25 Mg Tablet 25 Mg Oral Three Times A Day 31/12 Ciprofloxacin Hcl (Cipro) 500 Mg Tablet 500 Mg Oral Every 12 Hours 5 Days 10 Tablet 06/23/16 Clonidine Hcl 0.2 Mg Tablet 0.2 Mg Oral Twice A Day 12/31/09 Clopidogrel Bisulfate (Plavix) 75 Mg Tablet 75 Mg Oral Daily 31/12 Cyclobenzaprine Hcl 10 Mg Tablet 10 Mg Oral Three Times A Day as needed for Prn Orders 08/30/14 Famotidine 40 Mg Tablet 40 Mg Oral Bedtime 09/30/14 Fluticasone/Salmeterol (Advair 100-50 Diskus) 1 Disk W/Dev Inhaler 1 Puff Inhalation Twice A Day 05/15/15 Hydrocodone/Acetaminophen (Ventura 10-325 Tablet) 1 Each Tablet 1 Tab Oral Every 6 Hours as needed for Pain 08/30/14 Insulin Aspart (Novolog Flexpen) 1 Unit Pen 25-45 Unit Sub-Q Three Times Daily With Meals 09/30/14 Insulin Glargine,Hum.rec.anlog (Lantus Solostar) 1 Unit Pen 73 Unit Sub-Q Bedtime 06/19/16 Lorazepam 0.5 Mg Tablet 0.5 Mg Oral Three Times A Day as needed for Anxiety 05/15/15 Metronidazole (Flagyl) 500 Mg Tablet 500 Mg Oral Every 12 Hours 5 Days 10 Tablet Take 1 tablet, by mouth, every 12 hours. 06/23/16 Mometasone Furoate (Nasonex) 17 Gm [place] 2 [place] Each Nostril Twice A Day 12/31/09 Nitroglycerin (Nitrostat) 0.6 Mg Tab.subl 0.6 Mg Sublingual Every 5 Minutes as needed for Chest Tightness 09/30/14 Polyethylene Glycol 3350 (Miralax) 17 Gm Powd.pack 17 G Oral Daily 30 Days Take 17 Grams (1 capful), by mouth, once a day. 06/23/16 Rabeprazole Sodium (Aciphex) 20 Mg Tablet.dr 20 Mg Oral Daily 10/20 Ranitidine Hcl 150 Mg Capsule 150 Mg Oral Twice A Day 12/31/09 Sennosides/Docusate Sodium (Senna Plus Tablet) 1 Tab Tablet 1 Tab Oral Twice A Day 30 Tablet Take 1 tablet, by mouth, 2 times a day. 06/23/16 Simvastatin (Zocor) 80 Mg Tablet 80 Mg Oral Bedtime 12/31/09 Tramadol Hcl 50 Mg Tablet 50-100 Mg Oral Three Times A Day as needed for Prn Orders 08/30/14 Trazodone Hcl 50 Mg Tablet 50-100 Mg Oral Bedtime as needed for Insomnia 06/19/16 Valsartan (Diovan) 320 Mg Tablet 320 Mg [...] Discontinued Diphenhydramine Hcl (Benadryl) 50 Mg Capsule, 150 Mg Oral Bedtime 09/06/12 Discontinued Diphenhydramine Hcl (Benadryl) 50 Mg Capsule, 2 Cap Oral Bedtime 12/31/09 Discontinued Duloxetine Hcl (Cymbalta) 60 Mg Capsule.dr, 2 Tab Oral Daily 08/15/09 Discontinued Ezetimibe (Zetia) 10 Mg Tablet, 1 Tab Oral Daily 12/10/09 Discontinued Hum Insulin Nph/Reg Insulin Hm (Humulin 70/30 Vial) 10 Ml Vial, 22 Unit Sub-Q Morning 12/10/09 Discontinued Hydrocodone Bit/Acetaminophen (Ventura 10/325 Tablet) 1 Tab Tablet, 1 Tab Oral As Needed 09/06/12 Discontinued Hydrocodone Bit/Acetaminophen (Lortab 10) 1 Udtab Tablet, 1 Udtab Oral Every 4 -6 Hours 12/12/11 Discontinued Hydrocodone Bit/Acetaminophen (Ventura 10-325 Tablet) 1 Tab Tablet, As Needed [...] Vial, 35 Units Sub-Q Bedtime 12/10/09 Discontinued [place]-3 Acid Ethyl Esters (Lovaza) 1 G Capsule, 1 G Oral Three Times A Day Discontinued Polyethylene Glycol 3350 (Miralax) 255 Gm Powder, 255 Gm Oral Daily 12/31/09 Discontinued Potassium Chloride (K-Dur) 20 Meq Tab.prt.sr, 1 Tab Oral Twice A Day Discontinued Promethazine Hcl 25 Mg Tablet, 25-50 Mg Oral Every 8 Hours as needed for Nausea 09/30/14 Discontinued Promethazine Hcl 25 Mg Tablet, 1 [...] Problem Response Recorded Date/Time Onset Date Status Reason for Hospitalization abdominal pain, nausea and vomiting 06/23/2016 9: 31am Not Applicable Not Applicable Chewing Tobacco Status No 09/05/2012 8:52pm Not Applicable Not Applicable Hx Substance Use No 06/19/2016 11:17am Not Applicable Not Applicable Hx Alcohol Use No 06/19/2016 11:17am Not Applicable Not Applicable Has the pt used tobacco in the last 12 months No 06/19/2016 2:19pm Not Applicable Not Applicable Tobacco Usage none 05/15/2015 4:45pm Not Applicable Not Applicable Query Response Start Date Stop Date Smoking Status Former smoker Hospital Discharge Instructions Instructions: Care Instructions: Reason for Hospitalization: abdominal pain, nausea and vomiting I was in the hospital because (patient own words): belly and side pain Discharge Diet: ADA Discharge Activity: Activity as tolerated Follow Up Appointments: Follow-up with primary care provider, Dr. Guo in one week Pending Lab / Results: No Pending Lab Patient Instructions: Take Flagyl and Cipro antibiotics twice a day for 5 days It is very important that you take MiraLAX and senna plus every day as directed to avoid further episodes of constipation and severe abdominal pain. Wound/Incision Care: N/A Pain Scale Utilized to Educate Patient: 0-10 Pain Scale Pain Management/Treatment: ultram as needed for pain control Expected Signs/Symptoms: Continue improvement in abdominal discomfort and nausea Notify Physician If: Persistent nausea, diarrhea, severe abdominal pain, fevers or other concerning symptoms During Business Hours:: Please call the physician's office After Business Hours:: Please call [phone] and have the welding machine operator submerged arc page the physician. Condition at time of discharge: Good Plan of Care Discharge Date 06/23/16 10:34am Disposition 01 DISCHARGED HOME, SELF-CARE Instructions/Education Provided Colonoscopy (DC) Bowel Obstruction (DC) Prescriptions See Medication Section Care Plan and Goals See Discharge Instructions Section Functional Status Query Response Date Recorded Mobility Status Ambulatory w/assist June 23, 2016 9:31am Assistive Devices Cane June 23, 2016 9:31am Activity Limitations Shortness of breath June 23, 2016 9:31am Feeding Ability Independent June 23, 2016 9:31am Toileting Ability Independent June 23, 2016 9:31am Grooming Ability Independent June 23, 2016 9:31am Dressing Ability Independent June 23, 2016 9:31am Driving Ability Dependent June 23, 2016 9:31am Housework Ability Independent June 23, 2016 9:31am Meal Preparation Ability Independent June 23, 2016 9:31am Stair Climbing Ability Independent June 23, 2016 9:31am Ability to complete ADL's impeded by No change June 23, 2016 9:31am Cognitive/Perceptual Impairments Impaired vision Impaired hearing June 23, 2016 9:31am Visual Assistive Devices Glasses With patient June 22, 2016 5:44pm Preferred Method of Learning Reading Demonstration June 22, 2016 5:44pm Allergies, Adverse Reactions, Alerts Allergen Type Severity [...] File Recorded Date/Time Hx Influenza Vaccination Y 12/201506/19/16 2:19pm Hx Pneumococcal Vaccination No 06/19/16 2:19pm Hx Tetanus, Diptheria, Pertussis No 09/30/14 12:28pm Hx Influenza Vaccination Y 12/201506/19/16 2:19pm Hx Tetanus Diptheria No 09/30/14 12:28pm Hx Tetanus, Diptheria, Pertussis No 09/30/14 12:28pm Hx Tetanus Toxoid Vaccination No 09/02/14 2:02pm Influenza Vaccine Hx 12/201506/22/16 12:10pm Tetanus Diptheria Vaccine History UTD PER PATIENT 06/19/16 11:17am Vital Signs Acute Vital Signs Vital Response Date/Time Temperature (Fahrenheit) 97.0 deg F (96.8 - 99.1) 06/23/2016 8:16am Temperature (Calculated Celsius) 36.41808 degrees C (36.0 - 37.3) 06/23/2016 8:16am Temperature Source Oral 06/23/2016 8:16am Pulse Rate (adult) 73 bpm (60 - 100) 06/23/2016 8:16am Respiratory Rate 18 breaths/min (10 - 20) 06/23/2016 8:16am O2 Sat by Pulse Oximetry 96 % (90 - 100) 06/23/2016 8:16am Oxygen Delivery Method Room Air 06/23/2016 8:16am Oxygen Delivery Method Room Air 06/22/2016 11:55am Blood Pressure 160/95 mm Hg 06/23/2016 8:16am Blood Pressure Source Automatic Cuff 06/23/2016 8:16am Height (Feet) 6 feet 06/22/2016 6:00pm Height (Inches) 2.00 inches 06/22/2016 6:00pm Weight (Kilograms) 109.400 kg 06/22/2016 1:25pm Body Mass Index (BMI) 31.5 06/19/2016 2:11pm Results Laboratory Results Test Name Result Units Flags Reference Collection Date/Time Result Date/ Time Comments White Blood Count 8.5 T/MM3 4.5-11.0 06/23/2016 4:52am 06/23/2016 5: 16am Red Blood Count 4.22 M/MM3 L 4.50-5.90 06/23/2016 4:52am 06/23/2016 5: 16am Hemoglobin 12.4 GM/DL L 13.5-17.5 06/23/2016 4:5206/23/2016 5:16am Hematocrit 36.3 % L 41-53 06/23/2016 4:06/23/2016 5:16am Mean Corpuscular Volume 86.0 UM3 80-100 06/23/2016 4:5206/23/2016 5: 16am Mean Corpuscular Hemoglobin 29.4 UUG 26-34 06/23/2016 4:2016 5:16am Mean Corpuscular Hemoglobin Concent 34.2 GM/DL 31-37 06/23/2016 4:5206/23/2016 5:16am RDW Standard Deviation 36.7 FL L 36.9-50.2 06/23/2016 4:06/23/2016 5:16am Platelet Count 245 T/MM3 130-400 06/23/2016 4:06/23/2016 5:16am Mean Platelet Volume 8.8 UM3 L 9.4-12.4 06/23/2016 4:06/23/2016 5: 16am Neutrophils (%) (Auto) 50.3 % 33-66 06/23/2016 4:06/23/2016 5: 16am Lymphocytes (%) (Auto) 37.6 % 23-45 06/23/2016 4:06/23/2016 5: 16am Monocytes (%) (Auto) 6.9 % 0-9.0 06/23/2016 4:06/23/2016 5:16am Eosinophils (%) (Auto) 3.3 % 0-4 06/23/2016 4:06/23/2016 5:16am Basophils (%) (Auto) 0.6 % 0-2 06/23/2016 4:06/23/2016 5:16am Immature Granulocyte % (Auto) 1.3 % H 0.0-0.5 06/23/2016 4:2016 5:16am Absolute Neutrophils (auto) 4.3 T/MM3 1.8-7.7 06/23/2016 4:2016 5:16am Absolute Lymphocytes (auto) 3.2 T/MM3 1-4.8 06/23/2016 4:2016 5:16am Absolute Monocytes (auto) 0.6 T/MM3 0-0.8 06/23/2016 4:52am 06/23/2016 5:16am Absolute Eosinophils (auto) 0.3 T/MM3 0-0.5 06/23/2016 4:52am 2016 5:16am Absolute Basophils (auto) 0.1 T/MM3 0-0.2 06/23/2016 4:52am 06/23/2016 5:16am Absolute Immature Granulocyte (auto 0.11 T/MM3 H 0.00-0.03 06/23/2016 4: 52am 06/23/2016 5:16am Neutrophils % (Manual) 69.0 % H 33-66 06/22/2016 4:40am 06/22/2016 5: 59am Band Neutrophils % 9.0 % H 0-6 06/22/2016 4:40am 06/22/2016 5:59am Lymphocytes % (Manual) 18.0 % L 23-45 06/22/2016 4:40am 06/22/2016 5: 59am Monocytes % (Manual) 3.0 % 0-9.0 06/22/2016 4:40am 06/22/2016 5:59am Eosinophils % (Manual) 1.0 % 0-4 06/22/2016 4:40am 06/22/2016 5:59am Reactive Lymphocytes % 5.0 % H 0-0 06/19/2016 10:44am 06/19/2016 11: 14am Band Neutrophils # 0.9 T/MM3 06/22/2016 4:40am 06/22/2016 5:59am Absolute Neutrophils (Manual) 6.9 T/MM3 1.8-7.7 06/22/2016 4:40am 06/22 5:59am Lymphocytes # (Manual) 1.8 T/MM3 1-4.8 06/22/2016 4:40am 06/22/2016 5: 59am Monocytes # (Manual) 0.3 T/MM3 0-0.8 06/22/2016 4:40am 06/22/2016 5: 59am Eosinophils # (Manual) 0.1 T/MM3 0-0.5 06/22/2016 4:40am 06/22/2016 5: 59am Reactive Lymphocytes # 1.2 T/MM3 H 0-0 06/19/2016 10:44am 06/19/2016 11: 14am Red Cell Morphology Comment NORMAL 06/22/2016 4:40am 06/22/2016 5: 59am Platelet Function P2Y12 React Units 87 PRU 06/20/2016 4:24am 2016 6:19am PRU reference range for non-treated is 194-418. Post Drug Results: Lower PRU levels are associated with antiplatelet effect. PRU results <194 are highly indicative of a P2Y12 inhibitor effect. PRU results of >237 are recommended pre-surgical results. NOTE: Test is not reliable with NSAID use, platelet count <100,000, Hematocrit <33% or >52%, or inherited platelet disorders. Icterus Index < 2 0-7 06/23/2016 4:52am 06/23/2016 5:27am Chemistry Specimen Hemolysis < 15 0-25 06/23/2016 4:52am 06/23/2016 5 :27am 0-25: Specimen Exhibited No Hemolysis. Turbidity < 20 0-20 06/23/2016 4:52am 06/23/2016 5:27am Sodium Level 139 MEQ/L D 134-144 06/23/2016 4:52am 06/23/2016 5:44am Potassium Level 3.4 MEQ/L L 3.6-5 06/23/2016 4:52am 06/23/2016 5:27am Chloride Level 102 MEQ/L 98-107 06/23/2016 4:52am 06/23/2016 5:27am Carbon Dioxide Level 22 MEQ/L 22-30 06/23/2016 4:52am 06/23/2016 5: 27am Anion Gap 15 MEQ/L 5-15 06/23/2016 4:52am 06/23/2016 5:27am Blood Urea Nitrogen 3.0 MG/DL L 9-20 06/23/2016 4:52am 06/23/2016 5: 27am Creatinine 0.8 MG/DL 0.8-1.5 06/23/2016 4:52am 06/23/2016 5:27am BUN/Creatinine Ratio 4 RATIO L 6-26 06/23/2016 4:52am 06/23/2016 5:27am Glomerular Filtration Rate Calc 101 06/23/2016 4:52am 06/23/2016 5: 27am Glucose Level 183 MG/DL H 75-110 06/23/2016 4:52am 06/23/2016 5:27am Calculated Osmolality 270 MOSM/KG 261-280 06/23/2016 4:5206/23/2016 5:27am Calcium Level 8.3 MG/DL D L 8.4-10.2 06/23/2016 4:52am 06/23/2016 5:44am Total Bilirubin 0.50 MG/DL 0.20-1.30 06/22/2016 4:4006/22/2016 5: 31am Alkaline Phosphatase 124 U/L 38-126 06/22/2016 4:4006/22/2016 5: 31am Total Protein 5.8 G/DL L 6.3-8.2 06/22/2016 4:4006/22/2016 5:31am Albumin 2.9 G/DL L 3.5-5.0 06/22/2016 4:4006/22/2016 5:31am Globulin 2.9 G/DL 2.4-3.6 06/22/2016 4:4006/22/2016 5:31am Albumin/Globulin Ratio 1.0 RATIO L 1.1-2.2 06/22/2016 4:4006/22/2016 5:31am Aspartate Amino Transf (AST/SGOT) 22 U/L D 17-59 06/22/2016 4:40am 2016 5:34am Alanine Aminotransferase (ALT/SGPT) 43 U/L 21-72 06/22/2016 4:40 5:31am Troponin I < 0.012 ng/ml 0-0.12 06/19/2016 10:44am 06/19/2016 11:19am Troponin values with a difference of 55% increase from orginal troponin value represent a true biological DELTA value. (%increase Calc=Orginal Troponin value, divided by subsequent Troponin value, multiplied by 100) Lipase 40 U/L 23-300 06/19/2016 10:44am 06/19/2016 11:08am Plasma Lactate 1.5 MMOL/L 0.6-2.2 06/19/2016 4:35pm 06/19/2016 4:59pm Procalcitonin 0.38 NG/ML 06/19/2016 1:20pm 06/19/2016 2:00pm PCT </= 0.5 ng/mL - sepsis not likely; PCT >0.5 and </=2 ng/mL - sepsis possible; PCT >2 ng/mL - sepsis likely; PCT >/=10 ng/mL - systemic inflammatory response - sepsis or septic shock highly indicated. Hemoglobin A1c 10.5 % H 6.1-7.9 06/19/2016 10:44am 06/19/2016 6:05pm < 6.0 NON-DIABETIC RANGE 6.1-7.9 [facility] TARGET RANGE >8.0 ACTION SUGGESTED Urine Random Creatinine 77.2 MG/DL 06/19/2016 8:08pm 06/19/2016 8: 41pm Urine Random Sodium 32 MEQ/L 30-90 06/19/2016 8:08pm 06/19/2016 8:41pm Stool Campylobacter PCR NEGATIVE NEGATIVE 06/20/2016 4:42am 2016 7:30am Stool C. difficile Toxin (PCR) NEGATIVE NEGATIVE 06/20/2016 4:42am 7:30am Stool Plesiomonas shigelloides PCR NEGATIVE NEGATIVE 06/20/2016 4: 42am 06/20/2016 7:30am Stool Salmonella PCR NEGATIVE NEGATIVE 06/20/2016 4:42am 06/20/2016 7 :30am Stool Vibrio (PCR) NEGATIVE NEGATIVE 06/20/2016 4:42am 06/20/2016 7: 30am Stool Vibrio cholera (PCR) NEGATIVE NEGATIVE 06/20/2016 4:42am 2016 7:30am Stool Yersinia enterocolitica (PCR) NEGATIVE NEGATIVE 06/20/2016 4: 42am 06/20/2016 7:30am Stool Enteroaggregative E. coli PCR NEGATIVE NEGATIVE 06/20/2016 4: 42am 06/20/2016 7:30am Stool Enteropathogenic E. coli (PCR NEGATIVE NEGATIVE 06/20/2016 4: 42am 06/20/2016 7:30am Stool Enterotoxigenic Ecoli PCR NEGATIVE NEGATIVE 06/20/2016 4:42am 06/20/2016 7:30am Stool E. coli Shiga Toxins NEGATIVE NEGATIVE 06/20/2016 4:42am 2016 7:30am Stool E coli O157 PCR N/A NA/NEG 06/20/2016 4:42am 06/20/2016 7:30am Stool Shigella/EIEC (PCR) NEGATIVE NEGATIVE 06/20/2016 4:42am 2016 7:30am Stool Cryptosporidium PCR NEGATIVE NEGATIVE 06/20/2016 4:42am 2016 7:30am Stool Cyclospora species Detection NEGATIVE NEGATIVE 06/20/2016 4: 42am 06/20/2016 7:30am Stool Entamoeba (PCR) NEGATIVE NEGATIVE 06/20/2016 4:42am 06/20/2016 7:30am Stool Giardia Lamblia PCR NEGATIVE NEGATIVE 06/20/2016 4:42am 2016 7:30am Stool Adenovirus (PCR) NEGATIVE NEGATIVE 06/20/2016 4:42am 2016 7:30am Stool Astrovirus (PCR) NEGATIVE NEGATIVE 06/20/2016 4:42am 2016 7:30am Stool Norovirus GI/GII PCR NEGATIVE NEGATIVE 06/20/2016 4:42am 2016 7:30am Stool Rotavirus A PCR NEGATIVE NEGATIVE 06/20/2016 4:42am 06/20/2016 7:30am Stool Sapovirus (PCR) NEGATIVE NEGATIVE 06/20/2016 4:42am 06/20/2016 7:30am Glucometer 167 mg/dL H 75-110 06/22/2016 4:37pm 06/23/2016 4:16am Microbiology Results Procedure Source Organism/Result Collection Date/Time Result Date/Time Result Status Blood Culture Peripheral/Iv Start NO GROWTH AFTER 72 HOURS 06/19/2016 1: 23pm 06/22/2016 1:27pm Preliminary Name: TY LOOMIS Unit #: [id number] : [id number] Sex: M Admit Date: 06/19/16 Loc / Svc: SRG Discharge Date: DIAGNOSTIC IMAGING REPORT Report #: [id number] [facility] SH[facility] [place] Indication:ITS.REASON: r/o obstruction Procedure:BARIUM ENEMA W/O AIR Sales Operations KUB: Three hydrographer abdominal radiographs were obtained. Large dilated and air-filled colonic loops are visualized. Surgical clips are noted in the right upper quadrant. Telemetry wires are visualized throughout the abdomen. XF SINGLE CONTRAST COLON: Technique: Using fluoroscopic guidance and meticulous graded compression, a single contrast Gastrografin enema was performed. Fluoroscopic imaging was obtained in the supine AP, left lateral, LPO, RPO, and right lateral positions. Additional conventional x-ray imaging of the abdomen was obtained after the administration of rectal contrast. Findings: There is a short segment, smoothly-margined narrowing in the proximal sigmoid colon that does not restrict the retrograde flow of contrast. The stricture has a benign appearance. The remainder of the exam is essentially negative. There is a large amount of residual air and stool in the colon. No diverticulosis. There is no filling defect to suggest a polyp. There is no obstruction. Impression: Short segment, smoothly-marginated benign appearing narrowing in the proximal sigmoid colon. This could be a post-inflammatory stricture. This could also represent a less distensible segment in an otherwise dilated colon with an overall appearance suggestive of pseudoobstruction. A colonoscopy could be performed for further evaluation. These findings were telephoned to Dr. Samayoa at the conclusion of this exam. Fluoroscopy dose: 109.95 mGy (Cumulative air kerma) Laron Treviño RPA/SHAQUILLE performed this under my direct supervision. . Procedures Procedure Status Date Provider(s) Colonoscopy with polypectomy and biopsy Completed 06/22/16 LUPILLO SAMAYOA MD, FACS, CWS Encounters Encounter Location Arrival/Admit Date Discharge/Depart Date Attending Provider Discharged Inpatient [facility] 06/19/16 12:31pm 06/23/16 10: 34am SVEN SON MD
--- OUTSIDE RECORDS SUMMARY | 2016-07-07 09:32 | XMS REPORT | Continuity of Care Document ---
Author Author [facility] Organization [facility] Address Unknown Phone Unavailable Allergies Active [...] 7.0 NA 5.0-8.0 Protein Negative Negative Specific [place] 1.010 NA 1.003-1.030 UA Collection type Voided NA Urobilinogen 0.2 mg/dL <1.0 Encounters ACCT No. Visit Date/Time Discharge Status Pt. Type Provider Facility Loc./Unit Complaint [id number] 04/14/2013 09:38:00 04/14/2013 23 :59:59 CLS Outpatient
[2016-07-07 09:45] VITALS: Ht 188 cm; Wt 108.9 kg
[2016-07-07] MEDS ORDERED: POLY119P3 PO (10:24)
[2016-07-07] MEDS ORDERED: SENN-152 PO (10:26)
[2016-07-07] MEDS ORDERED: TRAZ150T80 PO (10:27)
[2016-07-07] MEDS ORDERED: DIPH50CA4 PO (10:28)
[2016-07-07] MEDS ORDERED: PROM25TA7 PO (10:28)
[2016-07-07 10:53] VITALS: BP 143/90; PULSE 80; RESP 18; TEMP 98.7; O2SAT 97
--- NOTE | 2016-07-07 10:53 | NUR ---
AMA PATIENT CALLS RN TO ROOM, ADVISES HE WISHES TO GO AND WILL RETURN LATER IF INCREASE IN SX. RN ADVISES PATIENT HE WILL BE LEAVING AGAINST MEDICAL ADVICE, AND THAT HE SHOULD CONTACT HIS PCP THIS A.M. FOR ADVICE ON HOME REMEDIES HE MAY TRY. PATIENT V/U, DENIES QUESTIONS OR CONCERNS. Addendum: 07/08/16 at 1805 by [email or web address] LWBS PATIENT LEFT WITHOUT SEEING PHYSICIAN. PATIENT DID NOT LEAVE AM
--- OUTSIDE RECORDS SUMMARY | 2016-07-07 11:00 | XMS REPORT | Continuity of Care Document ---
Author Author [facility] Organization [facility] Address Unknown Phone Unavailable Allergies Active Description [...] 7.0 NA 5.0-8.0 Protein Negative Negative Specific [place] 1.010 NA 1.003-1.030 UA Collection type Voided NA Urobilinogen 0.2 mg/dL <1.0 Encounters ACCT No. Visit Date/Time Discharge Status Pt. Type Provider Facility Loc./Unit Complaint [id number] 04/14/2013 09:38:00 04/14/2013 23 :59:59 CLS Outpatient
== END 2016-07-08 10:53 | disposition left against medical advice (07) ==
LOC: ED 09:25
DX: Z53.21 Procedure and treatment not carried out due to patient leaving prior to being seen by health care provider (principal)